=== PATIENT | female | born 1960 | race Caucasian/White ===

== ENCOUNTER 2021-06-30 13:59 | Outpatient (REF) | payer MEDICARE, MEDICAID, SELFPAY ==
--- NOTE | ~2021-06-30 | US_ITS ---
EXAMINATION: US ABDOMEN COMPLETE CLINICAL INFORMATION: Abnormal LFTs. COMPARISON: CT abdomen and pelvis 08/06/2017. Renal ultrasound 06/26/2016 and 10/12/2014. TECHNIQUE: Real-time imaging of the abdominal viscera. FINDINGS: PANCREAS: The pancreas appears unremarkable, without masses or ductal dilatation, with the exception of the tail which is obscured by bowel gas. ABDOMINAL AORTA: The proximal, mid, and distal segments are normal in caliber. INFERIOR VENA CAVA: Visualized portions are normal. LIVER: The liver is normal in size. The liver contour is normal. There is mild diffuse increased liver parenchymal echogenicity, consistent with hepatic steatosis. No focal hepatic lesion. There is no intrahepatic biliary duct dilatation seen. GALLBLADDER: The gallbladder is physiologically distended without evidence of stones, sludge, wall thickening or pericholecystic fluid. COMMON BILE DUCT: Normal in caliber measuring 0.4 cm in diameter. RIGHT KIDNEY: Normal. No hydronephrosis. No renal calculi or focal parenchymal lesions. The kidney measures 9.3 cm in maximum dimension. LEFT KIDNEY: An extrarenal pelvis is seen as was also identified on the prior 2017 CT scan, although not as distended as previously seen. No hydronephrosis. No renal calculi or focal parenchymal lesions. The kidney measures 8.8 cm in maximum dimension. SPLEEN: Normal. The spleen measures 6.6 cm in maximum dimension. FREE FLUID: None. US/US abdomen complete IMPRESSION: Slightly echogenic liver suggesting hepatic steatosis. Left-sided extrarenal pelvis.
== END 2021-06-30 14:00 | disposition home or self-care (01) ==
LOC: HO.HMGCX 13:59
PROVIDERS: PCP Internal Medicine; Visit Provider Internal Medicine
DX: R79.89 Other specified abnormal findings of blood chemistry (principal)
CPT/HCPCS: 76700

== ENCOUNTER 2021-08-02 14:02 | Outpatient (REF) | payer MEDICARE, MEDICAID, SELFPAY ==
--- NOTE | ~2021-08-02 | XR_ITS ---
EXAMINATION: PELVIS. CLINICAL INFORMATION: Pre-MRI lumbar spine evaluation. Previous removal of neuro stimulator COMPARISON: AP pelvis 01/06/2019. TECHNIQUE: AP pelvis. FINDINGS: The stimulator hardware has been removed. However there is electrode seen overlying the right sacrum likely a broken piece following removal. The SI joints are otherwise symmetrical and normal. Moderate enthesophytes are seen along the femoral head and neck bilaterally slightly greater on the right. Mild periarticular spurring along the acetabulum is seen as well. No visible acute fracture, dislocation or lytic process seen. The soft tissues are normal. XR/XR pre mri screening IMPRESSION: The stimulator hardware has been removed. However there is a broken stimulator lead overlying the right sacrum. All degenerative changes bilateral hip joints slightly worse on the right. Findings are unchanged to 01/06/2019.
--- NOTE | ~2021-08-02 | MR_ITS ---
EXAMINATION: MR LUMBAR SPINE WITHOUT CONTRAST CLINICAL INFORMATION: Chronic, worsening lower back pain. COMPARISON: Multiple priors, most recent lumbar spine CT dated 08/02/2016, radiographs dated 07/23/2016, and MRI dated 06/02/2014 TECHNIQUE: MRI of the lumbar spine was obtained using routine sequences without contrast. FINDINGS: VERTEBRAL BODIES AND PARASPINAL STRUCTURES: Normal vertebral body alignment. The lumbar lordosis is maintained. No acute fracture or subluxation. No loss of vertebral body height. Mild loss of intervertebral disc height with disc desiccation at L2-L5, slightly progressed when compared to the prior MRI. Multilevel tiny anterior endplate osteophytes. No marrow edema to suggest acute osseous injury. Extrarenal pelvises, left greater than right. Otherwise, the visualized paraspinal soft tissues are unremarkable. CONUS MEDULLARIS AND CAUDA EQUINA: Normal, terminating at the level of the T12-L1 intervertebral disc. SPINAL LEVELS: T12-L1: No significant disc bulge. No central canal or neural foraminal stenosis. L1-L2: No significant disc bulge. Bilateral facet arthropathy and thickening of the ligamentum flavum without central canal or neural foraminal stenosis. L2-L3: Mild broad-based disc bulge with bilateral facet arthropathy and thickening of the ligamentum flavum causing minimal central canal stenosis as well as minimal bilateral neural foraminal stenosis, left greater than right. Findings are not significantly changed. L3-L4: Mild broad-based disc bulge with bilateral facet arthropathy and thickening of the ligamentum flavum causing minimal central canal stenosis as well as mild bilateral neural foraminal stenosis, not significantly changed. L4-L5: Mild broad-based disc bulge with a shallow right extraforaminal disc protrusion which abuts the exiting right L4 nerve root, new/increased when compared to the prior examination. Bilateral facet arthropathy and thickening of the ligamentum flavum with mild central canal stenosis as well as mild bilateral neural foraminal stenosis which is unchanged. L5-S1: Minimal broad-based disc bulge with a shallow posterior central disc protrusion, bilateral facet arthropathy, and thickening of the ligamentum flavum causing mild central canal as well as mild bilateral neural foraminal stenosis, unchanged. MR/MR lumbar spine wo con IMPRESSION: 1. Mild broad-based disc bulge at L4-L5 with a shallow right extraforaminal disc protrusion which abuts the exiting right L4 nerve root, new/increased when compared to the prior examination. Bilateral facet arthropathy and thickening of the ligamentum flavum cause mild central canal and mild bilateral neural foraminal stenosis which is unchanged. 2. Additional multilevel degenerative disc disease has minimally progressed. Additional disc bulges and stenosis appear similar when compared to the prior MRI.
== END 2021-08-02 14:03 | disposition home or self-care (01) ==
LOC: HO.MRI 14:02
PROVIDERS: PCP Internal Medicine; Visit Provider Internal Medicine
DX: G89.29 Other chronic pain (principal); M46.45 Discitis, unspecified, thoracolumbar region
CPT/HCPCS: 72148

== ENCOUNTER 2022-02-13 11:25 | Emergency (ER) | payer MEDICARE, MEDICAID, SELFPAY ==
--- NOTE | ~2022-02-13 | CT_ITS ---
EXAMINATION: CT ANGIOGRAM OF THE CHEST WITH AND WITHOUT CONTRAST (CT PULMONARY ANGIOGRAM FOR PE) CLINICAL INFORMATION: Reason for Exam SOB, chest pain, hemoptysis COMPARISON: CT chest 07/10/2016 TECHNIQUE: Prior to contrast administration, noncontrast localization images were obtained. Subsequently, multidetector volumetric imaging was performed from the thoracic inlet to below the diaphragms following the administration of 65 mL Omnipaque 350 intravenous contrast. No contrast reaction reported Sagittal, coronal, and MIP oblique sagittal reformatted images were obtained on the CT workstation, uploaded to PACS, and reviewed. This CT examination was performed using dose optimization techniques as appropriate, variously including the following: *Automated exposure control *Adjustment of mA and/or kV according to patient size (this includes techniques or standardized protocols for targeted exams where dose is matched to indication/reason for exam; i.e. extremities or head) *Use of iterative reconstruction technique Total exam dose-length product 214 mGy-cm FINDINGS: QUALITY OF STUDY/CONTRAST BOLUS: Satisfactory. PULMONARY ARTERIES: No central or segmental pulmonary emboli. THORACIC AORTA: No aneurysm or dissection. LUNG: Multiple small pulmonary nodules are seen most of which are unchanged (see al images). There is a new perifissural 7 mm sized lung nodule present in the right lower lobe which was not present previously (14:313) and al images. PLEURA: No pleural effusion or pneumothorax. MEDIASTINUM: Normal heart size. No pericardial effusion. No hilar or mediastinal lymphadenopathy. No evidence of septal bowing or right heart strain. CHEST WALL/AXILLA: No axillary or internal mammary lymphadenopathy. OSSEOUS STRUCTURES: No acute or suspicious osseous abnormality. UPPER ABDOMEN: Unremarkable. No reflux of contrast into the hepatic veins to suggest elevated right heart pressures. CT/CT angio chest PE protocol IMPRESSION: 1. No evidence of pulmonary emboli. 2. New 7 mm lung mass when compared with the prior [address] 2017 Fleischner Society Recommendations for Lung Nodule(s): Follow-Up based on size (average of long- and short-axis diameters). Use most suspicious nodule for followup. Single Solid lung nodule 6-8 mm: In a low-risk patient, recommend a non-contrast Chest CT at 6-12 months, then consider an additional non-contrast Chest CT at 18-24 months. In a high-risk patient, recommend a non-contrast Chest CT at 6-12 months, then another non-contrast Chest CT at 18-24 months. These guidelines do not apply to patients younger than 35 years, immunocompromised patients, and patients with cancer. F/u in patients with significant comorbidities as clinically warranted. For lung cancer screening, adhere to Lung-RADS guidelines. Reference: Radiology. 2017 May; 284(1):228-243 VTE: negative
--- NOTE | ~2022-02-13 | CT_ITS ---
EXAMINATION: CT HEAD WITHOUT CONTRAST CT CERVICAL SPINE WITHOUT CONTRAST CLINICAL INFORMATION: Headache after a fall COMPARISON: CT head 02/13/2011, 07/28/2010 TECHNIQUE: Imaging was performed from the skull base to vertex without intravenous administration of contrast. In addition, helical noncontrast CT imaging was acquired through the cervical spine and source images were reviewed along with axial reconstructions and sagittal and coronal MPRs. [This CT examination was performed using dose optimization techniques as appropriate, variously including the following: *Automated exposure control *Adjustment of mA and/or kV according to patient size (this includes techniques or standardized protocols for targeted exams where dose is matched to indication/reason for exam; i.e. extremities or head) *Use of iterative reconstruction technique] DLP: 10.25+6.2, 9.79+230.25+229.22 mGy-cm FINDINGS: HEAD: No intracranial mass, hemorrhage, or midline shift is visualized. The ventricles and sulci are proportional. No extra-axial collections are identified. The paranasal sinuses and mastoid air cells are well aerated. CERVICAL SPINE: There is no evidence of acute cervical spine fracture. Vertebral bodies remain normal in height. Cervical vertebrae have normal alignment. There is mild degenerative spondylosis of the cervical spine with disc height narrowing and endplate spurs and facet joint arthrosis at C5-C6 and C6-C7 No pre- or paravertebral soft tissue abnormality is identified. Limited assessment of the lung apices is unremarkable. CT/CT head/brain wo con IMPRESSION: 1. No acute intracranial pathology. 2. No CT evidence of acute cervical spine fracture or traumatic subluxation
--- NOTE | ~2022-02-13 | CT_ITS ---
EXAMINATION: CT HEAD WITHOUT CONTRAST CT CERVICAL SPINE WITHOUT CONTRAST CLINICAL INFORMATION: Headache after a fall COMPARISON: CT head 02/13/2011, 07/28/2010 TECHNIQUE: Imaging was performed from the skull base to vertex without intravenous administration of contrast. In addition, helical noncontrast CT imaging was acquired through the cervical spine and source images were reviewed along with axial reconstructions and sagittal and coronal MPRs. [This CT examination was performed using dose optimization techniques as appropriate, variously including the following: *Automated exposure control *Adjustment of mA and/or kV according to patient size (this includes techniques or standardized protocols for targeted exams where dose is matched to indication/reason for exam; i.e. extremities or head) *Use of iterative reconstruction technique] DLP: 10.25+6.2, 9.79+230.25+229.22 mGy-cm FINDINGS: HEAD: No intracranial mass, hemorrhage, or midline shift is visualized. The ventricles and sulci are proportional. No extra-axial collections are identified. The paranasal sinuses and mastoid air cells are well aerated. CERVICAL SPINE: There is no evidence of acute cervical spine fracture. Vertebral bodies remain normal in height. Cervical vertebrae have normal alignment. There is mild degenerative spondylosis of the cervical spine with disc height narrowing and endplate spurs and facet joint arthrosis at C5-C6 and C6-C7 No pre- or paravertebral soft tissue abnormality is identified. Limited assessment of the lung apices is unremarkable. CT/CT cervical spine wo con IMPRESSION: 1. No acute intracranial pathology. 2. No CT evidence of acute cervical spine fracture or traumatic subluxation
[2022-02-13 11:51] VITALS: BP 132/73; BP 99/66; PULSE 100; PULSE 106; RESP 18; TEMP 36.9; O2SAT 94; O2SAT 95; BMI 20.7
--- NOTE | 2022-02-13 11:56 | ECG_ITS ---
Test Reason : UPPER RESPIRATORY Blood Pressure : / mmHG Vent. Rate : 088 BPM Atrial Rate : 088 BPM P-R Int : 138 ms QRS Dur : 086 ms QT Int : 356 ms P-R-T Axes : 083 063 076 degrees QTc Int : 430 ms Normal sinus rhythm Normal ECG When compared with ECG of 20-FEB-2017 15:28, No significant change was found Referred By: Vivi Osman Electronically Signed By:Kwadwo Rubio
--- NOTE | 2022-02-13 12:13 | ED.GENADULT ---
HPI - General Adult General Chief complaint: Upper Respiratory Symptoms Stated complaint: SOB Time Seen by Provider: 02/13/22 11:56 Source: patient and EMS Mode of arrival: EMS Limitations: no limitations History of Present Illness HPI narrative: 61 y/o female with history of COPD, active smoker, HTN, chronic back and neck pain, anxiety/depression, who presents to the ER from home with 6 weeks of SOB, productive cough along with new brown sputum. She was found to be hypotensive and hypothermic by her boyfriend today when he checked her vital signs. She was treated with 2 courses of abx over the last month and a half with no improvements in her SOB or cough. Two night ago she either fell asleep or passed out on the toilet and woke up on the floor. She hit her head and has been having acute on chronic neck pain. She has been having intermittent chest pains she describes as twinges. She has had chills but no fevers. Temps at home were as low as 93 per her report. She denies sick contacts. On EMS arrival patient placed the patient in cervical collar due to neck pain after fall. MD complaint: SOB, cough, neck pain s/p fall Onset (ago): week(s) Location: head, neck and chest Radiation: non-radiation Severity: moderate Quality: aching and sharp Pain Consistency: constant Relieving factors: none Exacerbating factors: none Associated symptoms: chest pain, cough and shortness of breath Treatments prior to arrival: none Related Data Home Medications Medication Instructions Recorded Confirmed acetaminophen 500 mg capsule 1,000 mg PO Q6H PRN 12/21/20 12/21/20 albuterol sulfate 90 mcg/actuation 2 puff INHALATION 6XD PRN 12/21/20 12/21/20 aerosol inhaler (ProAir HFA) aspirin 81 mg tablet,delayed 81 mg PO DAILY 12/21/20 12/21/20 release atorvastatin 20 mg tablet 20 mg PO DAILY 12/21/20 12/21/20 diazepam 10 mg tablet 10 mg PO DAILY PRN 12/21/20 12/21/20 fluoxetine 40 mg capsule 40 mg PO CONT 12/21/20 12/21/20 multivitamin 1 tab PO DAILY 12/21/20 12/21/20 tiotropium bromide 18 mcg capsule 1 cap INHALATION DAILY 12/21/20 12/21/20 with inhalation device (Spiriva with HandiHaler) tramadol 50 mg tablet 50 mg PO BID PRN 12/21/20 12/21/20 verapamil 200 mg capsule 24hr 200 mg PO BEDTIME 12/21/20 12/21/[address],ext.release Previous Rx's Medication Instructions Recorded fluticasone 100 mcg-salmeterol 50 1 inh INHALATION BID #60 ea 02/13/22 mcg/dose blistr powdr for inhalation (Advair Diskus) levofloxacin 250 mg tablet 250 mg PO DAILY #5 tab 02/13/22 Allergies Allergy/AdvReac Type Severity Reaction Status Date / Time codeine [CODEINE] Allergy Intermediate ITCHING Verified 02/13/22 11:51 hydrocodone [HYDROCODONE] Allergy Intermediate ITCHING Verified 02/13/22 11:51 diphenhydramine AdvReac Intermediate JITTERY Verified 02/13/22 11:51 [From BENHUEL] Review of Systems Review of Systems: Constitutional: No Fever, + Chills ENT/Mouth: No sore throat, No Rhinorrhea, No Swallowing Difficulty Eyes: No Eye Pain, No Swelling, No Redness Cardiovascular: + Chest Pain, + SOB, No Orthopnea, No Edema Respiratory: + Cough, + Sputum, No Wheezing, + dyspnea Gastrointestinal: No Nausea, No Vomiting, No Diarrhea, No abdominal Pain, No Hematochezia, No Melena Genitourinary: No Dysuria, No Urinary Frequency, No Hematuria, +Urinary hesitancy Musculoskeletal: + joint pain, No Myalgias Skin: No Skin Lesions, No rash Neuro: No Weakness, No Numbness, No Dizziness, + Headache Psych: + Anxiety/Panic, + Depression Heme/Lymph: No Bruising, No Lymphadenopathy Endocrine: No Polyuria, No Polydipsia [facility] Past Medical History Medical History (Updated 02/13/22 @ 16:57 by BALBINA Tejada) Anxiety COPD (chronic obstructive pulmonary disease) DJD (degenerative joint disease) Ectopic History of depression History of herniated intervertebral disc Hyperlipidemia Hypertension IBS (irritable bowel syndrome) PTSD (post-traumatic stress disorder) Scoliosis Urinary incontinence Surgical History (Updated 12/21/20 @ 15:20 by Faye Daley RN) H/O ovarian cystectomy History of bladder surgery History of bladder suspension procedure History of blepharoplasty History of esophagogastroduodenoscopy (EGD) History of hysterectomy Hx of colonoscopy Hx of dilation of urethra Social History Social History Cigarette Packs Per Day: 0.5 Cigarettes Per Day: 10.0 Years Smoked: 33 years Advance Directives: No Advance Directives Information Provided: No Physical Exam ED Vital Signs: Vital Signs - 24 hr 02/13/22 11:51 02/13/22 15:28 Temperature 98.5 F Pulse Rate 106 H 78 Respiratory Rate 18 16 Blood Pressure 99/66 103/72 Pulse Oximetry 94 95 BMI result Body Mass Index 20.7 Appearance: Alert. Oriented X3. No acute distress. Head: normal inspection, left parietal area with palpable tender hematoma Eyes: Pupils equal, round and reactive to light. EOMI ENT: Pharynx normal. Neck: Cervical collar in place. Midline tenderness. CVS: Normal heart rate and rhythm. Pulses normal. Respiratory: No respiratory distress. Breath sounds normal. Abdomen: Soft and nontender. +BS x4 Skin: Skin warm and dry. Normal skin color. Normal skin turgor. No rashes. Extremities: Atraumatic, normal insepction, normal ROM. No lower extremity edema. Neuro: Oriented X 3. No motor deficit. No sensory deficit. Course Course Course Narrative: 61-year-old female with history of COPD, active smoker, hypertension, anxiety/depression who presents to the ER with shortness of breath, chest pain, productive cough, also with a fall 2 nights ago with head and neck pain. She was hypothermic and hypotensive per her boyfriend so EMS was called. On arrival to the ED blood pressure is soft but stable 99/66. She is slightly tachycardic 106 with SpO2 94%. No respiratory distress with coarse lung sounds. Will need to get CT head and neck given her reports of headache and neck pain after her fall, although doubt traumatic injury given date of injury. Will also get CTA of her chest rule out PE given her question of syncopal event. Reevaluation(s) Reevaluation #1: Labs showing mildly elevated bicarb, likely due to chronic respiratory acidosis compensation. Troponin negative. EKG normal. CT scans are pending. Reevaluation #2: CTA negative for PE. 7mm nodule noted that is new from prior. Head/neck CTs are unremarkable. Discussed results with patient and significant other at the bedside. Awaiting UA Reevaluation #3: UA + for infection, will treat with levaquin to cover possible bronchitis as well. stable for d/c home - she will follow up with her fha underwriter and PCP. Medical Decision Making Lab Data Result diagrams: 02/13/22 12:26 02/13/22 12:25 Labs: Lab Results 02/13/22 02/13/22 02/13/22 Range/Units 12:25 12:25 12:25 WBC (4.8-10.8) X10*3/uL RBC (4.20-5.50) X10*6/uL Hgb (12.0-16.0) g/dl Hct (37.0-47.0) % MCV (80.0-98.0) fL MCH (27.0-33.0) pg MCHC (31.0-35.0) g/dl RDW (11.0-16.0) % Plt Count (160-400) X10*3/uL MPV (9.4-12.3) fL Immature Gran % (Auto) (0.0-0.4) % Neut % (Auto) (45-73) % Lymph % (Auto) (20-40) % [place] % (Auto) (2-11) % Eos % (Auto) (0-4) % Baso % (Auto) (0-2) % Lymph # (Auto) (1.2-4.9) X10*3/uL [place] # (Auto) (0.1-1.2) X10*3/uL Eos # (Auto) (0.0-0.4) X10*3/uL Baso # (Auto) (0.0-0.2) X10*3/uL Abs Immat Gran (auto) (0.00-0.03) X10*3/uL Absolute Neuts (auto) (2.0-8.3) x10*3/uL Absolute Nucleated RBC (0.0-0.012) X10*3/uL Nucleated RBC % (auto) (0.0-0.2) /100WBC Sodium 142 (135-145) mmol/L Potassium 4.4 (3.3-5.1) mmol/L Chloride 103 (96-108) mmol/L Carbon Dioxide 32 H (22-29) mmol/L Anion Gap 11 L (12-20) BUN 19 H (9-16) mg/dL Creatinine 0.75 (0.5-1.4) mg/dL Estim Creat Clear Calc 58.7 Estimated GFR > 60 Random Glucose 105 (60-115) mg/dL Calcium 9.5 (8.4-10.2) mg/dL Magnesium 1.8 (1.6-2.6) mg/dL Total Bilirubin 0.2 (0.0-1.0) mg/dL Direct Bilirubin < 0.2 (0.0-0.5) mg/dL AST 22 (5-31) U/L ALT 34 H (0-31) U/L Alkaline Phosphatase 70 (39-117) U/L Troponin I High Sens < 3.5 (<3.5-17.0) ng/L B-Natriuretic Peptide 19 (<100) pg/mL Total Protein 5.8 L (6.5-8.0) g/dL Albumin 3.8 (3.5-5.0) g/dL Procalcitonin 0.02 ng/mL Urine Color Urine Appearance Urine pH (5.0-8.0) Ur Specific [place] (1.005-1.025) Urine Protein (NEG-TRACE) MG/DL Urine Glucose (UA) (NEG) MG/DL Urine Ketones (NEG) MG/DL Urine Blood (NEG) Urine Nitrite (NEG) Ur Leukocyte Esterase (NEG) Urine RBC (0) /HPF Urine WBC (0-4) /HPF Urine WBC Clumps Ur Squamous Epith Cells /LPF Urine Bacteria /LPF COVID-19 (ADRIAN) (Negative) COVID-19 Clin Com Influenza Type A (RAVEN) (Negative) Influenza Type B (RAVEN) (Negative) Influenza A & B Note 02/13/22 02/13/22 02/13/22 Range/Units 12:26 12:28 12:28 WBC 10.3 (4.8-10.8) X10*3/uL RBC 4.03 L (4.20-5.50) X10*6/uL Hgb 13.6 (12.0-16.0) g/dl Hct 40.5 (37.0-47.0) % MCV 100.5 H (80.0-98.0) fL MCH 33.7 H (27.0-33.0) pg MCHC 33.6 (31.0-35.0) g/dl RDW 12.8 (11.0-16.0) % Plt Count 265 (160-400) X10*3/uL MPV 9.0 L (9.4-12.3) fL Immature Gran % (Auto) 0.4 (0.0-0.4) % Neut % (Auto) 64.8 (45-73) % Lymph % (Auto) 25.6 (20-40) % [place] % (Auto) 6.9 (2-11) % Eos % (Auto) 2.0 (0-4) % Baso % (Auto) 0.3 (0-2) % Lymph # (Auto) 2.6 (1.2-4.9) X10*3/uL [place] # (Auto) 0.7 (0.1-1.2) X10*3/uL Eos # (Auto) 0.2 (0.0-0.4) X10*3/uL Baso # (Auto) 0.0 (0.0-0.2) X10*3/uL Abs Immat Gran (auto) 0.04 H (0.00-0.03) X10*3/uL Absolute Neuts (auto) 6.7 (2.0-8.3) x10*3/uL Absolute Nucleated RBC 0.000 (0.0-0.012) X10*3/uL Nucleated RBC % (auto) 0.0 (0.0-0.2) /100WBC Sodium (135-145) mmol/L Potassium (3.3-5.1) mmol/L Chloride (96-108) mmol/L Carbon Dioxide (22-29) mmol/L Anion Gap (12-20) BUN (9-16) mg/dL Creatinine (0.5-1.4) mg/dL Estim Creat Clear Calc Estimated GFR Random Glucose (60-115) mg/dL Calcium (8.4-10.2) mg/dL Magnesium (1.6-2.6) mg/dL Total Bilirubin (0.0-1.0) mg/dL Direct Bilirubin (0.0-0.5) mg/dL AST (5-31) U/L ALT (0-31) U/L Alkaline Phosphatase (39-117) U/L Troponin I High Sens (<3.5-17.0) ng/L B-Natriuretic Peptide (<100) pg/mL Total Protein (6.5-8.0) g/dL Albumin (3.5-5.0) g/dL Procalcitonin ng/mL Urine Color Urine Appearance Urine pH (5.0-8.0) Ur Specific [place] (1.005-1.025) Urine Protein (NEG-TRACE) MG/DL Urine Glucose (UA) (NEG) MG/DL Urine Ketones (NEG) MG/DL Urine Blood (NEG) Urine Nitrite (NEG) Ur Leukocyte Esterase (NEG) Urine RBC (0) /HPF Urine WBC (0-4) /HPF Urine WBC Clumps Ur Squamous Epith Cells /LPF Urine Bacteria /LPF COVID-19 (ADRIAN) Negative (Negative) COVID-19 Clin Com See Note Influenza Type A (RAVEN) Negative (Negative) Influenza Type B (RAVEN) Negative (Negative) Influenza A & B Note See Note 02/13/22 Range/Units 16:40 WBC (4.8-10.8) X10*3/uL RBC (4.20-5.50) X10*6/uL Hgb (12.0-16.0) g/dl Hct (37.0-47.0) % MCV (80.0-98.0) fL MCH (27.0-33.0) pg MCHC (31.0-35.0) g/dl RDW (11.0-16.0) % Plt Count (160-400) X10*3/uL MPV (9.4-12.3) fL Immature Gran % (Auto) (0.0-0.4) % Neut % (Auto) (45-73) % Lymph % (Auto) (20-40) % [place] % (Auto) (2-11) % Eos % (Auto) (0-4) % Baso % (Auto) (0-2) % Lymph # (Auto) (1.2-4.9) X10*3/uL [place] # (Auto) (0.1-1.2) X10*3/uL Eos # (Auto) (0.0-0.4) X10*3/uL Baso # (Auto) (0.0-0.2) X10*3/uL Abs Immat Gran (auto) (0.00-0.03) X10*3/uL Absolute Neuts (auto) (2.0-8.3) x10*3/uL Absolute Nucleated RBC (0.0-0.012) X10*3/uL Nucleated RBC % (auto) (0.0-0.2) /100WBC Sodium (135-145) mmol/L Potassium (3.3-5.1) mmol/L Chloride (96-108) mmol/L Carbon Dioxide (22-29) mmol/L Anion Gap (12-20) BUN (9-16) mg/dL Creatinine (0.5-1.4) mg/dL Estim Creat Clear Calc Estimated GFR Random Glucose (60-115) mg/dL Calcium (8.4-10.2) mg/dL Magnesium (1.6-2.6) mg/dL Total Bilirubin (0.0-1.0) mg/dL Direct Bilirubin (0.0-0.5) mg/dL AST (5-31) U/L ALT (0-31) U/L Alkaline Phosphatase (39-117) U/L Troponin I High Sens (<3.5-17.0) ng/L B-Natriuretic Peptide (<100) pg/mL Total Protein (6.5-8.0) g/dL Albumin (3.5-5.0) g/dL Procalcitonin ng/mL Urine Color YELLOW Urine Appearance HAZY Urine pH 5.5 (5.0-8.0) Ur Specific [place] 1.020 (1.005-1.025) Urine Protein NEG (NEG-TRACE) MG/DL Urine Glucose (UA) NEG (NEG) MG/DL Urine Ketones NEG (NEG) MG/DL Urine Blood NEG (NEG) Urine Nitrite POS H (NEG) Ur Leukocyte Esterase NEG (NEG) Urine RBC 1-4 (0) /HPF Urine WBC 5-9 H (0-4) /HPF Urine WBC Clumps NOTED Ur Squamous Epith Cells 1+ /LPF Urine Bacteria 2+ /LPF COVID-19 (ADRIAN) (Negative) COVID-19 Clin Com Influenza Type A (RAVEN) (Negative) Influenza Type B (RAVEN) (Negative) Influenza A & B Note ECG Data Attestation: I personally reviewed and interpreted this ECG as follows: Prior ECG tracings: available for review Interpretation: Normal sinus rhythm, heart rate 88 beats per minute, normal ID interval, normal QTC, no ST segment elevations or depressions. Isolated T-wave inversion in V1, unchanged from prior. Critical Care Time Critical Care Time Critical Care Time: No Discharge Plan Discharge Clinical Impression: Lung nodule, Acute UTI Patient Disposition: Home, Self-Care Instructions: Urinary Tract Infection in Women (DC), Pulmonary Nodules (ED) Additional Instructions: Your lab workup today was unremarkable. Your urine test showed infection - take the entire course of the prescribed antibiotic. Your CT scans showed a new 7mm lung nodule in the right lower lobe that was not present on prior CT scans. Guidelines recommend a non-contrast Chest CT at 6-12 months, then another non-contrast Chest CT at 18-24 months.? Do your best to cut back on smoking. Start the inhaled medication 2 times per day. Follow up with your Nut Roaster Helper as soon as possible. If you develop new or worsening symptoms call 911 or come back to the ER for further evaluation. Prescriptions: New fluticasone propion-salmeterol [Advair Diskus] 100-50 mcg/dose blister with device 1 inh inhalation BID Qty: 60 0RF levofloxacin 250 mg tablet 250 mg PO DAILY Qty: 5 0RF No Action multivitamin Tablet 1 tab PO DAILY 0RF fluoxetine 40 mg capsule 40 mg PO CONT 0RF atorvastatin 20 mg tablet 20 mg PO DAILY 0RF aspirin [Aspir-81] 81 mg Tablet,Delayed Release (Dr/Ec) 81 mg PO DAILY 0RF tramadol 50 mg tablet 50 mg PO BID PRN (Reason: Pain) 0RF verapamil 200 mg capsule, [address] 200 mg PO BEDTIME 0RF diazepam 10 mg tablet 10 mg PO DAILY PRN (Reason: Anxiety) 0RF albuterol sulfate [ProAir HFA] 90 mcg/actuation Hfa Aerosol Inhaler 2 puff INHALATION 6XD PRN (Reason: Wheezing) 0RF acetaminophen [Tylenol Extra Strength] 500 mg Capsule 1,000 mg PO Q6H PRN (Reason: Pain) 0RF Spiriva with HandiHaler 18 mcg capsule, w/inhalation device 1 cap inhalation DAILY 0RF Referrals: Nai Bradley MD [Primary Care Provider] - 1 week (6 weeks cough, SOB, insomnia.)
[2022-02-13 12:40] LABS: MANUAL DIFF FLAG NO
[2022-02-13 12:48] LABS: Basophils Percent Auto 0.3 % (0-2); Eosinophils Absolute Auto 0.2 X10*3/uL (0.0-0.4); Hematocrit 40.5 % (37.0-47.0); Hemoglobin 13.6 g/dl (12.0-16.0); Imm Gran Abs Auto 0.04 X10*3/uL (0.00-0.03); Imm Gran Pct Auto 0.4 % (0.0-0.4); Lymphocytes Absolute Auto 2.6 X10*3/uL (1.2-4.9); Lymphocytes Percent Auto 25.6 % (20-40); Mean Corpuscular HGB Conc 33.6 g/dl (31.0-35.0); Mean Corpuscular Hemoglobin 33.7 pg (27.0-33.0); Mean Corpuscular Volume 100.5 fL (80.0-98.0); Monocytes Absolute Auto 0.7 X10*3/uL (0.1-1.2); Monocytes Percent Auto 6.9 % (2-11); Neutrophils Absolute Auto 6.7 x10*3/uL (2.0-8.3); Neutrophils Percent Auto 64.8 % (45-73); Platelet Count 265 X10*3/uL (160-400); Red Blood Count 4.03 X10*6/uL (4.20-5.50); Red Cell Distribution Width 12.8 % (11.0-16.0); White Blood Count 10.3 X10*3/uL (4.8-10.8)
[2022-02-13 13:00] LABS: Alanine Aminotransferase 34 U/L (0-31); Albumin Level 3.8 g/dL (3.5-5.0); Alkaline Phosphatase 70 U/L (39-117); Anion Gap 11 (12-20); Aspartate Amino Transferase 22 U/L (5-31); Bilirubin Direct < 0.2 mg/dL (0.0-0.5); Bilirubin Total 0.2 mg/dL (0.0-1.0); Blood Urea Nitrogen 19 mg/dL (9-16); Calcium 9.5 mg/dL (8.4-10.2); Carbon Dioxide 32 mmol/L (22-29); Chloride 103 mmol/L (96-108); Creatinine Clr Calc Pharmacy 58.7; Estimated Glomerular Filt Rate > 60; Glucose Random 105 mg/dL (60-115); Magnesium 1.8 mg/dL (1.6-2.6); Potassium 4.4 mmol/L (3.3-5.1); Sodium 142 mmol/L (135-145); Total Protein 5.8 g/dL (6.5-8.0)
[2022-02-13 13:01] LABS: COVID-19 Test Negative (Negative); IDNOW Serial# 55D5AD1C
[2022-02-13 13:02] LABS: Influenza A Negative (Negative); Influenza B2 Negative (Negative)
[2022-02-13 13:07] LABS: B Type Natriuretic Peptide 19 pg/mL (<100); Troponin-I High Sensitivity < 3.5 ng/L (<3.5-17.0)
[2022-02-13 13:22] LABS: Procalcitonin 0.02 ng/mL
[2022-02-13] MEDS: iohexoL 350 MG/ML 100 ML INFUS..BTL IV (14:11)
[2022-02-13 15:28] VITALS: BP 103/72; PULSE 78; RESP 16; O2SAT 95
[2022-02-13 16:48] LABS: Appearance Urine HAZY; Color Urine YELLOW; Glucose Urine UA NEG (NEG); Leukocyte Esterase Urine NEG (NEG); Nitrite Urine POS (NEG); PH 5.5 (5.0-8.0); UACC Culture Trigger YES; Urine Blood NEG (NEG); Urine Ketones NEG (NEG); Urine Protein NEG (NEG-TRACE)
[2022-02-13 16:54] LABS: Bacteria Urine 2+ /LPF; Squamous Epithelial Cell Urine 1+ /LPF; WBC Clumps Urine NOTED
== END 2022-02-13 17:40 | disposition home or self-care (01) ==
PROVIDERS: Physician Assistant; Emergency Provider Emergency Medicine; PCP Internal Medicine
DX: R91.8 Other nonspecific abnormal finding of lung field (principal); N39.0 Urinary tract infection, site not specified; R06.02 Shortness of breath; R00.0 Tachycardia, unspecified; Z20.822 Contact with and (suspected) exposure to COVID-19; R51.9 Headache, unspecified; M54.2 Cervicalgia; I10 Essential (primary) hypertension; E78.5 Hyperlipidemia, unspecified; F17.200 Nicotine dependence, unspecified, uncomplicated; Z79.02 Long term (current) use of antithrombotics/antiplatelets; Z79.899 Other long term (current) drug therapy
CPT/HCPCS: 70450; 71275; 72125; 80048; 80076; 81001; 83735; 83880; 84145; 84484; 85025; 87086; 87088; 87186; 87502; 87635; 93005; 99283; 99284; Q9967

== ENCOUNTER 2022-04-25 13:03 | Outpatient (REF) | payer MEDICARE, MEDICAID, SELFPAY ==
--- NOTE | ~2022-04-25 | MR_ITS ---
EXAMINATION: MR THORACIC SPINE WITHOUT AND WITH CONTRAST CLINICAL INFORMATION: Thoracic back pain. Rule out tumor. COMPARISON: Thoracic spine MRI 11/14/2010. TECHNIQUE: MRI of the thoracic spine was obtained using routine sequences without and with contrast. A total of 5 mL Gadavist was intravenously administered. FINDINGS: The thoracic vertebral bodies maintain normal heights and alignment. There is multilevel intervertebral disc height loss. Mild endplate edema is seen at T10-T11. There is short segment syrinx extending from T8 to T11 and maximally measuring up to 5 mm in AP dimension at the T10 level. The syrinx appears similar compared with 2010. 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 There is no evidence of intramedullary edema. No abnormal enhancement is seen within the thoracic cord. There is no evidence of intradural lesion. T7-T8: Left paracentral protrusion. No spinal canal or neural foraminal stenosis. T8-T9: Central disc protrusion. No spinal canal or neural foraminal stenosis. T9-T10: Right and left paracentral protrusions. No spinal canal or neural foraminal stenosis. T11-T12: Disc bulging. No spinal canal or neural foraminal stenosis. The extraspinal soft tissues are within normal limits. MR/MR thoracic spine wo/w con IMPRESSION: No mass or enhancing lesions. Short segment syrinx extending from T8 to T11 maximally measuring up to 5 mm at the T10 level, similar compared with 2010. Mild multilevel degenerative spondylosis without significant narrowing of the spinal canal or neural foramina.
== END 2022-04-25 13:04 | disposition home or self-care (01) ==
LOC: HO.MRI 13:03
PROVIDERS: Visit Provider Physical Medicine & Rehabilitation
DX: M54.6 Pain in thoracic spine (principal); R29.2 Abnormal reflex
CPT/HCPCS: 72157; A9585

== ENCOUNTER → 2023-02-14 13:59 | Outpatient (BNVA) | payer MEDICARE, MEDICAID, SELFPAY | PROVIDERS: PCP Internal Medicine; Visit Provider Internal Medicine | DX: R91.1 Solitary pulmonary nodule (principal); J44.9 Chronic obstructive pulmonary disease, unspecified; J30.9 Allergic rhinitis, unspecified; F17.210 Nicotine dependence, cigarettes, uncomplicated | CPT/HCPCS: 99202 ==

== ENCOUNTER 2023-04-09 12:59 | Outpatient (REF) | payer MEDICARE, MEDICAID, SELFPAY ==
--- NOTE | ~2023-04-09 | CT_ITS ---
EXAMINATION: CT CHEST WITHOUT CONTRAST CLINICAL INFORMATION: Pulmonary nodule COMPARISON: Previous chest CTA February 2022 TECHNIQUE: Multidetector volumetric CT imaging of the chest was done. Axial MIP volume rendering provided. Sagittal and coronal reformatted images were obtained. This CT examination was performed using dose optimization techniques as appropriate, variously including the following: *Automated exposure control *Adjustment of mA and/or kV according to patient size (this includes techniques or standardized protocols for targeted exams where dose is matched to indication/reason for exam; i.e. extremities or head) *Use of iterative reconstruction technique DLP: 91 mGy-cm FINDINGS: LUNGS: There is interval increase in size in the now 0.7 x 1.1 cm right lower lobe nodule adjacent to the major fissure axial image 395 series 5 compared to 5 x 7 mm February 2022. There may be some retraction of the adjacent major fissure. There are scattered small micronodules that are stable. There are scattered areas of increased bronchial attenuation and mild bronchial wall thickening suggestive of respiratory bronchiolitis or mild airways disease. There is new subsegmental atelectasis in the inferior segment of the lingula and left lower lobe. MEDIASTINUM: Small calcified nodule in the right lobe of the thyroid gland that is stable. Small mediastinal lymph nodes. No enlarged lymph nodes. Normal heart size. Small pericardial effusion. CORONARY ARTERY CALCIFICATION: None visualized on this study. PLEURA: There is no pleural effusion. No pleural mass or thickening. AXILLA: No lymphadenopathy. UPPER ABDOMEN: Cystic structure in the central left kidney question representing a peripelvic cyst versus renal pelvis dilatation. This is only partially visualized. OSSEOUS STRUCTURES: Degenerative changes of the spine. Sclerotic lesion in the superior endplate of the T7 vertebral body measuring 0.8 cm that is stable. CT/CT chest wo IV con IMPRESSION: Interval increase in size in the now 7 x 11 mm peripheral or subpleural right lower lobe nodule adjacent to the major fissure. PET/CT scan or tissue sampling recommended. Other small micronodules are stable. Evidence of mild airways disease/respiratory bronchiolitis. Stable 0.8 cm nonspecific sclerotic lesion in the T7 vertebral body. Fleischner guidelines were followed. Findings will be communicated by the [place] work flow screw machine hand
== END 2023-04-09 13:00 | disposition home or self-care (01) ==
LOC: HO.CT 12:59
PROVIDERS: PCP Internal Medicine; Visit Provider Internal Medicine
DX: R91.1 Solitary pulmonary nodule (principal)
CPT/HCPCS: 71250

== ENCOUNTER 2023-04-29 13:29 | Outpatient (REF) | payer MEDICARE, MEDICAID, SELFPAY ==
--- NOTE | 2023-04-29 14:29 | PFT_ITS ---
FLOWS: 1. FEV1 58% of predicted at 1.28 L. 2. FVC 75% of predicted at 2.14 L. 3. FEV1 to FVC ratio of 0.60. 4. Positive bronchodilator response. LUNG VOLUMES: 1. Total lung capacity 110% of predicted. 2. Residual volume 186% of predicted at 3.55 L. 3. Diffusion capacity is moderately decreased, diffusion capacity adjusts to being mildly decreased after correction for alveolar ventilation. IMPRESSION: Moderate to severe obstructive ventilatory defect with positive bronchodilator response. Increased residual volume suggests air trapping. Decreased expiratory reserve volume suggests emphysema. Jordan Mckeon MD AP/MODL / [id number]
== END 2023-04-29 13:30 | disposition home or self-care (01) ==
LOC: HO.RESP 13:29
PROVIDERS: Visit Provider Internal Medicine
DX: J44.9 Chronic obstructive pulmonary disease, unspecified (principal); F17.200 Nicotine dependence, unspecified, uncomplicated
CPT/HCPCS: 94060; 94727; 94729

== ENCOUNTER 2023-04-30 12:17 | Outpatient (REF) | payer MEDICARE, MEDICAID, SELFPAY ==
--- NOTE | ~2023-04-30 | PE_ITS ---
EXAMINATION: Fluorine-18 FDG PET/CT Scan CLINICAL INDICATION: Initial treatment management. Right lower lobe pulmonary nodule. PROCEDURE: 76 minutes following the intravenous administration of 16.1 mCi of fluorine 18 FDG, images from the base of the skull to the mid thighs were obtained using a combined PET/CT scanner with CT scan based attenuation correction. No oral contrast was administered. No intravenous contrast was administered. Transverse, coronal, sagittal, and volume reconstruction projections were obtained. The patient's blood glucose as determined by a finger stick, was 93 mg/dl immediately prior to injection. Total CT exam dose-length product 166.18 mGy-cm * These CT images were obtained using dose optimization techniques as appropriate, variously including the following: Automated exposure control * Adjustment of mA and/or kV according to patient size (this includes techniques or standardized protocols for targeted exams where dose is matched to indication/reason for exam; i.e. extremities or head) * Use of iterative reconstruction technique COMPARISON: No previous PET/CT scan is available for comparison. CT scan of the chest dated 04/09/[address] scan of the abdomen and pelvis dated 08/06/2017 are available for comparison. FINDINGS: (Slice numbers described in this report are numbered superiorly to inferiorly with slice #1 in the head) NECK AND VISUALIZED HEAD: No foci of abnormal FDG activity are noted. The distribution of FDG activity is physiological. There is no cervical lymphadenopathy. A subcentimeter densely calcified right thyroid nodule is present with no associated abnormal FDG activity. THORAX: There is abnormal FDG activity associated with the previously visualized right lower lobe pulmonary nodule, showing SUVmax 2.6, slice 88/223. This measures 1.1 x 0.9 cm in largest transverse dimensions and does not appear significantly changed from the recent diagnostic CT scan dated 04/09/2023. No additional foci of abnormal FDG activity are present in the chest. No additional suspicious pulmonary nodules are visualized. Small subcentimeter nodules visualized on the prior diagnostic CT scan are not apparent on these nondiagnostic CT images. There is a focus of pleural-based scarring or atelectasis laterally in the base of the left lower lobe that is similar to 04/09/2023 and shows no associated abnormal FDG activity. This is probably a focus of platelike atelectasis and contains some subcentimeter dense calcifications suggesting it is chronic there is no pleural or pericardial fluid, or pneumothorax. There is no mediastinal, supraclavicular, or axillary lymphadenopathy. ABDOMEN AND PELVIS: There are no foci of abnormal FDG activity in the abdomen or pelvis. Mild FDG activity is present throughout the gastrointestinal tract without a suspicious focal component. There is diverticulosis without evidence of diverticulitis. The hollow viscera are otherwise unremarkable. The liver, gallbladder, and spleen are unremarkable. A dilated left extrarenal pelvis is present and is unchanged from the 08/06/2017 CT scan of the abdomen and pelvis. The kidneys are otherwise unremarkable. The adrenal glands and pancreas are unremarkable. There is no retroperitoneal, mesenteric, pelvic or inguinal lymphadenopathy. The uterus is not visualized and presumed resected. The pelvic organs are otherwise unremarkable. MUSCULOSKELETAL: There is minimally increased FDG activity in the T2 vertebral body with no corresponding CT abnormality. This shows SUVmax 2.9, slice 44/223. No other foci of abnormal FDG activity are visualized in the osseous structures. There are degenerative changes in the spine and there is a subcentimeter sclerotic focus in the superior endplate of T7 with no associated abnormal FDG activity, likely a benign bone island. There are no suspicious sclerotic or lytic lesions visualized. VASCULAR: Scattered vascular calcifications are present. PET/PET CT fusion whole body IMPRESSION: 1. There is abnormal FDG activity associated with a right lower lobe pulmonary nodule, strongly suspicious for malignancy. Biopsy is recommended, if clinically indicated. 2. No additional abnormalities suspicious for metastatic or other malignant lesions are noted.
== END 2023-04-30 12:18 | disposition home or self-care (01) ==
LOC: HO.PET 12:17
PROVIDERS: PCP Internal Medicine; Visit Provider Internal Medicine
DX: Z13.89 Encounter for screening for other disorder (principal)

== ENCOUNTER 2023-05-16 16:01 | Observation (INO) | payer MEDICARE, MEDICAID, SELFPAY ==
--- NOTE | ~2023-05-16 | XR_ITS ---
EXAMINATION: XR CHEST CLINICAL INFORMATION: Shortness of breath. COMPARISON: PET CT 04/30/2023. TECHNIQUE: 2 views of the chest were obtained. FINDINGS: Normal appearance of the cardiomediastinal silhouette. No focal consolidation, pleural effusion or pneumothorax. Known FDG-avid pulmonary nodule in the right lower lobe is best seen on PET/CT from 04/30/[address] chest from 04/09/2023. Thoracic spondylosis. No acute osseous abnormalities. XR/XR chest 2V IMPRESSION: 1. No acute cardiopulmonary findings. 2. FDG-avid pulmonary nodule in the right lower lobe is best seen on PET/CT.
[2023-05-16 16:15] VITALS: BP 123/82; BP 149/85; PULSE 100; PULSE 104; RESP 20; TEMP 37; O2SAT 92; O2SAT 97; BMI 21.3
--- OUTSIDE RECORDS SUMMARY | 2023-05-16 16:32 | XMS_ITS ---
Author Name Mekhi Sauceda Jr Address [address] [place] [address] Organization [facility] Address [address] [place] [address] Care Team Providers Care Foam Rubber Curer Name Role Phone Sohail Rosa Mekhi Unavailable PROBLEMS Type Condition ICD9-CM Code QID05-HX Code Onset Dates Condition Status SNOMED Code Problem Unspecified abdominal pain R10.9 Active 06943275 Problem Change in bowel habit R19.4 Active 36031222 Problem Irritable bowel syndrome without diarrhea K58.9 Active 48321725 Problem Diarrhea R19.7 Active [id number] ALLERGIES Substance Reaction Event Type Date Status Codeine Sulfate Unknown Drug Allergy Dec, Activ e Hydrocodone-Ibuprofen Unknown Drug Allergy Dec, Active Benadryl Unknown Drug Allergy Dec, Active ENCOUNTERS Encounter Location Date Diagnosis [facility] [address] [place] [phone] Dec, [facility] [address] [place] [phone] 04 Dec, 2020 Change in bowel habit R19.4 [facility] [address] [place] [phone] Dec, [facility] [address] [place] [phone] Feb, [facility] [address] [place] [address] Dec, [facility] [place] [facility] [address] [place] [phone] Dec, [facility] [address] [place] [address] Nov, [facility] [address] [place] [address] Nov, [facility] [address] [place] [address] Nov, Unspecified abdominal pain R10.9 and Diarrhea R19.7 [facility] [address] [place] [address] Jan, [facility] [address] [place] [address] Dec, [facility] [address] [place] [address] Nov, [facility] [address] [place] [address] Nov, Irritable bowel syndrome without diarrhea K58.9 [facility] [address] [place] [address] Aug, [facility] [address] [place] [address] Jul, [facility] [address] [place] [address] Jul, [facility] [address] [place] [address] Apr, [facility] [address] [place] [address] March, [facility] [address] [place] [address] Feb, Diarrhea 787.91 and Abdominal pain 789.00 [facility] [address] [place] [address] Jan, [facility] [address] [place] [address] Dec, Abdominal pain 789.00 [facility] [address] [place] [address] Nov, [facility] [address] [place] [address] Nov, [facility] [address] [place] [address] Nov, [facility] [address] [place] [address] Nov, [facility] [address] [place] [address] Nov, [facility] [address] [place] [address] Nov, Abdominal pain 789.00 [facility] [address] [place] [address] Oct, [facility] [address] [place] [address] Jun, [facility] [place] [address] [place] [phone] Jun, [facility] [address] [place] [address] March, Diarrhea 787.91 and Colon cancer screening V76.51 [facility] [address] [place] [address] Oct, IMMUNIZATIONS Vaccine Route Administration Date Status Flu vaccine no Preserv 3 and > Unknown Oct 10 15 Administered SOCIAL HISTORY Qualifiers Date Current Smoker REASON FOR REFERRAL FUNCTIONAL STATUS PLAN OF CARE Activity Details VITAL SIGNS Weight 109 lbs 2020-12-08 Weight 118 lbs 2015-12-02 Weight 113 lbs 2015-02-10 Weight 115 lbs 2014-11-10 Weight 152 lbs 2013-03-12 Height 61 in 2020-12-08 Height 61 in 2015-12-02 Height 61 in 2015-02-10 Height 61 in 2014-11-10 Height 61.75 in 2013-03-12 BMI 20.59 kg/m2 2020-12-08 BMI 22.29 kg/m2 2015-12-02 BMI 21.35 kg/m2 2015-02-10 BMI 21.73 kg/m2 2014-11-10 BMI 28.02 kg/m2 2013-03-12 Heart Rate 80 /min 2014-11-10 Heart Rate 56 /min 2013-03-12 Temperature 97.7 degrees Fahrenheit Blood pressure systolic 000 mm Hg Blood pressure diastolic 00 mm Hg 2020-12 MEDICATIONS Medication Instructions Dosage Frequency Start Date End Date Duration Status Spiriva HandiHaler 18 MCG inhale contents of 1 capsule by mouth once daily 30 Active Albuterol Sulfate HFA 108 (90 Base) MCG/ACT Inhalation every 4 hrs 2 puffs as needed 4h Active Tylenol Active diazePAM 10 MG Orally Once a day 1 tablet as needed 24h Active FLUoxetine HCl 40 MG Active Atorvastatin Calcium 20 MG TAKE 1 TABLET BY MOUTH EVERY DAY ONE DOSE 90 Active Fiber Active Low-Dose Aspirin Active MiraLax (colon prep) 8.3 ounce ((238) grams orally begin at 5:00 p.m. the day before the procedure mixed with Gatorade or Crystal Light Dec, 1 day Active Verapamil HCl ER 200 MG TAKE 1 CAPSULE BY MOUTH EVERYDAY AT BEDTIME 90 Active Multivitamin Act reinaldo PROCEDURES Procedure Date Ordered Result Body Site HOSP SUB DAY-LOW CPLX Nov 03, 2014 COLORECTAL CA SCREEN DOC REV Dec 08, 2020 DOC MEDS VERIFIED W/PT OR RE Nov 10, 2014 BP SCR PRFRM RCMDD DEFIND SCR INTVL Dec 02, 2015 UPPER GI ENDOSCOPY, BIOPSY Nov 02, 2014 AT LEAST 1 RX TRANSMIT ERX SYS March 12, 2013 PT TOBACCO SCREEN RCVD TLK Dec 08, 2020 DOC MEDS VERIFIED W/PT OR RE Dec 08, 2020 INIT HOSP-MOD CPLX Nov 01, 2014 COLORECTAL CA SCREEN DOC REV Dec 02, 2015 FLU IMMUNIZE ORDER/ADMIN Dec 02, 2015 PT TOBACCO SCREEN RCVD TLK Dec 02, 2015 DOC MEDS VERIFIED W/PT OR RE Dec 02, 2015 BP NOT ASSESS PATIENT NOT ELIGIBLE Dec 08, 2020 BMI<30 AND >=22 CALC & DOCU Dec 02, 2015 RESULTS Name Result Date Reference Range GI BIOPSY 2016-12-14 G.I. BIOPSY TSH REFLEX FREE T4 2016-11-27 TSH 0.72 0.32-4.0 CT ABD & PELVIS WITH CONTRAST 2016-11-30 GI BIOPSY 2014-11-02 G.I. BIOPSY GI BIOPSY 2013-06-12 G.I. BIOPSY REASON FOR VISIT change in bowels, fyi cancelled procedure for saturday, patient presents today for TROUBLE MOVING BOWELS, Covid 19 Questions, patient presents today for diarrhea, cancelling OV, Looking for results, abnormal CT scan, send over colyte prep, would like bloodwork results and update on symptoms, patientwent to ER. didnt stay and went home. continuing symptoms/update pt is going to ER/pt went to ER , questions, Up date on Fiber supplement , ? fiber supplement pills, f/u, Pt no show, 6 month f/u, Needs dicyclomine refilled , Stopped into office, Pt has a few questions, 3 month f/u, 3 month f/u, Pt wanted sooner appt, Having trouble going to the bathroom, ABDOMINAL PAIN, ? on espohagitis diagnosis, stomach pain again, Has questions, ? okay to stop taking it. , Send report, abd pain, abd pain, Colonoscopy Results, screening colonoscopy, screening colonoscopy, pre-colon, screening colonoscopy, No show, screening colonoscopy Insurance Providers Health Insurance Type Health Plan Insurance Address Health Plan Insurance Phone Health Plan Insurance Name Health Plan Coverage Dates Member ID Patient Relationship to Subscriber Patient Address Patient Phone Patient Name Patient Date of Subscriber ID Subscriber Name Subscriber Date of Group No [place] [employer] [address] [facility] [address] [place] [employer] self GO BHANU [id number] MEDICARE OF [place] [address] [facility] [address] MED[place] OF [place] self GO BHANU [id number] [employer] [address] [facility] [address] [employer] self GO BHANU [id number] [facility] [address] [facility] [place][note 2] [address] [facility] self GO BHANU [id number]
[2023-05-16 16:36] VITALS: BP 124/94; PULSE 95; RESP 20; TEMP 37; O2SAT 94
--- NOTE | 2023-05-16 16:45 | PC.NURSE ---
Pt arrived with fiance at bed side via ambulace, stated she has cancerous nodule in left lung, c/o SOB starting 2 weeks ago, also c/o burning during urination.
--- NOTE | 2023-05-16 16:56 | ECG_ITS ---
Test Reason : CHEST PAIN Blood Pressure : / mmHG Vent. Rate : 084 BPM Atrial Rate : 084 BPM P-R Int : 160 ms QRS Dur : 074 ms QT Int : 350 ms P-R-T Axes : 082 059 065 degrees QTc Int : 413 ms Normal sinus rhythm Low voltage QRS Borderline ECG When compared with ECG of 13-FEB-2022 12:46, No significant change was found Referred By: Erwin Puri Electronically Signed By:ELBERT KEMP MD
[2023-05-16 17:34] LABS: MANUAL DIFF FLAG NO
[2023-05-16 17:42] LABS: Basophils Absolute Auto 0.1 X10*3/uL (0.0-0.2); Basophils Percent Auto 0.5 % (0-2); Eosinophils Absolute Auto 0.1 X10*3/uL (0.0-0.4); Eosinophils Percent Auto 0.6 % (0-4); Hematocrit 39.3 % (37.0-47.0); Hemoglobin 13.1 g/dl (12.0-16.0); Imm Gran Abs Auto 0.02 X10*3/uL (0.00-0.03); Imm Gran Pct Auto 0.2 % (0.0-0.4); Lymphocytes Absolute Auto 2.5 X10*3/uL (1.2-4.9); Lymphocytes Percent Auto 26.7 % (20-40); Mean Corpuscular HGB Conc 33.3 g/dl (31.0-35.0); Mean Corpuscular Hemoglobin 33.5 pg (27.0-33.0); Mean Corpuscular Volume 100.5 fL (80.0-98.0); Mean Platelet Volume 9.3 fL (9.4-12.3); Monocytes Absolute Auto 0.5 X10*3/uL (0.1-1.2); Monocytes Percent Auto 5.5 % (2-11); Neutrophils Absolute Auto 6.3 x10*3/uL (2.0-8.3); Neutrophils Percent Auto 66.5 % (45-73); Platelet Count 263 X10*3/uL (160-400); Red Blood Count 3.91 X10*6/uL (4.20-5.50); Red Cell Distribution Width 12.8 % (11.0-16.0); White Blood Count 9.5 X10*3/uL (4.8-10.8)
[2023-05-16 17:47] LABS: Appearance Urine Clear; Color Urine Yellow; Glucose Urine UA Negative (Negative); Leukocyte Esterase Urine Small (1+) (Negative); Nitrite Urine Positive (Negative); PH 5.5 (5.0-9.0); UMIC TRIGGER UACC YES; Urine Blood Negative (Negative); Urine Ketones Negative (Negative); Urine Protein Negative (Neg-Trace)
[2023-05-16 17:52] LABS: Bacteria Urine 4+ (None Seen); Hyaline Casts Urine 0-2 /LPF (0-2); RBC Urine 0-2 /HPF (0-2); Squamous Epithelial Cell Urine 0-2 /HPF (0-2); UACC Culture Trigger YES
[2023-05-16 17:54] LABS: Alanine Aminotransferase 33 U/L (0-31); Alkaline Phosphatase 67 U/L (39-117); Anion Gap 8 (12-20); Aspartate Amino Transferase 27 U/L (5-31); Bilirubin Total 0.3 mg/dL (0.0-1.0); Blood Urea Nitrogen 20 mg/dL (9-16); Calcium 9.5 mg/dL (8.4-10.2); Carbon Dioxide 31 mmol/L (22-29); Chloride 106 mmol/L (96-108); Estimated Glomerular Filt Rate > 60; Glucose Random 98 mg/dL (60-115); Lipase 19 U/L (8-78); Potassium 3.9 mmol/L (3.3-5.1); Sodium 141 mmol/L (135-145)
[2023-05-16] MEDS: Albuterol Sulfate 2.5 MG, Albuterol/Iprat 2.5/0.5MG 3 ML 3 ML INHALE (17:56)
[2023-05-16 17:58] VITALS: PULSE 96; RESP 16; O2SAT 95
--- NOTE | 2023-05-16 18:00 | ED.GENADULT ---
HPI - General Adult General Chief complaint: Dyspnea Stated complaint: SOB, FEELING SICK X 2 WEEKS Time Seen by Provider: 05/16/23 16:44 Source: patient, family (), RN notes reviewed and old records reviewed Mode of arrival: EMS Limitations: no limitations History of Present Illness HPI narrative: 62-year-old female with past medical history significant for COPD not on O2 presents for evaluation of shortness of breath. The patient reports that she has had increasing shortness of breath for the last 2 weeks. She reports increasing wheezing and cough She also reports fevers at home as high as 100 She has not been taking her ibuprofen or Tylenol for her symptoms Patient reports that she has spoken to her layout inspector, Dr. Cowan, and she has had the PACS on 2 separate occasions last 2 weeks. She states that she had prednisone prior to that does not been on prednisone last 2 weeks Denies any chest pain. She also reports left ear pain and ?UTI symptoms. ? Denies any history of heart failure or leg swelling The patient was diagnosed with a lung nodule and had a PET scan 3 weeks ago suggestive of malignancy but the patient has yet to have a needle biopsy The patient continues to smoke reports that she has cut her smoking habits by approximately 1/2 Related Data Home Medications Medication Instructions Recorded Confirmed acetaminophen 500 mg capsule 1,000 mg PO Q6H PRN Pain 12/21/20 02/14/23 albuterol sulfate 90 mcg/actuation 2 puff inhalation 6XD PRN Wheezing 12/21/20 02/14/23 aerosol inhaler (ProAir HFA) aspirin 81 mg tablet,delayed 81 mg PO DAILY 12/21/20 02/14/23 release atorvastatin 20 mg tablet 20 mg PO DAILY 12/21/20 02/14/23 diazepam 10 mg tablet 10 mg PO DAILY PRN Anxiety 12/21/20 02/14/23 fluoxetine 40 mg capsule 40 mg PO CONT 12/21/20 02/14/23 multivitamin 1 tab PO DAILY 12/21/20 02/14/23 tiotropium bromide 18 mcg capsule 1 cap inhalation DAILY 12/21/20 02/14/23 with inhalation device (Spiriva with HandiHaler) tramadol 50 mg tablet 50 mg PO BID PRN Pain 12/21/20 02/14/23 verapamil 200 mg capsule 24hr 200 mg PO BEDTIME 12/21/20 02/14/[address],ext.release bupropion HCl 300 mg 24 hr tablet, mg PO 02/14/23 02/14/23 extended release fluticasone propionate 50 intranasal 02/14/23 02/14/23 mcg/actuation nasal spray,suspension prazosin 1 mg capsule mg PO 02/14/23 02/14/23 prazosin 2 mg capsule mg PO 02/14/23 02/14/23 topiramate 25 mg tablet mg PO 02/14/23 02/14/23 Previous Rx's Medication Instructions Recorded azithromycin 250 mg tablet See Rx Instructions PO .COMPLEX #6 05/04/23 tabs prednisone 20 mg tablet 40 mg PO DAILY 5 days #10 tabs 05/04/23 azithromycin 250 mg tablet See Rx Instructions PO .COMPLEX #6 05/11/23 tabs prednisone 5 mg tablet 5 mg PO BID 7 days #14 tabs 05/11/23 Allergies Allergy/AdvReac Type Severity Reaction Status Date / Time codeine [CODEINE] Allergy Intermediate ITCHING Verified 02/14/23 14:44 hydrocodone [HYDROCODONE] Allergy Intermediate ITCHING Verified 02/14/23 14:44 diphenhydramine AdvReac Intermediate JITTERY Verified 02/14/23 14:44 [From BENADRYL] Review of Systems Constitutional: Constitutional: Reports chills, Reports fever(s) and Reports malaise ENT: Reports otalgia Cardiovascular: Cardiovascular: Denies chest pain and Reports dyspnea Respiratory: Respiratory: Reports cough, Reports dyspnea and Reports wheezing Gastrointestinal: Gastrointestinal: Denies abdominal pain, Reports nausea and Denies vomiting Genitourinary: Genitourinary: Reports dysuria Musculoskeletal: Musculoskeletal: Denies back pain Psychiatric: Psychiatric: Reports anxiety Allergic/Immunologic: Allergic/Immunologic: Reports wheezing [facility] Past Medical History Medical History (Updated 05/16/23 @ 22:03 by Erwin Puri) Allergic rhinitis Anxiety COPD (chronic obstructive pulmonary disease) COPD (chronic obstructive pulmonary disease) Current smoker DJD (degenerative joint disease) Ectopic History of depression History of herniated intervertebral disc Hyperlipidemia Hypertension IBS (irritable bowel syndrome) PTSD (post-traumatic stress disorder) Right lower lobe lung mass Scoliosis Urinary incontinence Surgical History H/O ovarian cystectomy History of bladder surgery History of bladder suspension procedure History of blepharoplasty History of esophagogastroduodenoscopy (EGD) History of hysterectomy Hx of colonoscopy Hx of dilation of urethra Social History Social History Cigarette Packs Per Day: 0.5 Cigarettes Per Day: 10.0 Years Smoked: 33 years Smoked in Last 30 Days: Yes Use of substances other than those prescribed or required for medical reasons: Yes Substance Use Type: Marijuana Last Used Substance: Just Prior to Admission Advance Directives: No Advance Directives Information Provided: No Patient : No Physical Exam ED Vital Signs: Vital Signs - 24 hr 05/16/23 16:15 05/16/23 16:36 05/16/23 17:58 Temperature 98.6 F 98.6 F Pulse Rate 100 95 96 Respiratory Rate 20 20 16 Blood Pressure 149/85 H 124/94 H Pulse Oximetry 92 94 Oxygen Delivery Method Room Air Room Air 05/16/23 18:56 05/16/23 20:52 Temperature 97.7 F 97.7 F Pulse Rate 85 96 Respiratory Rate 18 20 Blood Pressure 144/83 H 125/78 Pulse Oximetry 92 94 Oxygen Delivery Method Room Air Room Air BMI result Body Mass Index 21.3 Const General: healthy appearing, comfortable, no acute distress, alert and awake Nutritional Appearance: well nourished and thin Orientation/consciousness: patient oriented x3 HENMT Head: Yes normocephalic and Yes atraumatic Ears: TM's normal bilaterally and EAC's normal Eyes Eyelids: Yes eyelids normal Conjunctivae: conjunctivae normal Sclerae: sclerae normal Corneas: corneas normal Pupils: Equal, round and reactive pupils present EOM: EOMs intact bilaterally Neck Neck: Yes full ROM Resp Effort & Inspection: normal respiratory effort, able to speak in complete sentences and not labored Auscultation: wheezes (Coarse expiratory wheeze throughout) Cardio Other: No lower extremity edema Skin General skin exam: no rashes or lesions noted and elasticity normal Neuro General: patient oriented x3 Cranial nerves: Yes Equal, round and reactive pupils present and Yes Bilaterally intact EOM present Cognition (Neuro): normal cognition Extrem Other: Moving all extremities well without any obvious deformities Medications Administered Discontinued Medications Generic Name Dose Route Start Last Admin Trade Name Freq PRN Reason Stop Dose Admin Albuterol Sulfate 2.5 mg/ 0 mg 05/16/23 17:30 05/16/23 17:56 Albuterol/Ipratropium 3 ml INHALE 05/16/23 17:31 5 each ONCE ONE Administration Sodium Chloride 1,000 mls @ 999 mls/hr 05/16/23 17:30 05/16/23 19:49 Ns IV 05/16/23 18:30 Infused .Q1H1M PAUL Infusion Magnesium Sulfate/Dextrose 1 gm in 100 mls @ 100 mls/hr 05/16/23 17:30 05/16/23 19:50 Magnesium Sulfate/D5w IV 05/16/23 18:29 Infused ONCE ONE Infusion Ondansetron HCl 4 mg 05/16/23 17:50 05/16/23 18:19 Ondansetron Hcl 4 Mg/2 Ml Vial IVPUSH 05/16/23 17:51 4 mg ONCE ONE Administration Medical Decision Making Medical Decision Making [facility] Narrative: 62-year-old female presents for evaluation of shortness of breath. The patient has a long history of COPD. On exam she is wheezing on expiration. Will treat with a DuoNeb and magnesium. Will get chest x-ray, labs, COVID-19 swab. Patient's vital signs are currently stable and she is not in any respiratory distress. She has been on antibiotics twice in the last 2 weeks. Her symptoms are consistent with anxiety which may be related to her suspected malignancy diagnosis as she is awaiting her biopsy. The patient is requesting admission, but at this time I do not see any indication to admit the patient. However, workup is still pending Differential Diagnosis Acute COPD exacerbation Bronchitis Pneumonia Viral syndrome Lung cancer Admission/Observation Consideration of admission/observation: Escalation of care including admission/observation considered Patient will be admitted for COPD exacerbation. Consult Healthcare Provider Management of the patient was discussed with: Hospitalist Lab Data [facility] Lab Attestation statement: I reviewed the patient's lab results. No leukocytosis, no significant anemia. Patient's CO2 is slightly elevated to 31 which is consistent with her COPD diagnosis and likely CO2 retainer. Mild elevation in BUN, no other significant chemistry abnormalities. 05/16/23 17:22 05/16/23 17:22 Labs: Lab Results 05/16/23 05/16/23 05/16/23 Range/Units 17:22 17:22 17:22 WBC 9.5 (4.8-10.8) X10*3/uL RBC 3.91 L (4.20-5.50) X10*6/uL Hgb 13.1 (12.0-16.0) g/dl Hct 39.3 (37.0-47.0) % MCV 100.5 H (80.0-98.0) fL MCH 33.5 H (27.0-33.0) pg MCHC 33.3 (31.0-35.0) g/dl RDW 12.8 (11.0-16.0) % Plt Count 263 (160-400) X10*3/uL MPV 9.3 L (9.4-12.3) fL Immature Gran % (Auto) 0.2 (0.0-0.4) % Neut % (Auto) 66.5 (45-73) % Lymph % (Auto) 26.7 (20-40) % [place] % (Auto) 5.5 (2-11) % Eos % (Auto) 0.6 (0-4) % Baso % (Auto) 0.5 (0-2) % Lymph # (Auto) 2.5 (1.2-4.9) X10*3/uL [place] # (Auto) 0.5 (0.1-1.2) X10*3/uL Eos # (Auto) 0.1 (0.0-0.4) X10*3/uL Baso # (Auto) 0.1 (0.0-0.2) X10*3/uL Abs Immat Gran (auto) 0.02 (0.00-0.03) X10*3/uL Absolute Neuts (auto) 6.3 (2.0-8.3) x10*3/uL Absolute Nucleated RBC 0.000 (0.0-0.012) X10*3/uL Nucleated RBC % (auto) 0.0 (0.0-0.2) /100WBC Sodium 141 (135-145) mmol/L Potassium 3.9 (3.3-5.1) mmol/L Chloride 106 (96-108) mmol/L Carbon Dioxide 31 H (22-29) mmol/L Anion Gap 8 L (12-20) BUN 20 H (9-16) mg/dL Creatinine 0.79 (0.5-1.4) mg/dL Estim Creat Clear Calc 55.0 Estimated GFR > 60 Random Glucose 98 (60-115) mg/dL Calcium 9.5 (8.4-10.2) mg/dL Total Bilirubin 0.3 (0.0-1.0) mg/dL AST 27 (5-31) U/L ALT 33 H (0-31) U/L Alkaline Phosphatase 67 (39-117) U/L B-Natriuretic Peptide 11 (<100) pg/mL Total Protein 6.0 L (6.5-8.0) g/dL Albumin 4.0 (3.5-5.0) g/dL Lipase 19 (8-78) U/L Urine Color Urine Appearance Urine pH (5.0-9.0) Ur Specific Morris (1.005-1.025) Urine Protein (Neg-Trace) mg/dL Urine Glucose (UA) (Negative) mg/dL Urine Ketones (Negative) mg/dL Urine Blood (Negative) Urine Nitrite (Negative) Ur Leukocyte Esterase (Negative) Urine RBC (0-2) /HPF Urine WBC (0-5) /HPF Urine WBC Clumps Ur Squamous Epith Cells (0-2) /HPF Ur Transition Epith Cell Ur Renal Epithelial Cell Calcium Oxalate Crystal Leucine Crystals Cystine Crystals Tyrosine Crystals Other Crystals Urine Bacteria (None Seen) Urine Parasites Bilirubin Casts Epithelial Casts Fatty Casts Hyaline Casts (0-2) /LPF Granular Casts Waxy Casts Broad Casts RBC Casts WBC Casts Other Casts Urine Trichomonas Urine Yeast COVID-19 (ADRIAN) (Negative) COVID-19 Clin Com 05/16/23 05/16/23 05/16/23 Range/Units 17:25 17:33 17:33 WBC (4.8-10.8) X10*3/uL RBC (4.20-5.50) X10*6/uL Hgb (12.0-16.0) g/dl Hct (37.0-47.0) % MCV (80.0-98.0) fL MCH (27.0-33.0) pg MCHC (31.0-35.0) g/dl RDW (11.0-16.0) % Plt Count (160-400) X10*3/uL MPV (9.4-12.3) fL Immature Gran % (Auto) (0.0-0.4) % Neut % (Auto) (45-73) % Lymph % (Auto) (20-40) % Berrien % (Auto) (2-11) % Eos % (Auto) (0-4) % Baso % (Auto) (0-2) % Lymph # (Auto) (1.2-4.9) X10*3/uL [place]rien # (Auto) (0.1-1.2) X10*3/uL Eos # (Auto) (0.0-0.4) X10*3/uL Baso # (Auto) (0.0-0.2) X10*3/uL Abs Immat Gran (auto) (0.00-0.03) X10*3/uL Absolute Neuts (auto) (2.0-8.3) x10*3/uL Absolute Nucleated RBC (0.0-0.012) X10*3/uL Nucleated RBC % (auto) (0.0-0.2) /100WBC Sodium (135-145) mmol/L Potassium (3.3-5.1) mmol/L Chloride (96-108) mmol/L Carbon Dioxide (22-29) mmol/L Anion Gap (12-20) BUN (9-16) mg/dL Creatinine (0.5-1.4) mg/dL Estim Creat Clear Calc Estimated GFR Random Glucose (60-115) mg/dL Calcium (8.4-10.2) mg/dL Total Bilirubin (0.0-1.0) mg/dL AST (5-31) U/L ALT (0-31) U/L Alkaline Phosphatase (39-117) U/L B-Natriuretic Peptide (<100) pg/mL Total Protein (6.5-8.0) g/dL Albumin (3.5-5.0) g/dL Lipase (8-78) U/L Urine Color Yellow Cancelled Urine Appearance Clear Cancelled Urine pH 5.5 Cancelled (5.0-9.0) Ur Specific Morris 1.010 Cancelled (1.005-1.025) Urine Protein Negative Cancelled (Neg-Trace) mg/dL Urine Glucose (UA) Negative Cancelled (Negative) mg/dL Urine Ketones Negative Cancelled (Negative) mg/dL Urine Blood Negative Cancelled (Negative) Urine Nitrite Positive H Cancelled (Negative) Ur Leukocyte Esterase Small (1+) H Cancelled (Negative) Urine RBC 0-2 Cancelled (0-2) /HPF Urine WBC 11-20 H Cancelled (0-5) /HPF Urine WBC Clumps Cancelled Ur Squamous Epith Cells 0-2 Cancelled (0-2) /HPF Ur Transition Epith Cell Cancelled Ur Renal Epithelial Cell Cancelled Calcium Oxalate Crystal Cancelled Leucine Crystals Cancelled Cystine Crystals Cancelled Tyrosine Crystals Cancelled Other Crystals Cancelled Urine Bacteria 4+ Cancelled (None Seen) Urine Parasites Cancelled Bilirubin Casts Cancelled Epithelial Casts Cancelled Fatty Casts Cancelled Hyaline Casts 0-2 Cancelled (0-2) /LPF Granular Casts Cancelled Waxy Casts Cancelled Broad Casts Cancelled RBC Casts Cancelled WBC Casts Cancelled Other Casts Cancelled Urine Trichomonas Cancelled Urine Yeast Cancelled COVID-19 (ADRIAN) Negative (Negative) COVID-19 Clin Com See Note Independent Interpretation I performed an independent interpretation of an: Plain X-Ray (Right lung nodule noted, no infiltrates or effusions) Radiology Impression Discussion of test interpretation with radiology: I have reviewed the radiologist's reading. (Right lung nodule without acute pathology) Discharge Plan Discharge Clinical Impression: Acute exacerbation of chronic obstructive pulmonary disease Patient Disposition: Admitted As Inpatient Prescriptions: No Action azithromycin 250 mg tablet See Rx Instructions PO .COMPLEX Qty: 6 0RF Rx Instructions: For 250 mg dose pack: take 500 mg today (day 1), then 250 mg for 4 days (days 2-5) PO prednisone 20 mg tablet 40 mg PO DAILY 5 Days Qty: 10 0RF azithromycin 250 mg tablet See Rx Instructions PO .COMPLEX Qty: 6 0RF Rx Instructions: For 250 mg dose pack: take 500 mg today (day 1), then 250 mg for 4 days (days 2-5) PO prednisone 5 mg tablet 5 mg PO BID 7 Days Qty: 14 0RF multivitamin Tablet 1 tab PO DAILY fluoxetine 40 mg capsule 40 mg PO CONT atorvastatin 20 mg tablet 20 mg PO DAILY aspirin [Aspir-81] 81 mg Tablet,Delayed Release (Dr/Ec) 81 mg PO DAILY tramadol 50 mg tablet 50 mg PO BID PRN (Reason: Pain) verapamil 200 mg capsule, [address] 200 mg PO BEDTIME diazepam 10 mg tablet 10 mg PO DAILY PRN (Reason: Anxiety) albuterol sulfate [ProAir HFA] 90 mcg/actuation Hfa Aerosol Inhaler 2 puff INHALATION 6XD PRN (Reason: Wheezing) acetaminophen [Tylenol Extra Strength] 500 mg Capsule 1,000 mg PO Q6H PRN (Reason: Pain) Spiriva with HandiHaler 18 mcg capsule, w/inhalation device 1 cap inhalation DAILY bupropion HCl 300 mg tablet extended release 24 hr PO prazosin 1 mg capsule PO prazosin 2 mg capsule PO topiramate 25 mg tablet PO fluticasone propionate 50 mcg/actuation spray,suspension intranasal
[2023-05-16] MEDS: 0.9 % Sodium Chloride 1,000 ML 999 ML IV (18:10)
[2023-05-16 18:11] LABS: COVID-19 Test Negative (Negative); IDNOW Serial# 08D9AD1C
[2023-05-16 18:15] LABS: B Type Natriuretic Peptide 11 pg/mL (<100)
[2023-05-16] MEDS: ondansetron HCL 4 MG/2 ML VIAL IVPUSH (18:19)
[2023-05-16] MEDS: Magnesium Sulfate/D5W 1 GM/100 ML PIGGYBACK IV (18:24)
--- NOTE | 2023-05-16 18:29 | PC.NURSE ---
Pt alert and orient, pleasant on approach, fiances remains at bedside.
--- NOTE | 2023-05-16 18:48 | PC.NURSE ---
Pt ambulated to bathroom.
[2023-05-16 18:56] VITALS: BP 144/83; PULSE 85; RESP 18; TEMP 36.5; O2SAT 92
[2023-05-16 20:52] VITALS: BP 125/78; PULSE 96; RESP 20; TEMP 36.5; O2SAT 94
[2023-05-16] MEDS: traMADoL HCL 50 MG TABLET PO (23:32)
[2023-05-16] MEDS: methylPREDNISolone Sod Succ 40 MG/ML VIAL IVPUSH (23:32)
[2023-05-16] MEDS: Enoxaparin Sodium 40 MG/0.4 ML SYRINGE SUBCUT (23:32)
[2023-05-16] MEDS: Nicotine 21 MG PATCH.TD24 TRANSDERMA (23:32)
[2023-05-16] MEDS: 0.9 % Sodium Chloride Flush 3 ML SYRINGE IVFLUSH (23:34)
[2023-05-16] MEDS: cefTRIAXone sodium 1 GM in 0.9 % Sodium Chloride 50 ML IV (23:34)
--- NOTE | 2023-05-16 23:55 | PM.IMHP ---
History of Present Illness Date of Service: 05/16/23 Chief Complaint: short of breath 62-year-old female with past medical history of COPD, hyperlipidemia, depression anxiety, comes into the hospital with complaints of shortness of breath cough increased sputum production for the past 2 weeks. Patient states that she has tried Z-Luis A x2, as well as prednisone up patient has not had any luck. 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 She is very anxious but also states that her shortness of breath has gotten worse and is not improving despite Z-Luis A and prednisone.patient also reports that she has been having urinary frequency, dysuria, urgency, as well as suprapubic pressure for the past 3 days. Patient reports fevers up to 100 at home, some chills, denies any chest pain reports no abdominal pain has nausea no vomiting, n diarrhea constipation, and no lower extremity edema. on arrival to the ED patient hemodynamically stable no significant abnormal vitals Labs are significant for WBC count of 9.5, labs otherwise unremarkable, UA positive for leukocyte Estrace and WBC as well as nitrites COVID-19 negative chest x-ray shows no acute cardiopulmonary finding, pulmonary Review of Systems Review of Systems: Yes all other systems are reviewed and are negative [facility] Medical History Allergic rhinitis Anxiety COPD (chronic obstructive pulmonary disease) COPD (chronic obstructive pulmonary disease) Current smoker DJD (degenerative joint disease) Ectopic History of depression History of herniated intervertebral disc Hyperlipidemia Hypertension IBS (irritable bowel syndrome) PTSD (post-traumatic stress disorder) Right lower lobe lung mass Scoliosis Urinary incontinence Surgical History H/O ovarian cystectomy History of bladder surgery History of bladder suspension procedure History of blepharoplasty History of esophagogastroduodenoscopy (EGD) History of hysterectomy Hx of colonoscopy Hx of dilation of urethra Social History Cigarette Packs Per Day: 0.5 Cigarettes Per Day: 10.0 Years Smoked: 33 years Smoked in Last 30 Days: Yes Use of substances other than those prescribed or required for medical reasons: Yes Substance Use Type: Marijuana Last Used Substance: Just Prior to Admission Advance Directives: No Advance Directives Information Provided: No Patient : No Meds Allergies Allergy/AdvReac Type Severity Reaction Status Date / Time codeine [CODEINE] Allergy Intermediate ITCHING Verified 02/14/23 14:44 hydrocodone [HYDROCODONE] Allergy Intermediate ITCHING Verified 02/14/23 14:44 diphenhydramine AdvReac Intermediate JITTERY Verified 02/14/23 14:44 [From BENADRYL] Active Medications: Current Medications Acetaminophen (Acetaminophen 325 Mg Tablet) 650 mg PO Q6H PRN PRN Reason: Pain, Mild (Pain Scale 1-3) Albuterol/Ipratropium (Albuterol/Iprat 2.5/0.5mg 3 Ml Ampul.Neb) 3 ml INHALE RQ4H PRN PRN Reason: Shortness Of Breath/ wheezing Albuterol/Ipratropium (Albuterol/Iprat 2.5/0.5mg 3 Ml Ampul.Neb) 3 ml INHALE RQ4H WHILE AWAKE [facility] Docusate Sodium (Docusate Sodium 100 Mg Capsule) 100 mg PO DAILY PRN PRN Reason: Constipation Enoxaparin Sodium (Enoxaparin Sodium 40 Mg/0.4 Ml Syringe) 40 mg SUBCUT Q24H [facility] Last Admin: 05/16/23 23:32 Dose: 40 mg Ceftriaxone Sodium 1 gm/ (Sodium Chloride) 50 mls @ 100 mls/hr IV Q24H [facility] Last Admin: 05/16/23 23:34 Dose: 100 mls/hr Melatonin (Melatonin 3 Mg Tablet) 6 mg PO BEDTIME PRN PRN Reason: Insomnia Methylprednisolone Sodium Succinate (Methylprednisolone Sod Succ 40 Mg/Ml Vial) 40 mg IVPUSH Q12H [facility] Last Admin: 05/16/23 23:32 Dose: 40 mg Nicotine (Nicotine 21 Mg Patch.Td24) 21 mg TRANSDERMA DAILY [facility] Last Admin: 05/16/23 23:32 Dose: 21 mg Ondansetron HCl (Ondansetron Hcl 4 Mg/2 Ml Vial) 4 mg IVPUSH Q8H PRN PRN Reason: Nausea and Vomiting Sodium Chloride (0.9 % Sodium Chloride Flush 3 Ml Syringe) 3 ml IVFLUSH QSHIFT [facility] Last Admin: 05/16/23 23:34 Dose: 3 ml Home Medications Medication Instructions Recorded Confirmed Last Taken Type acetaminophen 500 mg capsule 1,000 mg PO Q6H PRN Pain 12/21/20 05/17/23 Unknown History albuterol sulfate 90 mcg/actuation 2 puff inhalation 6XD PRN Wheezing 12/21/20 05/17/23 Unknown History aerosol inhaler (ProAir HFA) aspirin 81 mg tablet,delayed 81 mg PO DAILY 12/21/20 05/17/23 Unknown History release atorvastatin 20 mg tablet 20 mg PO DAILY 12/21/20 05/17/23 Unknown History diazepam 10 mg tablet 10 mg PO DAILY PRN Anxiety 12/21/20 05/17/23 Unknown History fluoxetine 40 mg capsule 40 mg PO CONT 12/21/20 05/17/23 Unknown History multivitamin 1 tab PO DAILY 12/21/20 05/17/23 Unknown History tiotropium bromide 18 mcg capsule 1 cap inhalation DAILY 12/21/20 05/17/23 Unknown History with inhalation device (Spiriva with HandiHaler) tramadol 50 mg tablet 50 mg PO BID PRN Pain 12/21/20 05/17/23 Unknown History verapamil 200 mg capsule 24hr 200 mg PO BEDTIME 12/21/20 05/17/[address],ext.release bupropion HCl 300 mg 24 hr tablet, mg PO 02/14/23 02/14/23 Unknown History extended release fluticasone propionate 50 intranasal 02/14/23 02/14/23 Unknown History mcg/actuation nasal spray,suspension topiramate 25 mg tablet mg PO 02/14/23 02/14/23 Unknown History buspirone 10 mg tablet 10 mg PO BID 05/17/23 05/17/23 Unknown History lidocaine 5 % topical patch 1 patch topical DAILY 05/17/23 05/17/23 Unknown History omeprazole 20 mg capsule,delayed 20 mg PO DAILY 05/17/23 05/17/23 Unknown History release prazosin 5 mg capsule mg PO 05/17/23 Unknown History Physical Exam Vital Signs and Narrative: Vital Signs: Last Vital Signs Temp 97.7 F 05/16/23 20:52 Pulse 96 05/16/23 20:52 Resp 20 05/16/23 20:52 BP 125/78 05/16/23 20:52 Pulse Ox 94 05/16/23 20:52 O2 Del Method Room Air 05/16/23 20:52 BMI result Body Mass Index 21.3 Const: General: cooperative and no acute distress Orientation/consciousness: patient oriented x3 Eyes: General: appearance normal, both eyes and all related structures Resp: Other: rhonchi viral early Effort & Inspection: normal respiratory effort Cardio: Rate: regular rate Rhythm: regular rhythm GI: Palpation (GI): Soft to palpation Auscultation: normal bowel sounds Skin: General skin exam: no rashes or lesions noted Neuro: General: patient oriented x3 Cognition (Neuro): normal cognition Extrem: General: Yes normal to inspection and Yes no pedal edema Results Labs 05/16/23 17:22 05/16/23 17:22 Labs: Laboratory Results - last 24 hr 05/16/23 05/16/23 05/16/23 17:22 17:22 17:22 MCV 100.5 H MCH 33.5 H MCHC 33.3 RDW 12.8 Plt Count 263 MPV 9.3 L Immature Gran % (Auto) 0.2 Neut % (Auto) 66.5 Lymph % (Auto) 26.7 [place] % (Auto) 5.5 Eos % (Auto) 0.6 Baso % (Auto) 0.5 Lymph # (Auto) 2.5 [place] # (Auto) 0.5 Eos # (Auto) 0.1 Baso # (Auto) 0.1 Abs Immat Gran (auto) 0.02 Absolute Neuts (auto) 6.3 Absolute Nucleated RBC 0.000 Nucleated RBC % (auto) 0.0 Anion Gap 8 L Estim Creat Clear Calc 55.0 Estimated GFR > 60 Random Glucose 98 Calcium 9.5 Total Bilirubin 0.3 AST 27 ALT 33 H Alkaline Phosphatase 67 B-Natriuretic Peptide 11 Total Protein 6.0 L Albumin 4.0 Lipase 19 Urine Color Urine Appearance Urine pH Ur Specific [place] Urine Protein Urine Glucose (UA) Urine Ketones Urine Blood Urine Nitrite Ur Leukocyte Esterase Urine RBC Urine WBC Urine WBC Clumps Ur Squamous Epith Cells Ur Transition Epith Cell Ur Renal Epithelial Cell Calcium Oxalate Crystal Leucine Crystals Cystine Crystals Tyrosine Crystals Other Crystals Urine Bacteria Urine Parasites Bilirubin Casts Epithelial Casts Fatty Casts Hyaline Casts Granular Casts Waxy Casts Broad Casts RBC Casts WBC Casts Other Casts Urine Trichomonas Urine Yeast COVID-19 (ADRIAN) COVID-19 Clin Com 05/16/23 05/16/23 05/16/23 17:25 17:33 17:33 MCV MCH MCHC RDW Plt Count MPV Immature Gran % (Auto) Neut % (Auto) Lymph % (Auto) [place] % (Auto) Eos % (Auto) Baso % (Auto) Lymph # (Auto) [place] # (Auto) Eos # (Auto) Baso # (Auto) Abs Immat Gran (auto) Absolute Neuts (auto) Absolute Nucleated RBC Nucleated RBC % (auto) Anion Gap Estim Creat Clear Calc Estimated GFR Random Glucose Calcium Total Bilirubin AST ALT Alkaline Phosphatase B-Natriuretic Peptide Total Protein Albumin Lipase Urine Color Yellow Cancelled Urine Appearance Clear Cancelled Urine pH 5.5 Cancelled Ur Specific [place] 1.010 Cancelled Urine Protein Negative Cancelled Urine Glucose (UA) Negative Cancelled Urine Ketones Negative Cancelled Urine Blood Negative Cancelled Urine Nitrite Positive H Cancelled Ur Leukocyte Esterase Small (1+) H Cancelled Urine RBC 0-2 Cancelled Urine WBC 11-20 H Cancelled Urine WBC Clumps Cancelled Ur Squamous Epith Cells 0-2 Cancelled Ur Transition Epith Cell Cancelled Ur Renal Epithelial Cell Cancelled Calcium Oxalate Crystal Cancelled Leucine Crystals Cancelled Cystine Crystals Cancelled Tyrosine Crystals Cancelled Other Crystals Cancelled Urine Bacteria 4+ Cancelled Urine Parasites Cancelled Bilirubin Casts Cancelled Epithelial Casts Cancelled Fatty Casts Cancelled Hyaline Casts 0-2 Cancelled Granular Casts Cancelled Waxy Casts Cancelled Broad Casts Cancelled RBC Casts Cancelled WBC Casts Cancelled Other Casts Cancelled Urine Trichomonas Cancelled Urine Yeast Cancelled COVID-19 (ADRIAN) Negative COVID-19 Clin Com See Note Imaging Radiologist's Impressions: Impressions Chest X-Ray 05/16/23 19:43 IMPRESSION: 1. No acute cardiopulmonary findings. 2. FDG-avid pulmonary nodule in the right lower lobe is best seen on PET/CT. Assessment and Plan (1) Acute exacerbation of chronic obstructive pulmonary disease: Status: Acute (2) Acute UTI: Status: Inactive Plan 62-year-old female with past medical history of COPD comes into the hospital complaints of shortness of breath, cough, failed outpatient therapy # acute COPD exacerbation - increased cough, sputum production, dyspnea - failed outpatient therapy - was treated with prednisone, Z-Luis A x2 with no results or improvement - will treat with Solu-Medrol, DuoNeb p.r.n. as well as scheduled - monitor respiratory status # acute UTI - symptomatic UTI - will treat with IV antibiotic - follow cultures # hypertension - stable - will resume home medications # hyperlipidemia - continue statin # tobacco use disorder - nicotine patch ordered DVT prophylaxis: Early ambulation given patient's need for further management of COPD exacerbation with failed outpatient therapy patient require minimum 2 nights inpatient hospital stay for further management and monitoring Time Spent With Patient Time: Total time managing care of this patient today ____ minutes. Quality Stroke Does the patient have a stroke diagnosis?: No VTE Prior VTE?: No VTE Risk Level:: Medical - moderate - high VTE Device Contraindication: Treatment Not Indicated VTE Drug Contraindication: N/A - Med Ordered
[2023-05-17] VITALS (8 sets, daily range): BP systolic 125–149; BP diastolic 81–96; PULSE 74–96; RESP 16–20; TEMP 35.8–37; O2SAT 92–95
--- NOTE | 2023-05-17 00:20 | PC.NURSE ---
Called report to overflow, pt will be brought to bed 8 in overflow.
[2023-05-17] MEDS: diazePAM 5 MG TABLET 10 MG PO ×2 (02:52→21:42)
[2023-05-17] MEDS: busPIRone HCl 10 MG TABLET PO ×4 (02:52→21:09)
[2023-05-17] MEDS: Prazosin HCL 5 MG CAPSULE PO ×2 (02:52→21:43)
[2023-05-17] MEDS: traMADoL HCL 50 MG TABLET PO ×4 (03:03→23:28)
[2023-05-17] MEDS: Albuterol/Iprat 2.5/0.5MG 3 ML AMPUL.NEB INHALE ×5 (03:23→20:17)
[2023-05-17 06:48] LABS: Basophils Percent Auto 0.1 % (0-2); Hematocrit 41.1 % (37.0-47.0); Hemoglobin 13.8 g/dl (12.0-16.0); Imm Gran Abs Auto 0.04 X10*3/uL (0.00-0.03); Imm Gran Pct Auto 0.4 % (0.0-0.4); Lymphocytes Absolute Auto 0.7 X10*3/uL (1.2-4.9); Lymphocytes Percent Auto 6.5 % (20-40); MANUAL DIFF FLAG SCAN; Mean Corpuscular HGB Conc 33.6 g/dl (31.0-35.0); Mean Corpuscular Hemoglobin 33.8 pg (27.0-33.0); Mean Corpuscular Volume 100.7 fL (80.0-98.0); Mean Platelet Volume 9.6 fL (9.4-12.3); Monocytes Percent Auto 0.2 % (2-11); Neutrophils Absolute Auto 10.1 x10*3/uL (2.0-8.3); Neutrophils Percent Auto 92.8 % (45-73); Platelet Count 262 X10*3/uL (160-400); Red Blood Count 4.08 X10*6/uL (4.20-5.50); Red Cell Distribution Width 12.6 % (11.0-16.0); SCAN SMEAR FLAG 1; White Blood Count 10.9 X10*3/uL (4.8-10.8)
[2023-05-17 06:58] LABS: Anion Gap 11 (12-20); Blood Urea Nitrogen 16 mg/dL (9-16); Calcium 9.6 mg/dL (8.4-10.2); Carbon Dioxide 29 mmol/L (22-29); Chloride 107 mmol/L (96-108); Creatinine Clr Calc Pharmacy 61.1; Estimated Glomerular Filt Rate > 60; Glucose Random 166 mg/dL (60-115); Sodium 143 mmol/L (135-145)
[2023-05-17 07:22] LABS: SLIDE REVIEW VERIFIED
--- NOTE | 2023-05-17 08:23 | PHA.MEDREC ---
Pharmacy Consult ? Medication Reconciliation Pharmacy has completed the medication reconciliation. Spoke to patient, she called her med nurse who reported all medications. Patient no longer on fluoxetin. Buspar is TID instead of BID. Patient reports she is taking tramadol BID however she has no had it filled since January. I left on list as a PRN medication. Lydia Jordan, PharmD
[2023-05-17] MEDS: Omeprazole 20 MG CAPSULE.DR PO (09:04)
[2023-05-17] MEDS: Aspirin Enteric Coated 81 MG TABLET.DR PO (09:05)
[2023-05-17] MEDS: Nicotine 21 MG PATCH.TD24 TRANSDERMA (09:05)
[2023-05-17] MEDS: Atorvastatin Calcium 20 MG TABLET PO (09:06)
[2023-05-17] MEDS: FLUoxetine HCl 20 MG CAPSULE 40 MG PO (09:06)
[2023-05-17] MEDS: 0.9 % Sodium Chloride Flush 3 ML SYRINGE IVFLUSH ×2 (09:06→17:39)
[2023-05-17] MEDS: Lidocaine 4 % Patch ADH..PATCH 1 PATCH TRANSDERMA (09:07)
[2023-05-17] MEDS: Multivitamin TABLET 1 TAB PO (09:07)
[2023-05-17] MEDS: buPROPion HCl XL 300 MG TAB.ER.24H PO (10:59)
[2023-05-17] MEDS: methylPREDNISolone Sod Succ 40 MG/ML VIAL IVPUSH (10:59)
[2023-05-17] MEDS: guaiFENesin LA 600 MG TAB.ER.12H PO ×2 (10:59→21:10)
[2023-05-17] MEDS: Topiramate 25 MG TABLET PO (12:37)
--- NOTE | 2023-05-17 12:55 | HO.PM.IMPN ---
Subjective Subjective Date of Service: 05/17/23 Interval History: Seen and evaluated this morning Feels dyspneic still and wheezy no other overnight events Review of Systems Review of Systems: Yes all other systems are reviewed and are negative Physical Exam Vital Signs: Vital Signs: Last Vital Signs Temp 96.4 F L 05/17/23 06:23 Pulse 80 05/17/23 11:21 Resp 18 05/17/23 11:21 BP 125/87 05/17/23 06:23 Pulse Ox 92 05/17/23 06:23 O2 Del Method Room Air 05/17/23 06:23 BMI result Body Mass Index 21.3 Const: Other: Constitutional : Awake, interactive, not in distress Neck : Normal inspection, Supple Cardiovascular : RRR, no JVP, no lower extremity edema Respiratory : good bilateral air entry, no crackles, expiratory wheezing Gastrointestinal: soft, lax, Normal bowel sounds, Non tender Skin : Warm, Dry Neurological : Alert & oriented x3, No focal deficit Objective Data Active Medications Acetaminophen (Acetaminophen 325 Mg Tablet) 650 mg PO Q6H PRN PRN Reason: Pain, Mild (Pain Scale 1-3) Albuterol/Ipratropium (Albuterol/Iprat 2.5/0.5mg 3 Ml Ampul.Neb) 3 ml INHALE RQ4H PRN PRN Reason: Shortness Of Breath/ wheezing Last Admin: 05/17/23 03:23 Dose: 3 ml Documented By: KATIA Albuterol/Ipratropium (Albuterol/Iprat 2.5/0.5mg 3 Ml Ampul.Neb) 3 ml INHALE RQ4H WHILE AWAKE [facility] Last Admin: 05/17/23 11:21 Dose: 3 ml Documented By: SANGEETHA Aspirin (Aspirin Enteric Coated 81 Mg Tablet.) 81 mg PO DAILY [facility] Last Admin: 05/17/23 09:05 Dose: 81 mg Documented By: JAIR Atorvastatin Calcium (Atorvastatin Calcium 20 Mg Tablet) 20 mg PO BEDTIME [facility] Bupropion HCl (Bupropion Hcl Xl 300 Mg Tab.Er.24h) 300 mg PO DAILY [facility] Last Admin: 05/17/23 10:59 Dose: 300 mg Documented By: JAIR Buspirone HCl (Buspirone Hcl 10 Mg Tablet) 10 mg PO TID [facility] Diazepam (Diazepam 5 Mg Tablet) 10 mg PO BID [facility] Docusate Sodium (Docusate Sodium 100 Mg Capsule) 100 mg PO DAILY PRN PRN Reason: Constipation Enoxaparin Sodium (Enoxaparin Sodium 40 Mg/0.4 Ml Syringe) 40 mg SUBCUT Q24H [facility] Last Admin: 05/16/23 23:32 Dose: 40 mg Documented By: DEMETRA Guaifenesin (Guaifenesin La 600 Mg Tab.Er.12h) 600 mg PO BID [facility] Last Admin: 05/17/23 10:59 Dose: 600 mg Documented By: JAIR Ceftriaxone Sodium 1 gm/ (Sodium Chloride) 50 mls @ 100 mls/hr IV Q24H [facility] Last Infusion: 05/17/23 00:21 Dose: 0 mls/hr Documented By: DEMETRA Lidocaine (Lidocaine 4 % Patch Adh..Patch) 1 patch TRANSDERMA DAILY [facility] Last Admin: 05/17/23 09:07 Dose: 1 patch Documented By: JAIR Melatonin (Melatonin 3 Mg Tablet) 6 mg PO BEDTIME PRN PRN Reason: Insomnia Methylprednisolone Sodium Succinate (Methylprednisolone Sod Succ 40 Mg/Ml Vial) 40 mg IVPUSH Q12H [facility] Last Admin: 05/17/23 10:59 Dose: 40 mg Documented By: JAIR Multivitamins/Vitamin C (Multivitamin Tablet) 1 tab PO DAILY [facility] Last Admin: 05/17/23 09:07 Dose: 1 tab Documented By: JAIR Nicotine (Nicotine 21 Mg Patch.Td24) 21 mg TRANSDERMA DAILY [facility] Last Admin: 05/17/23 09:05 Dose: 21 mg Documented By: JAIR Omeprazole (Omeprazole 20 Mg Capsule.Dr) 20 mg PO DAILY [facility] Last Admin: 05/17/23 09:04 Dose: 20 mg Documented By: JAIR Ondansetron HCl (Ondansetron Hcl 4 Mg/2 Ml Vial) 4 mg IVPUSH Q8H PRN PRN Reason: Nausea and Vomiting Prazosin HCl (Prazosin Hcl 5 Mg Capsule) 5 mg PO BEDTIME [facility]; Protocol Sodium Chloride (0.9 % Sodium Chloride Flush 3 Ml Syringe) 3 ml IVFLUSH QSHIFT [facility] Last Admin: 05/17/23 09:06 Dose: 3 ml Documented By: JAIR Topiramate (Topiramate 25 Mg Tablet) 25 mg PO DAILY [facility] Last Admin: 05/17/23 12:37 Dose: 25 mg Documented By: JAIR Tramadol HCl (Tramadol Hcl 50 Mg Tablet) 50 mg PO Q6H PRN PRN Reason: Pain, Severe (Pain Scale 7-10) Last Admin: 05/17/23 10:59 Dose: 50 mg Documented By: JAIR Verapamil HCl (Verapamil Hcl Sr 100 Mg Cap24h.Pct) 200 mg PO DAILY [facility]; Protocol Labs 05/17/23 05:43 05/17/23 05:43 Labs: Laboratory Results - last 24 hr 05/16/23 05/16/23 05/16/23 17:22 17:22 17:22 MCV 100.5 H MCH 33.5 H MCHC 33.3 RDW 12.8 Plt Count 263 MPV 9.3 L Immature Gran % (Auto) 0.2 Neut % (Auto) 66.5 Lymph % (Auto) 26.7 [place] % (Auto) 5.5 Eos % (Auto) 0.6 Baso % (Auto) 0.5 Lymph # (Auto) 2.5 [place] # (Auto) 0.5 Eos # (Auto) 0.1 Baso # (Auto) 0.1 Abs Immat Gran (auto) 0.02 Absolute Neuts (auto) 6.3 Absolute Nucleated RBC 0.000 Nucleated RBC % (auto) 0.0 Smear Tech's Comments Anion Gap 8 L Estim Creat Clear Calc 55.0 Estimated GFR > 60 Random Glucose 98 Calcium 9.5 Total Bilirubin 0.3 AST 27 ALT 33 H Alkaline Phosphatase 67 B-Natriuretic Peptide 11 Total Protein 6.0 L Albumin 4.0 Lipase 19 Urine Color Urine Appearance Urine pH Ur Specific [place] Urine Protein Urine Glucose (UA) Urine Ketones Urine Blood Urine Nitrite Ur Leukocyte Esterase Urine RBC Urine WBC Urine WBC Clumps Ur Squamous Epith Cells Ur Transition Epith Cell Ur Renal Epithelial Cell Calcium Oxalate Crystal Leucine Crystals Cystine Crystals Tyrosine Crystals Other Crystals Urine Bacteria Urine Parasites Bilirubin Casts Epithelial Casts Fatty Casts Hyaline Casts Granular Casts Waxy Casts Broad Casts RBC Casts WBC Casts Other Casts Urine Trichomonas Urine Yeast COVID-19 (ADRIAN) COVID-19 Clin Com 05/16/23 05/16/23 05/16/23 17:25 17:33 17:33 MCV MCH MCHC RDW Plt Count MPV Immature Gran % (Auto) Neut % (Auto) Lymph % (Auto) [place] % (Auto) Eos % (Auto) Baso % (Auto) Lymph # (Auto) [place] # (Auto) Eos # (Auto) Baso # (Auto) Abs Immat Gran (auto) Absolute Neuts (auto) Absolute Nucleated RBC Nucleated RBC % (auto) Smear Tech's Comments Anion Gap Estim Creat Clear Calc Estimated GFR Random Glucose Calcium Total Bilirubin AST ALT Alkaline Phosphatase B-Natriuretic Peptide Total Protein Albumin Lipase Urine Color Yellow Cancelled Urine Appearance Clear Cancelled Urine pH 5.5 Cancelled Ur Specific [place] 1.010 Cancelled Urine Protein Negative Cancelled Urine Glucose (UA) Negative Cancelled Urine Ketones Negative Cancelled Urine Blood Negative Cancelled Urine Nitrite Positive H Cancelled Ur Leukocyte Esterase Small (1+) H Cancelled Urine RBC 0-2 Cancelled Urine WBC 11-20 H Cancelled Urine WBC Clumps Cancelled Ur Squamous Epith Cells 0-2 Cancelled Ur Transition Epith Cell Cancelled Ur Renal Epithelial Cell Cancelled Calcium Oxalate Crystal Cancelled Leucine Crystals Cancelled Cystine Crystals Cancelled Tyrosine Crystals Cancelled Other Crystals Cancelled Urine Bacteria 4+ Cancelled Urine Parasites Cancelled Bilirubin Casts Cancelled Epithelial Casts Cancelled Fatty Casts Cancelled Hyaline Casts 0-2 Cancelled Granular Casts Cancelled Waxy Casts Cancelled Broad Casts Cancelled RBC Casts Cancelled WBC Casts Cancelled Other Casts Cancelled Urine Trichomonas Cancelled Urine Yeast Cancelled COVID-19 (ADRIAN) Negative COVID-19 Clin Com See Note 05/17/23 05/17/23 05:43 05:43 MCV 100.7 H MCH 33.8 H MCHC 33.6 RDW 12.6 Plt Count 262 MPV 9.6 Immature Gran % (Auto) 0.4 Neut % (Auto) 92.8 H Lymph % (Auto) 6.5 L [place] % (Auto) 0.2 L Eos % (Auto) 0.0 Baso % (Auto) 0.1 Lymph # (Auto) 0.7 L [place] # (Auto) 0.0 L Eos # (Auto) 0.0 Baso # (Auto) 0.0 Abs Immat Gran (auto) 0.04 H Absolute Neuts (auto) 10.1 H Absolute Nucleated RBC 0.000 Nucleated RBC % (auto) 0.0 Smear Tech's Comments VERIFIED Anion Gap 11 L Estim Creat Clear Calc 61.1 Estimated GFR > 60 Random Glucose 166 H Calcium 9.6 Total Bilirubin AST ALT Alkaline Phosphatase B-Natriuretic Peptide Total Protein Albumin Lipase Urine Color Urine Appearance Urine pH Ur Specific [place] Urine Protein Urine Glucose (UA) Urine Ketones Urine Blood Urine Nitrite Ur Leukocyte Esterase Urine RBC Urine WBC Urine WBC Clumps Ur Squamous Epith Cells Ur Transition Epith Cell Ur Renal Epithelial Cell Calcium Oxalate Crystal Leucine Crystals Cystine Crystals Tyrosine Crystals Other Crystals Urine Bacteria Urine Parasites Bilirubin Casts Epithelial Casts Fatty Casts Hyaline Casts Granular Casts Waxy Casts Broad Casts RBC Casts WBC Casts Other Casts Urine Trichomonas Urine Yeast COVID-19 (ADRIAN) COVID-19 Clin Com Microbiology Microbiology Results: Microbiology 05/16/23 17:57 Urine Culture - Preliminary Urine clean catch - Urine tyler top Gram negative lizy Assessment and Plan (1) Acute exacerbation of chronic obstructive pulmonary disease: Status: Acute Plan 62-year-old female with past medical history of COPD comes into the hospital complaints of shortness of breath, cough, failed outpatient therapy # acute COPD exacerbation failed outpatient therapy continue Solu-Medrol, DuoNeb p.r.n. as well as scheduled monitor respiratory status # acute UTI IV antibiotic follow cultures # hypertension resume home medications # hyperlipidemia continue statin # tobacco use disorder nicotine patch ordered Advised to quit DVT prophylaxis: Early ambulation given patient's need for further management of COPD exacerbation with failed outpatient therapy patient require overnight inpatient hospital stay for further management and monitoring Time Spent With Patient Time: Total time managing care of this patient today ____ minutes. Quality Stroke Does the patient have a stroke diagnosis?: No VTE Prior VTE?: No VTE Risk Level:: Medical - moderate - high VTE Device Contraindication: Treatment Not Indicated VTE Drug Contraindication: N/A - Med Ordered
--- NOTE | 2023-05-17 14:03 | MHC.CM.PN ---
This entry writer met with patient. From home with [facility] and [facility] services in the home via [facility], return referral sent. HCP completed and place in chart. PCP verified. Obs notice given. D/C plan- home w/ resumption of services and family to transport. Note- Patient requesting to leave by 8am on Sat 05/18-reports she has spoken w/ MD re the request.
[2023-05-17] MEDS: Melatonin 3 MG TABLET 6 MG PO (21:09)
[2023-05-17] MEDS: cefTRIAXone sodium 1 GM in 0.9 % Sodium Chloride 50 ML IV (21:41)
[2023-05-17] MEDS: Enoxaparin Sodium 40 MG/0.4 ML SYRINGE SUBCUT (21:43)
--- NOTE | 2023-05-17 21:48 | PC.NURSE ---
patient received all medications with no issues patient vtials are stabe at this time patient will continue to be monitored for safety
--- NOTE | 2023-05-17 23:42 | PC.NURSE ---
patient in bed with complaints of pain in the pelvic area patient stated the pain was a 8/10 patient was given a prn patient will be reassessed in 30 minutes to reevaluate the patient status patient will continue to be monitored for safety
[2023-05-18] MEDS: methylPREDNISolone Sod Succ 40 MG/ML VIAL IVPUSH (00:19)
[2023-05-18] MEDS: 0.9 % Sodium Chloride Flush 3 ML SYRINGE IVFLUSH (01:33)
--- NOTE | 2023-05-18 01:35 | PC.NURSE ---
patient in bed with eyes closed patient showing no distress at this time safety will continue to be maintained
[2023-05-18 05:46] VITALS: BP 131/67; PULSE 96; RESP 16; TEMP 36.6; O2SAT 92
[2023-05-18] MEDS: busPIRone HCl 10 MG TABLET PO (07:47)
[2023-05-18] MEDS: guaiFENesin LA 600 MG TAB.ER.12H PO (07:47)
[2023-05-18] MEDS: diazePAM 5 MG TABLET 10 MG PO (07:48)
[2023-05-18] MEDS: Omeprazole 20 MG CAPSULE.DR PO (07:48)
[2023-05-18] MEDS: Multivitamin TABLET 1 TAB PO (07:48)
[2023-05-18] MEDS: traMADoL HCL 50 MG TABLET PO (07:48)
[2023-05-18] MEDS: Aspirin Enteric Coated 81 MG TABLET.DR PO (07:49)
[2023-05-18] MEDS: Nicotine 21 MG PATCH.TD24 TRANSDERMA (07:49)
[2023-05-18] MEDS: buPROPion HCl XL 300 MG TAB.ER.24H PO (07:49)
[2023-05-18] MEDS: Lidocaine 4 % Patch ADH..PATCH 1 PATCH TRANSDERMA (07:51)
--- NOTE | 2023-05-18 08:05 | P.DS_ITS ---
DS: Providers Provider Date of Service: 05/18/23 Date of admission: 05/16/23 22:50 Primary care physician: Nai Bradley MD DS: Diagnosis Discharge Diagnosis (1) Acute exacerbation of chronic obstructive pulmonary disease: Status: Acute DS: Summary Hospital Course Hospital Course: Admission note HPI ?62-year-old female with past medical history of COPD, hyperlipidemia, depression anxiety, comes into the hospital with complaints of shortness of breath cough increased sputum production for the past 2 weeks.? Patient states that she has tried Z-Luis A x2, as well as prednisone up patient has not had any luck.? 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 She is very anxious but also states that her shortness of breath has gotten worse and is not improving despite Z-Luis A and prednisone.patient also reports that she has been having urinary frequency, dysuria, urgency, as well as suprapubic pressure for the past 3 days.? Patient reports fevers up to 100 at home, some chills, denies any chest pain reports no abdominal pain has nausea no vomiting, n diarrhea constipation, and no lower extremity edema.? ?on arrival to the ED patient hemodynamically stable no significant abnormal vitals Labs are significant for WBC count of 9.5, labs otherwise unremarkable, UA positive for leukocyte Estrace and WBC as well as nitrites COVID-19 negative. ?chest x-ray shows no acute cardiopulmonary finding, pulmonary Hospital course The patient was admitted for treatment of COPD exacerbation with IV steroids, nebulizers with good response over the course of hospital stay as she was able to ambulate on room air with no reported dyspnea. Advised to quit smoking completely and started on Flovent inh along tapering dose steroids at time of discharge. Treated for UTI w IV Ceftriaxone as urine culture grew Enterobacter. To finish 5 days of Ceftin. quit smoking completely Tapering dose of steroids Start steroid inhalor Cough medicine Antibiotics for urine infection Time Spent with Patient Time attestation: Total time managing care of this patient today ____ minutes. Discharge coordination time: Less than 30 minutes Quality: Safe Use of Opioids Does Pt have an Active Cancer Diagnosis on the Problem List?: No Quality: Stroke Does the patient have a stroke diagnosis?: No Physical Exam Vital Signs: Vital Signs: Last Vital Signs Temp 97.8 F 05/18/23 05:46 Pulse 96 05/18/23 05:46 Resp 16 05/18/23 05:46 BP 131/67 05/18/23 05:46 Pulse Ox 92 05/18/23 05:46 O2 Del Method Room Air 05/18/23 05:46 BMI result Body Mass Index 21.3 Const: Other: Constitutional : Awake, interactive, not in distress Neck : Normal inspection, Supple Cardiovascular : RRR, no JVP, no lower extremity edema Respiratory : fair bilateral air entry, no crackles, wheezes or rhonchi Gastrointestinal: soft, lax, Normal bowel sounds, Non tender Skin : Warm, Dry Neurological : Alert & oriented x3, No focal deficit DS: Data Imaging Chest x-ray: Radiologist's impression: ITS Impressions Chest X-Ray 05/16/23 19:43 IMPRESSION: 1. No acute cardiopulmonary findings. 2. FDG-avid pulmonary nodule in the right lower lobe is best seen on PET/CT. Discharge Plan Discharge Anticipated Discharge Date/Time: 05/18/23 07:47 Patient Disposition: Home, Self-Care Discharge Diagnosis: COPD exacerbation Referrals: Nai Bradley MD [Primary Care Provider] - 1 Week Discharge Medications: New nicotine 21 mg/24 hr Patch 24 Hour 21 mg transdermal DAILY Qty: 30 0RF guaifenesin [Mucinex] 600 mg Tablet Extended Release 12hr 600 mg PO BID Qty: 20 0RF prednisone 10 mg tablet See Taper PO DIRECTED Qty: 30 0RF Taper: Prednisone 40 mg daily for 3 Days and 0 Hour 30 mg daily for 3 Days and 0 Hour 20 mg daily for 3 Days and 0 Hour 10 mg daily for 3 Days and 0 Hour Rx Instructions: see taper instructions Flovent Diskus 100 mcg/actuation blister with device 1 inh inhalation BID Qty: 60 1RF cefuroxime axetil 500 mg tablet 500 mg PO BID Qty: 10 0RF Continued multivitamin Tablet 1 tab PO DAILY atorvastatin 20 mg tablet 20 mg PO BEDTIME aspirin 81 mg Tablet,Delayed Release (Dr/Ec) 81 mg PO DAILY tramadol 50 mg tablet 50 mg PO BID PRN (Reason: Pain) verapamil 200 mg capsule, [address] 200 mg PO DAILY diazepam 10 mg tablet 10 mg PO BID albuterol sulfate [ProAir HFA] 90 mcg/actuation Hfa Aerosol Inhaler 2 puff INHALATION 6XD PRN (Reason: Wheezing) acetaminophen 500 mg Capsule 1,000 mg PO Q6H PRN (Reason: Pain) Spiriva with HandiHaler 18 mcg capsule, w/inhalation device 1 cap inhalation DAILY prazosin 5 mg capsule 5 mg PO BEDTIME buspirone 10 mg tablet 10 mg PO TID lidocaine 5 % adhesive patch,medicated 1 patch topical DAILY omeprazole 20 mg capsule,delayed release(DR/EC) 20 mg PO DAILY biotin 10 mg Tablet 10 mg PO DAILY bupropion HCl 300 mg tablet extended release 24 hr 300 mg PO DAILY topiramate 25 mg tablet 25 mg PO DAILY fluticasone propionate 50 mcg/actuation spray,suspension 1 spray intranasal DAILY PRN (Reason: Allergy Symptoms) Discharge Orders: Discharge Order (Routine); Ordered 05/18/23 Ordered By: Dani Retana Diet: Advance to usual diet Activity on Discharge: As tolerated Stand Alone Forms: Patient Portal Discharge page Care Plan Goals: Read below Health Concerns: Read below Plan of Treatment: Read below Assessment: You were admitted for treatment of COPD exacerbation. responded well to treatment with steroids and nebulizers. Advise you to quit smoking completely Tapering dose of steroids Start steroid inhalor Cough medicine Antibiotics for urine infection
[2023-05-18 08:14] VITALS: PULSE 96; RESP 16; O2SAT 95
[2023-05-18] MEDS: Albuterol/Iprat 2.5/0.5MG 3 ML AMPUL.NEB INHALE (08:14)
[2023-05-18] MEDS: Topiramate 25 MG TABLET PO (08:58)
--- NOTE | 2023-05-18 09:18 | PC.NURSE ---
pt alert and oriented, ambulating through out unit without difficulty. Periodic non-productive cough. Requesting nebulizer treatment, respiratory paged and requested. At bedside proving this. Lungs post treatment are CTA, reports pain 05/13, chronic, tramadol requested and given. Requesting to be discharged as she states she is better than previous days and has a concert to attend this evening. Requested this nurse ask the provider for home prescription of tramadol, message sent to provider via [employer] text- not prescribed at time of discharge. AOX3, +bs x 4, +pp. Skin warm dry and intact. discharge plan/instructions explained and given to patient. IV removed, catheter intact.
== END 2023-05-18 09:35 | disposition home or self-care (01) ==
LOC: HO.ED 22:03 → HO.EDOVER 22:58
PROVIDERS: Physician Assistant; Admitting Provider Internal Medicine; Emergency Provider Emergency Medicine; PCP Internal Medicine; Visit Provider Student in an Organized Health Care Education/Training Program
DX: J44.1 Chronic obstructive pulmonary disease with (acute) exacerbation (principal); N39.0 Urinary tract infection, site not specified; B96.89 Other specified bacterial agents as the cause of diseases classified elsewhere; Z20.822 Contact with and (suspected) exposure to COVID-19; R06.02 Shortness of breath; R91.1 Solitary pulmonary nodule; I10 Essential (primary) hypertension; E78.5 Hyperlipidemia, unspecified; F17.210 Nicotine dependence, cigarettes, uncomplicated; F12.90 Cannabis use, unspecified, uncomplicated; Z79.82 Long term (current) use of aspirin; Z79.02 Long term (current) use of antithrombotics/antiplatelets; Z79.899 Other long term (current) drug therapy
CPT/HCPCS: 36415; 71046; 80048; 80053; 81001; 83690; 83880; 85025; 87086; 87088; 87186; 87635; 93005; 94640; 96361; 96365; 96366; 96367; 96372; 96375; 96376; 99221; 99285; J0696; J1650; J2405; J2920; J3475

== ENCOUNTER → 2023-05-16 16:56 | Outpatient (BNV) | payer MEDICARE, MEDICAID, SELFPAY | PROVIDERS: Admitting Provider Internal Medicine; Emergency Provider Emergency Medicine; PCP Internal Medicine; Visit Provider Internal Medicine Cardiovascular Disease | DX: R07.9 Chest pain, unspecified (principal) | CPT/HCPCS: 93010 ==

== ENCOUNTER → 2023-05-16 22:50 | Outpatient (BNV) | payer MEDICARE, MEDICAID, SELFPAY | PROVIDERS: Admitting Provider Internal Medicine; Emergency Provider Emergency Medicine; PCP Internal Medicine; Visit Provider Internal Medicine | DX: J44.1 Chronic obstructive pulmonary disease with (acute) exacerbation (principal); N39.0 Urinary tract infection, site not specified | CPT/HCPCS: 99222; 99232; 99238 ==

== ENCOUNTER 2023-05-30 09:50 | Day surgery (SDC) | payer MEDICARE, MEDICAID, SELFPAY ==
--- NOTE | 2023-05-29 10:48 | HO.ANESPROP2 ---
Documented by User: Donita Myrick NP 05/29/23 10:53 HPI - Anesthesia Eval Consult details Narrative: 62yo F for Right Fine Needle Lung Biopsy CT Guided [facility] admit 05/16-05/18/23 for COPD exac - rx steroids and nebulizer Smoker PMF Active Problems Active Problems: All Active Problems Right lower lobe lung mass (Acute) Allergic rhinitis (Acute) COPD (chronic obstructive pulmonary disease) (Acute) Current smoker (Acute) Past Medical History Medical History Allergic rhinitis Anxiety COPD (chronic obstructive pulmonary disease) COPD (chronic obstructive pulmonary disease) Current smoker DJD (degenerative joint disease) Ectopic History of depression History of herniated intervertebral disc Hyperlipidemia Hypertension IBS (irritable bowel syndrome) PTSD (post-traumatic stress disorder) Right lower lobe lung mass Scoliosis Urinary incontinence Surgical History Surgical History H/O ovarian cystectomy History of bladder surgery History of bladder suspension procedure History of blepharoplasty History of esophagogastroduodenoscopy (EGD) History of hysterectomy Hx of colonoscopy Hx of dilation of urethra Social History Social History Patient Tobacco Use Status: Current everyday Tobacco user Tobacco use type: Cigarette Cigarette Packs Per Day: 0.5 Cigarettes Per Day: 10 Years Smoked: 47 Smoked in Last 30 Days: Yes Use of substances other than those prescribed or required for medical reasons: Yes Substance Use Type: Marijuana Substance Use Frequency: Occasionally Are you DNR?: No Advance Directives: No Advance Directives Information Provided: Yes service: No Meds Allergies Allergy/AdvReac Type Severity Reaction Status Date / Time codeine [CODEINE] Allergy Intermediate ITCHING Verified 05/30/23 10:24 hydrocodone [HYDROCODONE] Allergy Intermediate ITCHING Verified 05/30/23 10:24 diphenhydramine AdvReac Intermediate JITTERY Verified 05/30/23 10:24 [From BENADRYL] Home Medications Medication Instructions Recorded Confirmed Last Taken Type albuterol sulfate 90 mcg/actuation 2 puff inhalation 6XD PRN Wheezing 12/21/20 05/30/23 Unknown History aerosol inhaler (ProAir HFA) aspirin 81 mg tablet,delayed 81 mg PO DAILY 12/21/20 05/30/23 05/27/23 History release atorvastatin 20 mg tablet 20 mg PO BEDTIME 12/21/20 05/30/23 Unknown History diazepam 10 mg tablet 10 mg PO BID 12/21/20 05/30/23 05/30/23 History multivitamin 1 tab PO DAILY 12/21/20 05/30/23 Unknown History tiotropium bromide 18 mcg capsule 1 cap inhalation DAILY 12/21/20 05/30/23 Unknown History with inhalation device (Spiriva with HandiHaler) verapamil 200 mg capsule 24hr 200 mg PO DAILY 12/21/20 05/30/[address],ext.release bupropion HCl 300 mg 24 hr tablet, 300 mg PO DAILY 02/14/23 05/30/23 Unknown History extended release fluticasone propionate 50 1 spray intranasal DAILY PRN 02/14/23 05/30/23 Unknown History mcg/actuation nasal Allergy Symptoms spray,suspension topiramate 25 mg tablet 25 mg PO DAILY 02/14/23 05/30/23 Unknown History biotin 10 mg tablet 10 mg PO DAILY 05/17/23 05/30/23 Unknown History buspirone 10 mg tablet 10 mg PO TID 05/17/23 05/30/23 Unknown History lidocaine 5 % topical patch 1 patch topical DAILY 05/17/23 05/30/23 Unknown History omeprazole 20 mg capsule,delayed 20 mg PO DAILY 05/17/23 05/30/23 Unknown History release prazosin 5 mg capsule 5 mg PO BEDTIME 05/17/23 05/30/23 Unknown History Exam Exam Date and Time: May 29, 2023 1048 Pertinent Lab Results Pertinent Lab Results: Laboratory Tests 05/17/23 05/17/23 05:43 05:43 WBC 10.9 H Hgb 13.8 Hct 41.1 Plt Count 262 Sodium 143 Potassium 4.0 Chloride 107 Carbon Dioxide 29 BUN 16 Creatinine 0.71 Narrative Narrative: EKG 05/2023 Vent. Rate : 084 BPM ? ? Atrial Rate : 084 BPM ?? P-R Int : 160 ms? QRS Dur : 074 ms ? ? QT Int : 350 ms ? ? ? P-R-T Axes : 082 059 065 degrees ?? QTc Int : 413 ms ? Normal sinus rhythm Low voltage QRS Borderline ECG When compared with ECG of 13-FEB-2022 12:46, No significant change was found CT chest wo IV con 04/2023 IMPRESSION: Interval increase in size in the now 7 x 11 mm peripheral or subpleural right lower lobe nodule adjacent to the major fissure. PET/CT scan or tissue sampling recommended. Other small micronodules are stable. Evidence of mild airways disease/respiratory bronchiolitis. Stable 0.8 cm nonspecific sclerotic lesion in the T7 vertebral body. Assessment and Plan Assessment Anesthesia Assessment: Chart Reviewed Documented by User: Yosef Stubbs MD 05/30/23 14:00 PMFSH Past Medical History Medical History Allergic rhinitis Anxiety COPD (chronic obstructive pulmonary disease) COPD (chronic obstructive pulmonary disease) Current smoker DJD (degenerative joint disease) Ectopic History of depression History of herniated intervertebral disc Hyperlipidemia Hypertension IBS (irritable bowel syndrome) PTSD (post-traumatic stress disorder) Right lower lobe lung mass Scoliosis Urinary incontinence Family History Family history of problems with anesthesia: No Surgical History Surgical History H/O ovarian cystectomy History of bladder surgery History of bladder suspension procedure History of blepharoplasty History of esophagogastroduodenoscopy (EGD) History of hysterectomy Hx of colonoscopy Hx of dilation of urethra History of Problems with Anesthesia: No Social History Social History Patient Tobacco Use Status: Current everyday Tobacco user Tobacco use type: Cigarette Cigarette Packs Per Day: 0.5 Cigarettes Per Day: 10 Years Smoked: 47 Smoked in Last 30 Days: Yes Use of substances other than those prescribed or required for medical reasons: Yes Substance Use Type: Marijuana Substance Use Frequency: Occasionally Are you DNR?: No Advance Directives: No Advance Directives Information Provided: Yes service: No Meds Allergies Allergy/AdvReac Type Severity Reaction Status Date / Time codeine [CODEINE] Allergy Intermediate ITCHING Verified 05/30/23 10:24 hydrocodone [HYDROCODONE] Allergy Intermediate ITCHING Verified 05/30/23 10:24 diphenhydramine AdvReac Intermediate JITTERY Verified 05/30/23 10:24 [From BENADL] Home Medications Medication Instructions Recorded Confirmed Last Taken Type albuterol sulfate 90 mcg/actuation 2 puff inhalation 6XD PRN Wheezing 12/21/20 05/30/23 Unknown History aerosol inhaler (ProAir HFA) aspirin 81 mg tablet,delayed 81 mg PO DAILY 12/21/20 05/30/23 05/27/23 History release atorvastatin 20 mg tablet 20 mg PO BEDTIME 12/21/20 05/30/23 Unknown History diazepam 10 mg tablet 10 mg PO BID 12/21/20 05/30/23 05/30/23 History multivitamin 1 tab PO DAILY 12/21/20 05/30/23 Unknown History tiotropium bromide 18 mcg capsule 1 cap inhalation DAILY 12/21/20 05/30/23 Unknown History with inhalation device (Spiriva with HandiHaler) verapamil 200 mg capsule 24hr 200 mg PO DAILY 12/21/20 05/30/[address],ext.release bupropion HCl 300 mg 24 hr tablet, 300 mg PO DAILY 02/14/23 05/30/23 Unknown History extended release fluticasone propionate 50 1 spray intranasal DAILY PRN 02/14/23 05/30/23 Unknown History mcg/actuation nasal Allergy Symptoms spray,suspension topiramate 25 mg tablet 25 mg PO DAILY 02/14/23 05/30/23 Unknown History biotin 10 mg tablet 10 mg PO DAILY 05/17/23 05/30/23 Unknown History buspirone 10 mg tablet 10 mg PO TID 05/17/23 05/30/23 Unknown History lidocaine 5 % topical patch 1 patch topical DAILY 05/17/23 05/30/23 Unknown History omeprazole 20 mg capsule,delayed 20 mg PO DAILY 05/17/23 05/30/23 Unknown History release prazosin 5 mg capsule 5 mg PO BEDTIME 05/17/23 05/30/23 Unknown History Exam Airway Mallampati Class: II TM Dist: >3cm Neck ROM: Full Loose/Missing/Broken Teeth: Yes Assessment and Plan Assessment Anesthesia Assessment: Anesthesia Plan Discussed Final Anesthetic Review Family History of Problems with Anesthesia: No History of Problems with Anesthesia: No NPO: Yes ASA Class: III Final Preanesthetic Review: No Changes in Pt Med Stat, Meds/Allgs Chart Reviewed, Consent Obtained/Reviewed and Anes Risks/Benef Reviewed Patient Risk: Intermediate Procedure Risk: Intermediate Anesthetic Plan Anesthetic Plan: MAC: Disposition: Standard PACU
--- NOTE | ~2023-05-30 | XR_ITS ---
EXAMINATION: XR CHEST CLINICAL INFORMATION: Status post right lung biopsy. COMPARISON: Chest radiographs dated 05/16/2023. TECHNIQUE: Frontal view of the chest was obtained. FINDINGS: No significant abnormality is noted involving the heart, lungs, mediastinum, bony thorax or soft tissues. XR/XR chest 1V IMPRESSION: No acute cardiopulmonary process.
--- NOTE | ~2023-05-30 | CT_ITS ---
PROCEDURE: CT GUIDED BIOPSY, LUNG CLINICAL INFORMATION: Right lung nodule COMPARISON: PET/CT dated 04/30/2023 TECHNIQUE: The patient was positioned left lateral decubitus on the CT examination table. We chose this position to avoid traversal of a fissure as well as to avoid blood vessels that would have been within the line of approach with an anterior posterior trajectory. The left lateral decubitus approach was the safest. Preliminary CT scan of the chest confirmed the presence of a central right lower lobe nodule. The overlying skin was prepped and draped. 1% lidocaine was injected subcutaneously and extended to the pleura. A small incision was made in the skin with a #11 blade. Through the incision and under progressive CT guidance, a 19-gauge coaxial needle was advanced to the proximal edge of the nodule. We then obtained a total of three 20-gauge cores from the nodule. Pathology confirmed adequate tissue. The coaxial needle was removed and a sterile dressing applied. Follow-up CT examination showed mild hemorrhage, but no pneumothorax. The patient was deemed stable for transfer to the PACU. This CT examination was performed using dose optimization techniques as appropriate, variously including the following: *Automated exposure control *Adjustment of mA and/or kV according to patient size (this includes techniques or standardized protocols for targeted exams where dose is matched to indication/reason for exam; i.e. extremities or head) *Use of iterative reconstruction technique DLP: 252 mGy-cm FINDINGS: Right lung nodule successfully biopsied under CT guidance as described above. CT/CT biopsy lung RT IMPRESSION: Successful CT-guided biopsy of a right lower lobe lung nodule as described in detail above.
[2023-05-30 10:22] VITALS: BMI 21.2
[2023-05-30 10:29] LABS: MANUAL DIFF FLAG NO
[2023-05-30 10:32] LABS: Basophils Percent Auto 0.3 % (0-2); Eosinophils Absolute Auto 0.2 X10*3/uL (0.0-0.4); Eosinophils Percent Auto 1.8 % (0-4); Hematocrit 41.9 % (37.0-47.0); Hemoglobin 14.1 g/dl (12.0-16.0); Imm Gran Abs Auto 0.03 X10*3/uL (0.00-0.03); Imm Gran Pct Auto 0.3 % (0.0-0.4); Lymphocytes Absolute Auto 2.1 X10*3/uL (1.2-4.9); Lymphocytes Percent Auto 22.5 % (20-40); Mean Corpuscular HGB Conc 33.7 g/dl (31.0-35.0); Mean Platelet Volume 8.9 fL (9.4-12.3); Monocytes Absolute Auto 0.4 X10*3/uL (0.1-1.2); Monocytes Percent Auto 4.3 % (2-11); Neutrophils Absolute Auto 6.7 x10*3/uL (2.0-8.3); Neutrophils Percent Auto 70.8 % (45-73); Platelet Count 246 X10*3/uL (160-400); Red Blood Count 4.15 X10*6/uL (4.20-5.50); Red Cell Distribution Width 12.5 % (11.0-16.0); White Blood Count 9.5 X10*3/uL (4.8-10.8)
[2023-05-30 10:36] VITALS: BP 119/79; PULSE 90; RESP 16; TEMP 36.9; O2SAT 93
[2023-05-30 10:38] LABS: INTERNATIONAL NORM RATIO 0.8 (0.9-1.1); Prothrombin Time 9.4 SEC (11.1-13.3)
[2023-05-30 10:40] LABS: Partial Thromboplastin Time 27.3 SEC (26.0-36.4)
[2023-05-30] MEDS: Lactated Ringers 1,000 ML 100 ML IVCONT (10:50)
--- NOTE | 2023-05-30 11:50 | PC.NURSE ---
Patient arrived to preop room very anxious and crying requesting fiance to come into preop room with her. States my mother just 4 months ago and I am not in a good place . Americo RN, charge nurse, okayed this. Fiance at bedside with patient. During intake questions, patient voiced she ate a cough drop around 9am on the way to the hospital. Dr. Stubbs made aware. Procedure postponed until 1pm. OR desk made aware as well as IR nurse Deepthi Peterson. Procedure to go at 1pm. Patient resting behind curtain with light off for relaxation. Repositioned for comfort, given bedpan to void, and nicotine patch to be placed (ordered by Dr. Stubbs per patient request, awaiting pharmacy to bring it to short stay). Patient also arrived to preop wearing multiple pieces of jewelry. Most removed and placed in patient labeled bag. This bag given to fiance to hold onto per patient request. Two earrings and one ring unable to be removed. Jewelry waiver signed.
[2023-05-30] MEDS: Nicotine 7 MG PATCH.TD24 TRANSDERMA (12:08)
--- NOTE | 2023-05-30 13:13 | PC.NURSE ---
Patient in preop room. Lung sounds clear, bases diminished. SaO2 91-93%. Patient states My oxygen is normally around that . Intermittent productive congested cough present. Patient states I have had this cough for 3 months and is why I am getting todays procedure . Dr. Stubbs made aware. No new orders at this time.
[2023-05-30 14:55] VITALS: BP 117/92; PULSE 88; RESP 12; TEMP 36.7; O2SAT 98
[2023-05-30 15:10] VITALS: BP 126/84; PULSE 75; RESP 17; O2SAT 98
[2023-05-30 15:25] VITALS: BP 135/82; PULSE 75; RESP 17; O2SAT 95
[2023-05-30 15:40] VITALS: BP 136/90; PULSE 81; RESP 19; TEMP 37; O2SAT 95
== END 2023-05-30 16:06 | disposition home or self-care (01) ==
LOC: HO.SSS 09:50
PROVIDERS: Radiology Vascular & Interventional Radiology; PCP Internal Medicine; Visit Provider Internal Medicine
DX: C34.31 Malignant neoplasm of lower lobe, right bronchus or lung (principal); J44.9 Chronic obstructive pulmonary disease, unspecified; J30.9 Allergic rhinitis, unspecified; R06.02 Shortness of breath; Z79.51 Long term (current) use of inhaled steroids; F17.211 Nicotine dependence, cigarettes, in remission; I10 Essential (primary) hypertension; E78.5 Hyperlipidemia, unspecified; Z98.890 Other specified postprocedural states
CPT/HCPCS: 32408; 36415; 71045; 85025; 85610; 85730; 88305; 88333; 88341; 88342; J2250; J2370; J2371; J3010

== ENCOUNTER → 2023-05-30 13:47 | Outpatient (BNV) | payer MEDICARE, MEDICAID, SELFPAY | PROVIDERS: PCP Internal Medicine; Visit Provider Radiology Vascular & Interventional Radiology | DX: R91.8 Other nonspecific abnormal finding of lung field (principal) | CPT/HCPCS: 32408 ==

== ENCOUNTER 2023-05-30 22:19 | Inpatient (IN) | payer MEDICARE, MEDICAID, SELFPAY ==
--- NOTE | ~2023-05-30 | CT_ITS ---
EXAMINATION: CT CHEST WITH CONTRAST CLINICAL INFORMATION: Right lower lung biopsy. Hemoptysis. COMPARISON: 04/09/2023 and 05/30/2023. TECHNIQUE: Multidetector volumetric CT imaging of the chest was obtained after the administration of 65 mL of Omnipaque 350 intravenous contrast without immediate adverse reactions. Axial MIP volume rendering provided. Sagittal and coronal reformatted images were obtained. This CT examination was performed using dose optimization techniques as appropriate, variously including the following: *Automated exposure control *Adjustment of mA and/or kV according to patient size (this includes techniques or standardized protocols for targeted exams where dose is matched to indication/reason for exam; i.e. extremities or head) *Use of iterative reconstruction technique DLP: 168 mGy-cm FINDINGS: LUNGS: The central airways are patent. There is a small right-sided pneumothorax. This is new from prior. The biopsied right lower lobe nodule is again noted, measuring 1.2 cm on series 5 image 316. There is surrounding groundglass opacity in the lung, likely postintervention change/blood products. No pleural effusion. MEDIASTINUM: Normal heart size. No pericardial effusion. No mediastinal lymphadenopathy. Calcification within the right thyroid lobe. AXILLA: No lymphadenopathy. Gas in the right chest wall soft tissues. UPPER ABDOMEN: Unremarkable OSSEOUS STRUCTURES: No acute or suspicious osseous abnormality. Mild degenerative change throughout the spine CT/CT chest w IV con IMPRESSION: 1. Small right-sided pneumothorax. This is new from prior. 2. The biopsied right lower lobe nodule is again noted. There is surrounding groundglass opacity, likely postintervention change/blood products. This critical result was discussed with Glo Mack MD by telephone at 05/31/2023 2:03 AM and it was ascertained that the content and urgency of the report was understood at the time of direct communication.
--- NOTE | ~2023-05-30 | XR_ITS ---
EXAMINATION: XR CHEST CLINICAL INFORMATION: Pneumothorax COMPARISON: 05/30/2023 TECHNIQUE: Frontal view of the chest was obtained. FINDINGS: The lungs are well expanded. Small right-sided pneumothorax is again noted, as seen on prior CT. No consolidation. Minimal opacity at the right lower lung corresponds to the site of biopsy. No edema or effusion. The cardiomediastinal silhouette is within normal limits. XR/XR chest 1V IMPRESSION: Small right-sided pneumothorax is similar to prior.
--- NOTE | ~2023-05-30 | XR_ITS ---
EXAMINATION: XR CHEST CLINICAL INFORMATION: Follow-up pneumothorax COMPARISON: Chest radiograph from 06/01/2023 TECHNIQUE: Frontal view of the chest was obtained. FINDINGS: Stable appearance of right apical pneumothorax. Stable appearance of emphysematous changes in the right lateral chest wall and right supraclavicular region. Bibasilar atelectasis. Trachea is midline. Cardiac mediastinal silhouette is stable. No large pleural effusion. Slight dextrocurvature of the midthoracic spine. XR/XR chest 1V IMPRESSION: 1. Stable appearance of right apical pneumothorax. 2. Stable appearance of emphysematous changes in the right lateral chest wall and right supraclavicular region. 3. Bibasilar atelectasis.
--- NOTE | ~2023-05-30 | XR_ITS ---
EXAMINATION: XR CHEST CLINICAL INFORMATION: Follow-up pneumothorax COMPARISON: Chest radiograph from 05/31/2023 TECHNIQUE: Frontal view of the chest was obtained. FINDINGS: Redemonstrated small right apical pneumothorax, slightly increased from prior imaging. Subcutaneous emphysema redemonstrated along the right lateral chest wall increased from prior imaging and extending into the right supraclavicular region. Increasing bibasilar atelectasis, right greater than left. Trachea is midline. Cardiac mediastinal silhouette. No large pleural effusion. Osseous structures are intact. Soft tissues are unremarkable. XR/XR chest 1V IMPRESSION: 1. Redemonstrated small right apical pneumothorax, slightly increased from prior imaging. 2. Subcutaneous emphysema redemonstrated along the right lateral chest wall increased from prior imaging and extending into the right supraclavicular region. 3. Increasing bibasilar atelectasis, right greater than left. 4. No large pleural effusion.
[2023-05-30 22:23] VITALS: BP 120/76; PULSE 88; O2SAT 96
[2023-05-30 22:26] VITALS: BP 139/85; PULSE 89; RESP 16; TEMP 36.6; O2SAT 95; BMI 21.6
[2023-05-31] VITALS (9 sets, daily range): BP systolic 126–148; BP diastolic 72–92; PULSE 84–108; RESP 16–20; TEMP 35.9–36.9; O2SAT 91–97; BMI 22.5
--- NOTE | 2023-05-31 00:10 | ED_ITS ---
HPI - General Adult General Chief complaint: General Medical Stated complaint: COUGHING UP DARK RED BLOOD Time Seen by Provider: 05/30/23 23:52 Source: patient and family (Spouse) Mode of arrival: ambulatory Limitations: no limitations History of Present Illness HPI narrative: 62-year-old female history of COPD and a right lung mass. Patient is s/p right lung biopsy today, came in today for increased difficulty breathing with wheezing and coughing up blood clots, patient declined using any blood thinner. Patient is an active smoker with well known history of COPD. No chest pain. Related Data Home Medications Medication Instructions Recorded Confirmed albuterol sulfate 90 mcg/actuation 2 puff inhalation 6XD PRN Wheezing 12/21/20 05/30/23 aerosol inhaler (ProAir HFA) aspirin 81 mg tablet,delayed 81 mg PO DAILY 12/21/20 05/30/23 release atorvastatin 20 mg tablet 20 mg PO BEDTIME 12/21/20 05/30/23 diazepam 10 mg tablet 10 mg PO BID 12/21/20 05/30/23 multivitamin 1 tab PO DAILY 12/21/20 05/30/23 tiotropium bromide 18 mcg capsule 1 cap inhalation DAILY 12/21/20 05/30/23 with inhalation device (Spiriva with HandiHaler) verapamil 200 mg capsule 24hr 200 mg PO DAILY 12/21/20 05/30/[address],ext.release bupropion HCl 300 mg 24 hr tablet, 300 mg PO DAILY 02/14/23 05/30/23 extended release fluticasone propionate 50 1 spray intranasal DAILY PRN 02/14/23 05/30/23 mcg/actuation nasal Allergy Symptoms spray,suspension topiramate 25 mg tablet 25 mg PO DAILY 02/14/23 05/30/23 biotin 10 mg tablet 10 mg PO DAILY 05/17/23 05/30/23 buspirone 10 mg tablet 10 mg PO TID 05/17/23 05/30/23 lidocaine 5 % topical patch 1 patch topical DAILY 05/17/23 05/30/23 omeprazole 20 mg capsule,delayed 20 mg PO DAILY 05/17/23 05/30/23 release prazosin 5 mg capsule 5 mg PO BEDTIME 05/17/23 05/30/23 Previous Rx's Medication Instructions Recorded cefuroxime axetil 500 mg tablet 500 mg PO BID #10 tabs 05/18/23 fluticasone propionate 100 1 inh inhalation BID #60 ea 05/18/23 mcg/actuation blister powder for inhalation (Flovent Diskus) guaifenesin 600 mg tablet, 600 mg PO BID #20 tabs 05/18/23 extended release 12 hr (Mucinex) Allergies Allergy/AdvReac Type Severity Reaction Status Date / Time codeine [CODEINE] Allergy Intermediate ITCHING Verified 05/30/23 22:30 hydrocodone [HYDROCODONE] Allergy Intermediate ITCHING Verified 05/30/23 22:30 diphenhydramine AdvReac Intermediate JITTERY Verified 05/30/23 22:30 [From BENADRYL] Review of Systems Review of Systems: All other systems are reviewed and are negative Constitutional: Reports as per HPI and Reports no additional constitutional complaints Eyes: Reports as per HPI and Reports no additional eye complaints Reports system reviewed and no additional complaints, except as documented Cardiovascular: Reports as per HPI and Reports no additional cardiovascular complaints Respiratory: Reports as per HPI and Reports no additional respiratory complaints Gastrointestinal: Reports as per HPI and Reports no additional gastrointestinal complaints Genitourinary: Reports no additional female genitourinary complaints Musculoskeletal: Reports no additional musculoskeletal complaints Skin/Breast: Reports system reviewed and no additional complaints, except as docu Psychiatric: Reports no additional psychiatric complaints Endocrine: Reports no additional endocrine complaints Hematologic/Lymphatic: Reports no additional hematologic/lymphatic complaints Allergic/Immunologic: Reports no additional allergic/immunologic complaints Reports system reviewed and no additional complaints, except as documented and Reports Abnormal speech present PMFSH Past Medical History Medical History Allergic rhinitis Anxiety COPD (chronic obstructive pulmonary disease) COPD (chronic obstructive pulmonary disease) Current smoker DJD (degenerative joint disease) Ectopic History of depression History of herniated intervertebral disc Hyperlipidemia Hypertension IBS (irritable bowel syndrome) PTSD (post-traumatic stress disorder) Right lower lobe lung mass Scoliosis Urinary incontinence Surgical History H/O ovarian cystectomy History of bladder surgery History of bladder suspension procedure History of blepharoplasty History of esophagogastroduodenoscopy (EGD) History of hysterectomy Hx of colonoscopy Hx of dilation of urethra Social History Social History Alcohol intake: current Alcohol intake frequency: holidays/special occasions only Alcohol type: beer Patient Tobacco Use Status: Current everyday Tobacco user Tobacco use type: Cigarette Cigarette Packs Per Day: 0.5 Cigarettes Per Day: 10 Years Smoked: 47 Smoked in Last 30 Days: Yes Substance Use Type: Marijuana Advance Directives: Yes Advance Directives on File: Yes Advance Directives Date on File: 05/10/23 Patient : No service: No Physical Exam ED Vital Signs: Vital Signs - 24 hr 05/30/23 22:26 05/31/23 00:34 05/31/23 02:47 Temperature 97.9 F 98.0 F Pulse Rate 89 95 100 Respiratory Rate 16 18 20 Blood Pressure 139/85 138/92 H Pulse Oximetry 95 91 L Oxygen Delivery Method Room Air Room Air BMI result Body Mass Index 21.6 Vital signs have been reviewed as appeared to be correct. Blood pressure normal. Heart rate normal. Respiration rate normal. Temperature normal. Oxygen saturation normal. Appearance: Alert. Oriented X3. No acute distress. Head: Normal external exam. Normocephalic. Atraumatic. No [place] signs noted. No raccoon eyes noted Eyes: PERRLA. EOMI. Conjunctiva and sclera normal. Eyelids normal. ENT: TM's Normal. Pharynx normal. Uvula midline. Moist mucous membranes. No trismus noted. No drooling noted. No muffled voice noted. Neck: Normal inspection. Neck supple. FROM. No adenopathy. Thyroid Normal. No meningeal signs. No neck mass noted. CVS: Normal heart rate and rhythm. Heart sound normal. No murmurs noted. Pulses normal throughout. Respiratory: No respiratory distress. Painless inspiration. Breath sounds normal, biopsy side appear to be dry, clean, intact with no discharge. Diffuse mild expiratory wheezing with prolonged expiration. No accessory muscle usage noted or decreased air movement noted. Abdomen: Soft and nontender. Bowel sounds normal in all 4 quadrants. No distention noted. No organomegaly noted. No visible injury noted. Back: No CVA tenderness. Full range of motion noted. Skin: Skin warm and dry. Normal skin color. Normal skin turgor. No rashes/lesions/lacerations noted. Extremities: No lower extremity edema. Extremities exhibit normal range of motion. Extremities nontender. Neuro: Oriented X 3. Cranial nerve exam: II-XII are grossly intact No motor deficit. No sensory deficit. Reflexes normal. Course Course Course Narrative: S/p right lung biopsy, small right lung pneumothorax, hemoptysis, coughing. Will admit the patient for monitoring hemoptysis and a pneumothorax. Reevaluation(s) Reevaluation #1: Urine was just obtained from the patient showing a UTI patient meet criteria for SIRS will start the patient on ceftriaxone. Time: 03:01 Medications Administered Discontinued Medications Generic Name Dose Route Start Last Admin Trade Name Freq PRN Reason Stop Dose Admin Albuterol Sulfate 5 mg 05/31/23 00:19 05/31/23 00:33 Albuterol Sulfate (0.083%) 2.5 Mg/3 Ml Vial.Neb INHALE 05/31/23 00:20 5 mg ONCE ONE Administration Albuterol/Ipratropium 3 ml 05/31/23 00:19 05/31/23 00:33 Albuterol/Iprat 2.5/0.5mg 3 Ml Ampul.Neb INHALE 05/31/23 00:20 3 ml ONCE ONE Administration Guaifenesin/Codeine Phosphate 10 ml 05/31/23 00:19 05/31/23 00:36 Guaifen/Codeine Sf 200/20/10ml 10 Ml Liquid PO 05/31/23 00:20 10 ml ONCE ONE Administration Sodium Chloride 1,000 mls @ 999 mls/hr 05/31/23 00:16 05/31/23 01:40 Ns IV 05/31/23 01:16 Infused .Q1H1M ONE Infusion Sodium Chloride 1,000 mls @ 999 mls/hr 05/31/23 00:18 05/31/23 01:40 Ns IV 05/31/23 01:18 Infused .Q1H1M ONE Infusion Iohexol 65 ml 05/31/23 01:44 05/31/23 01:44 Iohexol 350 Mg/Ml 100 Ml Infus..Btl IV 05/31/23 01:45 65 ml ONCE ONE Administration Methylprednisolone Sodium Succinate 125 mg 05/31/23 00:19 05/31/23 00:36 Methylprednisolone Sod Succ 125 Mg/2 Ml Vial IVPUSH 05/31/23 00:20 125 mg ONCE ONE Administration Morphine Sulfate 2 mg 05/31/23 02:32 05/31/23 02:36 Morphine Sulfate 2 Mg/Ml Cartridge IVPUSH 05/31/23 02:33 2 mg ONCE ONE Administration Protocol Medical Decision Making Differential Diagnosis Differential Diagnoses: The differential diagnosis associated with the presentation includes (COPD exacerbation, pneumothorax, bleeding and the biopsy site, pneumonia, electrolyte abnormality, severe anemia.) Admission/Observation Consideration of admission/observation: Escalation of care including admission/observation considered Consult Healthcare Provider Management of the patient was discussed with: Hospitalist (Dr. Jack.) Lab Data MDM Lab Attestation statement: I reviewed the patient's lab results. 05/31/23 00:30 05/31/23 00:30 Labs: Lab Results 05/31/23 05/31/23 05/31/23 Range/Units 00:30 00:30 00:30 WBC 13.0 H (4.8-10.8) X10*3/uL RBC 3.82 L (4.20-5.50) X10*6/uL Hgb 13.0 (12.0-16.0) g/dl Hct 38.8 (37.0-47.0) % MCV 101.6 H (80.0-98.0) fL MCH 34.0 H (27.0-33.0) pg MCHC 33.5 (31.0-35.0) g/dl RDW 12.5 (11.0-16.0) % Plt Count 232 (160-400) X10*3/uL MPV 9.1 L (9.4-12.3) fL Immature Gran % (Auto) 0.4 (0.0-0.4) % Neut % (Auto) 75.1 H (45-73) % Lymph % (Auto) 19.3 L (20-40) % [place] % (Auto) 4.0 (2-11) % Eos % (Auto) 1.0 (0-4) % Baso % (Auto) 0.2 (0-2) % Lymph # (Auto) 2.5 (1.2-4.9) X10*3/uL [place] # (Auto) 0.5 (0.1-1.2) X10*3/uL Eos # (Auto) 0.1 (0.0-0.4) X10*3/uL Baso # (Auto) 0.0 (0.0-0.2) X10*3/uL Abs Immat Gran (auto) 0.05 H (0.00-0.03) X10*3/uL Absolute Neuts (auto) 9.8 H (2.0-8.3) x10*3/uL Absolute Nucleated RBC 0.000 (0.0-0.012) X10*3/uL Nucleated RBC % (auto) 0.0 (0.0-0.2) /100WBC PT 10.0 L (11.1-13.3) SEC INR 0.8 L (0.9-1.1) APTT 27.1 (26.0-36.4) SEC Sodium 144 (135-145) mmol/L Potassium 3.8 (3.3-5.1) mmol/L Chloride 109 H (96-108) mmol/L Carbon Dioxide 24 (22-29) mmol/L Anion Gap 15 (12-20) BUN 24 H (9-16) mg/dL Creatinine 0.92 (0.5-1.4) mg/dL Estim Creat Clear Calc 47.2 Estimated GFR > 60 Random Glucose 127 H (60-115) mg/dL Calcium 9.4 (8.4-10.2) mg/dL Total Bilirubin 0.1 (0.0-1.0) mg/dL Direct Bilirubin < 0.2 (0.0-0.5) mg/dL AST 23 (5-31) U/L ALT 32 H (0-31) U/L Alkaline Phosphatase 65 (39-117) U/L Total Protein 5.6 L (6.5-8.0) g/dL Albumin 3.5 (3.5-5.0) g/dL Lipase 22 (8-78) U/L Urine Color Urine Appearance Urine pH (5.0-9.0) Ur Specific [place] (1.005-1.025) Urine Protein (Neg-Trace) mg/dL Urine Glucose (UA) (Negative) mg/dL Urine Ketones (Negative) mg/dL Urine Blood (Negative) Urine Nitrite (Negative) Ur Leukocyte Esterase (Negative) Urine RBC (0-2) /HPF Urine WBC (0-5) /HPF Ur Squamous Epith Cells (0-2) /HPF Urine Bacteria (None Seen) Hyaline Casts (0-2) /LPF 05/31/23 Range/Units 02:34 WBC (4.8-10.8) X10*3/uL RBC (4.20-5.50) X10*6/uL Hgb (12.0-16.0) g/dl Hct (37.0-47.0) % MCV (80.0-98.0) fL MCH (27.0-33.0) pg MCHC (31.0-35.0) g/dl RDW (11.0-16.0) % Plt Count (160-400) X10*3/uL MPV (9.4-12.3) fL Immature Gran % (Auto) (0.0-0.4) % Neut % (Auto) (45-73) % Lymph % (Auto) (20-40) % [place] % (Auto) (2-11) % Eos % (Auto) (0-4) % Baso % (Auto) (0-2) % Lymph # (Auto) (1.2-4.9) X10*3/uL [place] # (Auto) (0.1-1.2) X10*3/uL Eos # (Auto) (0.0-0.4) X10*3/uL Baso # (Auto) (0.0-0.2) X10*3/uL Abs Immat Gran (auto) (0.00-0.03) X10*3/uL Absolute Neuts (auto) (2.0-8.3) x10*3/uL Absolute Nucleated RBC (0.0-0.012) X10*3/uL Nucleated RBC % (auto) (0.0-0.2) /100WBC PT (11.1-13.3) SEC INR (0.9-1.1) APTT (26.0-36.4) SEC Sodium (135-145) mmol/L Potassium (3.3-5.1) mmol/L Chloride (96-108) mmol/L Carbon Dioxide (22-29) mmol/L Anion Gap (12-20) BUN (9-16) mg/dL Creatinine (0.5-1.4) mg/dL Estim Creat Clear Calc Estimated GFR Random Glucose (60-115) mg/dL Calcium (8.4-10.2) mg/dL Total Bilirubin (0.0-1.0) mg/dL Direct Bilirubin (0.0-0.5) mg/dL AST (5-31) U/L ALT (0-31) U/L Alkaline Phosphatase (39-117) U/L Total Protein (6.5-8.0) g/dL Albumin (3.5-5.0) g/dL Lipase (8-78) U/L Urine Color Yellow Urine Appearance Clear Urine pH 6.0 (5.0-9.0) Ur Specific [place] 1.025 (1.005-1.025) Urine Protein Negative (Neg-Trace) mg/dL Urine Glucose (UA) Negative (Negative) mg/dL Urine Ketones Negative (Negative) mg/dL Urine Blood Negative (Negative) Urine Nitrite Positive H (Negative) Ur Leukocyte Esterase Small (1+) H (Negative) Urine RBC 0-2 (0-2) /HPF Urine WBC 21-50 H (0-5) /HPF Ur Squamous Epith Cells 3-5 (0-2) /HPF Urine Bacteria 4+ (None Seen) Hyaline Casts 0-2 (0-2) /LPF Independent Interpretation I performed an independent interpretation of an: CT Scan (Chest: Small right pneumothorax after biopsy) Radiology Impression Discussion of test interpretation with radiology: I have reviewed the radiologist's reading. Discharge Plan Discharge Clinical Impression: Acute exacerbation of chronic obstructive pulmonary disease, Hemoptysis, History of lung biopsy, Pneumothorax after biopsy, UTI (urinary tract infection) Patient Disposition: Admitted As Inpatient
[2023-05-31 00:33] LABS: MANUAL DIFF FLAG NO
[2023-05-31] MEDS: Albuterol Sulfate (0.083%) 2.5 MG/3 ML VIAL.NEB 5 MG INHALE (00:33)
[2023-05-31] MEDS: Albuterol/Iprat 2.5/0.5MG 3 ML AMPUL.NEB INHALE (00:33)
[2023-05-31 00:34] LABS: Basophils Percent Auto 0.2 % (0-2); Eosinophils Absolute Auto 0.1 X10*3/uL (0.0-0.4); Hematocrit 38.8 % (37.0-47.0); Imm Gran Abs Auto 0.05 X10*3/uL (0.00-0.03); Imm Gran Pct Auto 0.4 % (0.0-0.4); Lymphocytes Absolute Auto 2.5 X10*3/uL (1.2-4.9); Lymphocytes Percent Auto 19.3 % (20-40); Mean Corpuscular HGB Conc 33.5 g/dl (31.0-35.0); Mean Corpuscular Volume 101.6 fL (80.0-98.0); Mean Platelet Volume 9.1 fL (9.4-12.3); Monocytes Absolute Auto 0.5 X10*3/uL (0.1-1.2); Neutrophils Absolute Auto 9.8 x10*3/uL (2.0-8.3); Neutrophils Percent Auto 75.1 % (45-73); Platelet Count 232 X10*3/uL (160-400); Red Blood Count 3.82 X10*6/uL (4.20-5.50); Red Cell Distribution Width 12.5 % (11.0-16.0)
[2023-05-31] MEDS: guaiFEN/Codeine SF 200/20/10ML 10 ML LIQUID PO (00:36)
[2023-05-31] MEDS: methylPREDNISolone Sod Succ 125 MG/2 ML VIAL IVPUSH (00:36)
[2023-05-31] MEDS: 0.9 % Sodium Chloride 1,000 ML 999 ML IV ×2 (00:37)
[2023-05-31 00:41] LABS: INTERNATIONAL NORM RATIO 0.8 (0.9-1.1)
[2023-05-31 00:43] LABS: Partial Thromboplastin Time 27.1 SEC (26.0-36.4)
[2023-05-31 00:51] LABS: Alanine Aminotransferase 32 U/L (0-31); Albumin Level 3.5 g/dL (3.5-5.0); Alkaline Phosphatase 65 U/L (39-117); Anion Gap 15 (12-20); Aspartate Amino Transferase 23 U/L (5-31); Bilirubin Direct < 0.2 mg/dL (0.0-0.5); Bilirubin Total 0.1 mg/dL (0.0-1.0); Blood Urea Nitrogen 24 mg/dL (9-16); Calcium 9.4 mg/dL (8.4-10.2); Carbon Dioxide 24 mmol/L (22-29); Chloride 109 mmol/L (96-108); Creatinine Clr Calc Pharmacy 47.2; Estimated Glomerular Filt Rate > 60; Glucose Random 127 mg/dL (60-115); Lipase 22 U/L (8-78); Potassium 3.8 mmol/L (3.3-5.1); Sodium 144 mmol/L (135-145); Total Protein 5.6 g/dL (6.5-8.0)
[2023-05-31] MEDS: iohexoL 350 MG/ML 100 ML INFUS..BTL 65 ML IV (01:44)
[2023-05-31] MEDS: Morphine Sulfate 2 MG/ML CARTRIDGE IVPUSH (02:36)
[2023-05-31 02:40] LABS: Appearance Urine Clear; Color Urine Yellow; Glucose Urine UA Negative (Negative); Leukocyte Esterase Urine Small (1+) (Negative); Nitrite Urine Positive (Negative); Specific Gravity - Urine 1.025 (1.005-1.025); UMIC TRIGGER UACC YES; Urine Blood Negative (Negative); Urine Ketones Negative (Negative); Urine Protein Negative (Neg-Trace)
[2023-05-31 02:42] LABS: Bacteria Urine 4+ (None Seen); Hyaline Casts Urine 0-2 /LPF (0-2); RBC Urine 0-2 /HPF (0-2); UACC Culture Trigger YES; WBC Urine 21-50 /HPF (0-5)
--- NOTE | 2023-05-31 03:02 | PM.IMHP ---
History of Present Illness Date of Service: 05/31/23 Chief Complaint: SOB, hemoptysis This is a 62-year-old female past medical history of COPD, anxiety, history of depression, HTN, HLD, PTSD, IBS, recently diagnosed lung nodule which she had a biopsy done on 71, it appears that patient went home and became short of breath and had few episodes of hemoptysis which prompted her to come back to the hospital. According to the patient she was advised by the surgeon and anesthesiologist to stay in the hospital because she was having trouble breathing after the biopsy but she did not stay, and was told to keep an eye out for hemoptysis which she did and did have multiple episodes therefore prompted her to come to the hospital. She otherwise denies any fever no chills, she has some heavy chest pain on deep inspiration, midsternal, intermittent, she has a chronic cough that has not worsened. no abdominal pain nausea vomiting, no urinary symptoms and no lower extremity edema Chest CT shows small right sided pneumothorax the biopsied right lower lobe nodule is again noted, there is surrounding ground-glass opacity likely post intervention change/blood products Vitals otherwise unremarkable , satting above 92% on room air Labs are significant for WBC count of 13, UA positive for leukocyte Estrace, nitrites, WBC Patient will be admitted for further management Review of Systems Review of Systems: Yes all other systems are reviewed and are negative [facility] Medical History Allergic rhinitis Anxiety COPD (chronic obstructive pulmonary disease) COPD (chronic obstructive pulmonary disease) Current smoker DJD (degenerative joint disease) Ectopic History of depression History of herniated intervertebral disc Hyperlipidemia Hypertension IBS (irritable bowel syndrome) PTSD (post-traumatic stress disorder) Right lower lobe lung mass Scoliosis Urinary incontinence Surgical History H/O ovarian cystectomy History of bladder surgery History of bladder suspension procedure History of blepharoplasty History of esophagogastroduodenoscopy (EGD) History of hysterectomy Hx of colonoscopy Hx of dilation of urethra Social History Alcohol intake: current Alcohol intake frequency: holidays/special occasions only Alcohol type: beer Patient Tobacco Use Status: Current everyday Tobacco user Tobacco use type: Cigarette Cigarette Packs Per Day: 0.5 Cigarettes Per Day: 10 Years Smoked: 47 Smoked in Last 30 Days: Yes Substance Use Type: Marijuana Advance Directives: Yes Advance Directives on File: Yes Advance Directives Date on File: 05/10/23 Nutrition Risks: No Nutritional Risk Patient : No service: No Meds Allergies Allergy/AdvReac Type Severity Reaction Status Date / Time codeine [CODEINE] Allergy Intermediate ITCHING Verified 05/30/23 22:30 hydrocodone [HYDROCODONE] Allergy Intermediate ITCHING Verified 05/30/23 22:30 diphenhydramine AdvReac Intermediate JITTERY Verified 05/30/23 22:30 [From BENADRYL] Active Medications: Current Medications Ceftriaxone Sodium 1 gm/ (Sodium Chloride) 50 mls @ 100 mls/hr IV ONCE ONE Stop: 05/31/23 03:28 Home Medications Medication Instructions Recorded Confirmed Last Taken Type albuterol sulfate 90 mcg/actuation 2 puff inhalation 6XD PRN Wheezing 12/21/20 05/31/23 Unknown History aerosol inhaler (ProAir HFA) aspirin 81 mg tablet,delayed 81 mg PO DAILY 12/21/20 05/31/23 05/27/23 History release atorvastatin 20 mg tablet 20 mg PO BEDTIME 12/21/20 05/31/23 Unknown History diazepam 10 mg tablet 10 mg PO BID 12/21/20 05/31/23 05/30/23 History multivitamin 1 tab PO DAILY 12/21/20 05/31/23 Unknown History tiotropium bromide 18 mcg capsule 1 cap inhalation DAILY 12/21/20 05/31/23 Unknown History with inhalation device (Spiriva with HandiHaler) bupropion HCl 300 mg 24 hr tablet, 300 mg PO DAILY 02/14/23 05/31/23 Unknown History extended release fluticasone propionate 50 1 spray intranasal DAILY PRN 02/14/23 05/31/23 Unknown History mcg/actuation nasal Allergy Symptoms spray,suspension buspirone 10 mg tablet 10 mg PO TID 05/17/23 05/31/23 Unknown History lidocaine 5 % topical patch 1 patch topical DAILY 05/17/23 05/31/23 Unknown History omeprazole 20 mg capsule,delayed 20 mg PO DAILY 05/17/23 05/31/23 Unknown History release prazosin 5 mg capsule 5 mg PO BEDTIME 05/17/23 05/30/23 Unknown History albuterol sulfate 90 mcg/actuation 2 puff inhalation Q4H PRN wheezing 05/31/23 05/31/23 Unknown History aerosol inhaler (Ventolin HFA) fluoxetine 40 mg capsule 40 mg PO QAM 05/31/23 05/31/23 Unknown History verapamil 200 mg capsule 24hr 200 mg PO BEDTIME 05/31/23 05/31/[address],ext.release Physical Exam Vital Signs and Narrative: Vital Signs: Last Vital Signs Temp 98.0 F 05/31/23 02:47 Pulse 100 05/31/23 02:47 Resp 20 05/31/23 02:47 BP 138/92 H 05/31/23 02:47 Pulse Ox 91 L 05/31/23 02:47 O2 Del Method Room Air 05/31/23 02:47 BMI result Body Mass Index 21.6 Const: General: cooperative and no acute distress Orientation/consciousness: patient oriented x3 Eyes: General: appearance normal, both eyes and all related structures Pupils: Equal, round and reactive pupils present Resp: Other: Rhonchi bilaterally Effort & Inspection: normal respiratory effort Cardio: Rate: regular rate Rhythm: regular rhythm GI: Palpation (GI): Soft to palpation Auscultation: normal bowel sounds Skin: General skin exam: no rashes or lesions noted Neuro: General: patient oriented x3 Cranial nerves: Yes Equal, round and reactive pupils present Cognition (Neuro): normal cognition Extrem: General: Yes normal to inspection and Yes no pedal edema Results Labs 05/31/23 00:30 05/31/23 00:30 Labs: Laboratory Results - last 24 hr 05/31/23 05/31/23 05/31/23 00:30 00:30 00:30 MCV 101.6 H MCH 34.0 H MCHC 33.5 RDW 12.5 Plt Count 232 MPV 9.1 L Immature Gran % (Auto) 0.4 Neut % (Auto) 75.1 H Lymph % (Auto) 19.3 L [place] % (Auto) 4.0 Eos % (Auto) 1.0 Baso % (Auto) 0.2 Lymph # (Auto) 2.5 [place] # (Auto) 0.5 Eos # (Auto) 0.1 Baso # (Auto) 0.0 Abs Immat Gran (auto) 0.05 H Absolute Neuts (auto) 9.8 H Absolute Nucleated RBC 0.000 Nucleated RBC % (auto) 0.0 PT 10.0 L INR 0.8 L APTT 27.1 Anion Gap 15 Estim Creat Clear Calc 47.2 Estimated GFR > 60 Random Glucose 127 H Calcium 9.4 Total Bilirubin 0.1 Direct Bilirubin < 0.2 AST 23 ALT 32 H Alkaline Phosphatase 65 Total Protein 5.6 L Albumin 3.5 Lipase 22 Urine Color Urine Appearance Urine pH Ur Specific [place] Urine Protein Urine Glucose (UA) Urine Ketones Urine Blood Urine Nitrite Ur Leukocyte Esterase Urine RBC Urine WBC Ur Squamous Epith Cells Urine Bacteria Hyaline Casts 05/31/23 02:34 MCV MCH MCHC RDW Plt Count MPV Immature Gran % (Auto) Neut % (Auto) Lymph % (Auto) [place] % (Auto) Eos % (Auto) Baso % (Auto) Lymph # (Auto) [place] # (Auto) Eos # (Auto) Baso # (Auto) Abs Immat Gran (auto) Absolute Neuts (auto) Absolute Nucleated RBC Nucleated RBC % (auto) PT INR APTT Anion Gap Estim Creat Clear Calc Estimated GFR Random Glucose Calcium Total Bilirubin Direct Bilirubin AST ALT Alkaline Phosphatase Total Protein Albumin Lipase Urine Color Yellow Urine Appearance Clear Urine pH 6.0 Ur Specific [place] 1.025 Urine Protein Negative Urine Glucose (UA) Negative Urine Ketones Negative Urine Blood Negative Urine Nitrite Positive H Ur Leukocyte Esterase Small (1+) H Urine RBC 0-2 Urine WBC 21-50 H Ur Squamous Epith Cells 3-5 Urine Bacteria 4+ Hyaline Casts 0-2 Imaging Radiologist's Impressions: Impressions Chest CT 05/31/23 01:45 IMPRESSION: 1. Small right-sided pneumothorax. This is new from prior. 2. The biopsied right lower lobe nodule is again noted. There is surrounding groundglass opacity, likely postintervention change/blood products. This critical result was discussed with Glo Mack MD by telephone at 05/31/2023 2:03 AM and it was ascertained that the content and urgency of the report was understood at the time of direct communication. Assessment and Plan (1) Hemoptysis: Status: Acute (2) History of lung biopsy: Status: Acute (3) Pneumothorax after biopsy: Status: Acute (4) UTI (urinary tract infection): Status: Acute Plan 62-year-old female with past medical history of lung nodule status post biopsy on 05/30 comes into the hospital post biopsy with shortness of breath, hemoptysis # acute hemoptysis - likely secondary to biopsy - hemoglobin stable - satting above 92% on room air, not requiring any additional oxygen - at this time will monitor for further hemoptysis, follow CBC, thoracic surgery consulted # history of lung biopsy status post pneumothorax - will repeat x-ray in a.m. - monitor respiratory status and oxygen level - titrate oxygen office tolerated - thoracic surgery consult # acute UTI - positive UA - has leukocytosis - will treat with IV fluid - follow cultures # chest pain - pleuritic -likely secondary to pneumothorax - will obtain troponin - supportive measures # COPD - chronic cough not worsening, will continue home inhalers, DuoNeb - she has slight wheezing, will prescribe Solu-Medrol - monitor respiratory status # hypertension - stable - continue antihypertensive # hyperlipidemia - continue statin DVT prophylaxis: SCDs Given patient's need for further evaluation and monitoring patient require minimum 2 nights inpatient hospital stay for further management and monitoring Time Spent With Patient Time: Total time managing care of this patient today ____ minutes. Quality Stroke Does the patient have a stroke diagnosis?: No VTE Prior VTE?: No VTE Risk Level:: Medical - low VTE Device Contraindication: Treatment Not Indicated VTE Drug Contraindication: Treatment Not Indicated
[2023-05-31 03:26] LABS: Basophils Percent Auto 0.1 % (0-2); Eosinophils Percent Auto 0.2 % (0-4); Hematocrit 38.8 % (37.0-47.0); Hemoglobin 12.8 g/dl (12.0-16.0); Imm Gran Abs Auto 0.04 X10*3/uL (0.00-0.03); Imm Gran Pct Auto 0.3 % (0.0-0.4); Lymphocytes Absolute Auto 0.9 X10*3/uL (1.2-4.9); MANUAL DIFF FLAG SCAN; Mean Corpuscular Hemoglobin 33.9 pg (27.0-33.0); Mean Corpuscular Volume 102.6 fL (80.0-98.0); Mean Platelet Volume 9.1 fL (9.4-12.3); Monocytes Absolute Auto 0.1 X10*3/uL (0.1-1.2); Monocytes Percent Auto 0.8 % (2-11); Neutrophils Absolute Auto 13.7 x10*3/uL (2.0-8.3); Neutrophils Percent Auto 92.6 % (45-73); Platelet Count 229 X10*3/uL (160-400); Red Blood Count 3.78 X10*6/uL (4.20-5.50); Red Cell Distribution Width 12.6 % (11.0-16.0); SCAN SMEAR FLAG 1; White Blood Count 14.8 X10*3/uL (4.8-10.8)
[2023-05-31 03:39] LABS: Anion Gap 13 (12-20); Blood Urea Nitrogen 20 mg/dL (9-16); Calcium 8.4 mg/dL (8.4-10.2); Carbon Dioxide 24 mmol/L (22-29); Chloride 111 mmol/L (96-108); Estimated Glomerular Filt Rate > 60; Glucose Random 133 mg/dL (60-115); Potassium 3.6 mmol/L (3.3-5.1); Sodium 144 mmol/L (135-145)
[2023-05-31 03:43] LABS: SLIDE REVIEW VERIFIED
[2023-05-31] MEDS: cefTRIAXone sodium 1 GM in 0.9 % Sodium Chloride 50 ML IV (04:31)
[2023-05-31] MEDS: Atorvastatin Calcium 20 MG TABLET PO ×2 (04:55→20:54)
[2023-05-31] MEDS: diazePAM 5 MG TABLET 10 MG PO ×3 (04:56→20:54)
[2023-05-31] MEDS: busPIRone HCl 10 MG TABLET PO ×4 (04:56→20:54)
[2023-05-31] MEDS: oxyCODONE HCl Immed Release 5 MG TABLET PO ×3 (04:56→18:40)
[2023-05-31] MEDS: methylPREDNISolone Sod Succ 40 MG/ML VIAL IVPUSH (06:46)
[2023-05-31] MEDS: Aspirin Enteric Coated 81 MG TABLET.DR PO (08:08)
[2023-05-31] MEDS: Multivitamin TABLET 1 TAB PO (08:08)
[2023-05-31] MEDS: Omeprazole 20 MG CAPSULE.DR PO (08:08)
[2023-05-31] MEDS: buPROPion HCl XL 300 MG TAB.ER.24H PO (08:08)
[2023-05-31] MEDS: guaiFENesin LA 600 MG TAB.ER.12H PO ×2 (08:08→20:54)
[2023-05-31] MEDS: 0.9 % Sodium Chloride Flush 3 ML SYRINGE IVFLUSH ×3 (08:09→20:55)
[2023-05-31] MEDS: FLUoxetine HCl 20 MG CAPSULE 40 MG PO (08:11)
[2023-05-31] MEDS: Lidocaine 4 % Patch ADH..PATCH 1 PATCH TRANSDERMA (08:28)
--- NOTE | 2023-05-31 09:22 | PHA.MEDREC ---
Pharmacy Consult ? Medication Reconciliation Pharmacy has completed the medication reconciliation. Spoke to patient to confirm meds. Patient only takes Spiriva as maintenance inhaler currently.
[2023-05-31 09:25] LABS: Troponin-I High Sensitivity 3.8 ng/L (<3.5-17.0)
[2023-05-31] MEDS: Nicotine 14 MG PATCH.TD24 TRANSDERMA (10:25)
[2023-05-31] MEDS: Topiramate 25 MG TABLET PO (10:27)
[2023-05-31] MEDS: Fluticasone Propionate 100 MCG BLST.W.DEV 1 PUFF INHALE ×2 (11:34→19:56)
--- NOTE | 2023-05-31 12:04 | PM.EVENT ---
Event Note Date of Service: 05/31/23 Event Note: Seen and evaluated this morning No reported hemoptysis since admission still has infrequenct cough DC Steroid Follow CXR Thoracic surgery eval Time Spent With Patient Time: Total time managing care of this patient today ____ minutes.
--- NOTE | 2023-05-31 13:25 | MHC.CM.PN ---
Addendum entered by Analia Kimbrough 05/31/23 15:47: Patient is very anxious. She missed a dose of Diazepam this am. She is scheduled for Diazepam BID. Notified MD of anxiety and missed dose. He responded that he will order medication for pts anxiety. RN notified of communication and response. Original Note: IMM 05/31/23 S/P LUNG BIOPSY 05/26 RETURNS TO OR R/T HEMOPTYSIS. She lives by herself. She receives SN and Homemaking services from [facility], through [facility]. 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 She is independent with functional mobility. SOB r/t COPD. she has a HCP on file [facility] resumption of services so will transport.
--- NOTE | 2023-05-31 16:13 | HO.THORCON_ITS ---
History of Present Illness Consult details Consult date: 05/31/23 Narrative: Thoracic consult for evaluation of small pneumothorax status post IR biopsy of right lower lobe lung lesion. Patient underwent the procedure on 05/30. Because of an episode of hemoptysis, she presented emergency room and workup was found to have an incidental finding of a small right pneumothorax. Patient is asymptomatic from this at this time. Chart was reviewed and patient evaluated PMF Past Medical History Medical History (Updated 05/31/23 @ 08:05 by Jocelyn Benjamin PA-C) Allergic rhinitis Anxiety COPD (chronic obstructive pulmonary disease) Current smoker DJD (degenerative joint disease) History of depression History of ectopic History of herniated intervertebral disc History of malignant neoplasm of vulva Hyperlipidemia Hypertension IBS (irritable bowel syndrome) PTSD (post-traumatic stress disorder) Right lower lobe lung mass Scoliosis Urinary incontinence Surgical History Surgical History (Updated 05/31/23 @ 08:03 by Jocelyn Benjamin PA-C) History of biopsy History of bladder surgery History of bladder suspension procedure History of blepharoplasty History of colonoscopy History of cystoscopy History of dilation of urethra History of endoscopy History of hysterectomy History of lung biopsy History of ovarian cystectomy Social History Social History Alcohol intake: current Alcohol intake frequency: holidays/special occasions only Alcohol type: beer Patient Tobacco Use Status: Current everyday Tobacco user Tobacco use type: Cigarette Cigarette Packs Per Day: 0.5 Cigarettes Per Day: 10.0 Years Smoked: 47 Smoked in Last 30 Days: Yes Substance Use Type: Marijuana Advance Directives: Yes Advance Directives on File: Yes Advance Directives Date on File: 05/10/23 Nutrition Risks: No Nutritional Risk Patient : No service: No Meds Allergies Allergy/AdvReac Type Severity Reaction Status Date / Time codeine [CODEINE] Allergy Intermediate ITCHING Verified 05/30/23 22:30 hydrocodone [HYDROCODONE] Allergy Intermediate ITCHING Verified 05/30/23 22:30 diphenhydramine AdvReac Intermediate JITTERY Verified 05/30/23 22:30 [From BENADRYL] Active Medications: Current Medications Acetaminophen (Acetaminophen 325 Mg Tablet) 650 mg PO Q6H PRN PRN Reason: Pain, Mild (Pain Scale 1-3) Albuterol Sulfate (Albuterol Sulfate 90 Mcg 8 Gm Inhaler) 2 puff INHALE 6XD PRN PRN Reason: Wheezing Albuterol Sulfate (Albuterol Sulfate 90 Mcg 8 Gm Inhaler) 2 puff INHALE Q4H PRN PRN Reason: wheezing Albuterol/Ipratropium (Albuterol/Iprat 2.5/0.5mg 3 Ml Ampul.Neb) 3 ml INHALE RQ4H PRN PRN Reason: Shortness of breath Atorvastatin Calcium (Atorvastatin Calcium 20 Mg Tablet) 20 mg PO BEDTIME [facility] [place] Last Admin: 05/31/23 04:55 Dose: 20 mg Bupropion HCl (Bupropion Hcl Xl 300 Mg Tab.Er.24h) 300 mg PO DAILY [facility] [place] Last Admin: 05/31/23 08:08 Dose: 300 mg Buspirone HCl (Buspirone Hcl 10 Mg Tablet) 10 mg PO TID [facility] [place] Last Admin: 05/31/23 14:03 Dose: 10 mg Diazepam (Diazepam 5 Mg Tablet) 10 mg PO BID [facility] [place] Last Admin: 05/31/23 04:56 Dose: 10 mg Fluoxetine HCl (Fluoxetine Hcl 20 Mg Capsule) 40 mg PO QD [facility] [place] Last Admin: 05/31/23 08:11 Dose: 40 mg Fluticasone Propionate (Fluticasone Propionate 100 Mcg Blst.W.Dev) 1 puff INHALE BID [facility] [place] Last Admin: 05/31/23 11:34 Dose: 1 puff Fluticasone Propionate (Fluticasone Propionate Nasal 16 Gm [place]) 1 spray NOSTRIL-B DAILY PRN PRN Reason: Allergy Symptoms Guaifenesin (Guaifenesin [place] 600 Mg Tab.Er.12h) 600 mg PO BID [facility] [place] Last Admin: 05/31/23 08:08 Dose: 600 mg Ceftriaxone Sodium 1 gm/ (Sodium Chloride) 50 mls @ 100 mls/hr IV Q24H [facility] [place] Lidocaine (Lidocaine 4 % Patch Adh..Patch) 1 patch TRANSDERMA DAILY [facility] [place] Last Admin: 05/31/23 08:28 Dose: 1 patch Multivitamins/Vitamin C (Multivitamin Tablet) 1 tab PO DAILY [facility] [place] Last Admin: 05/31/23 08:08 Dose: 1 tab Nicotine (Nicotine 14 Mg Patch.Td24) 14 mg TRANSDERMA DAILY [facility] [place] Last Admin: 05/31/23 10:25 Dose: 14 mg Omeprazole (Omeprazole 20 Mg Capsule.Dr) 20 mg PO DAILY [facility] [place] Last Admin: 05/31/23 08:08 Dose: 20 mg Ondansetron HCl (Ondansetron Hcl 4 Mg/2 Ml Vial) 4 mg IVPUSH Q8H PRN PRN Reason: Nausea and Vomiting Oxycodone HCl (Oxycodone Hcl Immed Release 5 Mg Tablet) 5 mg PO Q4H PRN PRN Reason: Pain, Severe (Pain Scale 7-10) Last Admin: 05/31/23 11:12 Dose: 5 mg Pharmacy Consult (Consult Rx Perform Med Rec) 1 each MISCELLANE ONCE PRN PRN Reason: Consult order Prazosin HCl (Prazosin Hcl 5 Mg Capsule) 5 mg PO BEDTIME [facility]; Protocol Sodium Chloride (0.9 % Sodium Chloride Flush 3 Ml Syringe) 3 ml IVFLUSH QSHIFT [facility] [place] Last Admin: 05/31/23 08:09 Dose: 3 ml Tiotropium [place] (Tiotropium [place] 2.5 Mcg Inhaler) 1 puff INHALE DAILY [facility] [place] Last Admin: 05/31/23 11:35 Dose: 1 puff Topiramate (Topiramate 25 Mg Tablet) 25 mg PO DAILY [facility] [place] Last Admin: 05/31/23 10:27 Dose: 25 mg Verapamil HCl (Verapamil Hcl Sr 100 Mg Cap24h.Pct) 200 mg PO BEDTIME [facility]; Protocol Last Admin: 05/31/23 04:55 Dose: 200 mg Home Medications Medication Instructions Recorded Confirmed Last Taken Type aspirin 81 mg tablet,delayed 81 mg PO DAILY 12/21/20 05/31/23 05/30/23 History release atorvastatin 20 mg tablet 20 mg PO BEDTIME 12/21/20 05/31/23 05/29/23 History diazepam 10 mg tablet 10 mg PO BID PRN Anxiety 12/21/20 05/31/23 05/30/23 History multivitamin 1 tab PO DAILY 12/21/20 05/31/23 05/30/23 History tiotropium bromide 18 mcg capsule 1 cap inhalation DAILY 12/21/20 05/31/23 05/30/23 History with inhalation device (Spiriva with HandiHaler) bupropion HCl 300 mg 24 hr tablet, 300 mg PO DAILY 02/14/23 05/31/23 05/30/23 History extended release fluticasone propionate 50 1 spray intranasal DAILY PRN 02/14/23 05/31/23 Unknown History mcg/actuation nasal Allergy Symptoms spray,suspension lidocaine 5 % topical patch 1 patch topical DAILY 05/17/23 05/31/23 05/30/23 History omeprazole 20 mg capsule,delayed 20 mg PO DAILY@0630 05/17/23 05/31/23 05/30/23 History release prazosin 5 mg capsule 5 mg PO BEDTIME 05/17/23 05/31/23 05/29/23 History albuterol sulfate 90 mcg/actuation 2 puff inhalation Q4H PRN wheezing 05/31/23 05/31/23 Unknown History aerosol inhaler (Ventolin HFA) buspirone 5 mg tablet 5 mg PO TID 05/31/23 05/31/23 05/30/23 History fluoxetine 40 mg capsule 40 mg PO DAILY 05/31/23 05/31/23 05/30/23 History guaifenesin 600 mg tablet, 600 mg PO BID PRN Congestion 05/31/23 05/31/23 Unknown History extended release 12 hr (Mucus Relief ER) topiramate 25 mg tablet 25 mg PO DAILY 05/31/23 05/31/23 05/30/23 History verapamil 200 mg capsule 24hr 200 mg PO BEDTIME 05/31/23 05/31/23 05/29/[address],ext.release Physical Exam Vital Signs: Vital Signs: Last Vital Signs Temp 98.4 F 05/31/23 15:11 Pulse 91 05/31/23 15:11 Resp 20 05/31/23 15:11 BP 130/76 05/31/23 15:11 Pulse Ox 91 L 05/31/23 15:11 O2 Del Method Room Air 05/31/23 15:11 O2 Flow Rate 2 05/31/23 07:10 BMI result Body Mass Index 22.5 Chest: Other: Chest breath sounds bilaterally, right lateral chest dressing clean dry intact status post biopsy site. GI: Other: Abdomen soft, benign Results Labs 05/31/23 03:20 05/31/23 03:20 Labs: Abnormal lab results 05/31/23 05/31/23 05/31/23 Range/Units 00:30 00:30 00:30 WBC 13.0 H (4.8-10.8) X10*3/uL RBC 3.82 L (4.20-5.50) X10*6/uL MCV 101.6 H (80.0-98.0) fL MCH 34.0 H (27.0-33.0) pg MPV 9.1 L (9.4-12.3) fL Neut % (Auto) 75.1 H (45-73) % Lymph % (Auto) 19.3 L (20-40) % [place] % (Auto) (2-11) % Lymph # (Auto) (1.2-4.9) X10*3/uL Abs Immat Gran (auto) 0.05 H (0.00-0.03) X10*3/uL Absolute Neuts (auto) 9.8 H (2.0-8.3) x10*3/uL PT 10.0 L (11.1-13.3) SEC INR 0.8 L (0.9-1.1) Chloride 109 H (96-108) mmol/L BUN 24 H (9-16) mg/dL Random Glucose 127 H (60-115) mg/dL ALT 32 H (0-31) U/L Total Protein 5.6 L (6.5-8.0) g/dL Urine Nitrite (Negative) Ur Leukocyte Esterase (Negative) Urine WBC (0-5) /HPF 05/31/23 05/31/23 05/31/23 Range/Units 02:34 03:20 03:20 WBC 14.8 H (4.8-10.8) X10*3/uL RBC 3.78 L (4.20-5.50) X10*6/uL MCV 102.6 H (80.0-98.0) fL MCH 33.9 H (27.0-33.0) pg MPV 9.1 L (9.4-12.3) fL Neut % (Auto) 92.6 H (45-73) % Lymph % (Auto) 6.0 L (20-40) % [place] % (Auto) 0.8 L (2-11) % Lymph # (Auto) 0.9 L (1.2-4.9) X10*3/uL Abs Immat Gran (auto) 0.04 H (0.00-0.03) X10*3/uL Absolute Neuts (auto) 13.7 H (2.0-8.3) x10*3/uL PT (11.1-13.3) SEC INR (0.9-1.1) Chloride 111 H (96-108) mmol/L BUN 20 H (9-16) mg/dL Random Glucose 133 H (60-115) mg/dL ALT (0-31) U/L Total Protein (6.5-8.0) g/dL Urine Nitrite Positive H (Negative) Ur Leukocyte Esterase Small (1+) H (Negative) Urine WBC 21-50 H (0-5) /HPF Short CBC 05/31/23 05/31/23 Range/Units 00:30 03:20 WBC 13.0 H 14.8 H (4.8-10.8) X10*3/uL Hgb 13.0 12.8 (12.0-16.0) g/dl Hct 38.8 38.8 (37.0-47.0) % Plt Count 232 229 (160-400) X10*3/uL BMP 05/31/23 05/31/23 00:30 03:20 Sodium 144 144 Potassium 3.8 3.6 Chloride 109 H 111 H Carbon Dioxide 24 24 BUN 24 H 20 H Creatinine 0.92 0.82 Calcium 9.4 8.4 D Liver Function 05/31/23 Range/Units 00:30 Total Bilirubin 0.1 (0.0-1.0) mg/dL Direct Bilirubin < 0.2 (0.0-0.5) mg/dL AST 23 (5-31) U/L ALT 32 H (0-31) U/L Alkaline Phosphatase 65 (39-117) U/L Albumin 3.5 (3.5-5.0) g/dL Urine 05/31/23 Range/Units 02:34 Urine Color Yellow Urine Appearance Clear Urine pH 6.0 (5.0-9.0) Ur Specific [place] 1.025 (1.005-1.025) Urine Protein Negative (Neg-Trace) mg/dL Urine Glucose (UA) Negative (Negative) mg/dL All other labs normal. Assessment and Plan (1) Pneumothorax after biopsy: Status: Acute (2) Hemoptysis: Status: Acute (3) History of lung biopsy: Status: Acute (4) Right lower lobe lung mass: Status: Acute Plan CT scan and chest x-ray demonstrate a very small right pneumothorax. Patient is asymptomatic regarding this at present. Hemoptysis episodes have improved as well. At present, continue conservative therapy. Suggest repeating chest x-ray in the morning , 06/01, and if it is stable or better, and hemoptysis has resolved, patient can be discharged home. Time Spent With Patient Time: Total time managing care of this patient today ____ minutes. Procedures Date of Service Date of Service: 05/31/23
[2023-05-31] MEDS: Prazosin HCL 5 MG CAPSULE PO (20:54)
[2023-06-01] VITALS (9 sets, daily range): BP systolic 112–131; BP diastolic 68–84; PULSE 72–101; RESP 16–18; TEMP 36–36.7; O2SAT 92–94
[2023-06-01] MEDS: oxyCODONE HCl Immed Release 5 MG TABLET PO ×4 (03:35→20:49)
[2023-06-01] MEDS: Albuterol/Iprat 2.5/0.5MG 3 ML AMPUL.NEB INHALE (03:54)
[2023-06-01] MEDS: cefTRIAXone sodium 1 GM in 0.9 % Sodium Chloride 50 ML IV (05:51)
[2023-06-01 06:20] LABS: Hematocrit 39.3 % (37.0-47.0); Hemoglobin 13.1 g/dl (12.0-16.0); Mean Corpuscular HGB Conc 33.3 g/dl (31.0-35.0); Mean Corpuscular Hemoglobin 33.5 pg (27.0-33.0); Mean Corpuscular Volume 100.5 fL (80.0-98.0); Mean Platelet Volume 9.4 fL (9.4-12.3); Platelet Count 231 X10*3/uL (160-400); Red Blood Count 3.91 X10*6/uL (4.20-5.50); Red Cell Distribution Width 12.7 % (11.0-16.0); White Blood Count 15.4 X10*3/uL (4.8-10.8)
[2023-06-01] MEDS: Fluticasone Propionate 100 MCG BLST.W.DEV 1 PUFF INHALE ×2 (07:57→19:51)
[2023-06-01] MEDS: 0.9 % Sodium Chloride Flush 3 ML SYRINGE IVFLUSH ×2 (08:36→20:48)
[2023-06-01] MEDS: Acetaminophen 325 MG TABLET 650 MG PO (08:37)
[2023-06-01] MEDS: guaiFENesin LA 600 MG TAB.ER.12H PO ×2 (08:37→20:47)
[2023-06-01] MEDS: Omeprazole 20 MG CAPSULE.DR PO (08:37)
[2023-06-01] MEDS: buPROPion HCl XL 300 MG TAB.ER.24H PO (08:38)
[2023-06-01] MEDS: diazePAM 5 MG TABLET 10 MG PO ×2 (08:38→20:47)
[2023-06-01] MEDS: Multivitamin TABLET 1 TAB PO (08:38)
[2023-06-01] MEDS: Nicotine 14 MG PATCH.TD24 TRANSDERMA (08:38)
[2023-06-01] MEDS: busPIRone HCl 10 MG TABLET PO ×3 (08:38→20:47)
[2023-06-01] MEDS: Topiramate 25 MG TABLET PO (08:38)
[2023-06-01] MEDS: Lidocaine 4 % Patch ADH..PATCH 1 PATCH TRANSDERMA ×2 (08:39→10:46)
[2023-06-01] MEDS: FLUoxetine HCl 20 MG CAPSULE 40 MG PO (08:41)
[2023-06-01] MEDS: Lactulose 20 GM/30 ML SOLUTION PO ×2 (10:45→20:48)
[2023-06-01] MEDS: Docusate Sodium 100 MG CAPSULE PO ×2 (10:45→20:47)
--- NOTE | 2023-06-01 12:03 | P.PNIM_ITS ---
Subjective Subjective Date of Service: 06/01/23 Interval History: Seen this morning Feels anxious, reporting chest wall pain Denies any fever or chills No reported hemoptysis CXR showing mild worsening of pneumothorax Review of Systems Review of Systems: Yes all other systems are reviewed and are negative Physical Exam Vital Signs: Vital Signs: Last Vital Signs Temp 97.6 F 06/01/23 11:17 Pulse 73 06/01/23 11:17 Resp 18 06/01/23 11:17 BP 112/77 06/01/23 11:17 Pulse Ox 93 06/01/23 11:17 O2 Del Method Room Air 06/01/23 11:17 O2 Flow Rate 2 05/31/23 07:10 BMI result Body Mass Index 22.5 Const: Other: Constitutional : Awake, interactive, not in distress Neck : Normal inspection, Supple Cardiovascular : RRR, no JVP, no lower extremity edema Respiratory : good bilateral air entry,? no crackles, expiratory wheezing Gastrointestinal:? soft, lax, Normal bowel sounds, Non tender Skin : Warm, Dry Neurological : Alert & oriented x3, No focal deficit Objective Data Active Medications Acetaminophen (Acetaminophen 325 Mg Tablet) 650 mg PO Q6H PRN PRN Reason: Pain, Mild (Pain Scale 1-3) Last Admin: 06/01/23 08:37 Dose: 650 mg Documented By: CHRISTIANO Acetaminophen (Acetaminophen 325 Mg Tablet) 975 mg PO TIDWM [facility] Last Admin: 06/01/23 11:38 Dose: Not Given Documented By: CHRISTIANO Non-Admin Reason: dose given 0837 Albuterol Sulfate (Albuterol Sulfate 90 Mcg 8 Gm Inhaler) 2 puff INHALE 6XD PRN PRN Reason: Wheezing Albuterol Sulfate (Albuterol Sulfate 90 Mcg 8 Gm Inhaler) 2 puff INHALE Q4H PRN PRN Reason: wheezing Albuterol/Ipratropium (Albuterol/Iprat 2.5/0.5mg 3 Ml Ampul.Neb) 3 ml INHALE RQ4H PRN PRN Reason: Shortness of breath Last Admin: 06/01/23 03:54 Dose: 3 ml Documented By: RENATA Atorvastatin Calcium (Atorvastatin Calcium 20 Mg Tablet) 20 mg PO BEDTIME [facility] Last Admin: 05/31/23 20:54 Dose: 20 mg Documented By: SORAYA Bupropion HCl (Bupropion Hcl Xl 300 Mg Tab.Er.24h) 300 mg PO DAILY [facility] Last Admin: 06/01/23 08:38 Dose: 300 mg Documented By: CHRISTIANO Buspirone HCl (Buspirone Hcl 10 Mg Tablet) 10 mg PO TID [facility] Last Admin: 06/01/23 08:38 Dose: 10 mg Documented By: CHRISTIANO Diazepam (Diazepam 5 Mg Tablet) 10 mg PO BID [facility] Last Admin: 06/01/23 08:38 Dose: 10 mg Documented By: CHRISTIANO Docusate Sodium (Docusate Sodium 100 Mg Capsule) 100 mg PO BID [facility] Last Admin: 06/01/23 10:45 Dose: 100 mg Documented By: CHRISTIANO Fluoxetine HCl (Fluoxetine Hcl 20 Mg Capsule) 40 mg PO QD [facility] Last Admin: 06/01/23 08:41 Dose: 40 mg Documented By: CHRISTIANO Fluticasone Propionate (Fluticasone Propionate 100 Mcg Blst.W.Dev) 1 puff INHALE BID [facility] Last Admin: 06/01/23 07:57 Dose: 1 puff Documented By: ALOK Fluticasone Propionate (Fluticasone Propionate Nasal 16 Gm [place]) 1 spray NOSTRIL-B DAILY PRN PRN Reason: Allergy Symptoms Guaifenesin (Guaifenesin [place] 600 Mg Tab.Er.12h) 600 mg PO BID [facility] Last Admin: 06/01/23 08:37 Dose: 600 mg Documented By: CHRISTIANO Ceftriaxone Sodium 1 gm/ (Sodium Chloride) 50 mls @ 100 mls/hr IV Q24H [facility] Last Infusion: 06/01/23 06:53 Dose: 100 mls/hr Documented By: CHRISTIANO Lactulose (Lactulose 20 Gm/30 Ml Solution) 20 gm PO BID [facility] Last Admin: 06/01/23 10:45 Dose: 20 gm Documented By: CHRISTIANO Lidocaine (Lidocaine 4 % Patch Adh..Patch) 1 patch TRANSDERMA DAILY [facility] Last Admin: 06/01/23 08:39 Dose: 1 patch Documented By: CHRISTIANO Lidocaine (Lidocaine 4 % Patch Adh..Patch) 1 patch TRANSDERMA DAILY [facility]; Protocol Last Admin: 06/01/23 10:46 Dose: 1 patch Documented By: CHRISTIANO Multivitamins/Vitamin C (Multivitamin Tablet) 1 tab PO DAILY [facility] Last Admin: 06/01/23 08:38 Dose: 1 tab Documented By: CHRISTIANO Nicotine (Nicotine 14 Mg Patch.Td24) 14 mg TRANSDERMA DAILY [facility] Last Admin: 06/01/23 08:38 Dose: 14 mg Documented By: CHRISTIANO Omeprazole (Omeprazole 20 Mg Capsule.Dr) 20 mg PO DAILY [facility] Last Admin: 06/01/23 08:37 Dose: 20 mg Documented By: CHRISTIANO Ondansetron HCl (Ondansetron Hcl 4 Mg/2 Ml Vial) 4 mg IVPUSH Q8H PRN PRN Reason: Nausea and Vomiting Oxycodone HCl (Oxycodone Hcl Immed Release 5 Mg Tablet) 5 mg PO Q4H PRN PRN Reason: Pain, Severe (Pain Scale 7-10) Last Admin: 06/01/23 08:36 Dose: 5 mg Documented By: CHRISTIANO Pharmacy Consult (Consult Rx Perform Med Rec) 1 each MISCELLANE ONCE PRN PRN Reason: Consult order Prazosin HCl (Prazosin Hcl 5 Mg Capsule) 5 mg PO BEDTIME [facility]; Protocol Last Admin: 05/31/23 20:54 Dose: 5 mg Documented By: SORAYA Sodium Chloride (0.9 % Sodium Chloride Flush 3 Ml Syringe) 3 ml IVFLUSH QSHIFT [facility] Last Admin: 06/01/23 08:36 Dose: 3 ml Documented By: CHRISTIANO Tiotropium [place] (Tiotropium [place] 2.5 Mcg Inhaler) 1 puff INHALE DAILY [facility] Last Admin: 06/01/23 07:57 Dose: 1 puff Documented By: ALOK Topiramate (Topiramate 25 Mg Tablet) 25 mg PO DAILY [facility] Last Admin: 06/01/23 08:38 Dose: 25 mg Documented By: CHRISTIANO Verapamil HCl (Verapamil Hcl Sr 100 Mg Cap24h.Pct) 200 mg PO BEDTIME [facility]; Protocol Last Admin: 05/31/23 20:54 Dose: 200 mg Documented By: SORAYA Labs 06/01/23 05:57 05/31/23 03:20 Labs: Laboratory Results - last 24 hr 06/01/23 05:57 MCV 100.5 H MCH 33.5 H MCHC 33.3 RDW 12.7 Plt Count 231 MPV 9.4 Absolute Nucleated RBC 0.000 Nucleated RBC % (auto) 0.0 Microbiology Microbiology Results: Microbiology 05/31/23 Unknown Urine Culture - Preliminary Urine clean catch - Urine tyler top Gram negative lizy 05/31/23 04:27 Blood Culture - Preliminary Blood - Venous No growth after 24 hours. 05/31/23 04:27 Blood Culture - Preliminary Blood - Venous No growth after 24 hours. Assessment and Plan (1) Pneumothorax after biopsy: Status: Acute (2) Hemoptysis: Status: Acute (3) UTI (urinary tract infection): Status: Acute Plan 62-year-old female with past medical history of lung nodule status post biopsy on 05/30 comes into the hospital post biopsy with shortness of breath, hemoptysis # acute hemoptysis resolved, secondary to biopsy hemoglobin stable satting above 92% on room air thoracic surgery following # Acute Pneumothorax post lung biopsy repeated x-ray showing mild worsening in PNX, atelactasis and subcutaneous emphysema monitor respiratory status and oxygen level thoracic surgery # acute UTI IV antibiorics follow cultures # COPD chronic cough not worsening, will continue home inhalers, DuoNeb monitor respiratory status # hypertension continue antihypertensive # hyperlipidemia continue statin DVT prophylaxis: SCDs Given patient's need for further evaluation and monitoring patient require overnight inpatient hospital stay for further management and monitoring Time Spent With Patient Time: Total time managing care of this patient today ____ minutes. Quality Stroke Does the patient have a stroke diagnosis?: No VTE Prior VTE?: No VTE Risk Level:: Medical - low VTE Device Contraindication: Treatment Not Indicated VTE Drug Contraindication: Treatment Not Indicated
--- NOTE | 2023-06-01 14:39 | P.PNTS_ITS ---
Subjective Subjective Date of Service: 06/01/23 Interval history: No respiratory issues or complaints. Chest x-ray demonstrates very small right apical pneumothorax. Physical Exam Vital Signs: Vital Signs: Last Vital Signs Temp 97.6 F 06/01/23 11:17 Pulse 73 06/01/23 11:17 Resp 18 06/01/23 11:17 BP 112/77 06/01/23 11:17 Pulse Ox 93 06/01/23 11:17 O2 Del Method Room Air 06/01/23 11:17 O2 Flow Rate 2 05/31/23 07:10 BMI result Body Mass Index 22.5 Chest: Other: Breath sounds bilaterally. Chest tube biopsy site clean dry and intact. Minimal axillary subcutaneous emphysema. Procedures Date of Service Date of Service: 06/01/23 Progress Note: A&P Assessment and plan (1) Pneumothorax after biopsy: Status: Acute (2) History of lung biopsy: Status: Acute (3) Right lower lobe lung mass: Status: Acute Plan Will continue close observation. Follow-up x-ray in the morning. If this is status quo improved patient can be discharged home with follow-up with me in ap proximately 1 weeks time. Time Spent With Patient Time: Total time managing care of this patient today ____ minutes. Quality Stroke Does the patient have a stroke diagnosis?: No VTE Prior VTE?: No VTE Risk Level:: Medical - low VTE Device Contraindication: Treatment Not Indicated VTE Drug Contraindication: Treatment Not Indicated
[2023-06-01] MEDS: Atorvastatin Calcium 20 MG TABLET PO (20:47)
[2023-06-01] MEDS: Prazosin HCL 5 MG CAPSULE PO (20:47)
[2023-06-02] VITALS: BP 127/76; PULSE 94; RESP 18; TEMP 36; O2SAT 93
[2023-06-02] MEDS: Lidocaine 4 % Patch ADH..PATCH 1 PATCH TRANSDERMA ×4 (00:30→08:14)
[2023-06-02] MEDS: Acetaminophen 325 MG TABLET 650 MG PO (00:34)
[2023-06-02] MEDS: oxyCODONE HCl Immed Release 5 MG TABLET PO ×3 (01:03→09:56)
[2023-06-02 02:04] VITALS: RESP 18
[2023-06-02 04:00] VITALS: BP 101/86; PULSE 88; RESP 18; TEMP 36.3; O2SAT 94
[2023-06-02] MEDS: cefTRIAXone sodium 1 GM in 0.9 % Sodium Chloride 50 ML IV (05:32)
[2023-06-02 06:41] VITALS: RESP 18
[2023-06-02 07:09] VITALS: BP 110/66; PULSE 98; RESP 18; TEMP 36.2; O2SAT 93
[2023-06-02] MEDS: Fluticasone Propionate 100 MCG BLST.W.DEV 1 PUFF INHALE (07:40)
[2023-06-02 07:43] VITALS: PULSE 86; RESP 16; O2SAT 93
[2023-06-02] MEDS: 0.9 % Sodium Chloride Flush 3 ML SYRINGE IVFLUSH (07:58)
[2023-06-02] MEDS: Topiramate 25 MG TABLET PO (07:58)
[2023-06-02] MEDS: FLUoxetine HCl 20 MG CAPSULE 40 MG PO (07:58)
[2023-06-02] MEDS: Acetaminophen 325 MG TABLET 975 MG PO (07:58)
[2023-06-02] MEDS: buPROPion HCl XL 300 MG TAB.ER.24H PO (07:59)
[2023-06-02] MEDS: diazePAM 5 MG TABLET 10 MG PO (07:59)
[2023-06-02] MEDS: Omeprazole 20 MG CAPSULE.DR PO (07:59)
[2023-06-02] MEDS: Docusate Sodium 100 MG CAPSULE PO (07:59)
[2023-06-02] MEDS: guaiFENesin LA 600 MG TAB.ER.12H PO (07:59)
[2023-06-02] MEDS: Multivitamin TABLET 1 TAB PO (07:59)
[2023-06-02] MEDS: Nicotine 14 MG PATCH.TD24 TRANSDERMA (08:00)
[2023-06-02] MEDS: Lactulose 20 GM/30 ML SOLUTION PO (08:00)
[2023-06-02] MEDS: busPIRone HCl 10 MG TABLET PO (08:04)
[2023-06-02] MEDS: Ketorolac Tromethamine 15 MG/ML VIAL IVPUSH (09:51)
--- NOTE | 2023-06-02 10:36 | P.DS_ITS ---
DS: Providers Provider Date of Service: 06/02/23 Date of admission: 05/31/23 06:23 Primary care physician: Nai Bradley MD Consults: 05/31/23 06:14 Consult to Thoracic Surgery Routine Consulting Provider: [facility] Surgeons Reason for consultation: Pneumothorax ost surgery Has provider been notified: No DS: Diagnosis Discharge Diagnosis (1) Pneumothorax after biopsy: Status: Acute (2) History of lung biopsy: Status: Acute (3) Hemoptysis: Status: Acute (4) Current smoker: Status: Acute (5) UTI (urinary tract infection): Status: Acute DS: Summary Hospital Course Hospital Course: Admission note HPI This is a 62-year-old female past medical history of COPD, anxiety, history of depression, HTN, HLD, PTSD, IBS, recently diagnosed lung nodule which she had a biopsy done on 727, it appears that patient went home and became short of breath and had few episodes of hemoptysis which prompted her to come back to the hospital.? According to the patient she was advised by the surgeon and anesthesiologist to stay in the hospital because she was having trouble breathing after the biopsy but she did not stay, and was told to keep an eye out for hemoptysis which she did and did have multiple episodes therefore prompted her to come to the hospital.? She otherwise denies any fever no chills, she has some heavy chest pain on deep inspiration, midsternal, intermittent, she has a chronic cough that has not worsened. no abdominal pain nausea vomiting, no urinary symptoms and no lower extremity edema Chest CT shows small right sided pneumothorax the biopsied right lower lobe nodule is again noted, there is surrounding ground-glass opacity likely post intervention change/blood products Vitals otherwise unremarkable , satting above 92% on room air. Labs are significant for WBC count of 13, UA positive for leukocyte Estrace, nitrites, WBC. Patient will be admitted for further management Hospital course # acute hemoptysis secondary to biopsy at presentation. no recurrence during the hospital stay. hemoglobin stable. satting above 92% on room air. thoracic surgery recommended no intervention. # Acute Pneumothorax post lung biopsy, repeated x-ray showing stable disease in pneumonthorax. started on Incentive spirometry and advised to quit smoking. Thoracic surgeon dr Sorto recommended a follow up in his office next week. # acute UTI. has recurrent episodes of Enterobacter infection. could be colonized. treated with IV Ceftriaxone. will send her home on 5 days of LEvaquin given failure of treatment with Ceftin recently. To follow with Dr Sorto as outpatient in 1 week Avoid smoking Continue antibiotics for 5 more days for urine infection Time Spent with Patient Time attestation: Total time managing care of this patient today ____ minutes. Discharge coordination time: Less than 30 minutes Quality: Safe Use of Opioids Does Pt have an Active Cancer Diagnosis on the Problem List?: No Quality: Stroke Does the patient have a stroke diagnosis?: No Physical Exam Vital Signs: Vital Signs: Last Vital Signs Temp 97.2 F 06/02/23 07:09 Pulse 86 06/02/23 07:43 Resp 16 06/02/23 07:43 BP 110/66 06/02/23 07:09 Pulse Ox 93 06/02/23 07:09 O2 Del Method Room Air 06/02/23 07:09 O2 Flow Rate 2 05/31/23 07:10 BMI result Body Mass Index 22.5 Const: Other: Constitutional : Awake, interactive, not in distress Neck : Normal inspection, Supple Cardiovascular : RRR, no JVP, no lower extremity edema Respiratory : good bilateral air entry,? no crackles, no wheezing Gastrointestinal:? soft, lax, Normal bowel sounds, Non tender Skin : Warm, Dry Neurological : Alert & oriented x3, No focal deficit DS: Data Data Completed and Pending Labs on day of discharge: Preliminary micro results at discharge 05/31/23 04:27 Blood Culture - Preliminary Blood - Venous No growth after 48 hours. 05/31/23 04:27 Blood Culture - Preliminary Blood - Venous No growth after 48 hours. Imaging Chest x-ray: Radiologist's impression: ITS Impressions Chest CT 05/31/23 01:45 IMPRESSION: 1. Small right-sided pneumothorax. This is new from prior. 2. The biopsied right lower lobe nodule is again noted. There is surrounding groundglass opacity, likely postintervention change/blood products. This critical result was discussed with Glo Mack MD by telephone at 05/31/2023 2:03 AM and it was ascertained that the content and urgency of the report was understood at the time of direct communication. Chest X-Ray 05/31/23 06:25 IMPRESSION: Small right-sided pneumothorax is similar to prior. Chest X-Ray 06/01/23 08:00 IMPRESSION: 1. Redemonstrated small right apical pneumothorax, slightly increased from prior imaging. 2. Subcutaneous emphysema redemonstrated along the right lateral chest wall increased from prior imaging and extending into the right supraclavicular region. 3. Increasing bibasilar atelectasis, right greater than left. 4. No large pleural effusion. Chest X-Ray 06/02/23 08:24 IMPRESSION: 1. Stable appearance of right apical pneumothorax. 2. Stable appearance of emphysematous changes in the right lateral chest wall and right supraclavicular region. 3. Bibasilar atelectasis. Discharge Plan Discharge Anticipated Discharge Date/Time: 06/02/23 10:25 Patient Disposition: Home, Self-Care Discharge Diagnosis: Pneumothorax Urine infection Referrals: Nai Bradley MD [Primary Care Provider] - 1 Week Marlo Sorto MD [Physician] - 1 Week Discharge Medications: New lidocaine [Lidocaine Pain Relief] 4 % Adhesive Patch,Medicated 1 patch transdermal DAILY Qty: 15 1RF Protocol: Apply to: Apply to: rib cage levofloxacin 500 mg tablet 500 mg PO DAILY Qty: 5 0RF oxycodone 5 mg Tablet 5 mg PO Q6-8H PRN (Reason: Pain, Severe (Pain Scale 7-10)) Qty: 12 0RF Rx Instructions: Partial Fill upon patient request. Continued multivitamin Tablet 1 tab PO DAILY atorvastatin 20 mg tablet 20 mg PO BEDTIME aspirin 81 mg Tablet,Delayed Release (Dr/Ec) 81 mg PO DAILY diazepam 10 mg tablet 10 mg PO BID PRN (Reason: Anxiety) Spiriva with HandiHaler 18 mcg capsule, w/inhalation device 1 cap inhalation DAILY prazosin 5 mg capsule 5 mg PO BEDTIME lidocaine 5 % adhesive patch,medicated 1 patch topical DAILY Rx Instructions: apply for up to 12 hrs omeprazole 20 mg capsule,delayed release(DR/EC) 20 mg PO DAILY@0630 fluoxetine 40 mg capsule 40 mg PO DAILY verapamil 200 mg capsule, [address] 200 mg PO BEDTIME albuterol sulfate [Ventolin HFA] 90 mcg/actuation HFA aerosol inhaler 2 puff INHALATION Q4H PRN (Reason: wheezing) topiramate 25 mg tablet 25 mg PO DAILY guaifenesin [Mucus Relief ER] 600 mg tablet extended release 12hr 600 mg PO BID PRN (Reason: Congestion) buspirone 5 mg tablet 5 mg PO TID bupropion HCl 300 mg tablet extended release 24 hr 300 mg PO DAILY fluticasone propionate 50 mcg/actuation spray,suspension 1 spray intranasal DAILY PRN (Reason: Allergy Symptoms) Discharge Orders: Discharge Order (Routine); Ordered 06/02/23 Ordered By: Dani Retana Diet: Advance to usual diet Activity on Discharge: As tolerated Stand Alone Forms: Patient Portal Discharge page Care Plan Goals: Read below Health Concerns: Read below Plan of Treatment: Read below Assessment: Admitted for coughing blood after lung biopsy and found to have small air leak that was monitored by Thoracic surgeon with resolution over the course of hospital stay with no intervention needed as repeated CXR showed stable lung images. Treated for urine infection with IV antibiotics. To follow with Dr Sorto as outpatient in 1 week Avoid smoking Use Ibuprofen and Tylenol for pain management Continue antibiotics for 5 more days for urine infection
--- NOTE | 2023-06-02 10:54 | MHC.CM.PN ---
PT WILL DC HOME TODAY WITH [facility] S/O TO TRANSPORT
== END 2023-06-02 11:12 | disposition home health service (06) | DRG 200 ==
LOC: HO.ED 05-31 02:30 → HO.EDOVER 05-31 03:06 → HO.S3 05-31 05:34
PROVIDERS: Admitting Provider Internal Medicine; Emergency Provider Emergency Medicine; PCP Internal Medicine; Visit Provider Student in an Organized Health Care Education/Training Program
DX: J95.811 Postprocedural pneumothorax (principal); J44.1 Chronic obstructive pulmonary disease with (acute) exacerbation; N39.0 Urinary tract infection, site not specified; R04.2 Hemoptysis; I10 Essential (primary) hypertension; R91.1 Solitary pulmonary nodule; E78.5 Hyperlipidemia, unspecified; F17.210 Nicotine dependence, cigarettes, uncomplicated; Z71.6 Tobacco abuse counseling; Z79.82 Long term (current) use of aspirin; Z79.899 Other long term (current) drug therapy
CPT/HCPCS: 32408; 36415; 71045; 71260; 80048; 80076; 81001; 83605; 83690; 84484; 85025; 85027; 85610; 85730; 87040; 87086; 87088; 87186; 88305; 88333; 88341; 88342; 94640; 99285; J0696; J1885; J2250; J2270; J2370; J2371; J2920; J2930; J3010; Q9967

== ENCOUNTER → 2023-05-31 03:00 | Outpatient (BNV) | payer MEDICARE, MEDICAID, SELFPAY | PROVIDERS: Admitting Provider Internal Medicine; Emergency Provider Emergency Medicine; PCP Internal Medicine; Visit Provider Internal Medicine | DX: J95.811 Postprocedural pneumothorax (principal); Z98.890 Other specified postprocedural states; R04.2 Hemoptysis; F17.200 Nicotine dependence, unspecified, uncomplicated; N39.0 Urinary tract infection, site not specified | CPT/HCPCS: 99223; 99233; 99238; 99499 ==

== ENCOUNTER → 2023-05-31 06:23 | Outpatient (BNV) | payer MEDICARE, MEDICAID, SELFPAY | PROVIDERS: Admitting Provider Internal Medicine; Emergency Provider Emergency Medicine; PCP Internal Medicine; Visit Provider Surgery | DX: J95.811 Postprocedural pneumothorax (principal); Z98.890 Other specified postprocedural states; R91.8 Other nonspecific abnormal finding of lung field | CPT/HCPCS: 99223; 99233 ==

== ENCOUNTER 2023-06-04 11:24 | Outpatient (AMB) | payer MEDICARE, MEDICAID, SELFPAY ==
[2023-06-04 11:28] VITALS: BP 102/70; PULSE 92; O2SAT 96; BMI 21.0
--- NOTE | 2023-06-04 11:28 | MHC.OFFVIS ---
Intake Vital Signs 06/04/23 11:28 Height 5 ft 1 in Weight 111 lb BMI 21.0 BP 102/70 Blood Pressure Location Lt brachial Position Standing Pulse 92 Pulse Source Pulse Oximeter Pulse Oximetry (%) 96 Oxygen Delivery Method Room Air Intake Visit Reasons: f/u HH Intake Note: pt is here for follow up and states she is still coughing up blood about 4 times, and today 2-3 times before, it is red. She also is in a lot of pain from right side to the left side wrapping around, and going down the right side. She is still having issues with blood down from urinary tract. Allergies codeine [CODEINE] Allergy (Intermediate, Verified 06/04/23 12:06) ITCHING hydrocodone [HYDROCODONE] Allergy (Intermediate, Verified 06/04/23 12:06) ITCHING diphenhydramine [From BENADRYL] Adverse Reaction (Intermediate, Verified 06/04/23 12:06) JITTERY Medication List - Last Reconciled 06/04/23 by Otto Cowan MD albuterol sulfate 90 mcg/actuation (Ventolin HFA) 2 puffs inhalation Q4H PRN aspirin 81 mg PO DAILY atorvastatin 20 mg PO BEDTIME bupropion HCl 300 mg PO DAILY buspirone 5 mg PO TID diazepam 10 mg PO BID PRN fluoxetine 40 mg PO DAILY fluticasone propionate 50 mcg/actuation 1 spray intranasal DAILY PRN [id number]-fqxywfyvd-[id number] 200-62.5-25 mcg (Trelegy Ellipta) 1 ea inhalation DAILY guaifenesin ER (Mucus Relief ER) 600 mg PO BID PRN levofloxacin 500 mg PO DAILY lidocaine 5% 1 patch topical DAILY lidocaine 4% (Lidocaine Pain Relief) 1 patch See Protocol transdermal DAILY multivitamin 1 tab PO DAILY omeprazole 20 mg PO DAILY@0630 oxycodone 5 mg PO Q6-8H PRN prazosin 5 mg PO BEDTIME topiramate 25 mg PO DAILY verapamil ER 200 mg PO BEDTIME Do you need a note to return to daycare/school/sports/work: No HPI f/u HH HPI Details GO IS 62 YEARS OLD LADY WITH HISTORY OF SMOKING, COPD, AND RECENT FINDING OF A DENSITY IN THE RIGHT LOWER LOBE, WHICH WAS FDG POSITIVE, PER PET- SCAN ON 04/30/23. 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 PATIENT HAD A SMALL PNEUMOTHORAX ON THE RIGHT SIDE WITH SOME HIM, UPS IS AND SHE SPENT ABOUT 2 DAYS IN THE HOSPITAL, MAINLY BECAUSE SHE BECAME VERY ANXIOUS. THE PNEUMOTHORAX DID NOT NEED ANY SURGICAL INTERVENTION. PATIENT COMES TODAY TO THE OFFICE. SHE IS A NERVOUS WRECK. BUT THERE IS NO INCREASE IN HER RESPIRATORY SYMPTOMS. PATIENT HAS LONG-STANDING HISTORY OF COPD, ANXIETY NEUROSIS/DEPRESSION, AND SMOKING. FOR HER ANXIETY SHE IS ON BUPROPION 300 MG DAILY, BUSPIRONE 5 MG T.I.D. AND DIAZEPAM 10 MG B.I.D. P.R.N. FOR DEPRESSION SHE IS ON FLUOXETINE 40 MG DAILY. FOR HER COPD SHE IS ON TRELEGY 1 INHALATION DAILY WELL ALBUTEROL HFA P.R.N.. [facility] Medical History (Updated 06/04/23 @ 12:18 by Otto Cowan MD) Allergic rhinitis Anxiety COPD (chronic obstructive pulmonary disease) Current smoker DJD (degenerative joint disease) History of depression History of ectopic History of herniated intervertebral disc History of malignant neoplasm of vulva Hyperlipidemia Hypertension IBS (irritable bowel syndrome) PTSD (post-traumatic stress disorder) Right lower lobe lung mass Scoliosis Urinary incontinence Surgical History (Updated 05/31/23 @ 08:03 by Jocelyn Benjamin PA-C) History of biopsy History of bladder surgery History of bladder suspension procedure History of blepharoplasty History of colonoscopy History of cystoscopy History of dilation of urethra History of endoscopy History of hysterectomy History of lung biopsy History of ovarian cystectomy Social History (Updated 06/04/23 @ 11:35 by Leida Carias [facility]) Alcohol intake: current Alcohol intake frequency: holidays/special occasions only Alcohol type: beer Patient Tobacco Use Status: Current everyday Tobacco user Tobacco use type: Cigarette Cigarette Packs Per Day: 0.5 Cigarettes Per Day: 7 Years Smoked: 47 Substance Use Type: Marijuana Advance Directives Date on File: 05/10/23 service: No Review of Systems Const Details: PATIENT IS VERY ANXIOUS BUT PHYSICALLY SHE IS NOT IN ANY DISTRESS. All systems reviewed & are unremarkable except as noted in HPI and below Eyes Reports no additional complaints ENT Reports nasal congestion (Mild off and on) Card Denies irregular heart rhythm and Denies leg edema Resp Reports as per HPI GI Reports no additional complaints Reports no additional complaints Musc Reports back pain (Mild off and on) Skin/Breast Reports system reviewed and no additional complaints, except as documented Neuro Reports no additional complaints Psych Reports anxiety and Reports depression Endo Reports no additional complaints Baljinder/Lymph Reports no additional complaints Aller/Immun Reports no additional complaints Physical Exam Vital Signs: Last Vital Signs Pulse 92 06/04/23 11:28 BP 102/70 06/04/23 11:28 Pulse Ox 96 06/04/23 11:28 Oxygen Delivery Method Room Air 06/04/23 11:28 BMI result Body Mass Index 21.0 Const General: healthy appearing, comfortable, no acute distress, alert and awake Orientation/consciousness: patient oriented x3 HEENT Head: Yes normal to inspection General nose exam: No nasal polyps present and No nasal discharge present Face and sinus: Yes sinuses nontender Mouth: oropharynx normal Throat: Yes posterior oropharynx normal Eyes General: appearance normal, both eyes and all related structures Neck Neck: Yes normal visual inspection, Yes no lymphadenopathy, Yes trachea midline and Yes no JVD Thyroid: Thyroid normal Chest Chest palpation & inspection: normal inspection of the chest, normal palpation of entire chest wall and no tenderness Resp Other: Percussion note is resonant, breath sounds are distant. There are no audible wheezes rhonchi or crepitations. Cardio Palpation: normal PMI Rate: regular rate Rhythm: regular rhythm Heart sounds: no gallops and no murmurs GI Palpation (GI): Soft to palpation, nontender, No hepatosplenomegaly present and no masses Auscultation: normal bowel sounds Back/Spine/Pelvis Thoracic/Lumbar Spine: thoracic and lumbar spine normal to inspection Skin General skin exam: no rashes or lesions noted Neuro General: patient oriented x3 and no focal motor deficits Cranial nerves: Yes CN's II-XII intact bilaterally Extrem General: Yes normal to inspection, Yes no clubbing, cyanosis or edema and Yes no calf tenderness Psych Appearance: grossly normal and well kempt Speech and movement: Normal speech and movement present Affect: Anxious affect present Results Reviewed Results Reviewed: PATHOLOGY, OF THE NEEDLE ASPIRATE FROM RIGHT LOWER LOBE DENSITY, IS POSITIVE FOR POORLY DIFFERENTIATED ADENO CARCINOMA. Assessment & Plan Assessment & Plan (1) Right lower lobe lung mass: Comment: (1.1x0.9cm RLL nodule with SUV max 2.6 on PET 04/30/23) PER LUNG BIOPSY IT IS. ADENO CARCINOMA. WHILE SHE WAS IN THE HOSPITAL SHE HAS BEEN SEEN BY THORACIC SURGEON DR. KENNY TURNER. SHE HAS APPOINTMENT TO SEE HIM NEXT WEEK, I WOULD DISCUSSED WITH HIM AND I THINK SHE SHOULD HAVE SURGICAL RESECTION. EVEN THOUGH SHE DOES HAVE , CHRONIC OBSTRUCTIVE PULMONARY DISEASE PER PULMONARY FUNCTION TEST IT IS OF MODERATE SEVERITY. AND SHE SHOULD BE ABLE TO UNDERGO A RIGHT LOWER LOBECTOMY. Code(s): R91.8 - Other nonspecific abnormal finding of lung field (2) Pneumothorax after biopsy: Onset Date: ~05/2023 Comment: (small Right PTX dx 05/31/23 --> after RLL Lung Bx done 05/30/23), clinically it is resolving. I HAVE ORDERED CHEST X-RAY FOR FOLLOW-UP. Code(s): J95.811 - Postprocedural pneumothorax (3) COPD (chronic obstructive pulmonary disease): Comment: (COPD, MILD TO MODERATELY SEVER , CONTROLLED AND STABLE. X: CONTINUE TRELEGY ELLIPTA 1 INHALATION DAILY . ALBUTEROL HFA 2 PUFFS Q 4-6 HOURS P.R.N. Code(s): J44.9 - Chronic obstructive pulmonary disease, unspecified (4) Current smoker: Comment: (current smoker - osnet 17yo, 1ppd x 45yrs, 40pyh) SHE IS TRYING TO QUIT AND IS DOWN TO 7 CIGARETTES A DAY. I HAVE COUNSELED 1ST STRONGLY THAT SHE NEEDS TO QUIT COMPLETELY, ESPECIALLY IF SURGICAL TREATMENT IS CONTEMPLATED. Code(s): F17.200 - Nicotine dependence, unspecified, uncomplicated Orders: Orders XR chest 2V Today J95.811 - Postprocedural pneumothorax, R91.8 - Other nonspecific abnormal finding of lung field Coding Level of Care Code Est Pt Level 4 (62548) Diagnoses Right lower lobe lung mass R91.8 Pneumothorax after biopsy J95.811 COPD (chronic obstructive pulmonary disease) J44.9 Current smoker F17.200
== END 2023-06-04 11:55 | disposition home or self-care (01) ==
PROVIDERS: PCP Internal Medicine; Visit Provider Internal Medicine
DX: R91.8 Other nonspecific abnormal finding of lung field (principal); J95.811 Postprocedural pneumothorax; J44.9 Chronic obstructive pulmonary disease, unspecified; F17.200 Nicotine dependence, unspecified, uncomplicated
CPT/HCPCS: 99214

== ENCOUNTER 2023-06-04 11:24 | Outpatient (REF) | payer MEDICARE, MEDICAID, SELFPAY ==
--- NOTE | ~2023-06-04 | XR_ITS ---
EXAMINATION: XR CHEST CLINICAL INFORMATION: Right pneumothorax, follow-up. COMPARISON: Chest radiograph dated 06/02/[address] scan dated 05/23/2023. TECHNIQUE: 2 views of the chest were obtained. FINDINGS: Moderate right pneumothorax with right apical and basilar components. The left lung is clear. The heart and mediastinal structures are unremarkable without significant shift. Mild to moderate right lateral chest subcutaneous emphysema. XR/XR chest 2V IMPRESSION: Moderate right pneumothorax with similar appearance. Mild to moderate right lateral chest subcutaneous emphysema without significant change.
== END 2023-06-04 11:25 | disposition home or self-care (01) ==
LOC: HO.XRAY 11:24
PROVIDERS: PCP Internal Medicine; Visit Provider Internal Medicine
DX: R91.8 Other nonspecific abnormal finding of lung field (principal); J95.811 Postprocedural pneumothorax; J44.9 Chronic obstructive pulmonary disease, unspecified; F17.200 Nicotine dependence, unspecified, uncomplicated; Z71.6 Tobacco abuse counseling
CPT/HCPCS: 71046; 99212

== ENCOUNTER 2023-06-05 11:25 | Outpatient (AMB) | payer MEDICARE, MEDICAID, SELFPAY ==
[2023-06-05 11:34] VITALS: BP 107/69; PULSE 82; O2SAT 95; BMI 21.5
--- NOTE | 2023-06-05 11:34 | A.OFFVIS_ITS ---
Intake Vital Signs 06/05/23 11:34 Height 5 ft 1 in Weight 114 lb BMI 21.5 BP 107/69 Blood Pressure Location Rt brachial Position Sitting Pulse 82 Pulse Oximetry (%) 95 Oxygen Delivery Method Room Air Intake Visit Reasons: Acute Pneumothorax post lung biopsy Intake Note: Patient here to f/u lung bx. C/o pain, feels congested. Spitting up blood. C/o pain on Lt back as well. Has 2 more days of abx's. Supplies Packer Required: No Accompanied by: erika Sears Allergies codeine [CODEINE] Allergy (Intermediate, Verified 06/05/23 11:37) ITCHING hydrocodone [HYDROCODONE] Allergy (Intermediate, Verified 06/05/23 11:37) ITCHING diphenhydramine [From BENADRYL] Adverse Reaction (Intermediate, Verified 06/05/23 11:37) JITTERY HPI HPI Comments History of Present Illness Details Patient was seen in the recent hospitalization for a small right pneumothorax status post IR biopsy of right lower lobe lung lesion. Patient presents here for follow-up along with her significant other. Pathology results demonstrate an early staged adenocarcinoma/non-small cell lung cancer. Workup including PET scan cooborate this. Patient is having no acute respiratory is sues or complaints. Chart was reviewed and patient evaluated. Patient has a very significant smoking history. She continues to smoke although she claims to be coming down. PFT's were reviewed and are okay. Patient has no cardiac history but nonetheless will arrange for cardiac consultation. [facility] Medical History Allergic rhinitis Anxiety COPD (chronic obstructive pulmonary disease) Current smoker DJD (degenerative joint disease) History of depression History of ectopic History of herniated intervertebral disc History of malignant neoplasm of vulva Hyperlipidemia Hypertension IBS (irritable bowel syndrome) PTSD (post-traumatic stress disorder) Right lower lobe lung mass Scoliosis Urinary incontinence Surgical History History of biopsy History of bladder surgery History of bladder suspension procedure History of blepharoplasty History of colonoscopy History of cystoscopy History of dilation of urethra History of endoscopy History of hysterectomy History of lung biopsy History of ovarian cystectomy Social History Alcohol intake: current Alcohol intake frequency: holidays/special occasions only Alcohol type: beer Patient Tobacco Use Status: Current everyday Tobacco user Tobacco use type: Cigarette Cigarette Packs Per Day: 0.5 Cigarettes Per Day: 7 Years Smoked: 47 Substance Use Type: Marijuana Advance Directives Date on File: 05/10/23 service: No Physical Exam Vital Signs: Last Vital Signs Pulse 82 06/05/23 11:34 BP 107/69 06/05/23 11:34 Pulse Ox 95 06/05/23 11:34 Oxygen Delivery Method Room Air 06/05/23 11:34 BMI result Body Mass Index 21.5 Chest Other: Chest breath sounds bilaterally. Hs 1 and 2. No cervical , periclavicular or axillary adenopathy. GI Other: Abdomen soft, benign Assessment & Plan Assessment & Plan (1) Lung cancer, lower lobe: Code(s): C34.30 - Malignant neoplasm of lower lobe, unspecified bronchus or lung Plan I discussed with the patient the radiographic and biopsy results. Adenocarcinoma/non-small cell lung cancer clinically early stage. PFTs are adequate. Will arrange for cardiac evaluation and clearance prior to surgery. In the preoperative discussion, right thorascopic possible open right lower lobectomy were discussed with the patient and included but not limited to bleeding, infection, recurrence, numbness, pain, scarring, prolonged air leak and patient understood the procedure. All questions were answered. Awaiting above-mentioned consultation before scheduling for surgery. Operation has also been strongly encouraged to discontinue smoking. She has nicotine patch and nicotine gum options has been strongly encouraged to use them. Coding Level of Care Code New Pt Level 4 (79311) Diagnoses Lung cancer, lower lobe C34.30
== END 2023-06-05 11:59 | disposition home or self-care (01) ==
PROVIDERS: PCP Internal Medicine; Visit Provider Surgery
DX: C34.31 Malignant neoplasm of lower lobe, right bronchus or lung (principal)
CPT/HCPCS: 99204

== ENCOUNTER → 2023-06-05 11:25 | Outpatient (BNVA) | payer MEDICARE, MEDICAID, SELFPAY | PROVIDERS: PCP Internal Medicine; Visit Provider Surgery | DX: J93.83 Other pneumothorax (principal); C34.31 Malignant neoplasm of lower lobe, right bronchus or lung; F17.210 Nicotine dependence, cigarettes, uncomplicated | CPT/HCPCS: 99202 ==

== ENCOUNTER 2023-06-10 08:39 | Outpatient (AMB) | payer MEDICARE, MEDICAID, SELFPAY ==
[2023-06-10 08:40] VITALS: BP 88/72; PULSE 83; BMI 21.7
--- NOTE | 2023-06-10 08:40 | A.OFFVIS_ITS ---
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 Accompanied by: Spouse Allergies codeine [CODEINE] Allergy (Intermediate, Verified 06/10/23 08:41) ITCHING hydrocodone [HYDROCODONE] Allergy (Intermediate, Verified 06/10/23 08:41) ITCHING diphenhydramine [From BENADRYL] Adverse Reaction (Intermediate, Verified 06/10/23 08:41) JITTERY Medication List - Last Reconciled 06/10/23 by Tommy Dixon MD albuterol sulfate 90 mcg/actuation (Ventolin HFA) 2 puffs inhalation Q4H PRN aspirin 81 mg PO DAILY atorvastatin 20 mg PO BEDTIME bupropion HCl 300 mg PO DAILY buspirone 5 mg PO TID diazepam 10 mg PO BID PRN fluoxetine 40 mg PO DAILY fluticasone propionate 50 mcg/actuation 1 spray intranasal DAILY PRN svselubxdgn-gajueqdog-byaxunwr 200-62.5-25 mcg (Trelegy Ellipta) 1 ea inhalation DAILY guaifenesin ER (Mucus Relief ER) 600 mg PO BID PRN levofloxacin 500 mg PO DAILY lidocaine 5% 1 patch topical DAILY lidocaine 4% (Lidocaine Pain Relief) 1 patch See Protocol transdermal DAILY multivitamin 1 tab PO DAILY omeprazole 20 mg PO DAILY@0630 oxycodone 5 mg PO Q6-8H PRN prazosin 5 mg PO BEDTIME topiramate 25 mg PO DAILY verapamil ER 200 mg PO BEDTIME HPI HPI Comments History of Present Illness Details Jesusita is here for consultation regarding preoperative stratification for lung surgery. She has been diagnosed with adenocarcinoma/non-small cell lung cancer. She needs thoracic surgery-thoracoscopic versus open right lower lobectomy. From the cardiac standpoint, no documented coronary disease or cardiomyopathy. Long-term smoker and still smokes. She states she can generally get along without any chest pains but whenever she gets anxious she can get some pressure. She thinks it is all anxiety. She has COPD/emphysema and can get some shortness of breath but for the most part, can get around. She has low blood pressure today. States she has hypertension for which she takes verapamil and she has done that for the last few years. [facility] Medical History (Updated 06/10/23 @ 09:01 by Tommy Dixon MD) Allergic rhinitis Anxiety COPD (chronic obstructive pulmonary disease) Current smoker DJD (degenerative joint disease) History of depression History of ectopic History of herniated intervertebral disc History of malignant neoplasm of vulva Hyperlipidemia Hypertension IBS (irritable bowel syndrome) PTSD (post-traumatic stress disorder) Right lower lobe lung mass Scoliosis Urinary incontinence Surgical History History of biopsy History of bladder surgery History of bladder suspension procedure History of blepharoplasty History of colonoscopy History of cystoscopy History of dilation of urethra History of endoscopy History of hysterectomy History of lung biopsy History of ovarian cystectomy Family History Mother CHF (congestive heart failure) Maternal Uncle Coronary bypass graft mechanical complication Social History Alcohol intake: current Alcohol intake frequency: holidays/special occasions only Alcohol type: beer Patient Tobacco Use Status: Current everyday Tobacco user Tobacco use type: Cigarette Cigarette Packs Per Day: 0.5 Cigarettes Per Day: 7 Years Smoked: 47 Substance Use Type: Marijuana Advance Directives Date on File: 05/10/23 service: No Review of Systems Const Denies chills, Denies daytime sleepiness, Denies fatigue, Denies fever(s), Denies frequent falls, Denies night sweats, Denies snoring, Denies weakness, Denies weight gain and Denies weight loss Eyes Denies loss of vision ENT Denies dizziness and Denies hearing loss Card Denies chest pain, Denies chest pain with activity, Denies syncope, Denies rapid heart rate, Denies edema, Denies claudication, Denies leg edema, Denies lightheadedness, Denies palpitations, Denies dyspnea, Denies dyspnea on exertion and Denies orthopnea Resp Denies cough, Denies excessive phlegm production, Denies dyspnea, Denies dyspnea on exertion, Denies snoring and Denies wheezing GI Denies abdominal pain, Denies hematochezia, Denies change in bowel habits, Denies change in stool character, Denies heartburn, Denies nausea and Denies vomiting Denies hematuria, Denies urinary frequency and Denies dysuria Musc Denies arthralgias, Denies muscle weakness, Denies numbness and Denies tingling Skin/Breast Denies nail changes and Denies rash Neuro Denies Abnormal speech present, Denies dizziness, Denies syncope, Denies frequent falls, Denies loss of vision, Denies memory loss, Denies numbness, Denies tingling and Denies weakness Psych Denies depression and Denies memory loss Endo Denies fatigue and Denies palpitations Aller/Immun Denies wheezing Physical Exam Vital Signs: Last Vital Signs Pulse 83 06/10/23 08:40 BP 88/72 L 06/10/23 08:40 BMI result Body Mass Index 21.7 Const General: comfortable and no acute distress Orientation/consciousness: patient oriented x3 HEENT Other: Unremarkable Head: Yes normal to inspection Neck Neck: Yes normal visual inspection Chest Chest palpation & inspection: normal inspection of the chest Resp Auscultation: clear to auscultation bilaterally Cardio Palpation: normal PMI Heart sounds: S1 normal heart sound present, S2 normal heart sound present, no gallops, no murmurs and no rubs GI Palpation (GI): Soft to palpation Back/Spine/Pelvis Other: unremarkable Skin General skin exam: no rashes or lesions noted Neuro General: patient oriented x3 Speech: No Abnormal speech present Extrem General: Yes normal to inspection Psych Mental Status: mental status grossly normal Assessment & Plan Assessment & Plan (1) Preoperative cardiovascular examination: Code(s): Z01.810 - Encounter for preprocedural cardiovascular examination (2) Lung cancer, lower lobe: Code(s): C34.30 - Malignant neoplasm of lower lobe, unspecified bronchus or lung (3) Current smoker: Comment: (current smoker - osnet 17yo, 1ppd x 45yrs, 40pyh) SHE IS TRYING TO QUIT AND IS DOWN TO 7 CIGARETTES A DAY. I HAVE COUNSELED 1ST STRONGLY THAT SHE NEEDS TO QUIT COMPLETELY, ESPECIALLY IF SURGICAL TREATMENT IS CONTEMPLATED. Code(s): F17.200 - Nicotine dependence, unspecified, uncomplicated (4) Hypertension: Code(s): I10 - Essential (primary) hypertension Plan In the recent EKG, underlying rhythm is sinus at 84/Min; no significant ST-T changes and otherwise unremarkable. Normal DC and corrected QT. Based on her long smoking history, COPD, need for major surgery she can undergo further workup with an echocardiogram and stress test. We can make preoperative indications once these are completed and reviewed. With regard to her history of hypertension, she actually has low blood pressure. Several blood pressures recently are also on the lower side. Verapamil is also not the first-line medication for hypertension. Hence advised him to hold off and check home blood pressures. Based on that, we can decide. If necessary, rather use a different agent like amlodipine or ARB. Orders: Orders CA stress test Today R07.2 - Precordial pain, Z01.810 - Encounter for preprocedural cardiovascular examination CA echo transthoracic complete Today Z01.810 - Encounter for preprocedural cardiovascular examination NM cardiolite stress test Today R07.2 - Precordial pain, Z01.810 - Encounter for preprocedural cardiovascular examination Coding Level of Care Code New Pt Level 4 (80393) Diagnoses Preoperative cardiovascular examination Z01.810 Lung cancer, lower lobe C34.30 Current smoker F17.200 Hypertension I10
== END 2023-06-10 09:02 | disposition home or self-care (01) ==
PROVIDERS: PCP Internal Medicine; Referring Provider Internal Medicine; Visit Provider Internal Medicine
DX: Z01.810 Encounter for preprocedural cardiovascular examination (principal); C34.30 Malignant neoplasm of lower lobe, unspecified bronchus or lung; F17.200 Nicotine dependence, unspecified, uncomplicated; I10 Essential (primary) hypertension
CPT/HCPCS: 99204

== ENCOUNTER → 2023-06-10 08:39 | Outpatient (BNVA) | payer MEDICARE, MEDICAID, SELFPAY | PROVIDERS: PCP Internal Medicine; Referring Provider Internal Medicine; Visit Provider Internal Medicine | DX: Z01.810 Encounter for preprocedural cardiovascular examination (principal); R07.2 Precordial pain; I10 Essential (primary) hypertension; C34.91 Malignant neoplasm of unspecified part of right bronchus or lung; J43.9 Emphysema, unspecified; F17.210 Nicotine dependence, cigarettes, uncomplicated; Z79.891 Long term (current) use of opiate analgesic | CPT/HCPCS: 99202 ==

== ENCOUNTER → 2023-06-25 08:50 | Outpatient (REF) | payer MEDICARE, MEDICAID, SELFPAY ==
--- NOTE | 2023-06-25 08:54 | CA_ITS ---
Transthoracic Echocardiogram Patient (Last, First, Middle): Jesusita Brody, Gender: Female Date of : 1960 Age: 62 Procedure Date: 06/25/2023 Procedure Type: Transthoracic Echocardiogram Location: OP Height: 154.94 cm Weight: 50.8 kg BSA: 1.48 m2 Heart Rate: 80 bpm BP: 115 / 80 mmHg Unit Educator: AICHA Referring MD: Tommy Dixon MD Symptoms: Z01.810 - Encounter for preprocedural cardiovascular examination Study Quality: Adequate ECG Rhythm: Sinus Conclusions: - The left ventricular systolic function is mildly decreased. The visually estimated ejection fraction is between 40-45%. - No obvious valvular pathology seen on this study. Findings Left Ventricle Normal left ventricular cavity size. There is normal left ventricular wall thickness. The left ventricular systolic function is mildly decreased. The visually estimated ejection fraction is between 40-45%. There is mild global hypokinesis. Evidence suggests grade I (mild) diastolic dysfunction. LV peak GLS -13.4%. Right Ventricle Normal right ventricular cavity size. There is moderately decreased right ventricular systolic function. Atria Both atria are normal in size. Aortic Valve The aortic valve was not well visualized. There is no aortic valve stenosis. There is no aortic valve regurgitation. Mitral Valve There is mild anterior mitral leaflet thickening. There is mild mitral annular calcification. There is trace mitral valve regurgitation. There is no mitral valve stenosis. Pulmonic Valve The pulmonic valve is likely normal. Tricuspid Valve There is trace tricuspid valve regurgitation. Tricuspid regurgitation envelope is inadequate for calculation of right ventricular systolic pressure. Great Vessels The asc aorta is normal in size. Venous The inferior vena cava is normal in size and collapses greater than 50% with inspiration. Pericardium/Pleural There is no evidence of pericardial effusion. Prior Study Comparison No prior study available for comparison. Recommendations, Care & Conclusions No obvious valvular pathology seen on this study. Measurements 2D Linear Measurements IVSd: 0.81 0.6-0.9/0.6-1.0 cm LVIDd: 4.34 3.9-5.3/4.2-5.9 cm LVIDd Index: 2.93 2.4-3.2/2.2-3.1 cm/m2 LVIDs: 3.15 2.0-3.6 cm LVPWd: 0.81 0.7-1.1 cm Ao Root: 3.00 2.1-3.5 cm LA Diam: 2.40 2.7-3.8/3.0-4.0 cm LAIDs Index: 1.62 1.5-2.3 cm/m2 LV Mass: 134.94 67-162/88-224 g LV Mass Index: 91.18 43-95/49-115 g/m2 LVOT Diam: 1.90 3.0+(-)1.3 cm 2D Systolic Function EF 4C: 56.50 >55% EF 2C: 54.60 >55% Mitral Valve MV Pk E: 0.62 MV PK A: 0.83 MV Decel Time: 253.00 E/A: 0.80 E'Lateral: 7.83 E'Medial: 5.98 E/E' Med: 10.40 E/E' Lat: 7.90 PHT: 74.00 MVA PHT: 2.97 Decel Thayer: 2.46 Aortic Valve AoV Pk Roberto: 1.22 AoV Mn Roberto: 0.93 AoV VTI: 0.24 AoV Pk Grad: 6.00 Aov Mn Grad: 4.00 LORI Cont.VTI: 1.68 LVOT LVOT Pk Roberto: 0.78 LVOT Mn Roberto: 0.55 LVOT VTI: 0.14 LVOT Pk Grad: 2.00 LVOT Mn Grad: 1.00 LVOT Diam: 1.90 LVOT Area: 2.84 Diastolic Function MV Pk E: 0.62 MV Pk A: 0.83 E/A: 0.80 E'Medial: 5.98 E/E' Med: 10.40 E' Laterial: 7.83 E/E' Lat: 7.90 Tricuspid Valve RA Press: 3.00 Great Vessels Aorta Ao Root-2D: 3.00 2.0-3.7 cm Ao Asc: 3.00 2.1-3.4 cm Pulmonary Valve PV Pk Roberto: 0.80 Peak PV Grad: 3.00 Updated in Other Vendor System with Status of Final Tommy Dixon MD electronically signed on 06/27/2023 11:33:10 AM with status of Final
== END ==
LOC: HO.CARD 08:50
PROVIDERS: PCP Internal Medicine; Visit Provider Internal Medicine
DX: Z01.810 Encounter for preprocedural cardiovascular examination (principal)
CPT/HCPCS: 93306; 93356

== ENCOUNTER → 2023-06-25 08:54 | Outpatient (BNV) | payer MEDICARE, MEDICAID, SELFPAY | PROVIDERS: PCP Internal Medicine; Visit Provider Internal Medicine | DX: Z01.810 Encounter for preprocedural cardiovascular examination (principal) | CPT/HCPCS: 93306 ==

== ENCOUNTER → 2023-06-28 10:07 | Outpatient (REF) | payer MEDICARE, MEDICAID, SELFPAY ==
--- NOTE | ~2023-06-28 | NM_ITS ---
Exercise Myocardial perfusion study Indication: Precordial chest pain to evaluate for myocardial ischemia Technique: The patient was brought in for an exercise perfusion study on 06/28/2023. Patient performed exercise as per Charan protocol and was injected 25 mCi of sestamibi was given intravenously one target HR was achieved. Images were obtained using the SPECT gamma camera interlaced with the gating device. Images were obtained in supine position. Resting perfusion study was performed on 07/02/2023. Patient was administered 25 mCi of sestamibi intravenously at rest. Images were then obtained in supine position. Images obtained with and without CT attenuation. Total DLP 74 mGy-cm. Images were processed with the software and compared side to side in short axis, horizontal long axis and vertical long axis views. Findings: The stress perfusion study showed non attenuated images show mildly reduced uptake in a small area of basal and mid inferoseptal wall of the LV myocardium. Remainder of the LV myocardium is normally perfused. Attenuation corrected images show normal uptake of radiotracer in all segments of LV myocardium. The gated study shows normal LV systolic function with calculated LVEF of 68%. LV cavity is normal in size. The gated study shows normal systolic wall thickening and contraction of all segments. There is no transient ischemic dilation. Resting study shows both attenuated as well as non attenuated corrected images show normal uptake of radiotracer in all segments of LV myocardium. Gating at rest reveals normal systolic wall motion with ejection fraction at 53%. The findings are consistent with no clear reversible defect suggestive of ischemia. Likely normal myocardial perfusion. NM/NM cardiolite stress test Impression: 1. Likely normal myocardial perfusion 2. Gated LVEF is 68% 3. Transient ischemic dilatation not present Stress EKG is negative for ischemia
--- NOTE | 2023-06-28 10:09 | CA_ITS ---
Acquisition Time: 2023-06-28 10:33:28 Total Exercise Time: 00:07:31 Test Indications: CP, SOB, PREOP Medications: SEE H Protocol: AVRIL Max HR: 141 BPM 89% of Pred: 157 BPM Max BP: 168/070 mmHG Max Work Load: 9.3 METS Exercise stress test exercise 7 min 31 sec of Bruc eprotocol achieving 88% MPHR, without anginal ysmptoms, without arrhythmias, with normotensive response to exercise, without EKG changes. Nuclear images pending. Test reviewed with Dr. Johnson. Referred By: Nicko Johnson Overread By: NICKO JOHNSON
== END ==
LOC: HO.CARD 10:07
PROVIDERS: PCP Internal Medicine; Visit Provider Internal Medicine
DX: Z01.810 Encounter for preprocedural cardiovascular examination (principal); R07.2 Precordial pain
CPT/HCPCS: 78452; 93017; A9500

== ENCOUNTER → 2023-06-28 10:09 | Outpatient (BNV) | payer MEDICARE, MEDICAID, SELFPAY | PROVIDERS: PCP Internal Medicine; Visit Provider Internal Medicine | DX: R07.2 Precordial pain (principal) | CPT/HCPCS: 78452; 93016; 93018 ==

== ENCOUNTER → 2023-07-02 14:14 | Outpatient (BNVA) | payer MEDICARE, MEDICAID, SELFPAY | PROVIDERS: PCP Internal Medicine; Visit Provider Internal Medicine ==

== ENCOUNTER 2023-07-16 16:13 | Outpatient (REF) | payer MEDICARE, MEDICAID, SELFPAY ==
--- NOTE | ~2023-07-16 | XR_ITS ---
EXAMINATION: XR LUMBOSACRAL SPINE CLINICAL INFORMATION: Lower back pain with sciatica COMPARISON: 08/02/2021 TECHNIQUE: Three views of the lumbosacral spine. FINDINGS: Spinal stimulator wiring over the right sacrum. No generator seen. No acute fracture or subluxation. Vertebral body height and alignment maintained. Disc spaces are maintained. Small endplate osteophytes throughout the lumbar spine with associated facet arthropathy. The sacroiliac joints are symmetric. There are 6 lumbar type vertebral bodies. XR/XR lumbar spine 2-3V IMPRESSION: Mild degenerative changes throughout the lumbar spine.
== END 2023-07-16 16:14 | disposition home or self-care (01) ==
LOC: HO.HMGCX 16:13
PROVIDERS: PCP Internal Medicine; Visit Provider Internal Medicine
DX: M54.40 Lumbago with sciatica, unspecified side (principal); G89.29 Other chronic pain
CPT/HCPCS: 72100

== ENCOUNTER 2023-08-19 10:45 | Outpatient (AMB) | payer MEDICARE, MEDICAID, SELFPAY ==
[2023-08-19 10:49] VITALS: BP 117/72; PULSE 81; O2SAT 96; BMI 21.7
--- NOTE | 2023-08-19 10:49 | MHC.OFFVIS ---
Intake Vital Signs 08/19/23 10:49 Height 5 ft 1 in Weight 114 lb 10.246 oz BMI 21.7 BP 117/72 Blood Pressure Location Lt brachial Position Sitting Pulse 81 Pulse Source Doppler Pulse Oximetry (%) 96 Oxygen Delivery Method Room Air Intake Visit Reasons: COPD Intake Note: Patient is here for a COPD follow up, also pre-op for lower right lobe removal tentatively sep 04. Allergies codeine [CODEINE] Allergy (Intermediate, Verified 08/19/23 11:20) ITCHING hydrocodone [HYDROCODONE] Allergy (Intermediate, Verified 08/19/23 11:20) ITCHING diphenhydramine [From BENADRYL] Adverse Reaction (Intermediate, Verified 08/19/23 11:20) JITTERY Medication List - Last Reconciled 08/19/23 by Otto Cowan MD albuterol sulfate 90 mcg/actuation (Ventolin HFA) 2 puffs inhalation Q4H PRN aspirin 81 mg PO DAILY atorvastatin 20 mg PO BEDTIME azithromycin 500 mg PO DAILY 5 days bupropion HCl 300 mg PO DAILY buspirone 5 mg PO TID diazepam 10 mg PO BID PRN fluoxetine 40 mg PO DAILY fluticasone propionate 50 mcg/actuation 1 spray intranasal DAILY PRN oiizrdwuxpz-fvujelubn-kxkiepmj 200-62.5-25 mcg (Trelegy Ellipta) 1 ea inhalation DAILY 30 days guaifenesin ER (Mucus Relief ER) 600 mg PO BID PRN lidocaine 4% (Lidocaine Pain Relief) 1 patch See Protocol transdermal DAILY multivitamin 1 tab PO DAILY omeprazole 20 mg PO DAILY@0630 prazosin 5 mg PO BEDTIME topiramate 25 mg PO DAILY Do you need a note to return to daycare/school/sports/work: No HPI COPD HPI Details 62 YEARS OLD 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 SHE IS GOING TO HAVE RIGHT LOWER LOBECTOMY. SURGERY POSTPONED BECAUSE OF HER RECENT COMMON COLD, SYMPTOMS SHE CLAIMS THAT SHE PRESENT SHE DOES NOT HAVE ANY NASAL CONGESTION OR POSTNASAL DRIP. HER COUGH IS MINIMAL SHE HAS HER USUAL SHORTNESS OF BREATH DUE TO COPD. HER ANXIETY LEVEL IS ALSO MUCH LESS. PSYCHOLOGICALLY SHE IS PREPARED FOR UNDERGOING SURGERY. [facility] Medical History History of ectopic 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 Allergic rhinitis COPD (chronic obstructive pulmonary disease) Current smoker History of herniated intervertebral disc Scoliosis IBS (irritable bowel syndrome) History of depression DJD (degenerative joint disease) Hypertension Hyperlipidemia Urinary incontinence PTSD (post-traumatic stress disorder) Anxiety Surgical History History of ovarian cystectomy History of biopsy History of cystoscopy History of dilation of urethra History of colonoscopy History of endoscopy History of lung biopsy History of bladder surgery History of blepharoplasty History of hysterectomy History of bladder suspension procedure Family History Mother CHF (congestive heart failure) Maternal Uncle Coronary bypass graft mechanical complication Social History Are you a primary director medicare sales to a significant other at home: No Do you presently have visiting nurse or other home services: Yes (visiting nurses) Alcohol intake: current Alcohol intake frequency: does not drink Alcohol type: beer Patient Tobacco Use Status: Current everyday Tobacco user Tobacco use type: Cigarette Cigarette Packs Per Day: 0.5 Cigarettes Per Day: 10 Years Smoked: 47 Substance Use Type: Marijuana Advance Directives Date on File: 05/10/23 service: No Review of Systems Const Details: PATIENT IS VERY ANXIOUS BUT PHYSICALLY SHE IS NOT IN ANY DISTRESS. All systems reviewed & are unremarkable except as noted in HPI and below Eyes Reports no additional complaints ENT Reports nasal congestion (Mild off and on) Card Denies irregular heart rhythm and Denies leg edema Resp Reports as per HPI GI Reports no additional complaints Reports no additional complaints Musc Reports back pain (Mild off and on) Skin/Breast Reports system reviewed and no additional complaints, except as documented Neuro Reports no additional complaints Psych Reports anxiety and Reports depression Endo Reports no additional complaints Baljinder/Lymph Reports no additional complaints Aller/Immun Reports no additional complaints Physical Exam Vital Signs: Last Vital Signs Pulse 81 08/19/23 10:49 BP 117/72 08/19/23 10:49 Pulse Ox 96 08/19/23 10:49 Oxygen Delivery Method Room Air 08/19/23 10:49 BMI result Body Mass Index 21.7 Const General: healthy appearing, comfortable, no acute distress, alert and awake Orientation/consciousness: patient oriented x3 HEENT Head: Yes normal to inspection General nose exam: No nasal polyps present and No nasal discharge present Face and sinus: Yes sinuses nontender Mouth: oropharynx normal Throat: Yes posterior oropharynx normal Eyes General: appearance normal, both eyes and all related structures Neck Neck: Yes normal visual inspection, Yes no lymphadenopathy, Yes trachea midline and Yes no JVD Thyroid: Thyroid normal Chest Chest palpation & inspection: normal inspection of the chest, normal palpation of entire chest wall and no tenderness Resp Other: Percussion note is resonant, breath sounds are distant. There are no audible wheezes rhonchi or crepitations. Cardio Palpation: normal PMI Rate: regular rate Rhythm: regular rhythm Heart sounds: no gallops and no murmurs GI Palpation (GI): Soft to palpation, nontender, No hepatosplenomegaly present and no masses Auscultation: normal bowel sounds Back/Spine/Pelvis Thoracic/Lumbar Spine: thoracic and lumbar spine normal to inspection Skin General skin exam: no rashes or lesions noted Neuro General: patient oriented x3 and no focal motor deficits Cranial nerves: Yes CN's II-XII intact bilaterally Extrem General: Yes normal to inspection, Yes no clubbing, cyanosis or edema and Yes no calf tenderness Psych Appearance: grossly normal and well kempt Speech and movement: Normal speech and movement present Affect: Anxious affect present Assessment & Plan Assessment & Plan (1) Current smoker: Comment: (current smoker - osnet 17yo, 1ppd x 45yrs, 40pyh) SHE IS TRYING TO QUIT AND IS DOWN TO 5 CIGARETTES A DAY. I HAVE COUNSELED 1ST STRONGLY THAT SHE NEEDS TO QUIT COMPLETELY, ESPECIALLY IF SURGICAL TREATMENT IS CONTEMPLATED. Code(s): F17.200 - Nicotine dependence, unspecified, uncomplicated (2) COPD (chronic obstructive pulmonary disease): Comment: (COPD, MILD TO MODERATELY SEVER , CONTROLLED AND STABLE. X: CONTINUE TRELEGY ELLIPTA 1 INHALATION DAILY .( agrees with her ) ALBUTEROL HFA 2 PUFFS Q 4-6 HOURS P.R.N. Code(s): J44.9 - Chronic obstructive pulmonary disease, unspecified (3) Allergic rhinitis: Comment: (recurrent nasal congestion, mild allergic rhinitis) ADVISED TO USE FLONASE-502 SPRAYS EACH NOSTRIL DAILY AND MAY USE ANTIHISTAMINICS HAS CLARITIN 10 MG ONCE A DAY P.R.N. Code(s): J30.9 - Allergic rhinitis, unspecified (4) Lung cancer, lower lobe: Comment: Adeno carcinoma right lower lobe, localized. Patient is to undergo a right lower lobectomy. Code(s): C34.30 - Malignant neoplasm of lower lobe, unspecified bronchus or lung Coding Level of Care Code Est Pt Level 3 (77327) Diagnoses Current smoker F17.200 COPD (chronic obstructive pulmonary disease) J44.9 Allergic rhinitis J30.9 Lung cancer, lower lobe C34.30
== END 2023-08-19 11:20 | disposition home or self-care (01) ==
PROVIDERS: PCP Internal Medicine; Visit Provider Internal Medicine
DX: F17.200 Nicotine dependence, unspecified, uncomplicated (principal); J44.9 Chronic obstructive pulmonary disease, unspecified; J30.9 Allergic rhinitis, unspecified; C34.30 Malignant neoplasm of lower lobe, unspecified bronchus or lung
CPT/HCPCS: 99213

== ENCOUNTER → 2023-08-19 10:45 | Outpatient (BNVA) | payer MEDICARE, MEDICAID, SELFPAY | PROVIDERS: PCP Internal Medicine; Visit Provider Internal Medicine | DX: J44.9 Chronic obstructive pulmonary disease, unspecified (principal); J30.9 Allergic rhinitis, unspecified; C34.30 Malignant neoplasm of lower lobe, unspecified bronchus or lung; F17.210 Nicotine dependence, cigarettes, uncomplicated | CPT/HCPCS: 99212 ==

== ENCOUNTER 2023-08-26 15:32 | Outpatient (REF) | payer MEDICARE, MEDICAID, SELFPAY ==
--- NOTE | ~2023-08-26 | MR_ITS ---
EXAMINATION: MR LUMBAR SPINE WITHOUT CONTRAST CLINICAL INFORMATION: 62-year-old with low back pain. COMPARISON: 08/02/2021 MRI. TECHNIQUE: MRI of the lumbar spine was obtained using routine sequences without contrast. FINDINGS: Coronal Alignment: Mild lumbar levocurvature convex to the left at L3-L4, stable in appearance. Sagittal Alignment: Normal alignment in the sagittal plane, unchanged. Lumbosacral Junction: Normal. 6 [id number]-[id number]-[id number] lumbar-type vertebral bodies suggesting vertebral numeric variation. Vertebral Bodies: Vertebral body heights are well-maintained, stable in appearance. Disc Spaces and Endplates: Disc desiccation at the levels between L2-L3 and L4-L5 inclusive are similar to the previous exam without significant disc space height loss. Minor anterior marginal endplate spurring at these levels is largely unchanged. Endplates appear otherwise grossly intact. Spinal Canal: No abnormal developmental findings. Bone Marrow: No suspicious marrow-replacing process or bone marrow edema. Conus Medullaris: Terminates at T12-L1. Morphology and signal is normal. Intradural Nerve Roots: Within normal limits. L5-S1: Minor annular bulging and small shallow disc protrusion, stable in appearance, with slight indentation of the ventral thecal sac, unchanged. Disc bulge contacts the S1 nerve root sleeves bilaterally without posterior displacement, unchanged. Mild facet arthrosis on the left, stable in appearance. No significant canal or neuroforaminal stenosis. L4-L5: Concentric disc bulging is noted with a superimposed right-sided foraminal/extraforaminal disc herniation, similar to the previous exam. There is moderate flattening of the ventral dural sac again noted. There is mild right and ufnwllit-fw-twltvs left-sided facet arthrosis, now with a left-sided facet joint effusion and suspicion for a 6 mm synovial cyst arising along the anteromedial aspect of the left facet joint on the current study, now with severe left subarticular recess stenosis with impingement on the traversing left L5 nerve root since prior exam. Mild central spinal canal stenosis is again noted. There is minor foraminal narrowing on the right again noted. Right lateral disc protrusion contacts the exiting right L4 nerve root, unchanged. L3-L4: Disc bulging is again noted with slight flattening of the dural sac, unchanged. Zgwz-ti-ihlzkwxk facet arthropathy and mild ligamentum flavum thickening is stable without significant central canal stenosis. There is minimal narrowing of the subarticular zones bilaterally without neural impingement, unchanged. No significant foraminal stenosis. L2-L3: There is diffuse disc bulging, with flattening of the ventral dural sac, stable in appearance, with xenjajtl-bc-eimqbh bilateral facet arthropathy and ligamentum flavum thickening, unchanged, with minimal central canal stenosis, stable in appearance, and mild narrowing of the left subarticular zone, unchanged. Mild foraminal narrowing noted bilaterally unchanged without neural impingement. L1-L2: Normal annular contour. No significant facet arthrosis, canal or foraminal stenosis. Paravertebral and Included Extraspinal Soft Tissues: The paravertebral soft tissues appear unremarkable. There is a distended left extrarenal pelvis which is unchanged in appearance from the previous exam with no associated caliectasis or hydroureter. MR/MR lumbar spine wo con IMPRESSION: 1. Multilevel discogenic degenerative changes between L2-L3 and L4-L5 inclusive, largely unchanged in appearance. 2. Disc bulging and right lateral disc herniation at L4-L5, similar to the previous exam, now with a 6 mm synovial cyst arising along the anteromedial aspect of the left L4-L5 facet joint, now with severe left subarticular recess stenosis and impingement on the traversing left L5 nerve root since prior exam. Other levels of multilevel disc bulging as detailed above. 3. Multilevel bilateral facet arthropathy and ligamentum flavum thickening with mild central canal stenosis at L4-L5 and minimal central canal stenosis at L2-L3, stable in appearance. 4. Mild degrees of neuroforaminal narrowing on the right at L4-L5 and bilaterally at L2-L3, stable in appearance.
[2023-08-26 17:16] LABS: MANUAL DIFF FLAG NO
[2023-08-26 17:42] LABS: Basophils Absolute Auto 0.1 X10*3/uL (0.0-0.2); Basophils Percent Auto 0.5 % (0-2); Eosinophils Absolute Auto 0.1 X10*3/uL (0.0-0.4); Eosinophils Percent Auto 1.5 % (0-4); Hematocrit 42.4 % (37.0-47.0); Hemoglobin 14.3 g/dl (12.0-16.0); Imm Gran Abs Auto 0.02 X10*3/uL (0.00-0.03); Imm Gran Pct Auto 0.2 % (0.0-0.4); Lymphocytes Absolute Auto 2.8 X10*3/uL (1.2-4.9); Lymphocytes Percent Auto 30.7 % (20-40); Mean Corpuscular HGB Conc 33.7 g/dl (31.0-35.0); Mean Corpuscular Hemoglobin 33.6 pg (27.0-33.0); Mean Corpuscular Volume 99.5 fL (80.0-98.0); Mean Platelet Volume 9.4 fL (9.4-12.3); Monocytes Absolute Auto 0.4 X10*3/uL (0.1-1.2); Monocytes Percent Auto 4.7 % (2-11); Neutrophils Absolute Auto 5.7 x10*3/uL (2.0-8.3); Neutrophils Percent Auto 62.4 % (45-73); Platelet Count 319 X10*3/uL (160-400); Red Blood Count 4.26 X10*6/uL (4.20-5.50); Red Cell Distribution Width 12.5 % (11.0-16.0); White Blood Count 9.1 X10*3/uL (4.8-10.8)
[2023-08-26 18:09] LABS: Anion Gap 11 (12-20); Blood Urea Nitrogen 23 mg/dL (9-16); Calcium 9.7 mg/dL (8.4-10.2); Carbon Dioxide 26 mmol/L (22-29); Chloride 110 mmol/L (96-108); Estimated Glomerular Filt Rate > 60; Glucose Random 101 mg/dL (60-115); Potassium 4.1 mmol/L (3.3-5.1); Sodium 143 mmol/L (135-145)
== END 2023-08-26 15:33 | disposition home or self-care (01) ==
LOC: HO.MRI 15:32
PROVIDERS: Surgery; PCP Internal Medicine; Visit Provider Internal Medicine
DX: C34.30 Malignant neoplasm of lower lobe, unspecified bronchus or lung (principal); M54.40 Lumbago with sciatica, unspecified side; G89.29 Other chronic pain
CPT/HCPCS: 36415; 72148; 80048; 85025; 86850; 86900; 86901

== ENCOUNTER 2023-09-04 07:40 | Inpatient (IN) | payer MEDICARE, MEDICAID, SELFPAY ==
--- NOTE | 2023-09-03 08:45 | HO.ANESPROP2 ---
Documented by User: Donita Myrick NP 09/03/23 08:50 HPI - Anesthesia Eval Consult details Narrative: 62yo F for Right Thoracoscopy w/Video Assist, possible open, RT lower lobectomy, bronchoscopy Cardiac optimized s/p Lung CT biopsy 05/2023 with MAC - adenocarcinoma/non-small cell lung cancer Smoker [facility] Active Problems Active Problems: All Active Problems (Updated 08/19/23 @ 11:25 by Otto Cowan MD) Hypertension (Acute) Preoperative cardiovascular examination (Acute) Lung cancer, lower lobe (Acute) COPD (chronic obstructive pulmonary disease) (Acute) Current smoker (Acute) Allergic rhinitis (Acute) Past Medical History Medical History History of ectopic 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 Allergic rhinitis COPD (chronic obstructive pulmonary disease) Current smoker History of herniated intervertebral disc Scoliosis IBS (irritable bowel syndrome) History of depression DJD (degenerative joint disease) Hypertension Hyperlipidemia Urinary incontinence PTSD (post-traumatic stress disorder) Anxiety Family History Family History Mother CHF (congestive heart failure) Maternal Uncle Coronary bypass graft mechanical complication Family history of problems with anesthesia: No Surgical History Surgical History History of ovarian cystectomy History of biopsy History of cystoscopy History of dilation of urethra History of colonoscopy History of endoscopy History of lung biopsy History of bladder surgery History of blepharoplasty History of hysterectomy History of bladder suspension procedure History of Problems with Anesthesia: No Social History Social History Are you a primary healthcare insurance sales agent to a significant other at home: No Do you presently have visiting nurse or other home services: Yes (visiting nurses) Alcohol intake: current Alcohol intake frequency: holidays/special occasions only Alcohol type: beer Patient Tobacco Use Status: Current everyday Tobacco user Tobacco use type: Cigarette Cigarette Packs Per Day: 0.5 Cigarettes Per Day: 10 Years Smoked: 47 Substance Use Type: Marijuana Advance Directives Date on File: 05/10/23 service: No Meds Allergies Allergy/AdvReac Type Severity Reaction Status Date / Time codeine [CODEINE] Allergy Intermediate ITCHING Verified 09/04/23 06:16 hydrocodone [HYDROCODONE] Allergy Intermediate ITCHING Verified 09/04/23 06:16 diphenhydramine AdvReac Intermediate JITTERY Verified 09/04/23 06:16 [From [facility]] Home Medications Medication Instructions Recorded Confirmed Last Taken Type aspirin 81 mg tablet,delayed 81 mg PO DAILY 12/21/20 09/04/23 09/01/23 History release atorvastatin 20 mg tablet 20 mg PO BEDTIME 12/21/20 09/04/23 09/03/23 History diazepam 10 mg tablet 10 mg PO BID PRN Anxiety 12/21/20 09/04/23 09/03/23 History multivitamin 1 tab PO DAILY 12/21/20 09/04/23 09/03/23 History bupropion HCl 300 mg 24 hr tablet, 300 mg PO DAILY 02/14/23 09/04/23 09/03/23 History extended release fluticasone propionate 50 1 spray intranasal DAILY PRN 02/14/23 09/04/23 09/03/23 History mcg/actuation nasal Allergy Symptoms spray,suspension omeprazole 20 mg capsule,delayed 20 mg PO DAILY@0630 05/17/23 09/04/23 09/03/23 History release prazosin 5 mg capsule 5 mg PO BEDTIME 05/17/23 09/04/23 09/03/23 History albuterol sulfate 90 mcg/actuation 2 puff inhalation Q4H PRN wheezing 05/31/23 09/04/23 09/04/23 History aerosol inhaler (Ventolin HFA) buspirone 5 mg tablet 5 mg PO TID 05/31/23 09/04/23 09/03/23 History fluoxetine 40 mg capsule 40 mg PO DAILY 05/31/23 09/04/23 09/03/23 History guaifenesin 600 mg tablet, 600 mg PO BID PRN Congestion 05/31/23 09/04/23 09/04/23 History extended release 12 hr (Mucus Relief ER) topiramate 25 mg tablet 25 mg PO DAILY 05/31/23 09/04/23 09/03/23 History Exam Exam Date and Time: September 03, 2023 0845 Pertinent Lab Results Pertinent Lab Results: Laboratory Tests 08/26/23 17:15 WBC 9.1 Hgb 14.3 Hct 42.4 Plt Count 319 D Sodium 143 Potassium 4.1 Chloride 110 H Carbon Dioxide 26 BUN 23 H Creatinine 0.93 Narrative Narrative: EKG 05/2023 Vent. Rate : 084 BPM Atrial Rate : 084 BPM P-R Int : 160 ms QRS Dur : 074 ms QT Int : 350 ms P-R-T Axes : 082 059 065 degrees QTc Int : 413 ms Normal sinus rhythm Low voltage QRS Borderline ECG When compared with ECG of 13-FEB-2022 12:46, No significant change was found Per cardiac clearance 06/2023: Echocardiogram with LVEF of 40-45%. Mild diastolic dysfunction. Moderately decreased right ventricular systolic function. No significant valvular issues. In the exercise stress test, she was able to exercise for 9.3 Mets on Charan protocol and reached 88% of max predicted heart rate. No angina. Normal blood pressure response. No EKG evidence of ischemia. Perfusion imaging was unremarkable. Overall, mild cardiomyopathy, suspect nonischemic. Assessment and Plan Final Anesthetic Review Family History of Problems with Anesthesia: No History of Problems with Anesthesia: No Documented by User: Lobito Navas MD 09/04/23 07:23 [facility] Past Medical History Medical History History of ectopic 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 Allergic rhinitis COPD (chronic obstructive pulmonary disease) Current smoker History of herniated intervertebral disc Scoliosis IBS (irritable bowel syndrome) History of depression DJD (degenerative joint disease) Hypertension Hyperlipidemia Urinary incontinence PTSD (post-traumatic stress disorder) Anxiety Family History Family History Mother CHF (congestive heart failure) Maternal Uncle Coronary bypass graft mechanical complication Surgical History Surgical History History of ovarian cystectomy History of biopsy History of cystoscopy History of dilation of urethra History of colonoscopy History of endoscopy History of lung biopsy History of bladder surgery History of blepharoplasty History of hysterectomy History of bladder suspension procedure Social History Social History Are you a primary healthcare insurance sales agent to a significant other at home: No Do you presently have visiting nurse or other home services: Yes (visiting nurses) Alcohol intake: current Alcohol intake frequency: holidays/special occasions only Alcohol type: beer Patient Tobacco Use Status: Current everyday Tobacco user Tobacco use type: Cigarette Cigarette Packs Per Day: 0.5 Cigarettes Per Day: 10 Years Smoked: 47 Substance Use Type: Marijuana Advance Directives Date on File: 05/10/23 service: No Meds Allergies Allergy/AdvReac Type Severity Reaction Status Date / Time codeine [CODEINE] Allergy Intermediate ITCHING Verified 09/04/23 06:16 hydrocodone [HYDROCODONE] Allergy Intermediate ITCHING Verified 09/04/23 06:16 diphenhydramine AdvReac Intermediate JITTERY Verified 09/04/23 06:16 [From [facility]] Home Medications Medication Instructions Recorded Confirmed Last Taken Type aspirin 81 mg tablet,delayed 81 mg PO DAILY 12/21/20 09/04/23 09/01/23 History release atorvastatin 20 mg tablet 20 mg PO BEDTIME 12/21/20 09/04/23 09/03/23 History diazepam 10 mg tablet 10 mg PO BID PRN Anxiety 12/21/20 09/04/23 09/03/23 History multivitamin 1 tab PO DAILY 12/21/20 09/04/23 09/03/23 History bupropion HCl 300 mg 24 hr tablet, 300 mg PO DAILY 02/14/23 09/04/23 09/03/23 History extended release fluticasone propionate 50 1 spray intranasal DAILY PRN 02/14/23 09/04/23 09/03/23 History mcg/actuation nasal Allergy Symptoms spray,suspension omeprazole 20 mg capsule,delayed 20 mg PO DAILY@0630 05/17/23 09/04/23 09/03/23 History release prazosin 5 mg capsule 5 mg PO BEDTIME 05/17/23 09/04/23 09/03/23 History albuterol sulfate 90 mcg/actuation 2 puff inhalation Q4H PRN wheezing 07/09/04/23 09/04/23 History aerosol inhaler (Ventolin HFA) buspirone 5 mg tablet 5 mg PO TID 05/31/23 09/04/23 09/03/23 History fluoxetine 40 mg capsule 40 mg PO DAILY 05/31/23 09/04/23 09/03/23 History guaifenesin 600 mg tablet, 600 mg PO BID PRN Congestion 05/31/23 09/04/23 09/04/23 History extended release 12 hr (Mucus Relief ER) topiramate 25 mg tablet 25 mg PO DAILY 05/31/23 09/04/23 09/03/23 History Exam Airway Mallampati Class: II TM Dist: >3cm Neck ROM: Full Loose/Missing/Broken Teeth: Yes (poor dentition globally) Heart: [id number] Lungs: decrease bs b/l Assessment and Plan Assessment Anesthesia Assessment: Anesthesia Plan Discussed and Chart Reviewed Final Anesthetic Review NPO: Yes ASA Class: III Final Preanesthetic Review: No Changes in Pt Med Stat, Meds/Allgs Chart Reviewed, Consent Obtained/Reviewed and Anes Risks/Benef Reviewed Patient Risk: Intermediate Procedure Risk: Intermediate Assessment/Block/Sedation in SS: Assess/Block/Sedation-SS Anesthetic Plan Anesthetic Plan: GA and Agree w/ Assess. and Plan Disposition: Standard PACU
--- NOTE | 2023-09-03 08:49 | MHC.SHP ---
Pre-Procedural Eval Section A Date of Service: 09/03/23 The patient is an INPATIENT: No Changes since office visit: No Cold of Flu in the past 2 weeks, No New Medical Problems, No Changes in Medication and No Patient answered all questions The History & Physical has been completed within 30 days and I have reviewed it.: Yes Section B Chief Complaint: Malignant neoplasm of lower lobe, unspecified bron Allergies: Allergies Allergy/AdvReac Type Severity Reaction Status Date / Time codeine [CODEINE] Allergy Intermediate ITCHING Verified 08/19/23 11:20 hydrocodone [HYDROCODONE] Allergy Intermediate ITCHING Verified 08/19/23 11:20 diphenhydramine AdvReac Intermediate JITTERY Verified 08/19/23 11:20 [From [facility]] Plan I have reviewed the history and physical and performed a pertinent physical examination on my patient. No changes have occurred unless specified. Time Spent With Patient Time: Total time managing care of this patient today ____ minutes.
[2023-09-04] VITALS (23 sets, daily range): BP systolic 86–143; BP diastolic 53–97; PULSE 68–114; RESP 8–22; TEMP 35.7–36.4; O2SAT 89–98; BMI 21.7
--- NOTE | ~2023-09-04 | XR_ITS ---
EXAMINATION: XR CHEST CLINICAL INFORMATION: Post chest tube removal COMPARISON: Previous chest x-ray most recent from earlier the same day TECHNIQUE: Frontal view of the chest was obtained. FINDINGS: The right chest tube has been removed. There is a new small to moderate right pneumothorax. This measures 2.5 cm in greatest thickness. The cardiac and mediastinal contours are stable. Postsurgical changes to the right lower lung. Subsegmental atelectasis at the left lung base. No pleural effusion. Bilateral subcutaneous emphysema in the neck and chest. XR/XR chest 1V IMPRESSION: Small to moderate right pneumothorax post chest tube removal. Findings will be communicated by the [facility] work flow medical screener
--- NOTE | ~2023-09-04 | XR_ITS ---
EXAMINATION: XR CHEST CLINICAL INFORMATION: Follow-up right pneumothorax COMPARISON: Chest x-ray on 09/06/2023 TECHNIQUE: Frontal view of the chest was obtained. FINDINGS: vascularity. LUNGS: Bilateral lung base airspace disease is seen effacing the hemidiaphragms and lateral costophrenic angles. Small right pleural effusion is seen tracking along the lateral pleural border of right lower lung. A persistent 10% right upper pneumothorax (previously 16%) is again visualized, now contiguous with small right lower pleural effusion producing hydropneumothorax. Extensive surgical emphysema is seen in bilateral lower neck, supraclavicular region and lateral chest wall, more extensive in the right chest. BONES: Bony skeleton is intact. XR/XR chest 1V IMPRESSION: 1. Interval decrease in size of the right apical pneumothorax, possibly contiguous with the right lower pleural effusion producing 10% right hydropneumothorax. 2. Interval development of bilateral lung bases airspace disease and possible bilateral pleural effusions, larger in the right lung. 3. Unchanged extensive bilateral surgical emphysema, more severe in the right chest.
--- NOTE | ~2023-09-04 | XR_ITS ---
EXAMINATION: XR ABDOMEN KUB CLINICAL INDICATION: Abdominal pain and distention. COMPARISON: None available. TECHNIQUE: AP view of the abdomen. FINDINGS: There is extensive subcutaneous emphysema throughout the abdominal and right chest wall. The bowel gas pattern is nonspecific a free air cannot be excluded however none is suspected. No organomegaly. No gross bony abnormality. XR/XR KUB IMPRESSION: Extensive subcutaneous emphysema throughout the abdominal and right chest wall. The bowel gas pattern is nonspecific and nondistended.
--- NOTE | ~2023-09-04 | XR_ITS ---
EXAMINATION: XR CHEST CLINICAL INFORMATION: Post right lower lobe lobectomy COMPARISON: Previous chest x-ray most recent from yesterday TECHNIQUE: Frontal view of the chest was obtained. FINDINGS: The cardiac and mediastinal contours are stable. Right apical chest tube unchanged in position. Surgical clips over the right medial base and hilum. Subsegmental atelectasis at the left lung base. The lungs are otherwise clear. Extensive subcutaneous emphysema in the bilateral chest and lower neck. This is increased in the left chest compared to yesterday's exam. XR/XR chest 1V IMPRESSION: Stable postsurgical changes. No pneumothorax. Extensive subcutaneous emphysema slightly increased from yesterday's exam.
--- NOTE | ~2023-09-04 | XR_ITS ---
EXAMINATION: XR CHEST CLINICAL INFORMATION: Right lower lobe lobectomy COMPARISON: Previous chest x-rays most recent from yesterday TECHNIQUE: Frontal view of the chest was obtained. FINDINGS: The cardiac and mediastinal contours are stable. There is a small to moderate right pneumothorax similar to yesterday's exam. This measures 3 cm in greatest thickness at the right lung apex. There is subsegmental atelectasis at the left lung base. There are postsurgical changes in the right hilar region and right lower lung. No pleural effusion. Bilateral subcutaneous emphysema unchanged. XR/XR chest 1V IMPRESSION: Small to moderate right pneumothorax similar to yesterday's exam. Subcutaneous emphysema also unchanged.
--- NOTE | ~2023-09-04 | XR_ITS ---
EXAMINATION: XR CHEST CLINICAL INFORMATION: Status post right lower lobe resection. COMPARISON: 06/04/2023 TECHNIQUE: Frontal view of the chest was obtained. FINDINGS: Status post right lower lobe resection with interval volume loss. Anastomotic suture lines with soft tissue density now seen at the medial right mediastinal interface. Right chest tube tip is at the right lung apex. Large amount of subcutaneous emphysema is identified in the right thoracoabdominal soft tissues and in the right supraclavicular region. No definite pneumothorax. Heart size within normal limits. Left lung is clear. XR/XR chest 1V IMPRESSION: Postoperative chest with indwelling right apical chest tube. No pneumothorax. Large amount of subcutaneous emphysema.
--- NOTE | ~2023-09-04 | XR_ITS ---
EXAMINATION: XR CHEST CLINICAL INFORMATION: Status post lobectomy. COMPARISON: 09/04/2023. TECHNIQUE: Frontal view of the chest was obtained. FINDINGS: The cardiomediastinal silhouette is stable. A right chest tube extends to the right lung apex. There appears to be atelectatic change at the lung bases. The lungs are otherwise clear. There is no significant pneumothorax. Extensive right subcutaneous emphysema is noted progressed compared to previous. Left neck subcutaneous emphysema also noted new compared to previous. XR/XR chest 1V IMPRESSION: Right chest tube in place. Atelectatic change at the lung bases. No evidence of pneumothorax. Progressing subcutaneous emphysema.
[2023-09-04] MEDS: Albuterol Sulfate (0.083%) 2.5 MG/3 ML VIAL.NEB INHALE (07:04)
[2023-09-04] MEDS: Lactated Ringers 1,000 ML 100 ML IVCONT ×2 (07:04→16:47)
--- NOTE | 2023-09-04 07:13 | PC.NURSE ---
Respiratory bedside to administer breathing treatment. Dr Sorto and Dr Navas aware of pt breath sounds on arrival to [facility].
--- OUTSIDE RECORDS SUMMARY | 2023-09-04 07:45 | XMS_ITS | Continuity of Care Document ---
Author Name Unknown Organization [facility] [employer] [facility] Address [address] [place] [address]- Care Team Providers Care Truck Driver Helper Name Role Phone Nai Bradley MD Primary Care Physician Encounter [facility] Date(s): 07/22/23 - 08/21/23 [facility] [employer] [facility] [address] [place] [address]- [place] Allergies, Adverse Reactions, Alerts No Known Allergies Immunizations Given and Recorded Vaccine Date Status Refusal Reason SARS-CoV-2 (COVID-19) mRNA-1273 vaccine 11/13/21 R ecorded SARS-CoV-2 (COVID-19) mRNA-1273 vaccine 10/16/21 R ecorded Medications Aspirin Tablet 81 mg, By Mouth, Daily, Refills 0, Maintenance, 06/15/20 8:33:00 EDT Start Date: 06/15/20 Status: Ordered atorvastatin 20 mg oral tablet 1 tablet = 20 mg, By Mouth, Daily, # 30 tablet, 0 Refills, Maintenance, 06/15/20 8:32:00 EDT, Tablet Start Date: 06/15/20 Status: Ordered Daily Multi oral tablet 1 tablet, By Mouth, Daily, 0 Refills, Maintenance, 12/01/19 13:09:00 EST Start Date: 12/01/19 Status: Ordered duloxetine 20 mg oral enteric coated capsule 1 capsule = 20 mg, By Mouth, 2 times a day, 0 Refills, Maintenance, 09/01/21 17:16:00 EDT, Partial fill upon patient request if the prescription is for a schedule II opioid drug. Start Date: 09/01/21 Status: Ordered Fiber Tabs 0 Refills, Maintenance, 07/19/20 10:04:00 EDT Start Date: 07/19/20 Status: Ordered omeprazole 20 mg oral delayed release tablet 1 tablet = 20 mg, By Mouth, Daily, # 30 tablet, 0 Refills, Maintenance, 12/24/22 22:18:00 EST, CR Tablet, [facility]/pharmacy #[id number], Partial fill upon patient request if the prescription is for a schedule II opioid drug., 155, cm, 12/14/22 15:44:00 EST, Heig... Start Date: 12/24/22 Status: Ordered ondansetron 4 mg oral tablet, disintegrating 1 tablet = 4 mg, By Mouth, Every 8 hours, PRN Nausea & Vomiting, # 10 tablet, 0 Refills, Maintenance, 06/15/20 11:54:00 EDT, Tablet, [facility]/pharmacy #[id number], 155, cm, 06/15/20 11:32:00 EDT, Height, 49.2, kg, 06/15/20 11:32:00 EDT, Dry Weight Start Date: 06/15/20 Status: Ordered ProAir HFA 2, puffs, Inhalation, 4 times a day, Scheduled / PRN, 0, 0, 12/17/08 10:34:31, as needed for wheezing, Print CAROLIN Number, 65 Start Date: 12/17/08 Status: Ordered Prozac 20 mg oral capsule 20, mg, 1, capsule, By Mouth, Daily, 0, 0, 01/08/09 11:29:16, Print CAROLIN Number, [id number], Constant Indicator Start Date: 01/08/09 Status: Ordered Valium 5 mg oral tablet 1 tablet = 5 mg, By Mouth, 3 times a day, # 15 capsule, 0 Refills, Maintenance Start Date: 07/26/10 Status: Ordered verapamil 100 mg oral capsule, extended release 1 capsule = 100 mg, By Mouth, Daily at bedtime, 0 Refills, Maintenance, 09/01/19 14:26:39 EDT Start Date: 09/01/19 Status: Ordered Social History Social History Type Response Smoking Status 10 or more cigarette s (1/2 pack or more)/day in last 30 days entered on: 12/01/19 Sex Patient Care team information Care Team Personnel Name: Bobby Chery Position: [facility] Outreach Member Role: Lifetime Consulting Physician Name: Nai Bradley MD Position: [facility] Outreach Member Role: PCP Address: Address: [address] [place] [address]- Care Team Related Persons Name: RANDALABRAHAM Address: home [address] [place] [address] Name: MABEL EDWARDS Address: [address] [place] [address] Name: CHANDA DRUMMOND Address: [address] [place] [address] Name: EUGENIO DRUMMOND Address: [address] [place] [address] Name: LUCY ELLER
--- OUTSIDE RECORDS SUMMARY | 2023-09-04 07:45 | XMS_ITS | Patient Health Record ---
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 Primary Care Provider Un available Mekhi Sauceda Jr Unavailable [phone] [place], IG[place] Unavailable Unavailable ALLERGIES Allergen (clinical drug ingredient) Drug/Non Drug Allergy documented on EMR Reaction Allergy Type Onset Date Status hydrocodone / ibuprofen Hydrocodone-Ibup rofe n Unknown Drug Allergy Active codeine Codeine Sulfate Unknown Drug Allergy A ctive diphenhydramine Benadryl Unknown Drug Allergy A ctive REASON FOR REFERRAL No Information MEDICATIONS Medication SIG (Take, Route, Frequency, Duration) Notes Start Date End Date Status Atorvastatin Calcium 20 MG TAKE 1 TABLET BY MOUTH EVERY DAY ONE DOSE Oral for 90 Active Verapamil HCl ER 200 MG TAKE 1 CAPSULE B Y MOUTH EVERYDAY AT BEDTIME Oral for 90 Active Spiriva HandiHaler 18 MCG inhale content s of 1 capsule by mouth once daily Inhalation for 30 Active Albuterol Sulfate HFA 108 (90 Base) MCG/ACT 2 puffs as needed Inhalation every 4 hrs Active Multivitamin Active Fiber Active Low-Dose Aspirin Act reinaldo FLUoxetine HCl 40 MG Orally Active Tylenol PRN Active MiraLax (colon prep) 8.3 ounce ((238) grams mixed with Gatorade or Crystal Light orally begin at 5:00 p.m. the day before the procedure for 1 day 12/08/2020 Active diazePAM 10 MG 1 tablet as needed O rally Once a day Active IMMUNIZATIONS Vaccine Route Administration Date Status Comme nts Flu vaccine no Preserv 3 and > Unknown 10/10/2015 Admin istered Influenza Unknown 12/08/2020 Refused SOCIAL HISTORY Tobacco Use: Social History Observation Description Date Details (start date - stop date) Current Smoker NA - NA Sex Assigned At : Social History Observation Description Sex Assigned At Unknown Tobacco Use/Smoking Question Answer Notes Patient is a current smoker How often do you smoke cigarettes? every day How many cigarettes a day do you smoke? 6-10 How soon after you wake up d o you smoke your first cigarette? 6-30 minutes Are you interested in quitting? Thinking about q uitting Alcohol Screen Question Answer Notes Did you have a drink contain ing alcohol in the past year? Yes How often did you have a dri nk containing alcohol in the past year? 2 to 4 times a month (2 points) How many drinks did you have on a typical day when you were drinking in the past year? 1 or 2 drinks (0 point) How often did you have 6 or more drinks on one occasion in the past year? Never (0 point) Points 2 Interpretation Negative PROBLEMS Problem Type ICD Code Onset Dates Problem Status W/U Status Risk SNOMED Code Notes Problem Diarrhea (R19.7) Active confirmed 64096 008 Problem Change in bowel habit (R19.4) Active confirmed 286582738 Problem Irritable bowel syndrome without diarrhea (K58.9) Active confirmed 82567645 Problem Unspecified abdominal pain (R10.9) Active confirmed 02009706 PLAN OF TREATMENT Future Test Test Name Order Date COLONOSCOPY 03/12/2013 COLONOSCOPY 12/08/2020 Insurance Providers Payer Name Payer Address Payer Phone Subscriber Number Group Number Insured Name Patient Relationship to Insured Coverage Start Date Coverage End Date MEDICARE OF [place] [address] [place] [id number] MIGUELITO DRUMMONDNA Self - patient is the insured MEDICAID OF [facility] [address] [place] [address] [id number] BHANU, GO Self - patient is the insured MEDICAL (GENERAL) HISTORY Medical History History ICD Code COPD Anxiety PTSD urinary incontinence hyperlipidemia hypertension degenerative joint disease Surgical History Surgery Date(Month/Year) Bladder sling ectopic ovarian cyst Hysterectomy urethea tube rebuild cyst removal - back shoulder
--- NOTE | 2023-09-04 12:29 | P.OP_ITS ---
Operative Note Operative Note Date of Service: 09/04/23 Narrative: Preoperative diagnosis: [] Right lower lobe non-small cell lung cancer Postop diagnosis: [] Same Procedure [] bronchoscopy, vats right lower lobectomy, mediastinal lymph node sampling, intercostal nerve block, Surgeon: [] Macario Senior [employer]s Payable Specialist: [] Vish Solares Type of Anesthesia: [] Double-lumen general Indication for surgery: [] Bronchoscopy demonstrated no gross endoluminal pathology. It Was also used to assist anesthesia with placement of a double- lumen tube. Intraoperative findings demonstrated no obvious gross intrathoracic pathology. Mid lower lobe lung mass from right lower lobectomy uneventfully excised. Mediastinal lymph nodes sampling included station 7, 9, and 10 along with intraparenchymal lymph nodes. Findings: [] Patient brought to the operating room, placed on operative table supine position, after adequate level of double-lumen general anesthesia was induced (the latter which was challenging), bronchoscopy was used to confirm double-lumen placement and also demonstrated no gross endoluminal pathology. Please refer to anesthesia notes regarding double-lumen placement. Patient was then placed in the left lateral decubitus position, and the right chest prepped and draped in usual sterile fashion. Using 2 working ports in the anterior and posterior axillary lines 6th intercostal space and an axillary incision in the 4th intercostal space with wound protector placed, intraoperative findings were as noted above. Inferior pulmonary ligament was taken down and 9R. Lymph node sampled. Inferior pulmonary vein was encircled, and uneventfully transected using endoscopic vascular staplers. Next hilum was approached where the segmental arterial branches to the right lower lobe were identified, skeletonized, encircled with 2-0 silk, and transected using sequential endoscopic CALVIN vascular staplers. Patient had multiple branches as opposed to 1 single trunk. Fissures were completed using CALVIN sequential purple staplers. Bronchus was identified, skeletonized circumferentially, and a heavy wire stapler placed across this. Lung was inflated were right middle lobe and right upper lobe uneventfully inflated with no inflation of the right lower lobe. Stable was uneventfully fired. Chest cavitie was with saline and remaining lung reinflated with no air leak demonstrated from the bronchial stump. Mediastinal lymph node station 7 and 10R were sampled and sent to pathology. Chest cavity was again secured hemostasis and irrigated. Through the anterior port, 24 Khmer chest tube was placed under direct vision and secured the skin using 0 silk suture. Port sites were closed using deep followed by dermal interrupted 2-0 and 3-0 Vicryl sutures respectively. Access incision was closed using running 0 Vicryl suture to reapproximate the muscle. Interrupted inverted deep dermal 3-0 Vicryl sutures followed by running subcuticular 4-0 Vicryl suture placed. Steri-Strips and sterile dressings were applied to all wounds. Wounds were infiltrated 0.5% Marcaine intercostal nerve block at completion. Chest tube was connected to Pleur-evac and lung reinflated with no appreciable air leak demonstrated. Sponge, needle, instrument counts reported to be correct. Patient tolerated procedure well and emerged anesthesia stable condition. EBL approximately 200 cc.
[2023-09-04] MEDS: Acetaminophen 1,000 MG/100 ML PIGGYBACK 400 MG IV ×2 (12:57→19:31)
[2023-09-04] MEDS: fentaNYL citrate/PF 100 MCG/2 ML VIAL 50 MCG IVPUSH ×3 (13:00→13:32)
[2023-09-04] MEDS: oxyCODONE HCl Immed Release 5 MG TABLET PO (13:47)
--- NOTE | 2023-09-04 14:35 | PM.CCHP ---
History of Present Illness Date of Service: 09/04/23 Chief Complaint: Status post elective right lower obectomy for underlying adenocarcinoma 62-year-old lady with underlying COPD and hypertension now postop day 0 after an elective right lower lobe lobectomy for adenocarcinoma, extubated end of the case, being monitored in the intensive care unit in the immediate postop. Review of Systems Constitutional: Constitutional: Denies daytime sleepiness, Denies excessive sweating, Denies fatigue, Denies fever(s), Denies lethargy, Denies malaise, Denies night sweats, Denies snoring and Denies weight loss Eyes: Eyes: Denies blurry vision and Denies itchy eyes ENT: Denies nasal congestion, Denies post nasal drip, Denies sinus pain, Denies sinus pressure and Denies other ( Thrush) Cardiovascular: Cardiovascular: Denies chest pain, Denies pedal edema, Denies dyspnea, Denies orthopnea and Denies paroxysmal nocturnal dyspnea Respiratory: Respiratory: Denies cough, Denies hemoptysis, Denies excessive phlegm production, Denies dyspnea, Denies snoring and Denies wheezing Gastrointestinal: Gastrointestinal: Denies abdominal pain and Denies heartburn Musculoskeletal: Musculoskeletal: Denies myalgias, Denies arthralgias and Denies joint swelling Integumentary/Breasts: Skin/Breast: Denies rash Neurologic: Denies memory loss and Denies seizure-like activity Psychiatric: Psychiatric: Denies abnormal sleep pattern, Denies anxiety and Denies memory loss Endocrine: Endocrine: Denies excessive sweating, Denies fatigue and Denies heat intolerance Hematologic/Lymphatic: Hematologic/Lymphatic: Denies easy bruising Allergic/Immunologic: Allergic/Immunologic: Denies itchy eyes, Denies seasonal rhinorrhea and Denies wheezing PMFSH Past Medical History Medical History History of ectopic 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 Allergic rhinitis COPD (chronic obstructive pulmonary disease) Current smoker History of herniated intervertebral disc Scoliosis IBS (irritable bowel syndrome) History of depression DJD (degenerative joint disease) Hypertension Hyperlipidemia Urinary incontinence PTSD (post-traumatic stress disorder) Anxiety Family History Family History Mother CHF (congestive heart failure) Maternal Uncle Coronary bypass graft mechanical complication Surgical History Surgical History History of ovarian cystectomy History of biopsy History of cystoscopy History of dilation of urethra History of colonoscopy History of endoscopy History of lung biopsy History of bladder surgery History of blepharoplasty History of hysterectomy History of bladder suspension procedure Social History Social History Are you a primary healthcare insurance sales agent to a significant other at home: No Do you presently have visiting nurse or other home services: Yes (visiting nurses) Alcohol intake: current Alcohol intake frequency: holidays/special occasions only Alcohol type: beer Patient Tobacco Use Status: Current everyday Tobacco user Tobacco use type: Cigarette Cigarette Packs Per Day: 0.5 Cigarettes Per Day: 5 Years Smoked: 47 Smoked in Last 30 Days: Yes Use of substances other than those prescribed or required for medical reasons: Yes Substance Use Type: Marijuana Substance Use Frequency: Daily Are you DNR?: No Advance Directives: Yes Advance Directives on File: Yes Advance Directives Date on File: 05/10/23 service: No Meds Allergies Allergy/AdvReac Type Severity Reaction Status Date / Time codeine [CODEINE] Allergy Intermediate ITCHING Verified 09/04/23 06:16 hydrocodone [HYDROCODONE] Allergy Intermediate ITCHING Verified 09/04/23 06:16 diphenhydramine AdvReac Intermediate JITTERY Verified 09/04/23 06:16 [From BENADRYL] Active Medications: Current Medications Fentanyl (Fentanyl Citrate/Pf 100 Mcg/2 Ml Vial) 50 mcg IVPUSH Q5M PRN; Protocol PRN Reason: Pain, Severe (Pain Scale 7-10) Last Admin: 09/04/23 13:32 Dose: 25 mcg Hydromorphone HCl (Hydromorphone Hcl 0.5 Mg/0.5 Ml Syringe) 0.5 mg IVPUSH Q5M PRN; Protocol PRN Reason: Pain, Severe (Pain Scale 7-10) Lactated Ringer's (Lr) 1,000 mls @ 100 mls/hr IVCONT .Q10H PAUL Last Admin: 09/04/23 07:04 Dose: 100 mls/hr Lorazepam (Lorazepam 0.5 Mg Tablet) 0.5 mg PO Q8H PRN PRN Reason: Anxiety Ondansetron HCl (Ondansetron Hcl 4 Mg/2 Ml Vial) 4 mg IVPUSH ONCE PRN PRN Reason: Nausea and Vomiting Home Medications Medication Instructions Recorded Confirmed Last Taken Type aspirin 81 mg tablet,delayed 81 mg PO DAILY 12/21/20 09/04/23 09/01/23 History release atorvastatin 20 mg tablet 20 mg PO BEDTIME 12/21/20 09/04/23 09/03/23 History diazepam 10 mg tablet 10 mg PO BID PRN Anxiety 12/21/20 09/04/23 09/03/23 History multivitamin 1 tab PO DAILY 12/21/20 09/04/23 09/03/23 History bupropion HCl 300 mg 24 hr tablet, 300 mg PO DAILY 02/14/23 09/04/23 09/03/23 History extended release fluticasone propionate 50 1 spray intranasal DAILY PRN 02/14/23 09/04/23 09/03/23 History mcg/actuation nasal Allergy Symptoms spray,suspension omeprazole 20 mg capsule,delayed 20 mg PO DAILY@0630 05/17/23 09/04/23 09/03/23 History release prazosin 5 mg capsule 5 mg PO BEDTIME 05/17/23 09/04/23 09/03/23 History albuterol sulfate 90 mcg/actuation 2 puff inhalation Q4H PRN wheezing 05/31/23 09/04/23 09/04/23 History aerosol inhaler (Ventolin HFA) buspirone 5 mg tablet 5 mg PO TID 05/31/23 09/04/23 09/03/23 History fluoxetine 40 mg capsule 40 mg PO DAILY 05/31/23 09/04/23 09/03/23 History guaifenesin 600 mg tablet, 600 mg PO BID PRN Congestion 05/31/23 09/04/23 09/04/23 History extended release 12 hr (Mucus Relief ER) topiramate 25 mg tablet 25 mg PO DAILY 05/31/23 09/04/23 09/03/23 History Physical Exam Vital Signs: Vital Signs: Last Vital Signs Temp 97.0 F 09/04/23 12:53 Pulse 80 09/04/23 14:23 Resp 12 09/04/23 14:23 BP 93/64 11/01/23 14:23 Pulse Ox 98 09/04/23 14:23 O2 Del Method Nasal Cannula wit h Capnography 09/04/23 14:23 O2 Flow Rate 2 09/04/23 14:23 BMI result Body Mass Index 21.7 Const: General: no acute distress and alert Nutritional Appearance: not obese Orientation/consciousness: Other orientation findings ( oriented) HEENT: Head: Yes atraumatic Eyes: General: appearance normal, both eyes and all related structures Sclerae: sclerae normal EOM: EOMs intact bilaterally Neck: Neck: Yes supple Lymphatic: no lymphadenopathy noted Chest: Chest palpation & inspection: other (right chest tube) Resp: Effort & Inspection: normal respiratory effort and no use of accessory muscles Auscultation: crackles (Right-sided) Cardio: Rate: regular rate Rhythm: regular rhythm Heart sounds: no gallops, no murmurs and no rubs Skin: General skin exam: other ( warm) Extrem: General: No clubbing, No cyanosis and No edema Results Labs Labs: Laboratory Results - last 24 hr 09/04/23 06:49 Blood Type O Positive Antibody Screen NEGATIVE Assessment and Plan (1) Lung cancer, lower lobe: Status: Acute (2) COPD (chronic obstructive pulmonary disease): Status: Acute Plan Assessment: 62-year-old lady status post elective right lower lobe lobectomy for underlying adenocarcinoma being monitored in the intensive care unit in the postop period. Plan: Neuro: No acute issues. Cardiac: No acute issues. Pulmonary: Postop day 0 after right lower lobe lobectomy. Thoracic surgery service care appreciated. Airway watch. Pain control. Renal: No acute issues. Endo: No acute issues. GI: No acute issues. ID: No acute issues Heme/Onc: No acute issues. Psych: No acute issues. Miscellaneous: No acute issues. Prophylaxis: Per thoracic surgery Diet: Per thoracic surgery
[2023-09-04] MEDS: Morphine Sulfate 2 MG/ML CARTRIDGE 4 MG IVPUSH (15:08)
[2023-09-04 15:17] LABS: Hemoglobin 10.3 g/dl (12.0-16.0); Mean Corpuscular HGB Conc 33.2 g/dl (31.0-35.0); Mean Corpuscular Hemoglobin 33.7 pg (27.0-33.0); Mean Corpuscular Volume 101.3 fL (80.0-98.0); Mean Platelet Volume 9.5 fL (9.4-12.3); Platelet Count 246 X10*3/uL (160-400); Red Blood Count 3.06 X10*6/uL (4.20-5.50); Red Cell Distribution Width 12.5 % (11.0-16.0)
[2023-09-04 15:27] LABS: Anion Gap 12 (12-20); Blood Urea Nitrogen 19 mg/dL (9-16); Calcium 8.4 mg/dL (8.4-10.2); Carbon Dioxide 23 mmol/L (22-29); Chloride 109 mmol/L (96-108); Creatinine Clr Calc Pharmacy 59.5; Estimated Glomerular Filt Rate > 60; Glucose Random 171 mg/dL (60-115); Potassium 4.2 mmol/L (3.3-5.1); Sodium 140 mmol/L (135-145)
[2023-09-04] MEDS: ceFAZolin Sodium/Dextrose,Iso 2 GM/50 ML PIGGYBACK IV ×2 (16:39→22:59)
[2023-09-04] MEDS: 0.9 % Sodium Chloride Flush 3 ML SYRINGE IVFLUSH ×2 (16:39→22:59)
[2023-09-04] MEDS: busPIRone HCl 5 MG TABLET PO ×2 (16:39→20:24)
[2023-09-04] MEDS: HYDROmorphone HCl 0.5 MG/0.5 ML SYRINGE IVPUSH (16:40)
[2023-09-04] MEDS: HYDROmorphone HCl 1 MG/ML SYRINGE IVPUSH ×2 (19:26→23:23)
[2023-09-04] MEDS: LORazepam 0.5 MG TABLET PO (19:29)
[2023-09-04] MEDS: Docusate Sodium 100 MG CAPSULE PO (20:24)
[2023-09-04] MEDS: Atorvastatin Calcium 20 MG TABLET PO (20:24)
--- NOTE | 2023-09-04 23:28 | PC.NURSE ---
Addendum entered by Liliana Mcmanus RN 09/05/23 05:58: Provider at bedside, pt has crepitus to facial area. O2 sat at 94%. magnesium replaced. Addendum entered by Liliana Mcmanus RN 09/05/23 05:46: Pt magnesium level is critical 1.4 this morning. Provider notified. Replacement ordered. Original Note: Crepitus noted to right anterior chest, right shoulder and back of the neck. Chest tube has very minimal drainage noted. No airleak. No tidaling. Right chest tube dressing is dry and intact. Pt pain is controlled by IV dilauded.O2 sats maintaining at 92-97% on 2L nasal cannula. Refused to use the IS. Pt has productive cough. +Coarse crackles right lung.
[2023-09-05] VITALS (20 sets, daily range): BP systolic 90–125; BP diastolic 35–87; PULSE 27–115; RESP 11–26; TEMP 36.2–37; O2SAT 90–96; BMI 24.9
[2023-09-05] MEDS: Acetaminophen 1,000 MG/100 ML PIGGYBACK 400 MG IV ×4 (01:10→21:38)
[2023-09-05] MEDS: Lactated Ringers 1,000 ML 100 ML IVCONT (01:12)
[2023-09-05] MEDS: LORazepam 0.5 MG TABLET PO ×2 (03:53→12:09)
[2023-09-05] MEDS: HYDROmorphone HCl 1 MG/ML SYRINGE IVPUSH ×4 (03:53→20:57)
[2023-09-05 05:00] LABS: VBG Base Excess 5.5 mmol/L; VBG HCO3 30 mmol/L (22-26); VBG pCO2 46 mmHg; VBG pH 7.42 (7.32-7.43); VBG pO2 106 mmHg
[2023-09-05 05:01] LABS: MANUAL DIFF FLAG NO
[2023-09-05 05:04] LABS: Basophils Percent Auto 0.1 % (0-2); Eosinophils Percent Auto 0.1 % (0-4); Hematocrit 25.5 % (37.0-47.0); Hemoglobin 8.4 g/dl (12.0-16.0); Imm Gran Abs Auto 0.03 X10*3/uL (0.00-0.03); Imm Gran Pct Auto 0.3 % (0.0-0.4); Lymphocytes Absolute Auto 2.3 X10*3/uL (1.2-4.9); Lymphocytes Percent Auto 20.1 % (20-40); Mean Corpuscular HGB Conc 32.9 g/dl (31.0-35.0); Mean Corpuscular Hemoglobin 32.9 pg (27.0-33.0); Mean Platelet Volume 9.3 fL (9.4-12.3); Monocytes Absolute Auto 0.6 X10*3/uL (0.1-1.2); Monocytes Percent Auto 4.9 % (2-11); Neutrophils Absolute Auto 8.4 x10*3/uL (2.0-8.3); Neutrophils Percent Auto 74.5 % (45-73); Platelet Count 212 X10*3/uL (160-400); Red Blood Count 2.55 X10*6/uL (4.20-5.50); Red Cell Distribution Width 12.7 % (11.0-16.0); White Blood Count 11.3 X10*3/uL (4.8-10.8)
[2023-09-05 05:20] LABS: Anion Gap 8 (12-20); Blood Urea Nitrogen 13 mg/dL (9-16); Calcium 8.2 mg/dL (8.4-10.2); Carbon Dioxide 26 mmol/L (22-29); Chloride 108 mmol/L (96-108); Creatinine Clr Calc Pharmacy 66.8; Estimated Glomerular Filt Rate > 60; Glucose Random 127 mg/dL (60-115); Potassium 4.1 mmol/L (3.3-5.1); Sodium 138 mmol/L (135-145)
[2023-09-05 05:30] LABS: Albumin Level 3.1 g/dL (3.5-5.0); Anion Gap 10 (12-20); Blood Urea Nitrogen 13 mg/dL (9-16); Calcium 8.3 mg/dL (8.4-10.2); Carbon Dioxide 26 mmol/L (22-29); Chloride 107 mmol/L (96-108); Creatinine Clr Calc Pharmacy 65.8; Estimated Glomerular Filt Rate > 60; Glucose Random 127 mg/dL (60-115); Magnesium 1.4 mg/dL (1.6-2.6); Phosphorus 3.1 mg/dL (2.7-4.5); Potassium 4.1 mmol/L (3.3-5.1); Sodium 139 mmol/L (135-145)
[2023-09-05] MEDS: Magnesium Sulfate/H2O 2 GM/50 ML PIGGYBACK IV (05:51)
--- NOTE | 2023-09-05 06:46 | HO.POSTANES ---
Post Anesthesia Evaluation Post Anesthesia Evaluation Date of Service: 09/05/23 Vital Signs: Vital Signs Temp Pulse Resp BP Pulse Ox O2 Del Method O2 Flow Rate 09/05/23 06:00 98 17 105/69 94 Nasal Cannula 2 09/05/23 06:00 91 94 Nasal Cannula 2 09/05/23 05:00 95 11 L 95/35 L 90 L Nasal Cannula 2 09/05/23 04:00 101 H 14 110/66 91 L Nasal Cannula 2 09/05/23 03:00 83 13 91/46 L Nasal Cannula 2 09/05/23 02:00 95 14 90/54 L 93 Nasal Cannula 2 09/05/23 01:00 92 14 92/56 L 96 Nasal Cannula 2 09/05/23 00:00 90 11 L 95/54 L 96 Nasal Cannula 2 09/04/23 23:00 91 16 100/56 L 93 Nasal Cannula 2 09/04/23 22:00 96 14 93/56 L 94 Nasal Cannula 2 09/04/23 21:00 95 12 92/57 L 94 Nasal Cannula 2 09/04/23 20:00 108 H 19 98/69 96 Nasal Cannula 2 09/04/23 19:00 97.6 F 114 H 19 98/59 L 92 Nasal Cannula 2 Anesthesia: General Endotracheal-GETA Mental Status: Awake Pain Control: Satisfactory (difficulty controlling pain) Nausea/Vomiting: Mild Hydration: Adequate Anesthesia-Related Issues: No Anes. Related Issues
[2023-09-05 06:57] LABS: Venous Blood Gas Refer to POC result
[2023-09-05] MEDS: Fluticasone/Umeclidinium/Vilanterol 200/62.5/25 BLST.W.DEV 1 PUFF INHALE (07:31)
[2023-09-05] MEDS: ceFAZolin Sodium/Dextrose,Iso 2 GM/50 ML PIGGYBACK IV (07:44)
[2023-09-05] MEDS: busPIRone HCl 5 MG TABLET PO ×3 (07:56→21:27)
[2023-09-05] MEDS: Docusate Sodium 100 MG CAPSULE PO ×2 (07:56→21:27)
[2023-09-05] MEDS: buPROPion HCl XL 300 MG TAB.ER.24H PO (07:56)
[2023-09-05] MEDS: Topiramate 25 MG TABLET PO (07:56)
[2023-09-05] MEDS: FLUoxetine HCl 20 MG CAPSULE 40 MG PO (07:56)
[2023-09-05] MEDS: 0.9 % Sodium Chloride Flush 3 ML SYRINGE IVFLUSH ×2 (08:01→14:49)
--- NOTE | 2023-09-05 08:18 | PHA.MEDREC ---
Pharmacy Consult ? Medication Reconciliation Pharmacy has completed the medication reconciliation. pharmacy has reviewed med rec done by nursing. verapamil discontinued by Dr. Dixon on 06/10/23 due to hypotension and suboptimal therapy.
--- NOTE | 2023-09-05 08:27 | PM.PNTS ---
Subjective Subjective Date of Service: 09/05/23 <Ashely Wahl PA-C - Last Filed: 09/05/23 09:24> 09/05/23 <Marlo Sorto MD - Last Filed: 09/05/23 08:44> Interval history: No events overnight. Had difficulty with pain control and did not sleep much. Reports pain at incisions and right chest. Pain relieved with dilaudid but does not last long. Using IS. <Ashely Wahl PA-C - Last Filed: 09/05/23 09:24> Physical Exam Vital Signs: Vital Signs: Last Vital Signs Temp 97.2 F 09/05/23 08:00 Pulse 93 09/05/23 08:00 Resp 17 09/05/23 08:00 BP 108/72 09/05/23 08:00 Pulse Ox 95 09/05/23 08:00 O2 Del Method Nasal Cannula 09/05/23 08:00 O2 Flow Rate 4 09/05/23 08:00 BMI result Body Mass Index 24.9 <KUN Marmolejo Last Filed: 09/05/23 09:24> Const: General: comfortable, no acute distress and alert <KUN Marmolejo Last Filed: 09/05/23 09:24> Orientation/consciousness: patient oriented x3 <KUN Marmolejo Last Filed: 09/05/23 09:24> Resp: Other: crepitus extending from midline anterior chest wall to right lateral chest chest tube in place; no leak detected <KUN Marmolejo Last Filed: 09/05/23 09:24> Effort & Inspection: normal respiratory effort <KUN Marmolejo Last Filed: 09/05/23 09:24> Auscultation: diminished lung sounds on the right <KUN Marmolejo Last Filed: 09/05/23 09:24> Skin: General skin exam: no rashes or lesions noted <KUN Marmolejo Last Filed: 09/05/23 09:24> Neuro: General: patient oriented x3 and moves all extremities <KUN Marmolejo Last Filed: 09/05/23 09:24> Extrem: General: Yes no clubbing, cyanosis or edema <Ashely Wahl PA-C - Last Filed: 09/05/23 09:24> Procedures Date of Service Date of Service: 09/05/23 <Ashely Wahl PA-C - Last Filed: 09/05/23 09:24> 09/05/23 <Marlo Sorto MD - Last Filed: 09/05/23 08:44> Progress Note: A&P Assessment and plan (1) Lung cancer, lower lobe: Status: Acute <KUN Marmolejo Last Filed: 09/05/23 09:24> (2) COPD (chronic obstructive pulmonary disease): Status: Acute <Ashely Wahl PA-C - Last Filed: 09/05/23 09:24> (3) Status post lobectomy of lung: Status: Acute <KUN Marmolejo Last Filed: 09/05/23 09:24> Assessment and Plan: 62 year old female now POD #1 s/p bronchoscopy, vats right lower lobectomy, mediastinal lymph node sampling, intercostal nerve block. Doing well post op, having some difficulty with pain control. [facility] c/d/i. Chest tube in place with ~100cc serosanguineous output overnight, no air leak detected. CXR this am showed no pneumothorax, subq emphysema. Given the subq emphysema will keep chest tube in place for now. Dc jameson. OOB/ambulation and incentive spirometer at least 10x/hr encouraged. Pain control. Hospitalist consult. <KUN Marmolejo Last Filed: 09/05/23 09:24> Time Spent With Patient Time: Total time managing care of this patient today ____ minutes. <KUN Marmolejo Last Filed: 09/05/23 09:24> Quality Stroke Does the patient have a stroke diagnosis?: No <Marlo Sorto MD - Last Filed: 09/05/23 08:44> VTE Prior VTE?: No <Marlo Sorto MD - Last Filed: 09/05/23 08:44> VTE Risk Level:: Surgical - low <Marlo Sorto MD - Last Filed: 09/05/23 08:44> VTE Device Contraindication: N/A - Device Ordered <Marlo Sorto MD - Last Filed: 09/05/23 08:44> VTE Drug Contraindication: N/A - Med Ordered <Marlo Sorto MD - Last Filed: 09/05/23 08:44>
--- NOTE | 2023-09-05 08:49 | PC.NURSE ---
Addendum entered by Rosanne Alexandre RN 09/05/23 13:40: Pt passed voiding trial by 12:00, 2 voids on commode Original Note: Wolfe removed 08:00, pt due to void 14:00 Pt will pivot to commode
--- NOTE | 2023-09-05 10:21 | MHC.CM.PN ---
IMM delivered. Patient currently in ICU s/p right lower lobectomy. From home alone, indp. with ADL's, 4hrs/wk cleaning services private pay. +HCP, but pt requesting assistance modifying this, updated. Newly named agents 1- Son Erwin Paz, 2- partner Vamsi Amaya. PCP: Dr. Bradley DP: Pending potential PT eval as pt reports weakness. Pts goal is to return home with family support, not open to SNF but open to services, family to transport.
[2023-09-05] MEDS: Heparin Sodium,Porcine 5,000 UNIT/ML VIAL 5000 UNIT SUBCUT (12:08)
--- NOTE | 2023-09-05 12:44 | P.PNCC_ITS ---
Subjective Subjective Date of Service: 09/05/23 Interval History: 62-year-old lady with underlying COPD and hypertension now postop day 1 after an elective right lower lobe lobectomy for adenocarcinoma, extubated end of the case, being monitored in the intensive care unit in the immediate postop. Overnight with development of some subcutaneous emphysema, otherwise no events. Critical Care Time (minutes): 0 Physical Exam 2 Vital Signs: Vital Signs: Last Vital Signs Temp 98.6 F 09/05/23 12:00 Pulse 27 L 09/05/23 12:00 Resp 26 H 09/05/23 12:00 BP 106/58 L 09/05/23 12:00 Pulse Ox 96 09/05/23 12:00 O2 Del Method Nasal Cannula 09/05/23 12:00 O2 Flow Rate 4 09/05/23 12:00 BMI result Body Mass Index 24.9 Const: General: no acute distress, alert and awake Eyes: Sclerae: sclerae normal EOM: EOMs intact bilaterally Neck: Neck: Yes no lymphadenopathy, Yes trachea midline and Yes supple Resp: Effort & Inspection: normal respiratory effort and no respiratory distress Auscultation: clear to auscultation bilaterally Cardio: Rate: tachycardic Rhythm: regular rhythm Heart sounds: no gallops, no murmurs and no rubs GI: Palpation (GI): Soft to palpation and Other GI palpation findings present ( Nontender) Auscultation: normal bowel sounds Extrem: General: Yes no pedal edema, No clubbing and No cyanosis Objective Data Labs 09/05/23 04:42 09/05/23 04:43 Labs: Laboratory Results - last 24 hr 09/04/23 09/05/23 09/05/23 15:01 04:42 04:43 WBC 19.0 H 11.3 H RBC 3.06 L D 2.55 L Hgb 10.3 L D 8.4 L Hct 31.0 L D 25.5 L MCV 101.3 H 100.0 H MCH 33.7 H 32.9 MCHC 33.2 32.9 RDW 12.5 12.7 Plt Count 246 212 MPV 9.5 9.3 L Immature Gran % (Auto) 0.3 Neut % (Auto) 74.5 H Lymph % (Auto) 20.1 [place] % (Auto) 4.9 Eos % (Auto) 0.1 Baso % (Auto) 0.1 Lymph # (Auto) 2.3 [place] # (Auto) 0.6 Eos # (Auto) 0.0 Baso # (Auto) 0.0 Abs Immat Gran (auto) 0.03 Absolute Neuts (auto) 8.4 H Absolute Nucleated RBC 0.000 0.000 Nucleated RBC % (auto) 0.0 0.0 VBG pH VBG pCO2 VBG pO2 VBG HCO3 VBG O2 Saturation VBG Base Excess Sodium 140 138 Potassium 4.2 Chloride 109 H Carbon Dioxide 23 Anion Gap 12 BUN 19 H Creatinine 0.73 Estim Creat Clear Calc 59.5 Estimated GFR > 60 Random Glucose 171 H Calcium 8.4 D Phosphorus Magnesium Albumin 09/05/23 09/05/23 09/05/23 04:43 04:43 04:43 WBC RBC Hgb Hct MCV MCH MCHC RDW Plt Count MPV Immature Gran % (Auto) Neut % (Auto) Lymph % (Auto) [place] % (Auto) Eos % (Auto) Baso % (Auto) Lymph # (Auto) [place] # (Auto) Eos # (Auto) Baso # (Auto) Abs Immat Gran (auto) Absolute Neuts (auto) Absolute Nucleated RBC Nucleated RBC % (auto) VBG pH VBG pCO2 VBG pO2 VBG HCO3 VBG O2 Saturation VBG Base Excess Sodium 139 Potassium 4.1 4.1 Chloride 108 107 Carbon Dioxide 26 Anion Gap BUN Creatinine Estim Creat Clear Calc Estimated GFR Random Glucose Calcium Phosphorus Magnesium Albumin 09/05/23 09/05/23 09/05/23 04:43 04:43 04:43 WBC RBC Hgb Hct MCV MCH MCHC RDW Plt Count MPV Immature Gran % (Auto) Neut % (Auto) Lymph % (Auto) [place] % (Auto) Eos % (Auto) Baso % (Auto) Lymph # (Auto) [place] # (Auto) Eos # (Auto) Baso # (Auto) Abs Immat Gran (auto) Absolute Neuts (auto) Absolute Nucleated RBC Nucleated RBC % (auto) VBG pH VBG pCO2 VBG pO2 VBG HCO3 VBG O2 Saturation VBG Base Excess Sodium Potassium Chloride Carbon Dioxide 26 Anion Gap 8 L 10 L BUN 13 13 Creatinine 0.65 Estim Creat Clear Calc Estimated GFR Random Glucose Calcium Phosphorus Magnesium Albumin 09/05/23 09/05/23 09/05/23 04:43 04:43 04:43 WBC RBC Hgb Hct MCV MCH MCHC RDW Plt Count MPV Immature Gran % (Auto) Neut % (Auto) Lymph % (Auto) [place] % (Auto) Eos % (Auto) Baso % (Auto) Lymph # (Auto) [place] # (Auto) Eos # (Auto) Baso # (Auto) Abs Immat Gran (auto) Absolute Neuts (auto) Absolute Nucleated RBC Nucleated RBC % (auto) VBG pH VBG pCO2 VBG pO2 VBG HCO3 VBG O2 Saturation VBG Base Excess Sodium Potassium Chloride Carbon Dioxide Anion Gap BUN Creatinine 0.66 Estim Creat Clear Calc 66.8 65.8 Estimated GFR > 60 > 60 Random Glucose 127 H Calcium Phosphorus Magnesium Albumin 09/05/23 09/05/23 09/05/23 04:43 04:43 04:54 WBC RBC Hgb Hct MCV MCH MCHC RDW Plt Count MPV Immature Gran % (Auto) Neut % (Auto) Lymph % (Auto) [place] % (Auto) Eos % (Auto) Baso % (Auto) Lymph # (Auto) [place] # (Auto) Eos # (Auto) Baso # (Auto) Abs Immat Gran (auto) Absolute Neuts (auto) Absolute Nucleated RBC Nucleated RBC % (auto) VBG pH 7.42 VBG pCO2 46 VBG pO2 106 VBG HCO3 30 H VBG O2 Saturation 99.0 VBG Base Excess 5.5 Sodium Potassium Chloride Carbon Dioxide Anion Gap BUN Creatinine Estim Creat Clear Calc Estimated GFR Random Glucose 127 H Calcium 8.2 L 8.3 L Phosphorus 3.1 Magnesium 1.4 L* Albumin 3.1 L Progress Note: A&P Assessment and plan (1) Status post lobectomy of lung: Status: Acute (2) Lung cancer, lower lobe: Status: Acute (3) COPD (chronic obstructive pulmonary disease): Status: Acute Plan Assessment: 62-year-old lady status post elective right lower lobe lobectomy for underlying adenocarcinoma being monitored in the intensive care unit in the postop period. Plan: Neuro: No acute issues. Cardiac: No acute issues. Pulmonary: Postop day 1 after right lower lobe lobectomy. Thoracic surgery service care appreciated. Pain control. Right-sided chest tube still with some air leak. Renal: No acute issues. Endo: No acute issues. GI: No acute issues. ID: No acute issues Heme/Onc: No acute issues. Psych: No acute issues. Miscellaneous: No acute issues. Prophylaxis: Per thoracic surgery Diet: Per thoracic surgery Quality Stroke Does the patient have a stroke diagnosis?: No VTE Prior VTE?: No VTE Risk Level:: Surgical - low VTE Device Contraindication: N/A - Device Ordered VTE Drug Contraindication: N/A - Med Ordered
--- NOTE | 2023-09-05 13:17 | PM.CCPN ---
Subjective Subjective Interval History: This is a 62-year-old female with a history of COPD, right lower lobe adenocarcinoma, atrial fibrillation, and hypertension here for an elective right lower lobectomy. She was transferred to the intensive care unit and is being monitored for postoperative complications regarding the airway and for pain control. Physical Exam Vital Signs: Vital Signs: Last Vital Signs Temp 98.6 F 09/05/23 12:00 Pulse 27 L 09/05/23 12:00 Resp 26 H 09/05/23 12:00 BP 106/58 L 09/05/23 12:00 Pulse Ox 96 09/05/23 12:00 O2 Del Method Nasal Cannula 09/05/23 12:00 O2 Flow Rate 4 09/05/23 12:00 BMI result Body Mass Index 24.9 Const: General: no acute distress Orientation/consciousness: patient oriented x3 HEENT: Head: Yes normocephalic Mouth: audible dysphonia (from extubation) Throat: Yes uvula midline Neck: Neck: Yes full ROM and Yes anterior neck swelling (crepitus to palpation) Chest: Other: crepitus to palpation on r breast and into axilla Resp: Effort & Inspection: normal respiratory effort Auscultation: rhonchi (bilaterally) Cardio: Other: a fib, no murmurs rubs or gallops Jugular venous distension: no JVD GI: Inspection: Yes Abdominal panniculus present Palpation (GI): Soft to palpation Auscultation: normal bowel sounds : General: Yes no CVA tenderness Back/Spine/Pelvis: Back: no CVA tenderness Skin: General skin exam: no rashes or lesions noted Wounds: wounds noted (r midaxillary around rib 6-7 c/d/i) Neuro: General: patient oriented x3, no focal motor deficits and CN's II-XI intact bilaterally Extrem: General: Yes no clubbing, cyanosis or edema Objective Data Labs 09/05/23 04:42 09/05/23 04:43 Labs: Laboratory Results - last 24 hr 09/04/23 09/05/23 09/05/23 15:01 04:42 04:43 WBC 19.0 H 11.3 H RBC 3.06 L D 2.55 L Hgb 10.3 L D 8.4 L Hct 31.0 L D 25.5 L MCV 101.3 H 100.0 H MCH 33.7 H 32.9 MCHC 33.2 32.9 RDW 12.5 12.7 Plt Count 246 212 MPV 9.5 9.3 L Immature Gran % (Auto) 0.3 Neut % (Auto) 74.5 H Lymph % (Auto) 20.1 [place] % (Auto) 4.9 Eos % (Auto) 0.1 Baso % (Auto) 0.1 Lymph # (Auto) 2.3 [place] # (Auto) 0.6 Eos # (Auto) 0.0 Baso # (Auto) 0.0 Abs Immat Gran (auto) 0.03 Absolute Neuts (auto) 8.4 H Absolute Nucleated RBC 0.000 0.000 Nucleated RBC % (auto) 0.0 0.0 VBG pH VBG pCO2 VBG pO2 VBG HCO3 VBG O2 Saturation VBG Base Excess Sodium 140 138 Potassium 4.2 Chloride 109 H Carbon Dioxide 23 Anion Gap 12 BUN 19 H Creatinine 0.73 Estim Creat Clear Calc 59.5 Estimated GFR > 60 Random Glucose 171 H Calcium 8.4 D Phosphorus Magnesium Albumin 09/05/23 09/05/23 09/05/23 04:43 04:43 04:43 WBC RBC Hgb Hct MCV MCH MCHC RDW Plt Count MPV Immature Gran % (Auto) Neut % (Auto) Lymph % (Auto) [place] % (Auto) Eos % (Auto) Baso % (Auto) Lymph # (Auto) [place] # (Auto) Eos # (Auto) Baso # (Auto) Abs Immat Gran (auto) Absolute Neuts (auto) Absolute Nucleated RBC Nucleated RBC % (auto) VBG pH VBG pCO2 VBG pO2 VBG HCO3 VBG O2 Saturation VBG Base Excess Sodium 139 Potassium 4.1 4.1 Chloride 108 107 Carbon Dioxide 26 Anion Gap BUN Creatinine Estim Creat Clear Calc Estimated GFR Random Glucose Calcium Phosphorus Magnesium Albumin 09/05/23 09/05/23 09/05/23 04:43 04:43 04:43 WBC RBC Hgb Hct MCV MCH MCHC RDW Plt Count MPV Immature Gran % (Auto) Neut % (Auto) Lymph % (Auto) [place] % (Auto) Eos % (Auto) Baso % (Auto) Lymph # (Auto) [place] # (Auto) Eos # (Auto) Baso # (Auto) Abs Immat Gran (auto) Absolute Neuts (auto) Absolute Nucleated RBC Nucleated RBC % (auto) VBG pH VBG pCO2 VBG pO2 VBG HCO3 VBG O2 Saturation VBG Base Excess Sodium Potassium Chloride Carbon Dioxide 26 Anion Gap 8 L 10 L BUN 13 13 Creatinine 0.65 Estim Creat Clear Calc Estimated GFR Random Glucose Calcium Phosphorus Magnesium Albumin 09/05/23 09/05/23 09/05/23 04:43 04:43 04:43 WBC RBC Hgb Hct MCV MCH MCHC RDW Plt Count MPV Immature Gran % (Auto) Neut % (Auto) Lymph % (Auto) [place] % (Auto) Eos % (Auto) Baso % (Auto) Lymph # (Auto) [place] # (Auto) Eos # (Auto) Baso # (Auto) Abs Immat Gran (auto) Absolute Neuts (auto) Absolute Nucleated RBC Nucleated RBC % (auto) VBG pH VBG pCO2 VBG pO2 VBG HCO3 VBG O2 Saturation VBG Base Excess Sodium Potassium Chloride Carbon Dioxide Anion Gap BUN Creatinine 0.66 Estim Creat Clear Calc 66.8 65.8 Estimated GFR > 60 > 60 Random Glucose 127 H Calcium Phosphorus Magnesium Albumin 09/05/23 09/05/23 09/05/23 04:43 04:43 04:54 WBC RBC Hgb Hct MCV MCH MCHC RDW Plt Count MPV Immature Gran % (Auto) Neut % (Auto) Lymph % (Auto) [place] % (Auto) Eos % (Auto) Baso % (Auto) Lymph # (Auto) [place] # (Auto) Eos # (Auto) Baso # (Auto) Abs Immat Gran (auto) Absolute Neuts (auto) Absolute Nucleated RBC Nucleated RBC % (auto) VBG pH 7.42 VBG pCO2 46 VBG pO2 106 VBG HCO3 30 H VBG O2 Saturation 99.0 VBG Base Excess 5.5 Sodium Potassium Chloride Carbon Dioxide Anion Gap BUN Creatinine Estim Creat Clear Calc Estimated GFR Random Glucose 127 H Calcium 8.2 L 8.3 L Phosphorus 3.1 Magnesium 1.4 L* Albumin 3.1 L Progress Note: A&P Assessment and plan Plan Neurologic: status post lobectomy related pain. Eight out of 10, constant. Patient receiving Dilaudid 1 mg every four hours intravenously and 1000 mg Tylenol infusion every six hours. Cardiovascular: patient has long-standing history of atrial fibrillation. Anticoagulated with Eliquis 5 mg bid. Rate has been low 100s. Respiratory: the patient is status post right lower low back to ut which was electively done for underlying adenocarcinoma. The surgery was performed late yesterday afternoon and the patient is on postop day 1. The patient was successfully extubated in the operating room and has been on supplemental oxygen via 4 L nasal cannula. We will watch out for post lobectomy early complications which include air leak, bleeding, empyema, pneumonia, broncopleural fistula, atelectasis, atrial fibrillation, and ARDS. Prevention strategies implemented include chest physiotherapy including active coughing and percussion, early ambulation, and incentive spirometry. The patient also has a chest tube which is currently functioning well hooked up to wall suction at -20 mm H2O. There is subcutaneous emphysema extending from the right mid axillary near the lung base surgical site to the right breast and up into the bilateral subcutaneous neck space. The patient is also being seen by the thoracic surgery service and has evaluated the subcutaneous emphysema at the bedside. Please see note for details. Gastrointestinal: no acute issues at this time. Renal/Genitourinary: no acute issues at this time. Patient at around 50 to 60 cc per hour. Hematology: no active exsanguination from procedure site. Patient takes Eliquis 5 mg b.i.d. for atrial fibrillation. Infectious disease: patient receiving prophylactic antibiotic of cefazolin 2 g every eight hours intravenously. This is first line antibiotic prophylaxis per IDSA. The site is without any signs of infection. Endocrine: no acute issues at this time. Integumentary: lobectomy performed and site is without erythema, abnormal drainage, exsanguination, and as well approximated. Continue to monitor dressing sites with dressing changes once daily per surgical service. Prophylaxis: no G.I. prophylaxis, patient tolerating oral intake. Patient on Eliquis for anticoagulation. Quality Stroke Does the patient have a stroke diagnosis?: No VTE Prior VTE?: No VTE Risk Level:: Surgical - low VTE Device Contraindication: N/A - Device Ordered VTE Drug Contraindication: N/A - Med Ordered
--- NOTE | 2023-09-05 13:41 | PC.NURSE ---
Assumed care of patient 0700 PT assessed, crepitus to right lateral side, right shoulder, right neck, right face up to forehead. Chest tube functioning, to -20cm wall suction, debby to delta, minimal tidaling. 11:00 Crepitus spread to left side of face. Dr. Sorto notified. ICU MD and Dr. Sorto assessed pt at bedside. Pt able to swallow normally.
[2023-09-05] MEDS: Nicotine 14 MG PATCH.TD24 TRANSDERMA (14:38)
[2023-09-05] MEDS: Lidocaine 4 % Patch ADH..PATCH 1 PATCH TRANSDERMA (14:38)
--- NOTE | 2023-09-05 18:38 | HO.PM.IMCN ---
History of Present Illness Data of Consult Service Date: 09/05/23 Primary Care Provider: Nai Bradley MD [facility] Reason for consult: Medical management, COPD, s/p RLL lobectomy Patient is a 62-year-old female PMH significant for HTN, HTN, COPD, lung cancer, GERD, migraines, and mood disorder who was admitted to the hospital under thoracic surgery for elective right lower lobe lobectomy for adenocarcinoma. POD1. Hospitalist consult for medical management. [facility] Medical History History of ectopic 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 Allergic rhinitis COPD (chronic obstructive pulmonary disease) Current smoker History of herniated intervertebral disc Scoliosis IBS (irritable bowel syndrome) History of depression DJD (degenerative joint disease) Hypertension Hyperlipidemia Urinary incontinence PTSD (post-traumatic stress disorder) Anxiety Family History Mother CHF (congestive heart failure) Maternal Uncle Coronary bypass graft mechanical complication Surgical History History of ovarian cystectomy History of biopsy History of cystoscopy History of dilation of urethra History of colonoscopy History of endoscopy History of lung biopsy History of bladder surgery History of blepharoplasty History of hysterectomy History of bladder suspension procedure Social History Household Members: None Housing: Apartment Are you a primary behavioral health care manager to a significant other at home: No Do you presently have visiting nurse or other home services: Yes (NURSE) Alcohol intake: current Alcohol intake frequency: holidays/special occasions only Alcohol type: beer Patient Tobacco Use Status: Current everyday Tobacco user Tobacco use type: Cigarette Cigarette Packs Per Day: 0.5 Cigarettes Per Day: 6 Years Smoked: 47 Smoked in Last 30 Days: Yes Patient Interested in Nicotine Replacement: Yes (NICOTINE PATCH) Patient Given Instructions on How to Stop Smoking: Yes Date Education Initiated: 09/04/23 Second Hand Smoke Exposure: No Use of substances other than those prescribed or required for medical reasons: Yes Substance Use Type: Marijuana Substance Use Frequency: Daily Last Used Substance: Hours (ago) Currently Displaying Signs/Symptoms of Drug Intoxication Withdrawal: No Any prior treatment program specific to substance use: No Have you been hit, kicked, punched, or otherwise hurt by someone within the past year? If so, by whom?: No Do you feel safe in your current relationship?: Yes Is there a partner from a previous relationship who is making you feel unsafe now?: No Are you made to feel afraid or neglected: No Are you DNR?: No Advance Directives: Yes Advance Directives on File: Yes Advance Directives Date on File: 05/10/23 Do you have thoughts of harming others: None Do you have a plan to hurt others: No Plan Recently lost weight without trying: Yes How much weight loss: 34pounds or more Nutrition Risks: No Nutritional Risk Patient : No : No Poor oral hygiene: No service: No Meds Allergies Allergy/AdvReac Type Severity Reaction Status Date / Time codeine [CODEINE] Allergy Intermediate ITCHING Verified 09/04/23 06:16 hydrocodone [HYDROCODONE] Allergy Intermediate ITCHING Verified 09/04/23 06:16 diphenhydramine AdvReac Intermediate JITTERY Verified 09/04/23 06:16 [From BENADRYL] Active Medications: Current Medications Al Hydroxide/Mg Hydroxide (Magnesium Hydrox/Alum Hydrox 30 Ml Oral.Susp) 30 ml PO Q4H PRN PRN Reason: Heartburn/Nausea Albuterol Sulfate (Albuterol Sulfate 90 Mcg 8 Gm Inhaler) 2 puff INHALE Q4H PRN PRN Reason: wheezing Atorvastatin Calcium (Atorvastatin Calcium 20 Mg Tablet) 20 mg PO BEDTIME [facility] Last Admin: 09/04/23 20:24 Dose: 20 mg Bupropion HCl (Bupropion Hcl Xl 300 Mg Tab.Er.24h) 300 mg PO DAILY [facility] Last Admin: 09/05/23 07:56 Dose: 300 mg Buspirone HCl (Buspirone Hcl 5 Mg Tablet) 5 mg PO TID [facility] Last Admin: 09/05/23 14:38 Dose: 5 mg Docusate Sodium (Docusate Sodium 100 Mg Capsule) 100 mg PO BID [facility] Last Admin: 09/05/23 07:56 Dose: 100 mg Fluoxetine HCl (Fluoxetine Hcl 20 Mg Capsule) 40 mg PO DAILY [facility] Last Admin: 09/05/23 07:56 Dose: 40 mg Fluticasone Propionate (Fluticasone Propionate Nasal 16 Gm [place]) 1 spray NOSTRIL-B DAILY PRN PRN Reason: Allergy Symptoms Fluticasone/Umeclidinium/Vilanterol (Fluticasone/Umeclidinium/Vilanterol 200/62.5/25 Blst.W.Dev) 1 puff INHALE RDAILY [facility] Last Admin: 09/05/23 07:31 Dose: 1 puff Guaifenesin (Guaifenesin [place] 600 Mg Tab.Er.12h) 600 mg PO BID PRN PRN Reason: Congestion Heparin Sodium (Porcine) (Heparin Sodium,Porcine 5,000 Unit/Ml Vial) 5,000 unit SUBCUT Q8H [facility] Last Admin: 09/05/23 12:08 Dose: 5,000 unit Hydromorphone HCl (Hydromorphone Hcl 1 Mg/Ml Syringe) 1 mg IVPUSH Q4H PRN; Protocol PRN Reason: Pain, Severe (Pain Scale 7-10) Last Admin: 09/05/23 15:26 Dose: 1 mg Acetaminophen (Ofirmev) 1,000 mg in 100 mls @ 400 mls/hr IV Q6H [facility] Last Infusion: 09/05/23 15:26 Dose: Infused Lidocaine (Lidocaine 4 % Patch Adh..Patch) 1 patch TRANSDERMA DAILY [facility]; Protocol Last Admin: 09/05/23 14:38 Dose: 1 patch Lorazepam (Lorazepam 0.5 Mg Tablet) 0.5 mg PO Q8H PRN PRN Reason: Anxiety Last Admin: 09/05/23 12:09 Dose: 0.5 mg Melatonin (Melatonin 3 Mg Tablet) 6 mg PO BEDTIME PRN PRN Reason: Insomnia Nicotine (Nicotine 14 Mg Patch.Td24) 14 mg TRANSDERMA DAILY [facility] Last Admin: 09/05/23 14:38 Dose: 14 mg Omeprazole (Omeprazole 20 Mg Capsule.Dr) 20 mg PO DAILY@0630 [facility] Last Admin: 09/05/23 06:12 Dose: Not Given Ondansetron HCl (Ondansetron Hcl 4 Mg/2 Ml Vial) 4 mg IVPUSH Q8H PRN PRN Reason: Nausea and Vomiting Oxycodone HCl (Oxycodone Hcl Immed Release 5 Mg Tablet) 5 mg PO Q4H PRN PRN Reason: Pain, Moderate(Pain Scale 4-6) Oxycodone HCl (Oxycodone Hcl Immed Release 5 Mg Tablet) 10 mg PO Q4H PRN PRN Reason: Pain, Severe (Pain Scale 7-10) Prazosin HCl (Prazosin Hcl 5 Mg Capsule) 5 mg PO BEDTIME [facility]; Protocol Last Admin: 09/04/23 21:18 Dose: Not Given Sodium Chloride (0.9 % Sodium Chloride Flush 3 Ml Syringe) 3 ml IVFLUSH QSHIFT [facility] Last Admin: 09/05/23 14:49 Dose: 3 ml Topiramate (Topiramate 25 Mg Tablet) 25 mg PO DAILY [facility] Last Admin: 09/05/23 07:56 Dose: 25 mg Home Medications Medication Instructions Recorded Confirmed Last Taken Type aspirin 81 mg tablet,delayed 81 mg PO DAILY 12/21/20 09/04/23 09/01/23 History release atorvastatin 20 mg tablet 20 mg PO BEDTIME 12/21/20 09/04/23 09/03/23 History diazepam 10 mg tablet 10 mg PO BID PRN Anxiety 12/21/20 09/04/23 09/03/23 History multivitamin 1 tab PO DAILY 12/21/20 09/04/23 09/03/23 History bupropion HCl 300 mg 24 hr tablet, 300 mg PO DAILY 02/14/23 09/04/23 09/03/23 History extended release fluticasone propionate 50 1 spray intranasal DAILY PRN 02/14/23 09/04/23 09/03/23 History mcg/actuation nasal Allergy Symptoms spray,suspension omeprazole 20 mg capsule,delayed 20 mg PO DAILY@0630 05/17/23 09/04/23 09/03/23 History release prazosin 5 mg capsule 5 mg PO BEDTIME 05/17/23 09/04/23 09/03/23 History albuterol sulfate 90 mcg/actuation 2 puff inhalation Q4H PRN wheezing 05/31/23 09/04/23 09/04/23 History aerosol inhaler (Ventolin HFA) buspirone 5 mg tablet 5 mg PO TID 05/31/23 09/04/23 09/03/23 History fluoxetine 40 mg capsule 40 mg PO DAILY 05/31/23 09/04/23 09/03/23 History guaifenesin 600 mg tablet, 600 mg PO BID PRN Congestion 07/09/04/23 09/04/23 History extended release 12 hr (Mucus Relief ER) topiramate 25 mg tablet 25 mg PO DAILY 05/31/23 09/04/23 09/03/23 History tramadol 50 mg tablet 50 mg PO TID PRN Pain 09/05/23 09/05/23 Unknown History Physical Exam Vital Signs and Narrative: Vital Signs: Last Vital Signs Temp 98.3 F 09/05/23 17:44 Pulse 96 09/05/23 17:44 Resp 18 09/05/23 17:44 BP 107/67 09/05/23 17:44 Pulse Ox 96 09/05/23 15:00 O2 Del Method Nasal Cannula 09/05/23 17:44 O2 Flow Rate 2.0 09/05/23 17:44 BMI result Body Mass Index 24.9 Results Labs 09/05/23 04:42 09/05/23 04:43 Labs: Laboratory Results - last 24 hr 09/05/23 09/05/23 09/05/23 04:42 04:43 04:43 MCV 100.0 H MCH 32.9 MCHC 32.9 RDW 12.7 Plt Count 212 MPV 9.3 L Immature Gran % (Auto) 0.3 Neut % (Auto) 74.5 H Lymph % (Auto) 20.1 [place] % (Auto) 4.9 Eos % (Auto) 0.1 Baso % (Auto) 0.1 Lymph # (Auto) 2.3 [place] # (Auto) 0.6 Eos # (Auto) 0.0 Baso # (Auto) 0.0 Abs Immat Gran (auto) 0.03 Absolute Neuts (auto) 8.4 H Absolute Nucleated RBC 0.000 Nucleated RBC % (auto) 0.0 VBG pH VBG pCO2 VBG pO2 VBG HCO3 VBG O2 Saturation VBG Base Excess Anion Gap 8 L 10 L Estim Creat Clear Calc 66.8 Estimated GFR Random Glucose Calcium Phosphorus Magnesium Albumin 09/05/23 09/05/23 09/05/23 04:43 04:43 04:43 MCV MCH MCHC RDW Plt Count MPV Immature Gran % (Auto) Neut % (Auto) Lymph % (Auto) [place] % (Auto) Eos % (Auto) Baso % (Auto) Lymph # (Auto) [place] # (Auto) Eos # (Auto) Baso # (Auto) Abs Immat Gran (auto) Absolute Neuts (auto) Absolute Nucleated RBC Nucleated RBC % (auto) VBG pH VBG pCO2 VBG pO2 VBG HCO3 VBG O2 Saturation VBG Base Excess Anion Gap Estim Creat Clear Calc 65.8 Estimated GFR > 60 > 60 Random Glucose 127 H 127 H Calcium 8.2 L Phosphorus Magnesium Albumin 09/05/23 09/05/23 04:43 04:54 MCV MCH MCHC RDW Plt Count MPV Immature Gran % (Auto) Neut % (Auto) Lymph % (Auto) [place] % (Auto) Eos % (Auto) Baso % (Auto) Lymph # (Auto) [place] # (Auto) Eos # (Auto) Baso # (Auto) Abs Immat Gran (auto) Absolute Neuts (auto) Absolute Nucleated RBC Nucleated RBC % (auto) VBG pH 7.42 VBG pCO2 46 VBG pO2 106 VBG HCO3 30 H VBG O2 Saturation 99.0 VBG Base Excess 5.5 Anion Gap Estim Creat Clear Calc Estimated GFR Random Glucose Calcium 8.3 L Phosphorus 3.1 Magnesium 1.4 L* Albumin 3.1 L Imaging Radiologist's Impressions: Impressions Chest X-Ray 09/05/23 05:54 IMPRESSION: Right chest tube in place. Atelectatic change at the lung bases. No evidence of pneumothorax. Progressing subcutaneous emphysema.
[2023-09-05] MEDS: Prazosin HCL 5 MG CAPSULE PO (21:27)
[2023-09-05] MEDS: Atorvastatin Calcium 20 MG TABLET PO (21:28)
[2023-09-05] MEDS: diazePAM 5 MG TABLET 10 MG PO (21:28)
[2023-09-05] MEDS: Fluticasone Propionate Nasal 16 GM SPRAY 1 SPRAY NOSTRIL-B (23:27)
[2023-09-05] MEDS: guaiFENesin LA 600 MG TAB.ER.12H PO (23:27)
[2023-09-06] VITALS (8 sets, daily range): BP systolic 101–152; BP diastolic 55–79; PULSE 86–111; RESP 12–20; TEMP 36.3–37.1; O2SAT 91–97
[2023-09-06] MEDS: 0.9 % Sodium Chloride Flush 3 ML SYRINGE IVFLUSH ×2 (02:08→20:00)
[2023-09-06] MEDS: HYDROmorphone HCl 1 MG/ML SYRINGE IVPUSH ×4 (02:57→20:00)
--- NOTE | 2023-09-06 03:14 | PC.NURSE ---
09/05/23 2100 pt c/o abdominal discomfort and distention. bowel sounds heard to all quadrants. md notified with new order for stat KUB to be done. order placed by md for mineral enema following results of KUB, pt declined enema at this time, states will do later in evening.
[2023-09-06] MEDS: Acetaminophen 1,000 MG/100 ML PIGGYBACK 400 MG IV (03:56)
[2023-09-06] MEDS: Mineral OiL enema 133 ML ENEMA PR (05:01)
[2023-09-06 05:41] LABS: MANUAL DIFF FLAG NO
[2023-09-06 05:47] LABS: Basophils Percent Auto 0.2 % (0-2); Eosinophils Absolute Auto 0.1 X10*3/uL (0.0-0.4); Eosinophils Percent Auto 0.6 % (0-4); Hematocrit 25.2 % (37.0-47.0); Hemoglobin 8.2 g/dl (12.0-16.0); Imm Gran Abs Auto 0.03 X10*3/uL (0.00-0.03); Imm Gran Pct Auto 0.3 % (0.0-0.4); Lymphocytes Absolute Auto 1.3 X10*3/uL (1.2-4.9); Lymphocytes Percent Auto 10.8 % (20-40); Mean Corpuscular HGB Conc 32.5 g/dl (31.0-35.0); Mean Corpuscular Hemoglobin 33.3 pg (27.0-33.0); Mean Corpuscular Volume 102.4 fL (80.0-98.0); Mean Platelet Volume 9.3 fL (9.4-12.3); Monocytes Absolute Auto 0.4 X10*3/uL (0.1-1.2); Monocytes Percent Auto 3.5 % (2-11); Neutrophils Percent Auto 84.6 % (45-73); Platelet Count 194 X10*3/uL (160-400); Red Blood Count 2.46 X10*6/uL (4.20-5.50); Red Cell Distribution Width 12.6 % (11.0-16.0); White Blood Count 11.8 X10*3/uL (4.8-10.8)
[2023-09-06 05:48] LABS: Venous Blood Gas Refer to POC result
[2023-09-06 05:50] LABS: VBG Base Excess 8.5 mmol/L; VBG HCO3 34 mmol/L (22-26); VBG pCO2 55 mmHg; VBG pO2 37 mmHg
[2023-09-06 06:00] LABS: Albumin Level 3.3 g/dL (3.5-5.0); Anion Gap 10 (12-20); Blood Urea Nitrogen 12 mg/dL (9-16); Calcium 8.9 mg/dL (8.4-10.2); Carbon Dioxide 30 mmol/L (22-29); Chloride 103 mmol/L (96-108); Creatinine Clr Calc Pharmacy 56.9; Estimated Glomerular Filt Rate > 60; Glucose Random 197 mg/dL (60-115); Magnesium 1.7 mg/dL (1.6-2.6); Phosphorus 2.6 mg/dL (2.7-4.5); Potassium 3.8 mmol/L (3.3-5.1); Sodium 139 mmol/L (135-145)
[2023-09-06] MEDS: Omeprazole 20 MG CAPSULE.DR PO (06:18)
[2023-09-06] MEDS: oxyCODONE HCl Immed Release 5 MG TABLET PO ×2 (06:18→14:38)
[2023-09-06] MEDS: Fluticasone/Umeclidinium/Vilanterol 200/62.5/25 BLST.W.DEV 1 PUFF INHALE (07:45)
--- NOTE | 2023-09-06 07:49 | PC.RT ---
pt requesting not to go home as she doesn't want to be alone as she is afraid. 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 I will let Case Management aware
[2023-09-06] MEDS: FLUoxetine HCl 20 MG CAPSULE 40 MG PO (08:09)
[2023-09-06] MEDS: busPIRone HCl 5 MG TABLET PO ×3 (08:10→19:58)
[2023-09-06] MEDS: Docusate Sodium 100 MG CAPSULE PO ×2 (08:10→19:57)
[2023-09-06] MEDS: buPROPion HCl XL 300 MG TAB.ER.24H PO (08:10)
[2023-09-06] MEDS: diazePAM 5 MG TABLET 10 MG PO ×2 (08:10→22:50)
[2023-09-06] MEDS: Topiramate 25 MG TABLET PO (08:10)
[2023-09-06] MEDS: Lidocaine 4 % Patch ADH..PATCH 1 PATCH TRANSDERMA (08:11)
[2023-09-06] MEDS: Nicotine 14 MG PATCH.TD24 TRANSDERMA (08:11)
--- NOTE | 2023-09-06 08:28 | P.PNTS_ITS ---
Subjective Subjective Date of Service: 09/06/23 Interval history: C/o pain all over and incisional. Dilaudid helping but wears off quickly. Tolerating solid diet. Wants to go to [facility] upon discharge. Physical Exam Vital Signs: Vital Signs: Last Vital Signs Temp 97.6 F 09/06/23 08:00 Pulse 110 H 09/06/23 08:00 Resp 18 09/06/23 08:00 BP 152/79 H 09/06/23 08:00 Pulse Ox 91 L 09/06/23 08:00 O2 Del Method Nasal Cannula 09/06/23 04:00 O2 Flow Rate 2 09/06/23 08:00 BMI result Body Mass Index 24.9 Const: General: comfortable, no acute distress and alert Orientation/consciousness: patient oriented x3 Chest: Other: crepitus extending from right lateral chest to left arm and into neck incisions intact and clean Resp: Other: chest tube in place without air leak Effort & Inspection: normal respiratory effort and Actively coughing Cardio: Rate: tachycardic Skin: General skin exam: no rashes or lesions noted Neuro: General: patient oriented x3 and moves all extremities Procedures Date of Service Date of Service: 09/06/23 Progress Note: A&P Assessment and plan (1) Status post lobectomy of lung: Status: Acute (2) Lung cancer, lower lobe: Status: Acute (3) COPD (chronic obstructive pulmonary disease): Status: Acute Plan 62 year old female now POD #2 s/p bronchoscopy, vats right lower lobectomy, mediastinal lymph node sampling, intercostal nerve block. Continues to do well post op. AM labs reviewed- H/H stable. Chest tube with scant output, no air leak detected. CXR this am showed no pneumo. Chest tube removed uneventfully this morning, repeat CXR in 1 hr. Continue OOB/ambulation and incentive spirometer at least 10x/hr encouraged. Pain control. Dispo planning. Time Spent With Patient Time: Total time managing care of this patient today ____ minutes. Quality Stroke Does the patient have a stroke diagnosis?: No VTE Prior VTE?: No VTE Risk Level:: Surgical - low VTE Device Contraindication: N/A - Device Ordered VTE Drug Contraindication: N/A - Med Ordered
[2023-09-06] MEDS: Heparin Sodium,Porcine 5,000 UNIT/ML VIAL 5000 UNIT SUBCUT ×2 (09:56→16:56)
[2023-09-06] MEDS: oxyCODONE HCl Immed Release 5 MG TABLET 10 MG PO ×2 (10:21→22:52)
[2023-09-06] MEDS: ondansetron HCL 4 MG/2 ML VIAL IVPUSH (12:13)
[2023-09-06] MEDS: polyethylene glycoL 3350 17 GM POWD.PACK PO ×2 (14:36→19:58)
--- NOTE | 2023-09-06 15:22 | HO.PM.IMPN ---
Subjective Subjective Date of Service: 09/06/23 Interval History: No acute issues overnight. States pain control is poor however doing well with chest tube Review of Systems Admits to chest pain at site of chest tube insertion otherwise no cardiac complaints Denies nausea vomiting diarrhea Denies fevers chills Physical Exam Vital Signs: Vital Signs: Last Vital Signs Temp 98.8 F 09/06/23 12:00 Pulse 104 H 09/06/23 12:00 Resp 18 09/06/23 12:00 BP 118/55 L 09/06/23 12:00 Pulse Ox 92 09/06/23 12:00 O2 Del Method Nasal Cannula 09/06/23 12:00 O2 Flow Rate 2 09/06/23 12:00 BMI result Body Mass Index 24.9 Const: Other: Awake alert no acute distress. Breathing comfortably in bed Resp: Other: Clear to auscultation bilaterally no rales rhonchi or wheezes Cardio: Other: No S4; positive S1-S2; no S3 murmurs rubs or gallops GI: Other: Soft nontender nondistended normoactive bowel sounds Extrem: Other: No edema bilaterally Objective Data Active Medications Al Hydroxide/Mg Hydroxide (Magnesium Hydrox/Alum Hydrox 30 Ml Oral.Susp) 30 ml PO Q4H PRN PRN Reason: Heartburn/Nausea Albuterol Sulfate (Albuterol Sulfate 90 Mcg 8 Gm Inhaler) 2 puff INHALE Q4H PRN PRN Reason: wheezing Atorvastatin Calcium (Atorvastatin Calcium 20 Mg Tablet) 20 mg PO BEDTIME [facility] Last Admin: 09/05/23 21:28 Dose: 20 mg Documented By: AMAURY Bupropion HCl (Bupropion Hcl Xl 300 Mg Tab.Er.24h) 300 mg PO DAILY [facility] Last Admin: 09/06/23 08:10 Dose: 300 mg Documented By: SHREE Buspirone HCl (Buspirone Hcl 5 Mg Tablet) 5 mg PO TID [facility] Last Admin: 09/06/23 14:36 Dose: 5 mg Documented By: RONALD Diazepam (Diazepam 5 Mg Tablet) 10 mg PO BID [facility] Last Admin: 09/06/23 08:10 Dose: 10 mg Documented By: SHREE Docusate Sodium (Docusate Sodium 100 Mg Capsule) 100 mg PO BID [facility] Last Admin: 09/06/23 08:10 Dose: 100 mg Documented By: SHREE Fluoxetine HCl (Fluoxetine Hcl 20 Mg Capsule) 40 mg PO DAILY [facility] Last Admin: 09/06/23 08:09 Dose: 40 mg Documented By: SHREE Fluticasone Propionate (Fluticasone Propionate Nasal 16 Gm [place]) 1 spray NOSTRIL-B DAILY PRN PRN Reason: Allergy Symptoms Last Admin: 09/05/23 23:27 Dose: 1 spray Documented By: AMAURY Fluticasone/Umeclidinium/Vilanterol (Fluticasone/Umeclidinium/Vilanterol 200/62.5/25 Blst.W.Dev) 1 puff INHALE RDAILY [facility] Last Admin: 09/06/23 07:45 Dose: 1 puff Documented By: JERALD Guaifenesin (Guaifenesin La 600 Mg Tab.Er.12h) 600 mg PO BID PRN PRN Reason: Congestion Last Admin: 09/05/23 23:27 Dose: 600 mg Documented By: AMAURY Heparin Sodium (Porcine) (Heparin Sodium,Porcine 5,000 Unit/Ml Vial) 5,000 unit SUBCUT Q8H [facility] Last Admin: 09/06/23 09:56 Dose: 5,000 unit Documented By: RONALD Hydromorphone HCl (Hydromorphone Hcl 1 Mg/Ml Syringe) 1 mg IVPUSH Q4H PRN; Protocol PRN Reason: Pain, Severe (Pain Scale 7-10) Last Admin: 09/06/23 14:46 Dose: 1 mg Documented By: RONALD Acetaminophen (Ofirmev) 1,000 mg in 100 mls @ 400 mls/hr IV Q6H [facility] Last Admin: 09/06/23 12:15 Dose: Not Given Documented By: RONALD Non-Admin Reason: See Note Promethazine HCl 12.5 mg/ (Sodium Chloride) 50.5 mls @ 202 mls/hr IV Q6H PRN PRN Reason: Nausea and Vomiting Last Infusion: 09/06/23 14:52 Dose: Infused Documented By: RONALD Lidocaine (Lidocaine 4 % Patch Adh..Patch) 1 patch TRANSDERMA DAILY [facility]; Protocol Last Admin: 09/06/23 08:11 Dose: 1 patch Documented By: SHREE Melatonin (Melatonin 3 Mg Tablet) 6 mg PO BEDTIME PRN PRN Reason: Insomnia Mineral Oil (Mineral Oil Enema 133 Ml Enema) 133 ml RI ONCE PRN PRN Reason: constipation Last Admin: 09/06/23 05:01 Dose: 133 ml Documented By: AMAURY Nicotine (Nicotine 14 Mg Patch.Td24) 14 mg TRANSDERMA DAILY [facility] Last Admin: 09/06/23 08:11 Dose: 14 mg Documented By: SHREE Omeprazole (Omeprazole 20 Mg Capsule.Dr) 20 mg PO DAILY@0630 [facility] Last Admin: 09/06/23 06:18 Dose: 20 mg Documented By: AMAURY Ondansetron HCl (Ondansetron Hcl 4 Mg/2 Ml Vial) 4 mg IVPUSH Q8H PRN PRN Reason: Nausea and Vomiting Last Admin: 09/06/23 12:13 Dose: 4 mg Documented By: RONALD Oxycodone HCl (Oxycodone Hcl Immed Release 5 Mg Tablet) 5 mg PO Q4H PRN PRN Reason: Pain, Moderate(Pain Scale 4-6) Last Admin: 09/06/23 14:38 Dose: 5 mg Documented By: RONALD Oxycodone HCl (Oxycodone Hcl Immed Release 5 Mg Tablet) 10 mg PO Q4H PRN PRN Reason: Pain, Severe (Pain Scale 7-10) Last Admin: 09/06/23 10:21 Dose: 10 mg Documented By: RONALD Polyethylene Glycol (Polyethylene Glycol 3350 17 Gm Powd.Pack) 17 gm PO DAILY [facility] Last Admin: 09/06/23 14:36 Dose: 17 gm Documented By: RONALD Prazosin HCl (Prazosin Hcl 5 Mg Capsule) 5 mg PO BEDTIME [facility]; Protocol Last Admin: 09/05/23 21:27 Dose: 5 mg Documented By: AMAURY Sodium Chloride (0.9 % Sodium Chloride Flush 3 Ml Syringe) 3 ml IVFLUSH QSHIFT [facility] Last Admin: 09/06/23 11:36 Dose: Not Given Documented By: RONALD Non-Admin Reason: See Note Topiramate (Topiramate 25 Mg Tablet) 25 mg PO DAILY [facility] Last Admin: 09/06/23 08:10 Dose: 25 mg Documented By: SHREE Labs 09/06/23 05:32 09/06/23 05:32 Labs: Laboratory Results - last 24 hr 09/06/23 09/06/23 05:32 05:43 MCV 102.4 H MCH 33.3 H MCHC 32.5 RDW 12.6 Plt Count 194 MPV 9.3 L Immature Gran % (Auto) 0.3 Neut % (Auto) 84.6 H Lymph % (Auto) 10.8 L [place] % (Auto) 3.5 Eos % (Auto) 0.6 Baso % (Auto) 0.2 Lymph # (Auto) 1.3 [place] # (Auto) 0.4 Eos # (Auto) 0.1 Baso # (Auto) 0.0 Abs Immat Gran (auto) 0.03 Absolute Neuts (auto) 10.0 H Absolute Nucleated RBC 0.000 Nucleated RBC % (auto) 0.0 VBG pH 7.40 VBG pCO2 55 VBG pO2 37 VBG HCO3 34 H VBG O2 Saturation 60.0 VBG Base Excess 8.5 Anion Gap 10 L Estim Creat Clear Calc 56.9 Estimated GFR > 60 Random Glucose 197 H Calcium 8.9 D Phosphorus 2.6 L Magnesium 1.7 Albumin 3.3 L Assessment and Plan (1) Status post lobectomy of lung: Status: Acute (2) Hypertension: Status: Acute (3) COPD (chronic obstructive pulmonary disease): Status: Acute Plan 62-year-old lady with underlying COPD and hypertension now postop day 0 after an elective right lower lobe lobectomy for adenocarcinoma, extubated end of the case, being monitored in the intensive care unit in the immediate postop day 2 1.S/P VATS RLL lobectomy -chest tube removed as per or thoracic -further management as dictated 2. Hypertension -acceptable control on current therapies -adjust as indicated 3. COPD (no acute issues at this time) -continue outpatient therapies -meds as indicated Full code Heparin Quality Stroke Does the patient have a stroke diagnosis?: No VTE Prior VTE?: No VTE Risk Level:: Surgical - low VTE Device Contraindication: N/A - Device Ordered VTE Drug Contraindication: N/A - Med Ordered
[2023-09-06] MEDS: Atorvastatin Calcium 20 MG TABLET PO (19:57)
[2023-09-06] MEDS: Prazosin HCL 5 MG CAPSULE PO (19:57)
[2023-09-07] MEDS: ondansetron HCL 4 MG/2 ML VIAL IVPUSH (01:48)
[2023-09-07] MEDS: HYDROmorphone HCl 1 MG/ML SYRINGE IVPUSH ×4 (01:49→18:41)
[2023-09-07] MEDS: Heparin Sodium,Porcine 5,000 UNIT/ML VIAL 5000 UNIT SUBCUT ×3 (01:51→18:10)
[2023-09-07] MEDS: Acetaminophen 1,000 MG/100 ML PIGGYBACK 400 MG IV ×4 (01:53→18:12)
[2023-09-07 03:50] VITALS: BP 122/56; PULSE 94; RESP 20; TEMP 36.6; O2SAT 93
[2023-09-07] MEDS: Omeprazole 20 MG CAPSULE.DR PO (06:04)
[2023-09-07 06:32] LABS: MANUAL DIFF FLAG NO
[2023-09-07 06:42] LABS: Basophils Percent Auto 0.1 % (0-2); Eosinophils Absolute Auto 0.1 X10*3/uL (0.0-0.4); Eosinophils Percent Auto 1.3 % (0-4); Hematocrit 24.8 % (37.0-47.0); Hemoglobin 8.1 g/dl (12.0-16.0); Imm Gran Abs Auto 0.05 X10*3/uL (0.00-0.03); Imm Gran Pct Auto 0.5 % (0.0-0.4); Lymphocytes Absolute Auto 1.8 X10*3/uL (1.2-4.9); Lymphocytes Percent Auto 18.6 % (20-40); Mean Corpuscular HGB Conc 32.7 g/dl (31.0-35.0); Mean Corpuscular Hemoglobin 33.5 pg (27.0-33.0); Mean Corpuscular Volume 102.5 fL (80.0-98.0); Mean Platelet Volume 9.7 fL (9.4-12.3); Monocytes Absolute Auto 0.5 X10*3/uL (0.1-1.2); Monocytes Percent Auto 4.7 % (2-11); Neutrophils Absolute Auto 7.3 x10*3/uL (2.0-8.3); Neutrophils Percent Auto 74.8 % (45-73); Platelet Count 201 X10*3/uL (160-400); Red Blood Count 2.42 X10*6/uL (4.20-5.50); Red Cell Distribution Width 12.6 % (11.0-16.0); White Blood Count 9.7 X10*3/uL (4.8-10.8)
[2023-09-07 07:49] VITALS: BP 113/68; PULSE 96; RESP 18; TEMP 36.1; O2SAT 94
[2023-09-07] MEDS: diazePAM 5 MG TABLET 10 MG PO ×2 (08:47→20:58)
[2023-09-07] MEDS: FLUoxetine HCl 20 MG CAPSULE 40 MG PO (08:47)
[2023-09-07] MEDS: Docusate Sodium 100 MG CAPSULE PO ×2 (08:47→20:56)
[2023-09-07] MEDS: Topiramate 25 MG TABLET PO (08:47)
[2023-09-07] MEDS: buPROPion HCl XL 300 MG TAB.ER.24H PO (08:47)
[2023-09-07] MEDS: busPIRone HCl 5 MG TABLET PO ×3 (08:47→20:56)
[2023-09-07] MEDS: Nicotine 14 MG PATCH.TD24 TRANSDERMA (08:49)
[2023-09-07] MEDS: Lidocaine 4 % Patch ADH..PATCH 1 PATCH TRANSDERMA (08:54)
[2023-09-07] MEDS: oxyCODONE HCl Immed Release 5 MG TABLET 10 MG PO ×2 (09:05→15:01)
--- NOTE | 2023-09-07 09:21 | P.PNGS_ITS ---
Subjective Subjective Date of Service: 09/07/23 Interval history: Patient complaining mainly of back pain and right shoulder pain which are chronic. Breathing comfortably with nasal O2. reports nausea and vomiting yesterday. Not very hungry this morning. no bowel movement since Surgery. Physical Exam 2 Vital Signs: Vital Signs: Last Vital Signs Temp 97.0 F 09/07/23 07:49 Pulse 96 09/07/23 07:49 Resp 18 09/07/23 07:49 BP 113/68 09/07/23 07:49 Pulse Ox 94 09/07/23 07:49 O2 Del Method Nasal Cannula 09/07/23 07:49 O2 Flow Rate 2 09/07/23 07:49 BMI result Body Mass Index 24.9 Const: General: no acute distress, alert and awake Nutritional Appearance: thin Orientation/consciousness: patient oriented x3 Chest: Other: Chest tube site is clean with no further discharge noted. Resp: Effort & Inspection: normal respiratory effort, no cough and no respiratory distress Skin: Other: Warm, dry, no rash Neuro: General: patient oriented x3 Objective Data Active Medications Al Hydroxide/Mg Hydroxide (Magnesium Hydrox/Alum Hydrox 30 Ml Oral.Susp) 30 ml PO Q4H PRN PRN Reason: Heartburn/Nausea Albuterol Sulfate (Albuterol Sulfate 90 Mcg 8 Gm Inhaler) 2 puff INHALE Q4H PRN PRN Reason: wheezing Atorvastatin Calcium (Atorvastatin Calcium 20 Mg Tablet) 20 mg PO BEDTIME [facility] Last Admin: 09/06/23 19:57 Dose: 20 mg Documented By: LISETTE Bupropion HCl (Bupropion Hcl Xl 300 Mg Tab.Er.24h) 300 mg PO DAILY [facility] Last Admin: 09/07/23 08:47 Dose: 300 mg Documented By: DEBBIE Buspirone HCl (Buspirone Hcl 5 Mg Tablet) 5 mg PO TID [facility] Last Admin: 09/07/23 08:47 Dose: 5 mg Documented By: DEBBIE Diazepam (Diazepam 5 Mg Tablet) 10 mg PO BID [facility] Last Admin: 09/07/23 08:47 Dose: 10 mg Documented By: DEBBIE Docusate Sodium (Docusate Sodium 100 Mg Capsule) 100 mg PO BID [facility] Last Admin: 09/07/23 08:47 Dose: 100 mg Documented By: DEBBIE Fluoxetine HCl (Fluoxetine Hcl 20 Mg Capsule) 40 mg PO DAILY [facility] Last Admin: 09/07/23 08:47 Dose: 40 mg Documented By: DEBBIE Fluticasone Propionate (Fluticasone Propionate Nasal 16 Gm [place]) 1 spray NOSTRIL-B DAILY PRN PRN Reason: Allergy Symptoms Last Admin: 09/05/23 23:27 Dose: 1 spray Documented By: AMAURY Fluticasone/Umeclidinium/Vilanterol (Fluticasone/Umeclidinium/Vilanterol 200/62.5/25 Blst.W.Dev) 1 puff INHALE RDAILY [facility] Last Admin: 09/07/23 08:14 Dose: Not Given Documented By: RAH Non-Admin Reason: Patient Refused Guaifenesin (Guaifenesin La 600 Mg Tab.Er.12h) 600 mg PO BID PRN PRN Reason: Congestion Last Admin: 09/05/23 23:27 Dose: 600 mg Documented By: AMAURY Heparin Sodium (Porcine) (Heparin Sodium,Porcine 5,000 Unit/Ml Vial) 5,000 unit SUBCUT Q8H [facility] Last Admin: 09/07/23 08:48 Dose: 5,000 unit Documented By: DEBBIE Hydromorphone HCl (Hydromorphone Hcl 1 Mg/Ml Syringe) 1 mg IVPUSH Q4H PRN; Protocol PRN Reason: Pain, Severe (Pain Scale 7-10) Last Admin: 09/07/23 06:03 Dose: 1 mg Documented By: LISETTE Acetaminophen (Ofirmev) 1,000 mg in 100 mls @ 400 mls/hr IV Q6H [facility] Last Infusion: 09/07/23 06:27 Dose: Infused Documented By: LISETTE Promethazine HCl 12.5 mg/ (Sodium Chloride) 50.5 mls @ 202 mls/hr IV Q6H PRN PRN Reason: Nausea and Vomiting Last Infusion: 09/06/23 14:52 Dose: Infused Documented By: RONALD Lidocaine (Lidocaine 4 % Patch Adh..Patch) 1 patch TRANSDERMA DAILY [facility]; Protocol Last Admin: 09/07/23 08:54 Dose: 1 patch Documented By: DBEBIE Melatonin (Melatonin 3 Mg Tablet) 6 mg PO BEDTIME PRN PRN Reason: Insomnia Mineral Oil (Mineral Oil Enema 133 Ml Enema) 133 ml MO ONCE PRN PRN Reason: constipation Last Admin: 09/06/23 05:01 Dose: 133 ml Documented By: AMAURY Nicotine (Nicotine 14 Mg Patch.Td24) 14 mg TRANSDERMA DAILY [facility] Last Admin: 09/07/23 08:49 Dose: 14 mg Documented By: DEBBIE Omeprazole (Omeprazole 20 Mg Capsule.Dr) 20 mg PO DAILY@0630 [facility] Last Admin: 09/07/23 06:04 Dose: 20 mg Documented By: LISETTE Ondansetron HCl (Ondansetron Hcl 4 Mg/2 Ml Vial) 4 mg IVPUSH Q8H PRN PRN Reason: Nausea and Vomiting Last Admin: 09/07/23 01:48 Dose: 4 mg Documented By: LISETTE Oxycodone HCl (Oxycodone Hcl Immed Release 5 Mg Tablet) 5 mg PO Q4H PRN PRN Reason: Pain, Moderate(Pain Scale 4-6) Last Admin: 09/06/23 14:38 Dose: 5 mg Documented By: RONALD Oxycodone HCl (Oxycodone Hcl Immed Release 5 Mg Tablet) 10 mg PO Q4H PRN PRN Reason: Pain, Severe (Pain Scale 7-10) Last Admin: 09/07/23 09:05 Dose: 10 mg Documented By: DEBBIE Polyethylene Glycol (Polyethylene Glycol 3350 17 Gm Powd.Pack) 17 gm PO DAILY [facility] Last Admin: 09/07/23 08:49 Dose: Not Given Documented By: DEBBIE Non-Admin Reason: Patient Refused Prazosin HCl (Prazosin Hcl 5 Mg Capsule) 5 mg PO BEDTIME [facility]; Protocol Last Admin: 09/06/23 19:57 Dose: 5 mg Documented By: LISETTE Sodium Chloride (0.9 % Sodium Chloride Flush 3 Ml Syringe) [facility] Last Admin: 09/07/23 08:48 Dose: Not Given Documented By: DEBBIE Non-Admin Reason: IV Running Topiramate (Topiramate 25 Mg Tablet) 25 mg PO DAILY [facility] Last Admin: 09/07/23 08:47 Dose: 25 mg Documented By: DEBBIE Labs 09/07/23 05:41 09/06/23 05:32 Labs: Laboratory Results - last 24 hr 09/07/23 05:41 MCV 102.5 H MCH 33.5 H MCHC 32.7 RDW 12.6 Plt Count 201 MPV 9.7 Immature Gran % (Auto) 0.5 H Neut % (Auto) 74.8 H Lymph % (Auto) 18.6 L [place] % (Auto) 4.7 Eos % (Auto) 1.3 Baso % (Auto) 0.1 Lymph # (Auto) 1.8 [place] # (Auto) 0.5 Eos # (Auto) 0.1 Baso # (Auto) 0.0 Abs Immat Gran (auto) 0.05 H Absolute Neuts (auto) 7.3 Absolute Nucleated RBC 0.000 Nucleated RBC % (auto) 0.0 Procedures Date of Service Date of Service: 09/07/23 Progress Note: A&P Assessment and plan (1) Status post lobectomy of lung: Status: Acute (2) Lung cancer, lower lobe: Status: Acute (3) COPD (chronic obstructive pulmonary disease): Status: Acute Plan 62 year old female now POD #3 s/p bronchoscopy, vats right lower lobectomy, mediastinal lymph node sampling, intercostal nerve block. Continues to do well post op. Chest tube removed yesterday. Some discharge noted upon ambulation to the bathroom yesterday. Patient also developed nausea and vomiting yesterday, somewhat improved this morning. Overall patient is improved today. Encourage continued incentive spirometry and ambulation. Stool softener and MiraLax ordered. Time Spent With Patient Time: Total time managing care of this patient today ____ minutes. Quality Stroke Does the patient have a stroke diagnosis?: No VTE Prior VTE?: No VTE Risk Level:: Surgical - low VTE Device Contraindication: N/A - Device Ordered VTE Drug Contraindication: N/A - Med Ordered
[2023-09-07 11:08] VITALS: BP 117/65; PULSE 92; RESP 20; TEMP 36.2; O2SAT 96
--- NOTE | 2023-09-07 13:38 | HO.PM.IMPN ---
Subjective Subjective Date of Service: 09/07/23 Interval History: Slowly improving. Somewhat nauseous this a.m. breathing comfortably on nasal O2 Review of Systems Admits to chest pain at site of chest tube insertion otherwise no cardiac complaints Denies nausea vomiting diarrhea Denies fevers chills Physical Exam Vital Signs: Vital Signs: Last Vital Signs Temp 97.2 F 09/07/23 11:08 Pulse 92 09/07/23 11:08 Resp 20 09/07/23 11:08 BP 117/65 09/07/23 11:08 Pulse Ox 96 09/07/23 11:08 O2 Del Method Nasal Cannula 09/07/23 11:08 O2 Flow Rate 2 09/07/23 11:08 BMI result Body Mass Index 24.9 Const: Other: Awake alert no acute distress. Breathing comfortably in bed Resp: Other: Clear to auscultation bilaterally no rales rhonchi or wheezes Cardio: Other: No S4; positive S1-S2; no S3 murmurs rubs or gallops GI: Other: Soft nontender nondistended normoactive bowel sounds Extrem: Other: No edema bilaterally Objective Data Active Medications Al Hydroxide/Mg Hydroxide (Magnesium Hydrox/Alum Hydrox 30 Ml Oral.Susp) 30 ml PO Q4H PRN PRN Reason: Heartburn/Nausea Albuterol Sulfate (Albuterol Sulfate 90 Mcg 8 Gm Inhaler) 2 puff INHALE Q4H PRN PRN Reason: wheezing Atorvastatin Calcium (Atorvastatin Calcium 20 Mg Tablet) 20 mg PO BEDTIME [facility] Last Admin: 09/06/23 19:57 Dose: 20 mg Documented By: LISETTE Bupropion HCl (Bupropion Hcl Xl 300 Mg Tab.Er.24h) 300 mg PO DAILY [facility] Last Admin: 09/07/23 08:47 Dose: 300 mg Documented By: DEBBIE Buspirone HCl (Buspirone Hcl 5 Mg Tablet) 5 mg PO TID [facility] Last Admin: 09/07/23 08:47 Dose: 5 mg Documented By: DEBBIE Diazepam (Diazepam 5 Mg Tablet) 10 mg PO BID [facility] Last Admin: 09/07/23 08:47 Dose: 10 mg Documented By: DEBBIE Docusate Sodium (Docusate Sodium 100 Mg Capsule) 100 mg PO BID [facility] Last Admin: 09/07/23 08:47 Dose: 100 mg Documented By: DEBBIE Fluoxetine HCl (Fluoxetine Hcl 20 Mg Capsule) 40 mg PO DAILY [facility] Last Admin: 09/07/23 08:47 Dose: 40 mg Documented By: DEBBIE Fluticasone Propionate (Fluticasone Propionate Nasal 16 Gm [place]) 1 spray NOSTRIL-B DAILY PRN PRN Reason: Allergy Symptoms Last Admin: 09/05/23 23:27 Dose: 1 spray Documented By: AMAURY Fluticasone/Umeclidinium/Vilanterol (Fluticasone/Umeclidinium/Vilanterol 200/62.5/25 Blst.W.Dev) 1 puff INHALE RDAILY [facility] Last Admin: 09/07/23 08:14 Dose: Not Given Documented By: RAH Non-Admin Reason: Patient Refused Guaifenesin (Guaifenesin [place] 600 Mg Tab.Er.12h) 600 mg PO BID PRN PRN Reason: Congestion Last Admin: 09/05/23 23:27 Dose: 600 mg Documented By: AMAURY Heparin Sodium (Porcine) (Heparin Sodium,Porcine 5,000 Unit/Ml Vial) 5,000 unit SUBCUT Q8H [facility] Last Admin: 09/07/23 08:48 Dose: 5,000 unit Documented By: DEBBIE Hydromorphone HCl (Hydromorphone Hcl 1 Mg/Ml Syringe) 1 mg IVPUSH Q4H PRN; Protocol PRN Reason: Pain, Severe (Pain Scale 7-10) Last Admin: 09/07/23 12:59 Dose: 1 mg Documented By: DEBBIE Acetaminophen (Ofirmev) 1,000 mg in 100 mls @ 400 mls/hr IV Q6H [facility] Last Infusion: 09/07/23 12:50 Dose: Infused Documented By: DEBBIE Promethazine HCl 12.5 mg/ (Sodium Chloride) 50.5 mls @ 202 mls/hr IV Q6H PRN PRN Reason: Nausea and Vomiting Last Infusion: 09/06/23 14:52 Dose: Infused Documented By: RONALD Lidocaine (Lidocaine 4 % Patch Adh..Patch) 1 patch TRANSDERMA DAILY [facility]; Protocol Last Admin: 09/07/23 08:54 Dose: 1 patch Documented By: DEBBIE Melatonin (Melatonin 3 Mg Tablet) 6 mg PO BEDTIME PRN PRN Reason: Insomnia Mineral Oil (Mineral Oil Enema 133 Ml Enema) 133 ml SD ONCE PRN PRN Reason: constipation Last Admin: 09/06/23 05:01 Dose: 133 ml Documented By: AMAURY Nicotine (Nicotine 14 Mg Patch.Td24) 14 mg TRANSDERMA DAILY [facility] Last Admin: 09/07/23 08:49 Dose: 14 mg Documented By: DEBBIE Omeprazole (Omeprazole 20 Mg Capsule.Dr) 20 mg PO DAILY@0630 [facility] Last Admin: 09/07/23 06:04 Dose: 20 mg Documented By: LISETTE Ondansetron HCl (Ondansetron Hcl 4 Mg/2 Ml Vial) 4 mg IVPUSH Q8H PRN PRN Reason: Nausea and Vomiting Last Admin: 09/07/23 01:48 Dose: 4 mg Documented By: LISETTE Oxycodone HCl (Oxycodone Hcl Immed Release 5 Mg Tablet) 5 mg PO Q4H PRN PRN Reason: Pain, Moderate(Pain Scale 4-6) Last Admin: 09/06/23 14:38 Dose: 5 mg Documented By: GREGORFAYahir Oxycodone HCl (Oxycodone Hcl Immed Release 5 Mg Tablet) 10 mg PO Q4H PRN PRN Reason: Pain, Severe (Pain Scale 7-10) Last Admin: 09/07/23 09:05 Dose: 10 mg Documented By: DEBBIE Polyethylene Glycol (Polyethylene Glycol 3350 17 Gm Powd.Pack) 17 gm PO DAILY [facility] Last Admin: 09/07/23 08:49 Dose: Not Given Documented By: DEBBIE Non-Admin Reason: Patient Refused Prazosin HCl (Prazosin Hcl 5 Mg Capsule) 5 mg PO BEDTIME [facility]; Protocol Last Admin: 09/06/23 19:57 Dose: 5 mg Documented By: LISETTE Sodium Chloride (0.9 % Sodium Chloride Flush 3 Ml Syringe) 3 ml IVFLUSH QSHIFT [facility] Last Admin: 09/07/23 08:48 Dose: Not Given Documented By: DEBBIE Non-Admin Reason: IV Running Topiramate (Topiramate 25 Mg Tablet) 25 mg PO DAILY [facility] Last Admin: 09/07/23 08:47 Dose: 25 mg Documented By: DEBBIE Labs 09/07/23 05:41 09/06/23 05:32 Labs: Laboratory Results - last 24 hr 09/07/23 05:41 MCV 102.5 H MCH 33.5 H MCHC 32.7 RDW 12.6 Plt Count 201 MPV 9.7 Immature Gran % (Auto) 0.5 H Neut % (Auto) 74.8 H Lymph % (Auto) 18.6 L [place] % (Auto) 4.7 Eos % (Auto) 1.3 Baso % (Auto) 0.1 Lymph # (Auto) 1.8 [place] # (Auto) 0.5 Eos # (Auto) 0.1 Baso # (Auto) 0.0 Abs Immat Gran (auto) 0.05 H Absolute Neuts (auto) 7.3 Absolute Nucleated RBC 0.000 Nucleated RBC % (auto) 0.0 Assessment and Plan (1) Status post lobectomy of lung: Status: Acute (2) Hypertension: Status: Acute Plan 62-year-old lady with underlying COPD and hypertension now postop day 0 after an elective right lower lobe lobectomy for adenocarcinoma, extubated end of the case, being monitored in the intensive care unit in the immediate postop day 2 1.S/P VATS RLL lobectomy -chest tube removed as per or thoracic -further management as dictated 2. Hypertension -acceptable control on current therapies -adjust as indicated 3. COPD (no acute issues at this time) -continue outpatient therapies -meds as indicated Full code Heparin Consult physical therapy for possible placement Quality Stroke Does the patient have a stroke diagnosis?: No VTE Prior VTE?: No VTE Risk Level:: Surgical - low VTE Device Contraindication: N/A - Device Ordered VTE Drug Contraindication: N/A - Med Ordered
[2023-09-07] MEDS: 0.9 % Sodium Chloride Flush 3 ML SYRINGE IVFLUSH ×2 (15:02→20:56)
[2023-09-07 15:14] VITALS: BP 101/56; PULSE 90; RESP 17; TEMP 36.3; O2SAT 97
[2023-09-07 19:05] VITALS: BP 112/70; PULSE 88; RESP 16; TEMP 36.4; O2SAT 2
[2023-09-07] MEDS: Atorvastatin Calcium 20 MG TABLET PO (20:55)
[2023-09-07] MEDS: Prazosin HCL 5 MG CAPSULE PO (20:56)
[2023-09-07 23:53] VITALS: BP 101/58; PULSE 95; RESP 22; TEMP 37; O2SAT 92
[2023-09-08] VITALS (7 sets, daily range): BP systolic 108–145; BP diastolic 58–83; PULSE 70–99; RESP 17–20; TEMP 35.5–37.2; O2SAT 91–98
[2023-09-08] MEDS: HYDROmorphone HCl 1 MG/ML SYRINGE IVPUSH ×5 (00:07→18:59)
[2023-09-08] MEDS: Heparin Sodium,Porcine 5,000 UNIT/ML VIAL 5000 UNIT SUBCUT ×3 (00:07→17:47)
[2023-09-08] MEDS: guaiFENesin LA 600 MG TAB.ER.12H PO ×2 (00:10→09:58)
[2023-09-08] MEDS: oxyCODONE HCl Immed Release 5 MG TABLET PO (01:41)
[2023-09-08] MEDS: Omeprazole 20 MG CAPSULE.DR PO (05:29)
[2023-09-08] MEDS: Fluticasone/Umeclidinium/Vilanterol 200/62.5/25 BLST.W.DEV 1 PUFF INHALE (07:22)
[2023-09-08] MEDS: Albuterol Sulfate 90 MCG 8 GM INHALER 2 PUFF INHALE (07:22)
--- NOTE | 2023-09-08 08:13 | PM.PNGS ---
Subjective Subjective Date of Service: 09/08/23 Interval history: continues to report pain in chest, shoulder and back. Concerned that pain meds are being decreased. Was able to eat yeterday without nausea or vomiting. Sat up in chair and ambulated a short distance yesterday. Would like to ambulate in the [place] today. Physical Exam Vital Signs: Vital Signs: Last Vital Signs Temp 97.5 F 09/08/23 06:59 Pulse 97 09/08/23 07:29 Resp 18 09/08/23 07:29 BP 119/78 09/08/23 06:59 Pulse Ox 96 09/08/23 06:59 O2 Del Method Nasal Cannula 09/08/23 06:59 O2 Flow Rate 2 09/08/23 06:59 BMI result Body Mass Index 24.9 Const: General: no acute distress, alert and awake Nutritional Appearance: thin Orientation/consciousness: patient oriented x3 Chest: Other: Chest tube site is clean with no further discharge noted. Resp: Other: loose rhonchi, cleared with cough Effort & Inspection: normal respiratory effort, no cough and no respiratory distress Auscultation: clear to auscultation bilaterally Skin: Other: Warm, dry, no rash Neuro: General: patient oriented x3 Objective Data Active Medications Al Hydroxide/Mg Hydroxide (Magnesium Hydrox/Alum Hydrox 30 Ml Oral.Susp) 30 ml PO Q4H PRN PRN Reason: Heartburn/Nausea Albuterol Sulfate (Albuterol Sulfate 90 Mcg 8 Gm Inhaler) 2 puff INHALE Q4H PRN PRN Reason: wheezing Last Admin: 09/08/23 07:22 Dose: 2 puff Documented By: GLENROY Atorvastatin Calcium (Atorvastatin Calcium 20 Mg Tablet) 20 mg PO BEDTIME [facility] Last Admin: 09/07/23 20:55 Dose: 20 mg Documented By: LISETTE Bupropion HCl (Bupropion Hcl Xl 300 Mg Tab.Er.24h) 300 mg PO DAILY [facility] Last Admin: 09/07/23 08:47 Dose: 300 mg Documented By: DEBBIE Buspirone HCl (Buspirone Hcl 5 Mg Tablet) 5 mg PO TID [facility] Last Admin: 09/07/23 20:56 Dose: 5 mg Documented By: LISETTE Diazepam (Diazepam 5 Mg Tablet) 10 mg PO BID [facility] Last Admin: 09/07/23 20:58 Dose: 10 mg Documented By: LISETTE Docusate Sodium (Docusate Sodium 100 Mg Capsule) 100 mg PO BID [facility] Last Admin: 09/07/23 20:56 Dose: 100 mg Documented By: LISETTE Fluoxetine HCl (Fluoxetine Hcl 20 Mg Capsule) 40 mg PO DAILY [facility] Last Admin: 09/07/23 08:47 Dose: 40 mg Documented By: DEBBIE Fluticasone Propionate (Fluticasone Propionate Nasal 16 Gm [place]) 1 spray NOSTRIL-B DAILY PRN PRN Reason: Allergy Symptoms Last Admin: 09/05/23 23:27 Dose: 1 spray Documented By: AMAURY Fluticasone/Umeclidinium/Vilanterol (Fluticasone/Umeclidinium/Vilanterol 200/62.5/25 Blst.W.Dev) 1 puff INHALE RDAILY [facility] Last Admin: 09/08/23 07:22 Dose: 1 puff Documented By: GLENROY Guaifenesin (Guaifenesin La 600 Mg Tab.Er.12h) 600 mg PO BID PRN PRN Reason: Congestion Last Admin: 09/08/23 00:10 Dose: 600 mg Documented By: LISETTE Heparin Sodium (Porcine) (Heparin Sodium,Porcine 5,000 Unit/Ml Vial) 5,000 unit SUBCUT Q8H [facility] Last Admin: 09/08/23 00:07 Dose: 5,000 unit Documented By: LISETTE Hydromorphone HCl (Hydromorphone Hcl 1 Mg/Ml Syringe) 1 mg IVPUSH Q4H PRN; Protocol PRN Reason: Pain, Severe (Pain Scale 7-10) Last Admin: 09/08/23 05:28 Dose: 1 mg Documented By: LISETTE Promethazine HCl 12.5 mg/ (Sodium Chloride) 50.5 mls @ 202 mls/hr IV Q6H PRN PRN Reason: Nausea and Vomiting Last Infusion: 09/06/23 14:52 Dose: Infused Documented By: RONALD Lidocaine (Lidocaine 4 % Patch Adh..Patch) 1 patch TRANSDERMA DAILY [facility]; Protocol Last Admin: 09/07/23 08:54 Dose: 1 patch Documented By: DEBBIE Melatonin (Melatonin 3 Mg Tablet) 6 mg PO BEDTIME PRN PRN Reason: Insomnia Mineral Oil (Mineral Oil Enema 133 Ml Enema) 133 ml [place] ONCE PRN PRN Reason: constipation Last Admin: 09/06/23 05:01 Dose: 133 ml Documented By: AMAURY Nicotine (Nicotine 14 Mg Patch.Td24) 14 mg TRANSDERMA DAILY [facility] Last Admin: 09/07/23 08:49 Dose: 14 mg Documented By: EDBBIE Omeprazole (Omeprazole 20 Mg Capsule.Dr) 20 mg PO DAILY@0630 [facility] Last Admin: 09/08/23 05:29 Dose: 20 mg Documented By: LISETTE Ondansetron HCl (Ondansetron Hcl 4 Mg/2 Ml Vial) 4 mg IVPUSH Q8H PRN PRN Reason: Nausea and Vomiting Last Admin: 09/07/23 01:48 Dose: 4 mg Documented By: LISETTE Oxycodone HCl (Oxycodone Hcl Immed Release 5 Mg Tablet) 5 mg PO Q4H PRN PRN Reason: Pain, Moderate(Pain Scale 4-6) Last Admin: 09/08/23 01:41 EST Dose: 5 mg Documented By: LISETTE Oxycodone HCl (Oxycodone Hcl Immed Release 5 Mg Tablet) 10 mg PO Q4H PRN PRN Reason: Pain, Severe (Pain Scale 7-10) Last Admin: 09/07/23 15:01 Dose: 10 mg Documented By: DEBBIE Polyethylene Glycol (Polyethylene Glycol 3350 17 Gm Powd.Pack) 17 gm PO DAILY [facility] Last Admin: 09/07/23 08:49 Dose: Not Given Documented By: DEBBIE Non-Admin Reason: Patient Refused Prazosin HCl (Prazosin Hcl 5 Mg Capsule) 5 mg PO BEDTIME [facility]; Protocol Last Admin: 09/07/23 20:56 Dose: 5 mg Documented By: LISETTE Sodium Chloride (0.9 % Sodium Chloride Flush 3 Ml Syringe) [facility] Last Admin: 09/07/23 20:56 Dose: 3 ml Documented By: LISETTE Topiramate (Topiramate 25 Mg Tablet) 25 mg PO DAILY [facility] Last Admin: 09/07/23 08:47 Dose: 25 mg Documented By: DEBBIE Labs 09/07/23 05:41 09/06/23 05:32 Procedures Date of Service Date of Service: 09/08/23 Progress Note: A&P Assessment and plan (1) Status post lobectomy of lung: Status: Acute (2) Lung cancer, lower lobe: Status: Acute (3) COPD (chronic obstructive pulmonary disease): Status: Acute Plan 62 year old female now POD #4 s/p bronchoscopy, vats right lower lobectomy, mediastinal lymph node sampling, intercostal nerve block. The main issue for the patient is incisional pain. Her appetite is improved and she denies any further nausea or vomiting. Overall patient is improved today. She was encouraged to continue with IS and ambulation today. No BM yet; on colace. Time Spent With Patient Time: Total time managing care of this patient today ____ minutes. Quality Stroke Does the patient have a stroke diagnosis?: No VTE Prior VTE?: No VTE Risk Level:: Surgical - low VTE Device Contraindication: N/A - Device Ordered VTE Drug Contraindication: N/A - Med Ordered
[2023-09-08] MEDS: FLUoxetine HCl 20 MG CAPSULE 40 MG PO (08:57)
[2023-09-08] MEDS: Nicotine 14 MG PATCH.TD24 TRANSDERMA (08:57)
[2023-09-08] MEDS: diazePAM 5 MG TABLET 10 MG PO ×2 (08:57→22:19)
[2023-09-08] MEDS: buPROPion HCl XL 300 MG TAB.ER.24H PO (08:57)
[2023-09-08] MEDS: busPIRone HCl 5 MG TABLET PO ×3 (08:57→22:19)
[2023-09-08] MEDS: Docusate Sodium 100 MG CAPSULE PO ×2 (08:57→22:19)
[2023-09-08] MEDS: Topiramate 25 MG TABLET PO (08:57)
[2023-09-08] MEDS: polyethylene glycoL 3350 17 GM POWD.PACK PO (08:57)
[2023-09-08] MEDS: oxyCODONE HCl Immed Release 5 MG TABLET 10 MG PO ×3 (09:00→22:19)
[2023-09-08] MEDS: Lidocaine 4 % Patch ADH..PATCH 1 PATCH TRANSDERMA (09:00)
[2023-09-08] MEDS: 0.9 % Sodium Chloride Flush 3 ML SYRINGE IVFLUSH ×2 (09:00→15:24)
--- NOTE | 2023-09-08 11:18 | HO.PM.IMPN ---
Subjective Subjective Date of Service: 09/08/23 Interval History: Still complaining of his incisional pain. Utilizing pain meds as ordered. Reassured that meds are not being decrease Review of Systems Admits to chest pain at site of chest tube insertion otherwise no cardiac complaints Denies nausea vomiting diarrhea Denies fevers chills Physical Exam Vital Signs: Vital Signs: Last Vital Signs Temp 96 F L 09/08/23 10:57 Pulse 93 09/08/23 10:57 Resp 17 09/08/23 10:57 BP 144/65 H 09/08/23 10:57 Pulse Ox 93 09/08/23 10:57 O2 Del Method Nasal Cannula 09/08/23 10:57 O2 Flow Rate 2 09/08/23 10:57 BMI result Body Mass Index 24.9 Const: Other: Awake alert no acute distress. Breathing comfortably in bed Resp: Other: Clear to auscultation bilaterally no rales rhonchi or wheezes Cardio: Other: No S4; positive S1-S2; no S3 murmurs rubs or gallops GI: Other: Soft nontender nondistended normoactive bowel sounds Extrem: Other: No edema bilaterally Objective Data Active Medications Al Hydroxide/Mg Hydroxide (Magnesium Hydrox/Alum Hydrox 30 Ml Oral.Susp) 30 ml PO Q4H PRN PRN Reason: Heartburn/Nausea Albuterol Sulfate (Albuterol Sulfate 90 Mcg 8 Gm Inhaler) 2 puff INHALE Q4H PRN PRN Reason: wheezing Last Admin: 09/08/23 07:22 Dose: 2 puff Documented By: GLENROY Atorvastatin Calcium (Atorvastatin Calcium 20 Mg Tablet) 20 mg PO BEDTIME [facility] Last Admin: 09/07/23 20:55 Dose: 20 mg Documented By: LISETTE Bupropion HCl (Bupropion Hcl Xl 300 Mg Tab.Er.24h) 300 mg PO DAILY [facility] Last Admin: 09/08/23 08:57 Dose: 300 mg Documented By: SEAN Buspirone HCl (Buspirone Hcl 5 Mg Tablet) 5 mg PO TID [facility] Last Admin: 09/08/23 08:57 Dose: 5 mg Documented By: SEAN Diazepam (Diazepam 5 Mg Tablet) 10 mg PO BID [facility] Last Admin: 09/08/23 08:57 Dose: 10 mg Documented By: SEAN Docusate Sodium (Docusate Sodium 100 Mg Capsule) 100 mg PO BID [facility] Last Admin: 09/08/23 08:57 Dose: 100 mg Documented By: SEAN Fluoxetine HCl (Fluoxetine Hcl 20 Mg Capsule) 40 mg PO DAILY [facility] Last Admin: 09/08/23 08:57 Dose: 40 mg Documented By: SEAN Fluticasone Propionate (Fluticasone Propionate Nasal 16 Gm [place]) 1 spray NOSTRIL-B DAILY PRN PRN Reason: Allergy Symptoms Last Admin: 09/05/23 23:27 Dose: 1 spray Documented By: AMAURY Fluticasone/Umeclidinium/Vilanterol (Fluticasone/Umeclidinium/Vilanterol 200/62.5/25 Blst.W.Dev) 1 puff INHALE RDAILY [facility] Last Admin: 09/08/23 07:22 Dose: 1 puff Documented By: GLENROY Guaifenesin (Guaifenesin La 600 Mg Tab.Er.12h) 600 mg PO BID PRN PRN Reason: Congestion Last Admin: 09/08/23 09:58 Dose: 600 mg Documented By: SEAN Heparin Sodium (Porcine) (Heparin Sodium,Porcine 5,000 Unit/Ml Vial) 5,000 unit SUBCUT Q8H [facility] Last Admin: 09/08/23 08:58 Dose: 5,000 unit Documented By: SEAN Hydromorphone HCl (Hydromorphone Hcl 1 Mg/Ml Syringe) 1 mg IVPUSH Q4H PRN; Protocol PRN Reason: Pain, Severe (Pain Scale 7-10) Last Admin: 09/08/23 10:25 Dose: 1 mg Documented By: SEAN Promethazine HCl 12.5 mg/ (Sodium Chloride) 50.5 mls @ 202 mls/hr IV Q6H PRN PRN Reason: Nausea and Vomiting Last Infusion: 09/06/23 14:52 Dose: Infused Documented By: RONALD Lidocaine (Lidocaine 4 % Patch Adh..Patch) 1 patch TRANSDERMA DAILY [facility]; Protocol Last Admin: 09/08/23 09:00 Dose: 1 patch Documented By: SEAN Melatonin (Melatonin 3 Mg Tablet) 6 mg PO BEDTIME PRN PRN Reason: Insomnia Mineral Oil (Mineral Oil Enema 133 Ml Enema) 133 ml [place] ONCE PRN PRN Reason: constipation Last Admin: 09/06/23 05:01 Dose: 133 ml Documented By: AMAURY Nicotine (Nicotine 14 Mg Patch.Td24) 14 mg TRANSDERMA DAILY [facility] Last Admin: 09/08/23 08:57 Dose: 14 mg Documented By: SEAN Omeprazole (Omeprazole 20 Mg Capsule.Dr) 20 mg PO DAILY@0630 [facility] Last Admin: 09/08/23 05:29 Dose: 20 mg Documented By: LISETTE Ondansetron HCl (Ondansetron Hcl 4 Mg/2 Ml Vial) 4 mg IVPUSH Q8H PRN PRN Reason: Nausea and Vomiting Last Admin: 09/07/23 01:48 Dose: 4 mg Documented By: LISETTE Oxycodone HCl (Oxycodone Hcl Immed Release 5 Mg Tablet) 5 mg PO Q4H PRN PRN Reason: Pain, Moderate(Pain Scale 4-6) Last Admin: 09/08/23 01:41 EST Dose: 5 mg Documented By: LISETTE Oxycodone HCl (Oxycodone Hcl Immed Release 5 Mg Tablet) 10 mg PO Q4H PRN PRN Reason: Pain, Severe (Pain Scale 7-10) Last Admin: 09/08/23 09:00 Dose: 10 mg Documented By: SEAN Polyethylene Glycol (Polyethylene Glycol 3350 17 Gm Powd.Pack) 17 gm PO DAILY [facility] Last Admin: 09/08/23 08:57 Dose: 17 gm Documented By: SEAN Prazosin HCl (Prazosin Hcl 5 Mg Capsule) 5 mg PO BEDTIME [facility]; Protocol Last Admin: 09/07/23 20:56 Dose: 5 mg Documented By: LISETTE Sodium Chloride (0.9 % Sodium Chloride Flush 3 Ml Syringe) 3 ml IVFLUSH QSHIFT [facility] Last Admin: 09/08/23 09:00 Dose: 3 ml Documented By: SEAN Topiramate (Topiramate 25 Mg Tablet) 25 mg PO DAILY [facility] Last Admin: 09/08/23 08:57 Dose: 25 mg Documented By: SEAN Labs 09/07/23 05:41 09/06/23 05:32 Assessment and Plan (1) Status post lobectomy of lung: Status: Acute Plan 62-year-old lady with underlying COPD and hypertension now postop day 0 after an elective right lower lobe lobectomy for adenocarcinoma, extubated end of the case, being monitored in the intensive care unit in the immediate postop day 2 1.S/P VATS RLL lobectomy -slowly progressing; continues with incisional pain -further management as dictated 2. Hypertension -acceptable control on current therapies -adjust as indicated 3. COPD (no acute issues at this time) -continue outpatient therapies -meds as indicated Full code Heparin Consult physical therapy for possible placement Quality Stroke Does the patient have a stroke diagnosis?: No VTE Prior VTE?: No VTE Risk Level:: Surgical - low VTE Device Contraindication: N/A - Device Ordered VTE Drug Contraindication: N/A - Med Ordered
[2023-09-08] MEDS: guaiFEN/Codeine SF 200/20/10ML 10 ML LIQUID PO ×2 (14:31→18:59)
[2023-09-08] MEDS: Atorvastatin Calcium 20 MG TABLET PO (22:18)
[2023-09-08] MEDS: Prazosin HCL 5 MG CAPSULE PO (22:18)
[2023-09-09] VITALS (7 sets, daily range): BP systolic 116–142; BP diastolic 64–80; PULSE 77–96; RESP 16–19; TEMP 36.1–36.8; O2SAT 96–98
[2023-09-09] MEDS: HYDROmorphone HCl 1 MG/ML SYRINGE IVPUSH ×5 (00:13→21:06)
[2023-09-09] MEDS: 0.9 % Sodium Chloride Flush 3 ML SYRINGE IVFLUSH ×3 (00:15→15:15)
[2023-09-09] MEDS: Heparin Sodium,Porcine 5,000 UNIT/ML VIAL 5000 UNIT SUBCUT ×3 (00:16→15:14)
[2023-09-09] MEDS: guaiFEN/Codeine SF 200/20/10ML 10 ML LIQUID PO ×2 (00:23→04:09)
[2023-09-09] MEDS: Omeprazole 20 MG CAPSULE.DR PO (06:35)
[2023-09-09] MEDS: Fluticasone/Umeclidinium/Vilanterol 200/62.5/25 BLST.W.DEV 1 PUFF INHALE (07:21)
--- NOTE | 2023-09-09 08:59 | PM.PNTS ---
Subjective Subjective Date of Service: 09/09/23 Interval history: C/o generally feeling unwell and having significant pain at shoulders, back and incision sites. OOB and ambulation has been limited. Reports fevers over the weekend (afebrile in vitals) and nausea/vomiting on Saturday which resolved. Having a lot of secretions. Physical Exam Vital Signs: Vital Signs: Last Vital Signs Temp 97.8 F 09/09/23 07:48 Pulse 89 09/09/23 07:48 Resp 19 09/09/23 07:48 BP 116/64 09/09/23 07:48 Pulse Ox 98 09/09/23 07:48 O2 Del Method Nasal Cannula 09/09/23 07:48 O2 Flow Rate 2 09/09/23 07:48 BMI result Body Mass Index 24.9 Const: General: comfortable, no acute distress and alert Orientation/consciousness: patient oriented x3 Resp: Other: incisions clean and intact Effort & Inspection: normal respiratory effort Auscultation: rhonchi Skin: General skin exam: no rashes or lesions noted Neuro: General: patient oriented x3 and moves all extremities Procedures Date of Service Date of Service: 09/09/23 Progress Note: A&P Assessment and plan (1) Status post lobectomy of lung: Status: Acute (2) Lung cancer, lower lobe: Status: Acute (3) COPD (chronic obstructive pulmonary disease): Status: Acute Plan 62 year old female now POD #5 s/p bronchoscopy, vats right lower lobectomy, mediastinal lymph node sampling, intercostal nerve block. The main issue for the patient is her pain. PO analgesics encouraged in preparation. PT consulted for dispo planning, OOB and increasing acitivity. Pt would like STR upon dc. On bowel regimen. Discharge in next 1-2 days. CXR showed stable small pneumo s/p chest tube removal. Will repeat in am. Time Spent With Patient Time: Total time managing care of this patient today ____ minutes. Quality Stroke Does the patient have a stroke diagnosis?: No VTE Prior VTE?: No VTE Risk Level:: Surgical - low VTE Device Contraindication: N/A - Device Ordered VTE Drug Contraindication: N/A - Med Ordered
[2023-09-09] MEDS: diazePAM 5 MG TABLET 10 MG PO ×2 (09:57→21:08)
[2023-09-09] MEDS: busPIRone HCl 5 MG TABLET PO ×3 (09:57→21:08)
[2023-09-09] MEDS: FLUoxetine HCl 20 MG CAPSULE 40 MG PO (09:57)
[2023-09-09] MEDS: buPROPion HCl XL 300 MG TAB.ER.24H PO (09:57)
[2023-09-09] MEDS: Docusate Sodium 100 MG CAPSULE PO ×2 (09:57→21:08)
[2023-09-09] MEDS: polyethylene glycoL 3350 17 GM POWD.PACK PO (09:58)
[2023-09-09] MEDS: Nicotine 14 MG PATCH.TD24 TRANSDERMA (10:13)
[2023-09-09] MEDS: Lidocaine 4 % Patch ADH..PATCH 1 PATCH TRANSDERMA (10:16)
--- NOTE | 2023-09-09 10:20 | MHC.CM.PN ---
CM met with Patient at bedside to discuss dc planning. Patient should have a PT eval today and Patient is interested in STR. Patient is agreeable to a SNF search; CM will initiate search once PT eval is completed.
[2023-09-09] MEDS: Topiramate 25 MG TABLET PO (10:21)
--- NOTE | 2023-09-09 15:09 | HO.PM.IMPN ---
Subjective Subjective Date of Service: 09/09/23 Interval History: complaining of right chest incisional pain, also right shoulder back pain due to arthritis, requesting for IV Dilaudid, feels not ready for discharge home has not pain ambulating much due to tiredness, denies chest pain, no cough, no fevers, no chills, no other acute issues overnight. Review of Systems All other system reviewed and negative Physical Exam Vital Signs: Vital Signs: Last Vital Signs Temp 97.8 F 09/09/23 11:48 Pulse 90 09/09/23 11:48 Resp 19 09/09/23 07:48 BP 119/75 09/09/23 11:48 Pulse Ox 98 09/09/23 11:48 O2 Del Method Nasal Cannula 09/09/23 11:48 O2 Flow Rate 2 09/09/23 11:48 BMI result Body Mass Index 24.9 Const: Other: General awake alert x3, in no acute distress. Neck supple no JVD. CVS regular rate rhythm, Respiratory lungs clear to auscultation, no respiratory distress, no wheeze, no respiratory distress Gastrointestinal abdomen soft, non tender, bowel sounds audible, no guarding , no rigidity. Extremities no edema. Neuro nonfocal Skin no rash Psych appropriate affect Objective Data Active Medications Acetaminophen (Acetaminophen 325 Mg Tablet) 650 mg PO Q6H PRN PRN Reason: Fever Al Hydroxide/Mg Hydroxide (Magnesium Hydrox/Alum Hydrox 30 Ml Oral.Susp) 30 ml PO Q4H PRN PRN Reason: Heartburn/Nausea Albuterol Sulfate (Albuterol Sulfate 90 Mcg 8 Gm Inhaler) 2 puff INHALE Q4H PRN PRN Reason: wheezing Last Admin: 09/08/23 07:22 Dose: 2 puff Documented By: GLENROY Atorvastatin Calcium (Atorvastatin Calcium 20 Mg Tablet) 20 mg PO BEDTIME [facility] Last Admin: 09/08/23 22:18 Dose: 20 mg Documented By: HARINI Bupropion HCl (Bupropion Hcl Xl 300 Mg Tab.Er.24h) 300 mg PO DAILY [facility] Last Admin: 09/09/23 09:57 Dose: 300 mg Documented By: FRANCISCO Buspirone HCl (Buspirone Hcl 5 Mg Tablet) 5 mg PO TID [facility] Last Admin: 09/09/23 09:57 Dose: 5 mg Documented By: FRANCISCO Diazepam (Diazepam 5 Mg Tablet) 10 mg PO BID [facility] Last Admin: 09/09/23 09:57 Dose: 10 mg Documented By: FRANCISCO Docusate Sodium (Docusate Sodium 100 Mg Capsule) 100 mg PO BID [facility] Last Admin: 09/09/23 09:57 Dose: 100 mg Documented By: FRANCISCO Fluoxetine HCl (Fluoxetine Hcl 20 Mg Capsule) 40 mg PO DAILY [facility] Last Admin: 09/09/23 09:57 Dose: 40 mg Documented By: FRANCISCO Fluticasone Propionate (Fluticasone Propionate Nasal [address] [place]) 1 spray NOSTRIL-B DAILY PRN PRN Reason: Allergy Symptoms Last Admin: 09/05/23 23:27 Dose: 1 spray Documented By: AMAURY Fluticasone/Umeclidinium/Vilanterol (Fluticasone/Umeclidinium/Vilanterol 200/62.5/25 Blst.W.Dev) 1 puff INHALE RDAILY [facility] Last Admin: 09/09/23 07:21 Dose: 1 puff Documented By: CHRISTINA Guaifenesin (Guaifenesin La 600 Mg Tab.Er.12h) 600 mg PO BID PRN PRN Reason: Congestion Last Admin: 09/08/23 09:58 Dose: 600 mg Documented By: SEAN Guaifenesin/Codeine Phosphate (Guaifen/Codeine Sf 200/20/10ml 10 Ml Liquid) 10 ml PO Q4H PRN PRN Reason: Cough Last Admin: 09/09/23 04:09 Dose: 10 ml Documented By: ZAKI Heparin Sodium (Porcine) (Heparin Sodium,Porcine 5,000 Unit/Ml Vial) 5,000 unit SUBCUT Q8H [facility] Last Admin: 09/09/23 10:16 Dose: 5,000 unit Documented By: FRANCISCO Hydromorphone HCl (Hydromorphone Hcl 1 Mg/Ml Syringe) 1 mg IVPUSH Q4H PRN; Protocol PRN Reason: Pain, Severe (Pain Scale 7-10) Last Admin: 09/09/23 04:07 Dose: 1 mg Documented By: ZAKI Promethazine HCl 12.5 mg/ (Sodium Chloride) 50.5 mls @ 202 mls/hr IV Q6H PRN PRN Reason: Nausea and Vomiting Last Infusion: 09/06/23 14:52 Dose: Infused Documented By: RONALD Lidocaine (Lidocaine 4 % Patch Adh..Patch) 1 patch TRANSDERMA DAILY [facility]; Protocol Last Admin: 09/09/23 10:16 Dose: 1 patch Documented By: FRANCISCO Melatonin (Melatonin 3 Mg Tablet) 6 mg PO BEDTIME PRN PRN Reason: Insomnia Mineral Oil (Mineral Oil Enema 133 Ml Enema) 133 ml [place] ONCE PRN PRN Reason: constipation Last Admin: 09/06/23 05:01 Dose: 133 ml Documented By: AMAURY Nicotine (Nicotine 14 Mg Patch.Td24) 14 mg TRANSDERMA DAILY [facility] Last Admin: 09/09/23 10:13 Dose: 14 mg Documented By: FRANCISCO Omeprazole (Omeprazole 20 Mg Capsule.Dr) 20 mg PO DAILY@0630 [facility] Last Admin: 09/09/23 06:35 Dose: 20 mg Documented By: ZAKI Ondansetron HCl (Ondansetron Hcl 4 Mg/2 Ml Vial) 4 mg IVPUSH Q8H PRN PRN Reason: Nausea and Vomiting Last Admin: 09/07/23 01:48 Dose: 4 mg Documented By: LISETTE Oxycodone HCl (Oxycodone Hcl Immed Release 5 Mg Tablet) 5 mg PO Q4H PRN PRN Reason: Pain, Moderate(Pain Scale 4-6) Last Admin: 09/08/23 01:41 EST Dose: 5 mg Documented By: LISETTE Oxycodone HCl (Oxycodone Hcl Immed Release 5 Mg Tablet) 10 mg PO Q4H PRN PRN Reason: Pain, Severe (Pain Scale 7-10) Last Admin: 09/08/23 22:19 Dose: 10 mg Documented By: HARINI Polyethylene Glycol (Polyethylene Glycol 3350 17 Gm Powd.Pack) 17 gm PO DAILY [facility] Last Admin: 09/09/23 09:58 Dose: 17 gm Documented By: FRANCISCO Prazosin HCl (Prazosin Hcl 5 Mg Capsule) 5 mg PO BEDTIME [facility]; Protocol Last Admin: 09/08/23 22:18 Dose: 5 mg Documented By: HARINI Sodium Chloride (0.9 % Sodium Chloride Flush 3 Ml Syringe) 3 ml IVFLUSH QSHIFT [facility] Last Admin: 09/09/23 10:16 Dose: 3 ml Documented By: FRANCISCO Topiramate (Topiramate 25 Mg Tablet) 25 mg PO DAILY [facility] Last Admin: 09/09/23 10:21 Dose: 25 mg Documented By: FRANCISCO Labs 09/07/23 05:41 09/06/23 05:32 Assessment and Plan (1) Status post lobectomy of lung: Status: Acute Plan 62-year-old lady with underlying COPD and hypertension now postop day 0 after an elective right lower lobe lobectomy for adenocarcinoma, extubated end of the case, being monitored in the intensive care unit in the immediate postop day 2 1.S/P VATS RLL lobectomy POD #5 s/p bronchoscopy, vats right lower lobectomy, mediastinal lymph node sampling, intercostal nerve block. Persistent pain, recommend to minimize narcotics out of bed to chair , encourage incentive spirometry and ambulation Patient requesting short-term rehab upon discharge Dispo seen by PT they recommend short-term rehab DC plan as per surgery. 2. Hypertension is stable blood pressure 3. COPD (no acute at this time) -continue outpatient therapies 4. Hyperlipidemia continue Lipitor 5. Tobacco use disorder continue nicotine patch Full code Heparin Will sign off please consult if needed. Quality Stroke Does the patient have a stroke diagnosis?: No VTE Prior VTE?: No VTE Risk Level:: Surgical - low VTE Device Contraindication: N/A - Device Ordered VTE Drug Contraindication: N/A - Med Ordered
[2023-09-09] MEDS: oxyCODONE HCl Immed Release 5 MG TABLET PO (18:24)
[2023-09-09] MEDS: Prazosin HCL 5 MG CAPSULE PO (21:08)
[2023-09-09] MEDS: Atorvastatin Calcium 20 MG TABLET PO (21:08)
[2023-09-10] VITALS: BP 95/57; PULSE 90; RESP 18; TEMP 37; O2SAT 95
[2023-09-10] MEDS: 0.9 % Sodium Chloride Flush 3 ML SYRINGE IVFLUSH ×2 (01:45→09:17)
[2023-09-10] MEDS: HYDROmorphone HCl 1 MG/ML SYRINGE IVPUSH ×2 (01:45→09:21)
[2023-09-10] MEDS: Heparin Sodium,Porcine 5,000 UNIT/ML VIAL 5000 UNIT SUBCUT ×2 (01:46→09:06)
[2023-09-10 04:00] VITALS: BP 115/64; PULSE 98; RESP 20; TEMP 36.2; O2SAT 93
[2023-09-10] MEDS: oxyCODONE HCl Immed Release 5 MG TABLET 10 MG PO (04:54)
[2023-09-10] MEDS: bisacodyL 10 MG SUPP.RECT PR (04:54)
[2023-09-10] MEDS: Omeprazole 20 MG CAPSULE.DR PO (05:49)
[2023-09-10 07:39] VITALS: PULSE 96; RESP 16; O2SAT 94
[2023-09-10] MEDS: Fluticasone/Umeclidinium/Vilanterol 200/62.5/25 BLST.W.DEV 1 PUFF INHALE (07:39)
[2023-09-10 07:40] VITALS: BP 114/63; PULSE 96; RESP 19; TEMP 37
--- NOTE | 2023-09-10 08:16 | P.PNTS_ITS ---
Subjective Subjective Date of Service: 09/10/23 Interval history: Feels much better overall. Does still report incisional pain but more tolerable. OOB and participated with PT yesterday. Still wants to go to STR. Using IS. Tolerating diet. Feels ready for discharge. Physical Exam Vital Signs: Vital Signs: Last Vital Signs Temp 98.6 F 09/10/23 07:40 Pulse 96 09/10/23 07:40 Resp 19 09/10/23 07:40 BP 114/63 09/10/23 07:40 Pulse Ox 93 09/10/23 04:00 O2 Del Method Nasal Cannula 09/10/23 07:40 O2 Flow Rate 2 09/10/23 07:40 FiO2 95 09/10/23 07:40 BMI result Body Mass Index 24.9 Const: General: comfortable, no acute distress and alert Orientation/consciousness: patient oriented x3 Chest: Other: subq emphysema and crepitus almost completely resolved lateral right chest incisions clean; chest tube site dressing intact Resp: Effort & Inspection: normal respiratory effort and able to speak in complete sentences Skin: General skin exam: no rashes or lesions noted Neuro: General: patient oriented x3 and moves all extremities Procedures Date of Service Date of Service: 09/10/23 Progress Note: A&P Assessment and plan (1) Status post lobectomy of lung: Status: Acute (2) COPD (chronic obstructive pulmonary disease): Status: Acute (3) Lung cancer, lower lobe: Status: Acute Plan 62 year old female now POD #6 s/p bronchoscopy, vats right lower lobectomy, mediastinal lymph node sampling, intercostal nerve block. Hemodynamically stable and doing well. Pneumo improved on CXR, remains small and decreasing in size. Discussed transfer to [facility] when bed available, smoking cessation and IS use. Patient comfortable with plan. Will discuss with case management- stable for dc to [facility] when bed available. Time Spent With Patient Time: Total time managing care of this patient today ____ minutes. Quality Stroke Does the patient have a stroke diagnosis?: No VTE Prior VTE?: No VTE Risk Level:: Surgical - low VTE Device Contraindication: N/A - Device Ordered VTE Drug Contraindication: N/A - Med Ordered
[2023-09-10] MEDS: FLUoxetine HCl 20 MG CAPSULE 40 MG PO (09:08)
[2023-09-10] MEDS: diazePAM 5 MG TABLET 10 MG PO (09:08)
[2023-09-10] MEDS: buPROPion HCl XL 300 MG TAB.ER.24H PO (09:08)
[2023-09-10] MEDS: Topiramate 25 MG TABLET PO (09:08)
[2023-09-10] MEDS: Docusate Sodium 100 MG CAPSULE PO (09:08)
[2023-09-10] MEDS: busPIRone HCl 5 MG TABLET PO (09:08)
[2023-09-10] MEDS: Lidocaine 4 % Patch ADH..PATCH 1 PATCH TRANSDERMA (09:08)
[2023-09-10] MEDS: Nicotine 14 MG PATCH.TD24 TRANSDERMA (09:09)
--- NOTE | 2023-09-10 09:36 | MHC.CM.PN ---
Per BALBINA/Ashely, Patient will be medically cleared for dc today to SNF/STR. Patient has accepted a private room @ [facility] and she will dc there today at 1PM, via [facility]. CM met with Patient at bedside and addressed IMM with her, providing Patient with the original and a copy was placed on the chart. CM spoke with HCP/Vamsi @ [phone] and informed him of the dc plan.
--- NOTE | 2023-09-10 12:21 | PM.DS ---
DS: Providers Provider Date of Service: 09/10/23 Date of admission: 09/04/23 07:40 Primary care physician: Nai Bradley MD Attending physician on admission: Marlo Sorto Consults: 09/05/23 08:42 Consult to Hospitalist Routine Comment: Consulting Provider: Hospitalist Reason For Exam: COPD, RLL CA s/p VATS right lower lobectomy 09/06/23 08:45 Consult to Case Management Routine Comment: s/p VATS right lower lobectomy, dispo planning Attending physician on discharge: Marlo Sorto DS: Diagnosis Discharge Diagnosis (1) Status post lobectomy of lung: Status: Acute (2) COPD (chronic obstructive pulmonary disease): Status: Acute (3) Lung cancer, lower lobe: Status: Acute DS: Summary Hospital Course Hospital Course: HPI AT ADMISSION: Patient was seen in the recent hospitalization for a small right pneumothorax status post IR biopsy of right lower lobe lung lesion. Patient presents here for follow-up along with her significant other. Pathology results demonstrate an early staged adenocarcinoma/non-small cell lung cancer. Workup including PET scan, collaborate this. Patient is having no acute respiratory issues or complaints. Chart was reviewed and patient evaluated. Patient has a very significant smoking history. She continues to smoke although she claims to be coming down. PFT's were reviewed and are okay. Right thorascopic possible open right lower lobectomy was recommended. She now presents for the planned procedure. HOSPITAL COURSE: 09/04/23, bronchoscopy, vats right lower lobectomy, mediastinal lymph node sampling was performed by Dr. Sorto without immediate complication. She tolerated the procedure well. She was admitted to the ICU post operatively for close observation. Her home medications were resumed. She had an uncomplicated but slow recovery course. On POD #1, she was doing very well post operatively. She did develop subcutaneous emphysema of the right chest which spread to the left chest, neck and was closely followed and nearly resolved prior to discharge. Her jameson was removed. CXR showed no pneumothorax. Her chest tube had minimal serosanguineous output and had no air leak. However given the subcutaneous emphysema it was kept in place but placed to water seal. She was encouraged OOB and incentive spirometer encouraged. She remained stable and was transferred to the medical/telemetry floor. A hospitalist consult was obtained for management of her medical comorbidities after she was transferred from the ICU. On POD #2, her CXR continued to show no pneumothorax and she had no air leak. Her chest tube was therefore removed uneventfully. CXR post chest tube removal showed a small right apical pneumothorax which was monitored. It remained stable and began decreasing in size. She had difficulty with pain control post operatively and remained inpatient for IV analgesics. She had minimal activity at this time and was strongly encouraged OOB and to ambulate. PT was consulted for ambulation and disposition planning who recommended STR upon discharge given her gross deconditioning. Smoking cessation was encouraged and the patient was in agreement and nicotene patch prescribed. Continued use of her incentive spirometer was encouraged at least 10x/hr. Pathology was reviewed. She felt improved with better pain control and remained hemodynamically stable with clean incisions and was ready for discharge on POD #5. She was transferred to [facility] on 11 in stable condition. Anticipate <30 day stay. She can f/u in the office with Dr. Sorto in 1 week. Status at Discharge Functional status at discharge: independent ambulation Time Attestation Discharge coordination time: Greater than 30 minutes Quality: Safe Use of Opioids Does Pt have an Active Cancer Diagnosis on the Problem List?: Yes Opioid Measure Date for [facility] Report: 08/11/23 Opioid Measure Time for [facility] Report: 12:26 Quality: Stroke Does the patient have a stroke diagnosis?: No Physical Exam Vital Signs: Vital Signs: Last Vital Signs Temp 98.6 F 09/10/23 07:40 Pulse 96 09/10/23 07:40 Resp 19 09/10/23 07:40 BP 114/63 09/10/23 07:40 Pulse Ox 93 09/10/23 04:00 O2 Del Method Nasal Cannula 09/10/23 07:40 O2 Flow Rate 2 09/10/23 07:40 FiO2 95 09/10/23 07:40 BMI result Body Mass Index 24.9 Const: General: comfortable, no acute distress and alert Orientation/consciousness: patient oriented x3 Chest: Other: subq emphysema and crepitus almost resolved right lateral chest incision sites clean, chest tube site dressing intact Resp: Effort & Inspection: normal respiratory effort and able to speak in complete sentences Auscultation: rhonchi Cardio: Rate: regular rate Skin: General skin exam: no rashes or lesions noted Neuro: General: patient oriented x3 and moves all extremities Extrem: General: Yes no clubbing, cyanosis or edema DS: Data Data Completed and Pending Completed studies during hospitalization [Text1]: 09/04/23 09:23 Surgical [PTH] Routine A. Lymph node, 9R, biopsy: -Lymph node with anthracotic pigment, 2 pieces; negative for metastatic carcinoma. B. Lymph node, 10R, biopsy: -Lymph node with anthracotic pigment, 1 piece; negative for metastatic carcinoma. C. Lung, right lower lobe, lobectomy: -Adenocarcinoma, moderately-differentiated (G2), 1.1 cm (pT1b) -Atypical adenomatous hyperplasia. -Carcinoid tumorlet. -Emphysema. D. Lymph node, 7, biopsy: -Lymph node with anthracotic pigment, 2 pieces; negative for metastatic carcinoma Pending studies at discharge: Pending at discharge 09/04/23 11:44 Surgical [PTH] Routine 09/04/23 11:51 Surgical [PTH] Routine 09/04/23 12:03 Surgical [PTH] Routine Discharge Plan Discharge Anticipated Discharge Date/Time: 09/08/23 14:15 Patient Disposition: Xfer SNF Discharge Diagnosis: s/p VATS right lower lobectomy Referrals: [facility] [Outside] - 1 Week Nai Bradley MD [Primary Care Provider] - 1 Week Marlo Sorto MD [Physician] - 1 Week Discharge Medications: New docusate sodium [Colace] 100 mg capsule 100 mg PO BID PRN (Reason: constipation) Qty: 30 0RF oxycodone 5 mg tablet 5 mg PO Q4H PRN (Reason: pain (scale score 7-10)) Qty: 30 0RF Rx Instructions: Partial Fill upon patient request. Take 1-2 tablets every 4-6 hours as needed for pain. nicotine 14 mg/24 hr patch 24 hour 1 patch transdermal DAILY Qty: 14 0RF Continued Trelegy Ellipta 200-62.5-25 mcg blister with device 1 ea inhalation DAILY 30 Days Qty: 60 3RF multivitamin Tablet 1 tab PO DAILY atorvastatin 20 mg tablet 20 mg PO BEDTIME aspirin 81 mg Tablet,Delayed Release (Dr/Ec) 81 mg PO DAILY diazepam 10 mg tablet 10 mg PO BID PRN (Reason: Anxiety) prazosin 5 mg capsule 5 mg PO BEDTIME omeprazole 20 mg capsule,delayed release(DR/EC) 20 mg PO DAILY@0630 tramadol 50 mg tablet 50 mg PO TID PRN (Reason: Pain) fluoxetine 40 mg capsule 40 mg PO DAILY albuterol sulfate [Ventolin HFA] 90 mcg/actuation HFA aerosol inhaler 2 puff INHALATION Q4H PRN (Reason: wheezing) topiramate 25 mg tablet 25 mg PO DAILY guaifenesin [Mucus Relief ER] 600 mg tablet extended release 12hr 600 mg PO BID PRN (Reason: Congestion) buspirone 5 mg tablet 5 mg PO TID lidocaine [Lidocaine Pain Relief] 4 % Adhesive Patch,Medicated 1 patch transdermal DAILY Qty: 15 1RF Protocol: Apply to: Apply to: rib cage bupropion HCl 300 mg tablet extended release 24 hr 300 mg PO DAILY fluticasone propionate 50 mcg/actuation spray,suspension 1 spray intranasal DAILY PRN (Reason: Allergy Symptoms) Discharge Orders: Discharge Order (Routine); Ordered 09/10/23 Ordered By: Ashely Wahl Diet: Advance to usual diet Activity on Discharge: No heavy lifting Stand Alone Forms: Patient Portal Discharge page Activity Restrictions/Additional Instructions: Apply an ice pack for short intervals (20 minutes on, followed by at least 20 minutes off) for the first 2 days. Do not apply heat. Do not use creams, lotions, or topical antibiotics. These can cause infection or allergic reaction. Ok to shower 48 hours after your surgery. You have steri strips (small white cloth strips) covering your incision- these will fall off ~1 week. Can change chest tube drain site daily and stop when site closes and stops draining. Follow up in office with Dr. Sorto in 1 week. ([phone]) No heavy lifting (>10lbs) or strenuous activity! Call Your Doctor If: -Your temperature exceeds 101.5? F -You experience excessive pain or swelling -You have an unexpected reaction to medication -You have excessive bleeding -You experience continued vomiting/nausea -Your incision begins to separate -Your incision shows signs of infection such as increased redness, swelling, excessive pain, drainage (light blood or clear fluid is normal) or heat Care Plan Goals: Return to baseline health and resume normal activities following recovery period. Health Concerns: COPD right lower lobe lung CA current smoker Plan of Treatment: s/p VATS right lower lobectomy transfer to STR f/u in office in 1 week Assessment: Doing well post op
[2023-09-10] MEDS: oxyCODONE HCl Immed Release 5 MG TABLET PO (13:06)
--- NOTE | 2023-09-10 15:19 | MHC.CM.PN ---
CM received a call from Patient and her Boyfriend/Vamsi, from [facility]. Patient was asking why can not receive IV Dilaudid at the SNF level and had other questions about her meds. CM encouraged Patient to ask to speak to the DON and her Rectification Printer. CM will follow PRN.
--- NOTE | 2023-09-11 13:41 | W.MHC.F2F ---
Service Date Service Date: 09/11/23 Encounter Date of encounter: 09/10/23 Reasons for Services Signs and symptoms assessed: incisional pain, incision appearance, IS use Reason for correction: wound care and postoperative assessment and/or care Homebound: Leaving the home is medically contraindicated at this time without the asist of a device and/or another person due th the listed conditions above and below. Reason homebound: weakness related to hospital stay and unable to drive Homebound supporting statement: Ms. Brody underwent a VATS right lower lobectomy. She is deconditioned from her hospital stay. She will need VNA services for post op care and assessment. Certification: Based on the above findings, I certify that this patient is confined to the home and needs intermittent correction care, physical therapy and/or speech therapy, or continues to need occupational therapy. The patient is under my care, and I have initiated the establishment of the plan of care. The patient will be followed by a physician who will periodically review the plan of care. Time Spent With Patient Time: Total time managing care of this patient today ____ minutes.
== END 2023-09-10 14:12 | disposition skilled nursing facility (03) | DRG 165 ==
LOC: HO.SSSA 07:43 → HO.ICU 13:38 → HO.IMC 09-05 15:57
PROVIDERS: Anesthesiology; Internal Medicine Pulmonary Disease; Physician Assistant Surgical; Admitting Provider Surgery; PCP Internal Medicine; Visit Provider Surgery
PROC: 0BTF4ZZ Resection of Right Lower Lung Lobe, Percutaneous Endoscopic Approach (ICD-10-PCS; principal; 2023-09-04 07:30)
DX: C34.31 Malignant neoplasm of lower lobe, right bronchus or lung (principal); I10 Essential (primary) hypertension; J44.9 Chronic obstructive pulmonary disease, unspecified; T81.82XA Emphysema (subcutaneous) resulting from a procedure, initial encounter; F17.210 Nicotine dependence, cigarettes, uncomplicated; Z71.6 Tobacco abuse counseling; D64.89 Other specified anemias; Z79.51 Long term (current) use of inhaled steroids; Z79.82 Long term (current) use of aspirin; Z79.899 Other long term (current) drug therapy
CPT/HCPCS: 36415; 71045; 74018; 80048; 82040; 82803; 83735; 84100; 85025; 85027; 86850; 86900; 86901; 88305; 88309; 88341; 88342; 94640; 97161; J0131; J0690; J1100; J1170; J1643; J2250; J2270; J2405; J2550; J2795; J3010; J3475

== ENCOUNTER → 2023-09-04 07:40 | Outpatient (BNV) | payer MEDICARE, MEDICAID, SELFPAY | PROVIDERS: Admitting Provider Surgery; PCP Internal Medicine; Visit Provider Hospitalist | DX: I10 Essential (primary) hypertension (principal); Z90.2 Acquired absence of lung [part of] | CPT/HCPCS: 99232; 99233 ==

== ENCOUNTER → 2023-09-04 07:40 | Outpatient (BNV) | payer MEDICARE, MEDICAID, SELFPAY | PROVIDERS: Admitting Provider Surgery; PCP Internal Medicine; Visit Provider Internal Medicine Pulmonary Disease | DX: C34.30 Malignant neoplasm of lower lobe, unspecified bronchus or lung (principal); Z90.2 Acquired absence of lung [part of]; J44.9 Chronic obstructive pulmonary disease, unspecified | CPT/HCPCS: 99222; 99232 ==

== ENCOUNTER → 2023-09-04 07:40 | Outpatient (BNV) | payer MEDICARE, MEDICAID, SELFPAY | PROVIDERS: Admitting Provider Surgery; PCP Internal Medicine; Visit Provider Surgery | DX: C34.30 Malignant neoplasm of lower lobe, unspecified bronchus or lung (principal); Z90.2 Acquired absence of lung [part of] | CPT/HCPCS: 32663; 99024; G0180 ==

== ENCOUNTER 2023-09-23 13:18 | Outpatient (AMB) | payer MEDICARE, MEDICAID, SELFPAY ==
[2023-09-23 13:32] VITALS: BP 113/72; PULSE 78
--- NOTE | 2023-09-23 13:32 | MHC.OFFVIS ---
Intake Vital Signs 09/23/23 13:32 Weight 117 lb BP 113/72 Blood Pressure Location Rt brachial Position Sitting Pulse 78 Intake Visit Reasons: S/p bronchoscopy Intake Note: Patient here s/p bronchoscopy/ Rt lower lobectomy on 09-04-23. C/o severe pain. Oxycodone rx not touching the pain. 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 She has no respiratory symptoms or complaints. She does not have incisional pain but is having postop and intercostal nerve neuralgic symptoms which is expected from her procedure. Pathology was once again reviewed as was done while she was in the hospital. She has not smoked since hospitalization. She was not content with the [facility] facility she was assigned. O2 saturation 97% on room air [facility] Medical History History of ectopic 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 Allergic rhinitis COPD (chronic obstructive pulmonary disease) Current smoker History of herniated intervertebral disc Scoliosis IBS (irritable bowel syndrome) History of depression DJD (degenerative joint disease) Hypertension Hyperlipidemia Urinary incontinence PTSD (post-traumatic stress disorder) Anxiety Surgical History History of lobectomy of lung History of ovarian cystectomy History of biopsy History of cystoscopy History of dilation of urethra History of colonoscopy History of endoscopy History of lung biopsy History of bladder surgery History of blepharoplasty History of hysterectomy History of bladder suspension procedure Family History Mother CHF (congestive heart failure) Maternal Uncle Coronary bypass graft mechanical complication Social History Household Members: None Housing: Apartment Are you a primary urgent care physician to a significant other at home: No Do you presently have visiting nurse or other home services: Yes (NURSE) Alcohol intake: current Alcohol intake frequency: holidays/special occasions only Alcohol type: beer Patient Tobacco Use Status: Current everyday Tobacco user Tobacco use type: Cigarette Cigarette Packs Per Day: 0.5 Cigarettes Per Day: 6 Years Smoked: 47 Second Hand Smoke Exposure: No Substance Use Type: Marijuana Advance Directives Date on File: 05/10/23 service: No Physical Exam Vital Signs: Last Vital Signs Pulse 78 09/23/23 13:32 BP 113/72 09/23/23 13:32 Chest Other: Chest breath sounds bilaterally, incisions all clean dry and intact. GI Other: Abdomen soft, benign Assessment & Plan Assessment & Plan (1) Status post lobectomy of lung: Comment: VATS right lower lobectomy, mediastinal lymph node sampling 09/04/23 Code(s): Z90.2 - Acquired absence of lung [part of] (2) Lung cancer, lower lobe: Comment: Adeno carcinoma right lower lobe, localized. Patient is to undergo a right lower lobectomy. Code(s): C34.30 - Malignant neoplasm of lower lobe, unspecified bronchus or lung Plan Patient and her significant other was also present been given local instructions. She is only approximately 2 weeks postop. She will need another 6-8 weeks to be fully convalesced. Patient will be provided script for Yadira and will see me as directed or p.r.n.. Coding Level of Care Code Global (28541) Diagnoses Status post lobectomy of lung Z90.2 Lung cancer, lower lobe C34.30
== END 2023-09-23 13:52 | disposition home or self-care (01) ==
PROVIDERS: PCP Internal Medicine; Visit Provider Surgery
DX: Z90.2 Acquired absence of lung [part of] (principal); C34.30 Malignant neoplasm of lower lobe, unspecified bronchus or lung
CPT/HCPCS: 99024

== ENCOUNTER → 2023-09-23 13:18 | Outpatient (BNVA) | payer MEDICARE, MEDICAID, SELFPAY | PROVIDERS: PCP Internal Medicine; Visit Provider Surgery ==

== ENCOUNTER 2023-11-05 11:37 | Outpatient (AMB) | payer MEDICARE, MEDICAID, SELFPAY ==
[2023-11-05 11:43] VITALS: BP 123/75; PULSE 95
--- NOTE | 2023-11-05 11:43 | A.OFFVIS_ITS ---
Intake Vital Signs 11/05/23 11:43 Weight 115 lb BP 123/75 Blood Pressure Location Rt brachial Position Sitting Pulse 95 Intake Visit Reasons: 1 mth follow up bronchoscopy Intake Note: Patient here for 1m follow up bronchoscopy on 09/04/23. Patient feeling much better. Denies pain or discomfort. 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 She has maintained her absence of smoking. She is taking nicotine patch. Patient has no respiratory issues or complaints. She has minimal incisional discomfort. [facility] Medical History History of ectopic 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 Allergic rhinitis COPD (chronic obstructive pulmonary disease) Current smoker History of herniated intervertebral disc Scoliosis IBS (irritable bowel syndrome) History of depression DJD (degenerative joint disease) Hypertension Hyperlipidemia Urinary incontinence PTSD (post-traumatic stress disorder) Anxiety Surgical History History of lobectomy of lung History of ovarian cystectomy History of biopsy History of cystoscopy History of dilation of urethra History of colonoscopy History of endoscopy History of lung biopsy History of bladder surgery History of blepharoplasty History of hysterectomy History of bladder suspension procedure Family History Mother CHF (congestive heart failure) Maternal Uncle Coronary bypass graft mechanical complication Social History Household Members: None Housing: Apartment Are you a primary md do resident urgent care to a significant other at home: No Do you presently have visiting nurse or other home services: Yes (NURSE) Alcohol intake: current Alcohol intake frequency: holidays/special occasions only Alcohol type: beer Patient Tobacco Use Status: Current everyday Tobacco user Tobacco use type: Cigarette Cigarette Packs Per Day: 0.5 Cigarettes Per Day: 6 Years Smoked: 47 Second Hand Smoke Exposure: No Substance Use Type: Marijuana Advance Directives Date on File: 05/10/23 service: No Physical Exam Vital Signs: Last Vital Signs Pulse 95 11/05/23 11:43 BP 123/75 11/05/23 11:43 Chest Other: Chest breath sounds bilaterally. Chest right chest incisions all clean dry and intact healing very well. Assessment & Plan Assessment & Plan (1) Status post lobectomy of lung: Comment: VATS right lower lobectomy, mediastinal lymph node sampling 09/04/23 Code(s): Z90.2 - Acquired absence of lung [part of] Plan Surgical perspective, patient has done very well. Although I do not think any adjuvant therapy is required, patient will undergo oncology consultation just to make sure. She will otherwise follow-up with me p.r.n.. All questions answered Coding Level of Care Code Global (86395) Diagnoses Status post lobectomy of lung Z90.2
== END 2023-11-05 11:59 | disposition home or self-care (01) ==
PROVIDERS: PCP Internal Medicine; Visit Provider Surgery
DX: Z90.2 Acquired absence of lung [part of] (principal)
CPT/HCPCS: 99024

== ENCOUNTER → 2023-11-05 11:37 | Outpatient (BNVA) | payer MEDICARE, MEDICAID, SELFPAY | PROVIDERS: PCP Internal Medicine; Visit Provider Surgery | DX: Z09 Encounter for follow-up examination after completed treatment for conditions other than malignant neoplasm (principal); Z90.2 Acquired absence of lung [part of] | CPT/HCPCS: 99212 ==

== ENCOUNTER 2023-11-06 10:57 | Outpatient (REF) | payer MEDICARE, MEDICAID, SELFPAY ==
--- NOTE | ~2023-11-06 | US_ITS ---
EXAMINATION: US DIAGNOSTIC ULTRASOUND BREAST, BILATERAL CLINICAL INFORMATION: Right breast pain and lump since September 04, upper outer and retroareolar. Patient stating left breast pain upper aspect. Patient refused mammography today due to pain from lung surgery on September 04 for a lung tumor. COMPARISON: None available. TECHNIQUE: Ultrasound of the both breasts was performed with real-time tyler scale imaging and color Doppler. Attention on the right was given to the pain and lump spanning the 5:00 to 1:00 region. Attention was given to the left breast in the region of pain spanning the 10:00 to 4:00 region. FINDINGS: There is no focal suspicious finding. There is no solid mass, architectural abnormality, duct ectasia, or edema in the soft tissue planes. No cystic abnormalities. No sonographic correlate to either of the patient's complaints in either breast. Results are discussed with the patient at time of visit. US/US breast BI limited mamm only IMPRESSION: No findings suspicious for malignancy. No correlate to the patient's complaints in either breast. Recommend clinical management and follow-up. Patient states she will return at a later date for screening/diagnostic mammography. ASSESSMENT: BI-RADS 1: Negative RECOMMENDATION: 1. Patient should be managed based on the clinical impression. Decision to proceed with biopsy should be based on clinical grounds and degree of clinical concern. 2. Otherwise, routine annual screening mammography. This patient's information was entered into a reminder system with a target due date for their next mammogram.
== END 2023-11-06 10:58 | disposition home or self-care (01) ==
LOC: HO.MAMMO 10:57
PROVIDERS: PCP Internal Medicine; Visit Provider Internal Medicine
DX: M54.40 Lumbago with sciatica, unspecified side (principal); G89.29 Other chronic pain
CPT/HCPCS: 76642

== ENCOUNTER → 2023-11-06 11:00 | Outpatient (BNV) | payer MEDICARE, MEDICAID, SELFPAY | PROVIDERS: PCP Internal Medicine; Visit Provider Radiology Diagnostic Radiology | DX: N63.11 Unspecified lump in the right breast, upper outer quadrant (principal) | CPT/HCPCS: 76642 ==

== ENCOUNTER 2023-11-11 13:54 | Outpatient (AMB) | payer MEDICARE, MEDICAID, SELFPAY ==
--- NOTE | 2023-11-11 14:07 | A.OFFVIS_ITS ---
Intake Vital Signs 11/11/23 14:08 Height 5 ft 1 in Weight 117 lb 15.157 oz BMI 22.3 BP 110/70 Blood Pressure Location Lt brachial Position Sitting Pulse 101 H Pulse Source Pulse Oximeter Pulse Oximetry (%) 96 Oxygen Delivery Method Room Air Intake Visit Reasons: COPD Intake Note: pt is here for follow up and states her lungs hurt and spitting up green phlegm. Right now using otc decongestion. Finished z-lior 2 weeks ago. not much coughing. 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 Allergies codeine [CODEINE] Allergy (Intermediate, Verified 11/11/23 14:44) ITCHING hydrocodone [HYDROCODONE] Allergy (Intermediate, Verified 11/11/23 14:44) ITCHING diphenhydramine [From BENADRYL] Adverse Reaction (Intermediate, Verified 11/11/23 14:44) JITTERY Medication List - Last Reconciled 11/11/23 by Otto Cowan MD albuterol sulfate 90 mcg/actuation (Ventolin HFA) 2 puffs inhalation Q4H PRN aspirin 81 mg PO DAILY atorvastatin 20 mg PO BEDTIME bupropion HCl 300 mg PO DAILY buspirone 5 mg PO TID diazepam 10 mg PO BID PRN docusate sodium (Colace) 100 mg PO BID PRN fluticasone propionate 50 mcg/actuation 1 spray intranasal DAILY PRN rlwwvgilrsc-rmyviwjjy-ihqntbaj 200-62.5-25 mcg (Trelegy Ellipta) 1 ea inhalation DAILY 30 days ibuprofen 800 mg PO Q8H PRN lidocaine 4% (Lidocaine Pain Relief) 1 patch See Protocol transdermal DAILY multivitamin 1 tab PO DAILY nicotine 1 patch transdermal DAILY omeprazole 20 mg PO DAILY@0630 prazosin 5 mg PO BEDTIME topiramate 25 mg PO DAILY tramadol 50 mg PO TID PRN Do you need a note to return to daycare/school/sports/work: No HPI COPD HPI Details THIS 63 YEARS OLD VERY PLEASANT FEMALE, IS THE STATUS POST RIGHT LOWER LOBECTOMY , IN SEPTEMBER 2023, FOR STAGE I ADENO CARCINOMA. SHE HAS DONE VERY WELL, EXCEPT FOR SOME RESIDUAL PAIN IN THE RIGHT LOWER COSTAL AREA, WHICH IS GRADUALLY DECREASING. SHE USES ONLY TYLENOL P.R.N.. SHE HAS NOT SMOKED FOR THE PAST FEW MONTHS. HER ANXIETY LEVEL IS DEFINITELY LESS. SHE GETS AROUND VIA OKAY. SHE DID HAVE OR SV INFECTION A FEW WEEKS AGO TREATED WITH A COURSE OF Z-LIOR, AND SYMPTOMATIC AGENTS. SHE NOW SHE FEELS BACK TO HER BASELINE. [facility] Medical History History of ectopic 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 Allergic rhinitis COPD (chronic obstructive pulmonary disease) Current smoker History of herniated intervertebral disc Scoliosis IBS (irritable bowel syndrome) History of depression DJD (degenerative joint disease) Hypertension Hyperlipidemia Urinary incontinence PTSD (post-traumatic stress disorder) Anxiety Surgical History History of lobectomy of lung History of ovarian cystectomy History of biopsy History of cystoscopy History of dilation of urethra History of colonoscopy History of endoscopy History of lung biopsy History of bladder surgery History of blepharoplasty History of hysterectomy History of bladder suspension procedure Family History Mother CHF (congestive heart failure) Maternal Uncle Coronary bypass graft mechanical complication Social History Household Members: None Housing: Apartment Are you a primary senior care specialist to a significant other at home: No Do you presently have visiting nurse or other home services: Yes (NURSE) Alcohol intake: current Alcohol intake frequency: holidays/special occasions only Alcohol type: beer Patient Tobacco Use Status: Former Tobacco user Quit Date: a few days ago Tobacco use type: Cigarette Cigarette Packs Per Day: 0.5 Cigarettes Per Day: 6 Years Smoked: 47 Second Hand Smoke Exposure: No Substance Use Type: Marijuana Advance Directives Date on File: 05/10/23 service: No Review of Systems Const Details: PATIENT IS VERY ANXIOUS BUT PHYSICALLY SHE IS NOT IN ANY DISTRESS. All systems reviewed & are unremarkable except as noted in HPI and below Eyes Reports no additional complaints ENT Reports nasal congestion (Mild off and on) Card Denies irregular heart rhythm and Denies leg edema Resp Reports as per HPI GI Reports no additional complaints Reports no additional complaints Musc Reports back pain (Mild off and on) Skin/Breast Reports system reviewed and no additional complaints, except as documented Neuro Reports no additional complaints Psych Reports anxiety and Reports depression Endo Reports no additional complaints Baljinder/Lymph Reports no additional complaints Aller/Immun Reports no additional complaints Physical Exam Vital Signs: Last Vital Signs Pulse 101 H 11/11/23 14:08 BP 110/70 11/11/23 14:08 Pulse Ox 96 11/11/23 14:08 Oxygen Delivery Method Room Air 11/11/23 14:08 BMI result Body Mass Index 22.3 Const General: healthy appearing, comfortable, no acute distress, alert and awake Orientation/consciousness: patient oriented x3 HEENT Head: Yes normal to inspection General nose exam: No nasal polyps present and No nasal discharge present Face and sinus: Yes sinuses nontender Mouth: oropharynx normal Throat: Yes posterior oropharynx normal Eyes General: appearance normal, both eyes and all related structures Neck Neck: Yes normal visual inspection, Yes no lymphadenopathy, Yes trachea midline and Yes no JVD Thyroid: Thyroid normal Chest Chest palpation & inspection: normal inspection of the chest, normal palpation of entire chest wall and no tenderness Resp Other: Percussion note is resonant, breath sounds are distant. There are no audible wheezes rhonchi or crepitations. Cardio Palpation: normal PMI Rate: regular rate Rhythm: regular rhythm Heart sounds: no gallops and no murmurs GI Palpation (GI): Soft to palpation, nontender, No hepatosplenomegaly present and no masses Auscultation: normal bowel sounds Back/Spine/Pelvis Thoracic/Lumbar Spine: thoracic and lumbar spine normal to inspection Skin General skin exam: no rashes or lesions noted Neuro General: patient oriented x3 and no focal motor deficits Cranial nerves: Yes CN's II-XII intact bilaterally Extrem General: Yes normal to inspection, Yes no clubbing, cyanosis or edema and Yes no calf tenderness Psych Appearance: grossly normal and well kempt Speech and movement: Normal speech and movement present Affect: Anxious affect present Assessment & Plan Assessment & Plan (1) COPD (chronic obstructive pulmonary disease): Comment: (COPD, MILD TO MODERATELY SEVERE , CONTROLLED AND STABLE. Code(s): J44.9 - Chronic obstructive pulmonary disease, unspecified Plan: TX: CONTINUE TRELEGY ELLIPTA 1 INHALATION DAILY .( agrees with her ) ALBUTEROL HFA 2 PUFFS Q 4-6 HOURS P.R.N./ OR ALBUTEROL SOLUTION IN THE NEBULIZER Q 4-6 HOURS P.R.N.. (2) Status post lobectomy of lung: Comment: VATS right lower lobectomy, mediastinal lymph node sampling 09/04/23 PATIENT HAS RECOVERED WELL EXCEPT FOR MINIMAL DISCOMFORT OVER THE RIGHT LOWER RIBCAGE AREA. Code(s): Z90.2 - Acquired absence of lung [part of] Plan: PATIENT IS REASSURED, EXPLAINED ABOUT WHY SHE COULD HAVE SOME RESIDUAL DISCOMFORT IN THE RIBCAGE. MAY USE TYLENOL 2 TABLETS Q.6 HOURS P.R.N. (3) Lung cancer, lower lobe: Comment: Adeno carcinoma right lower lobe, localized. SUCCESSFULLY TREATED WITH VATS ASSISTED RIGHT LOWER LOBECTOMY BY DR. POST . Code(s): C34.30 - Malignant neoplasm of lower lobe, unspecified bronchus or lung Plan: PATIENT DOES HAVE APPOINTMENT WITH ONCOLOGY SERVICE FOR CONSULTATION. WHETHER SHE WOULD NEED ADJUVANT CHEMOTHERAPY ARE NOT. Coding Level of Care Code Est Pt Level 3 (07816) Diagnoses COPD (chronic obstructive pulmonary disease) J44.9 Status post lobectomy of lung Z90.2 Lung cancer, lower lobe C34.30
[2023-11-11 14:08] VITALS: BP 110/70; PULSE 101; O2SAT 96; BMI 22.3
== END 2023-11-11 14:42 | disposition home or self-care (01) ==
PROVIDERS: PCP Internal Medicine; Visit Provider Internal Medicine
DX: J44.9 Chronic obstructive pulmonary disease, unspecified (principal); Z90.2 Acquired absence of lung [part of]; C34.30 Malignant neoplasm of lower lobe, unspecified bronchus or lung
CPT/HCPCS: 99213

== ENCOUNTER → 2023-11-11 13:54 | Outpatient (BNVA) | payer MEDICARE, MEDICAID, SELFPAY | PROVIDERS: PCP Internal Medicine; Visit Provider Internal Medicine | DX: J44.9 Chronic obstructive pulmonary disease, unspecified (principal); C34.30 Malignant neoplasm of lower lobe, unspecified bronchus or lung; Z90.2 Acquired absence of lung [part of] | CPT/HCPCS: 99212 ==

== ENCOUNTER → 2023-12-03 13:20 | Outpatient (BNV) | payer MEDICARE, MEDICAID, SELFPAY | PROVIDERS: PCP Surgery; Referring Provider Surgery; Visit Provider Internal Medicine | DX: C34.30 Malignant neoplasm of lower lobe, unspecified bronchus or lung (principal) | CPT/HCPCS: 99202; 99204 ==

== ENCOUNTER 2023-12-18 13:15 | Outpatient (REF) | payer MEDICARE, MEDICAID, SELFPAY ==
--- NOTE | ~2023-12-18 | CT_ITS ---
EXAMINATION: CT CHEST WITH CONTRAST CLINICAL INFORMATION: Surveillance. Lung cancer. COMPARISON: Previous chest CT scans most recent May 2023 TECHNIQUE: Multidetector volumetric CT imaging of the chest was obtained after the administration of 65 mL of Omnipaque 350 intravenous contrast without immediate adverse reactions. Axial MIP volume rendering provided. Sagittal and coronal reformatted images were obtained. This CT examination was performed using dose optimization techniques as appropriate, variously including the following: *Automated exposure control *Adjustment of mA and/or kV according to patient size (this includes techniques or standardized protocols for targeted exams where dose is matched to indication/reason for exam; i.e. extremities or head) *Use of iterative reconstruction technique DLP: 78 mGy-cm FINDINGS: LUNGS: New postsurgical changes following right lower lobe lobectomy. Micronodules in both upper lobes measuring maximum 2 m are similar to prior exams. Lungs are otherwise clear. MEDIASTINUM: Small stable noncalcified nodule in the right lobe the thyroid gland. No follow-up recommended based on size of nodule and patient age. Normal heart size. No pericardial effusion. Normal caliber thoracic aorta. No coronary artery calcification. No enlarged hilar or lymph nodes. PLEURA: Trace right pleural effusion and right lung base. AXILLA: No lymphadenopathy. UPPER ABDOMEN: May be mild fatty infiltration of the OSSEOUS STRUCTURES: Degenerative changes spine. Sclerotic focus in the superior plate body that is stable. CT/CT chest w IV con IMPRESSION: New postsurgical changes following right lower lobe lobectomy. Fleischner guidelines were followed.
[2023-12-18 13:51] LABS: Blood Urea Nitrogen 14 mg/dL (9-16); Estimated Glomerular Filt Rate > 60
[2023-12-18] MEDS: iohexoL 350 MG/ML 100 ML INFUS..BTL 65 ML IV (15:18)
== END 2023-12-18 13:16 | disposition home or self-care (01) ==
LOC: HO.CT 13:15
PROVIDERS: Visit Provider Internal Medicine
DX: C34.30 Malignant neoplasm of lower lobe, unspecified bronchus or lung (principal); Z90.2 Acquired absence of lung [part of]
CPT/HCPCS: 36415; 71260; 82565; 84520; Q9967

== ENCOUNTER 2023-12-20 19:50 | Emergency (ER) | payer MEDICARE, MEDICAID, SELFPAY ==
--- NOTE | ~2023-12-20 | XR_ITS ---
EXAMINATION: XR CHEST CLINICAL INFORMATION: Status post right lower lobe lobectomy, pain. COMPARISON: CT chest 12/18/2023. TECHNIQUE: 2 views of the chest were obtained. FINDINGS: Postsurgical changes from right lower lobe lobectomy. Stable platelike opacities in the left lung base favored to represent subsegmental atelectasis. No new focal airspace densities. No pleural effusion or pneumothorax. Normal appearance of the cardiomediastinal silhouette. Mild thoracic spondylosis. No acute osseous findings. XR/XR chest 2V IMPRESSION: 1. Stable postsurgical changes from right lower lobe lobectomy. 2. No acute cardiopulmonary findings.
--- NOTE | 2023-12-20 20:03 | ED.SOB ---
HPI - SOB/Dyspnea General Chief Complaint: General Medical Stated Complaint: feeling sick, cough & stuffy nose x2wks Time Seen by Provider: 12/20/23 19:51 Source: patient Mode of arrival: EMS Limitations: no limitations History of Present Illness HPI Narrative: Patient ex smoker with history of COPD , right lower lobe adenocarcinoma status post resection 09/04/23 been having pain in the right lower ribs area since surgery was done as taken multiple courses of Z-Luis A and prednisone just finished in the course of Z-Luis A and prednisone 2 days ago comes back as still having cough with muco purulent expectoration no fever no chills had nasal congestion Related Data Home Medications Medication Instructions Recorded Confirmed aspirin 81 mg tablet,delayed 81 mg PO DAILY 12/21/20 12/03/23 release atorvastatin 20 mg tablet 20 mg PO BEDTIME 12/21/20 12/03/23 diazepam 10 mg tablet 10 mg PO BID PRN Anxiety 12/21/20 12/03/23 multivitamin 1 tab PO DAILY 12/21/20 12/03/23 bupropion HCl 300 mg 24 hr tablet, 300 mg PO DAILY 02/14/23 12/03/23 extended release fluticasone propionate 50 1 spray intranasal DAILY PRN 02/14/23 12/03/23 mcg/actuation nasal Allergy Symptoms spray,suspension omeprazole 20 mg capsule,delayed 20 mg PO DAILY@0630 05/17/23 12/03/23 release prazosin 5 mg capsule 5 mg PO BEDTIME 05/17/23 12/03/23 albuterol sulfate 90 mcg/actuation 2 puff inhalation Q4H PRN wheezing 05/31/23 12/03/23 aerosol inhaler (Ventolin HFA) buspirone 5 mg tablet 5 mg PO TID 05/31/23 12/03/23 topiramate 25 mg tablet 25 mg PO DAILY 05/31/23 12/03/23 Previous Rx's Medication Instructions Recorded lidocaine 4 % topical patch 1 patch transdermal DAILY #15 ea 06/02/23 (Lidocaine Pain Relief) fluticasone fur. 200 mcg-umeclid 1 ea inhalation DAILY 30 days #60 07/08/23 62.5 mcg-vilant 25 mcg ea inhalat.powder (Trelegy Ellipta) docusate sodium 100 mg capsule 100 mg PO BID PRN constipation #30 09/11/23 (Colace) caps nicotine 14 mg/24 hr daily 1 patch transdermal DAILY #14 ea 09/11/23 transdermal patch azithromycin 250 mg tablet See Rx Instructions PO .COMPLEX #6 12/12/23 tabs prednisone 10 mg tablet 10 mg PO BID COPD EXCERBATION 5 12/12/23 days #10 tabs amoxicillin 875 mg-potassium 1 tab PO BID #20 tabs 12/20/23 clavulanate 125 mg tablet guaifenesin 600 mg tablet, 600 mg PO BID PRN cough #20 tabs 12/20/23 extended release 12 hr Allergies Allergy/AdvReac Type Severity Reaction Status Date / Time codeine [CODEINE] Allergy Intermediate ITCHING Verified 12/03/23 13:55 hydrocodone [HYDROCODONE] Allergy Intermediate ITCHING Verified 12/03/23 13:55 diphenhydramine AdvReac Intermediate JITTERY Verified 12/03/23 13:55 [From BENADRYL] Review of Systems Review of Systems: Yes all other systems are reviewed and are negative PMFSH Past Medical History Medical History History of ectopic 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 Allergic rhinitis COPD (chronic obstructive pulmonary disease) Current smoker History of herniated intervertebral disc Scoliosis IBS (irritable bowel syndrome) History of depression DJD (degenerative joint disease) Hypertension Hyperlipidemia Urinary incontinence PTSD (post-traumatic stress disorder) Anxiety Surgical History History of lobectomy of lung History of ovarian cystectomy History of biopsy History of cystoscopy History of dilation of urethra History of colonoscopy History of endoscopy History of lung biopsy History of bladder surgery History of blepharoplasty History of hysterectomy History of bladder suspension procedure Family History Family History Mother CHF (congestive heart failure) Maternal Uncle Coronary bypass graft mechanical complication Social History Social History Household Members: None Housing: Apartment Are you a primary healthcare market consultant to a significant other at home: No Do you presently have visiting nurse or other home services: Yes (NURSE) Alcohol intake: current Alcohol intake frequency: holidays/special occasions only Alcohol type: beer Patient Tobacco Use Status: Former Tobacco user Quit Date: a few days ago Tobacco use type: Cigarette Cigarette Packs Per Day: 0.5 Years Smoked: 47 Second Hand Smoke Exposure: No Use of substances other than those prescribed or required for medical reasons: No Substance Use Type: Marijuana Advance Directives: Yes Advance Directives on File: Yes Advance Directives Date on File: 09/11/23 Patient : No service: No Physical Exam Vital Signs: Vital Signs: Last Vital Signs Temp 98.6 F 12/20/23 22:29 Pulse 86 12/20/23 22:29 Resp 16 12/20/23 22:29 BP 145/86 H 12/20/23 22:29 Pulse Ox 95 12/20/23 22:29 O2 Del Method Room Air 12/20/23 22:29 BMI result Body Mass Index 23.4 Appearance: Alert. Oriented X3. No acute distress. ENT: Pharynx normal. Oral Mucosa moist Neck: Normal inspection. Neck supple. CVS: Normal heart rate and rhythm. Pulses normal. Respiratory: No respiratory distress. Equal air entry bilateral, no wheezing/rales/rhonchi tender right lower rib at the site of surgery no pleural rubs Abdomen: Soft and nontender. Bowel sounds are present, no mass palpable, no CVA tenderness Skin: Skin warm and dry. Normal skin color. Normal skin turgor. Extremities: No lower extremity edema. No calf tenderness Neuro: Oriented X 3. Medications Administered Discontinued Medications Generic Name Dose Route Start Last Admin Trade Name Freq PRN Reason Stop Dose Admin Benzonatate 200 mg 12/20/23 21:42 12/20/23 21:55 Benzonatate 100 Mg Capsule PO 12/20/23 21:43 200 mg ONCE ONE Administration Ceftriaxone Sodium 1 gm/ 50 mls @ 100 mls/hr 12/20/23 21:44 12/20/23 22:27 Sodium Chloride IV 12/20/23 22:13 Infused ONCE ONE Infusion Medical Decision Making Medical Decision Making MDM Narrative: Patient ex smoker with history of COPD , right lower lobe adenocarcinoma status post resection comes in with persistent cough and inflammation in mid chest since surgery taken multiple courses of Z-Luis A workup again showed normal chest x-ray no significant signs of infection patient is likely her tracheobronchitis will give her Augmentin Differential Diagnosis Differential Diagnoses: The differential diagnosis associated with the presentation includes Acute anxiety/bronchitis/COPD/pneumonia Lab Data MDM Lab Attestation statement: I reviewed the patient's lab results. 12/20/23 20:35 12/20/23 20:35 Labs: Lab Results 12/20/23 Range/Units 20:35 WBC 11.6 H (4.8-10.8) X10*3/uL RBC 3.95 L (4.20-5.50) X10*6/uL Hgb 12.7 (12.0-16.0) g/dl Hct 37.9 (37.0-47.0) % MCV 95.9 (80.0-98.0) fL MCH 32.2 (27.0-33.0) pg MCHC 33.5 (31.0-35.0) g/dl RDW 13.6 (11.0-16.0) % Plt Count 271 D (160-400) X10*3/uL MPV 8.7 L (9.4-12.3) fL Immature Gran % (Auto) 0.3 (0.0-0.4) % Neut % (Auto) 66.1 (45-73) % Lymph % (Auto) 26.6 (20-40) % [place] % (Auto) 5.0 (2-11) % Eos % (Auto) 1.6 (0-4) % Baso % (Auto) 0.4 (0-2) % Lymph # (Auto) 3.1 (1.2-4.9) X10*3/uL [place] # (Auto) 0.6 (0.1-1.2) X10*3/uL Eos # (Auto) 0.2 (0.0-0.4) X10*3/uL Baso # (Auto) 0.1 (0.0-0.2) X10*3/uL Abs Immat Gran (auto) 0.03 (0.00-0.03) X10*3/uL Absolute Neuts (auto) 7.6 (2.0-8.3) x10*3/uL Absolute Nucleated RBC 0.000 (0.0-0.012) X10*3/uL Nucleated RBC % (auto) 0.0 (0.0-0.2) /100WBC Sodium 142 (135-145) mmol/L Potassium 3.6 (3.3-5.1) mmol/L Chloride 110 H (96-108) mmol/L Carbon Dioxide 25 (22-29) mmol/L Anion Gap 11 L (12-20) BUN 14 (9-16) mg/dL Creatinine 0.88 (0.5-1.4) mg/dL Estim Creat Clear Calc 46.3 Estimated GFR > 60 Random Glucose 131 H (60-115) mg/dL Calcium 8.9 D (8.4-10.2) mg/dL Total Bilirubin 0.1 (0.0-1.0) mg/dL AST 14 (5-31) U/L ALT 21 (0-31) U/L Alkaline Phosphatase 57 (39-117) U/L Total Protein 6.0 L (6.5-8.0) g/dL Albumin 3.7 (3.5-5.0) g/dL Influenza Type A (PCR) NEGATIVE (Negative) Influenza Type B (PCR) NEGATIVE (Negative) RSV RNA Qual (PCR) NEGATIVE (Negative) SARS-CoV-2 RNA (RT-PCR) NEGATIVE (Negative) Independent Interpretation I performed an independent interpretation of an: Plain X-Ray Radiology Impression Discussion of test interpretation with radiology: I have reviewed the radiologist's reading. Discharge Plan Discharge Clinical Impression: Acute bronchitis Patient Disposition: Home, Self-Care Instructions: Acute Bronchitis (ED) Additional Instructions: Continue nebulizing treatment cough drops as prescribed Take antibiotic as prescribed and follow-up with your vice president marketing & development Drink plenty of fluids Prescriptions: New amoxicillin-pot clavulanate 875-125 mg tablet 1 tab PO BID Qty: 20 0RF guaifenesin 600 mg tablet extended release 12hr 600 mg PO BID PRN (Reason: cough) Qty: 20 0RF No Action Trelegy Ellipta 200-62.5-25 mcg blister with device 1 ea inhalation DAILY 30 Days Qty: 60 3RF docusate sodium [Colace] 100 mg capsule 100 mg PO BID PRN (Reason: constipation) Qty: 30 0RF nicotine 14 mg/24 hr patch 24 hour 1 patch transdermal DAILY Qty: 14 0RF azithromycin 250 mg tablet See Rx Instructions PO .COMPLEX Qty: 6 0RF Rx Instructions: For 250 mg dose pack: take 500 mg today (day 1), then 250 mg for 4 days (days 2-5) PO prednisone 10 mg tablet 10 mg PO BID 5 Days Qty: 10 0RF multivitamin Tablet 1 tab PO DAILY atorvastatin 20 mg tablet 20 mg PO BEDTIME aspirin 81 mg Tablet,Delayed Release (Dr/Ec) 81 mg PO DAILY diazepam 10 mg tablet 10 mg PO BID PRN (Reason: Anxiety) prazosin 5 mg capsule 5 mg PO BEDTIME omeprazole 20 mg capsule,delayed release(DR/EC) 20 mg PO DAILY@0630 albuterol sulfate [Ventolin HFA] 90 mcg/actuation HFA aerosol inhaler 2 puff INHALATION Q4H PRN (Reason: wheezing) topiramate 25 mg tablet 25 mg PO DAILY buspirone 5 mg tablet 5 mg PO TID lidocaine [Lidocaine Pain Relief] 4 % Adhesive Patch,Medicated 1 patch transdermal DAILY Qty: 15 1RF Protocol: Apply to: Apply to: rib cage bupropion HCl 300 mg tablet extended release 24 hr 300 mg PO DAILY fluticasone propionate 50 mcg/actuation spray,suspension 1 spray intranasal DAILY PRN (Reason: Allergy Symptoms) Interventions: ED Discharge Assessment Last Done: 12/20/23 23:04 Discharge Date/Time: 12/20/23 23:05
[2023-12-20 20:04] VITALS: BP 164/90; PULSE 95; O2SAT 95
[2023-12-20 20:09] VITALS: BP 132/92; PULSE 99; RESP 18; O2SAT 96; BMI 23.4
--- OUTSIDE RECORDS SUMMARY | 2023-12-20 20:20 | XMS_ITS | Patient Health Record ---
Author Name Unknown Organization [facility] Address [address] [place] [id number] Care Team Providers Care Metal Caster Name Role Phone Nai Bradley M.D. Primary Care Provider Un available Mekhi Sauceda Jr Unavailable [phone] AUSTRIAN, IGOR Unavailable Unavailable ALLERGIES Allergen (clinical drug [...] Code Notes Problem Diarrhea (R19.7) Active confirmed 68243 [id number] Problem Change in bowel habit (R19.4) Active confirmed 534162027 Problem Irritable bowel syndrome without diarrhea (K58.9) Active confirmed 14873891 Problem Unspecified abdominal pain (R10.9) Active confirmed [id number] PLAN OF TREATMENT Future Test Test Name Order Date COLONOSCOPY 03/12/2013 COLONOSCOPY 12/08/2020 Insurance Providers Payer Name Payer Address Payer Phone Subscriber Number Group Number Insured Name Patient Relationship to Insured Coverage Start Date Coverage End Date MEDICARE OF [place] [address] [place] [id number] MIGUELITO DRUMMONDNA Self - patient is the insured MEDICAID OF [facility] [employer] [address] [place] [address] [id number] BHANU, GO Self - patient is the insured MEDICAL (GENERAL) HISTORY Medical History History ICD Code COPD Anxiety PTSD urinary incontinence hyperlipidemia hypertension degenerative joint disease Surgical History Surgery Date(Month/Year) Bladder sling ectopic ovarian cyst Hysterectomy urethea tube rebuild cyst removal - back shoulder
[2023-12-20 20:40] LABS: MANUAL DIFF FLAG NO
[2023-12-20 20:42] LABS: Basophils Absolute Auto 0.1 X10*3/uL (0.0-0.2); Basophils Percent Auto 0.4 % (0-2); Eosinophils Absolute Auto 0.2 X10*3/uL (0.0-0.4); Eosinophils Percent Auto 1.6 % (0-4); Hematocrit 37.9 % (37.0-47.0); Hemoglobin 12.7 g/dl (12.0-16.0); Imm Gran Abs Auto 0.03 X10*3/uL (0.00-0.03); Imm Gran Pct Auto 0.3 % (0.0-0.4); Lymphocytes Absolute Auto 3.1 X10*3/uL (1.2-4.9); Lymphocytes Percent Auto 26.6 % (20-40); Mean Corpuscular HGB Conc 33.5 g/dl (31.0-35.0); Mean Corpuscular Hemoglobin 32.2 pg (27.0-33.0); Mean Corpuscular Volume 95.9 fL (80.0-98.0); Mean Platelet Volume 8.7 fL (9.4-12.3); Monocytes Absolute Auto 0.6 X10*3/uL (0.1-1.2); Neutrophils Absolute Auto 7.6 x10*3/uL (2.0-8.3); Neutrophils Percent Auto 66.1 % (45-73); Platelet Count 271 X10*3/uL (160-400); Red Blood Count 3.95 X10*6/uL (4.20-5.50); Red Cell Distribution Width 13.6 % (11.0-16.0); White Blood Count 11.6 X10*3/uL (4.8-10.8)
[2023-12-20 20:57] LABS: Alanine Aminotransferase 21 U/L (0-31); Albumin Level 3.7 g/dL (3.5-5.0); Alkaline Phosphatase 57 U/L (39-117); Anion Gap 11 (12-20); Aspartate Amino Transferase 14 U/L (5-31); Bilirubin Total 0.1 mg/dL (0.0-1.0); Blood Urea Nitrogen 14 mg/dL (9-16); Calcium 8.9 mg/dL (8.4-10.2); Carbon Dioxide 25 mmol/L (22-29); Chloride 110 mmol/L (96-108); Creatinine Clr Calc Pharmacy 46.3; Estimated Glomerular Filt Rate > 60; Glucose Random 131 mg/dL (60-115); Potassium 3.6 mmol/L (3.3-5.1); Sodium 142 mmol/L (135-145)
[2023-12-20 21:18] LABS: Influenza A PCR NEGATIVE (Negative); Influenza B PCR NEGATIVE (Negative); Resp Syncy Virus RNA Qual PCR NEGATIVE (Negative); SARS COV2 PCR INHOUSE NEGATIVE (Negative)
[2023-12-20] MEDS: cefTRIAXone sodium 1 GM in 0.9 % Sodium Chloride 50 ML IV (21:55)
[2023-12-20] MEDS: Benzonatate 100 MG CAPSULE 200 MG PO (21:55)
[2023-12-20 22:29] VITALS: BP 145/86; PULSE 86; RESP 16; TEMP 37; O2SAT 95
== END 2023-12-20 23:05 | disposition home or self-care (01) ==
PROVIDERS: Emergency Provider Internal Medicine; PCP Internal Medicine
DX: R06.02 Shortness of breath (principal); R05.9 Cough, unspecified; R07.81 Pleurodynia; Z20.822 Contact with and (suspected) exposure to COVID-19; Z20.828 Contact with and (suspected) exposure to other viral communicable diseases; Z79.899 Other long term (current) drug therapy
CPT/HCPCS: 0241U; 71046; 80053; 85025; 87070; 87205; 96365; 99284; J0696

== ENCOUNTER → 2023-12-25 13:15 | Outpatient (BNV) | payer MEDICARE, MEDICAID, SELFPAY | PROVIDERS: PCP Internal Medicine; Visit Provider Radiology Diagnostic Radiology | DX: Z12.31 Encounter for screening mammogram for malignant neoplasm of breast (principal) | CPT/HCPCS: 77063; 77067 ==

== ENCOUNTER 2023-12-25 13:18 | Outpatient (REF) | payer MEDICARE, MEDICAID, SELFPAY ==
[2023-12-25 15:20] LABS: Appearance Urine Clear; Color Urine Yellow; Glucose Urine UA Negative (Negative); Leukocyte Esterase Urine Moderate (2+) (Negative); Nitrite Urine Negative (Negative); PH 5.5 (5.0-9.0); UMIC TRIGGER UACC YES; Urine Blood Negative (Negative); Urine Ketones Negative (Negative); Urine Protein Negative (Neg-Trace)
[2023-12-25 15:25] LABS: Amphetamine Screen Urine Not Detected (Not Detect); Barbiturates, Urine Not Detected (Not Detect); Benzodiazepines Screen Urine POSITIVE (Not Detect); Cannabinoid Screen Urine POSITIVE (Not Detect); Cocaine Screen Urine Not Detected (Not Detect); Fentanyl, urine Not Detected (Not Detect); Opiate Screen Urine POSITIVE (Not Detect); Phencyclidine Screen Urine Not Detected (Not Detect)
[2023-12-25 15:26] LABS: Bacteria Urine None Seen (None Seen); Hyaline Casts Urine 0-2 /LPF (0-2); RBC Urine 0-2 /HPF (0-2); Squamous Epithelial Cell Urine 0-2 /HPF (0-2); UACC Culture Trigger YES; WBC Urine 21-50 /HPF (0-5)
== END 2023-12-25 13:19 | disposition home or self-care (01) ==
LOC: HO.MAMMO 13:18
PROVIDERS: PCP Internal Medicine; Visit Provider Internal Medicine
DX: Z12.31 Encounter for screening mammogram for malignant neoplasm of breast (principal); R32 Unspecified urinary incontinence; F41.9 Anxiety disorder, unspecified; F19.20 Other psychoactive substance dependence, uncomplicated
CPT/HCPCS: 77063; 77067; 80307; 81001; 87086

== ENCOUNTER 2024-01-01 14:40 | Emergency (ER) | payer MEDICARE, MEDICAID, SELFPAY ==
--- NOTE | ~2024-01-01 | XR_ITS ---
EXAMINATION: XR CHEST CLINICAL INFORMATION: Shortness of breath COMPARISON: Chest radiograph from 12/20/2023 TECHNIQUE: Frontal view of the chest was obtained. FINDINGS: Postsurgical changes status post right lower lobe lobectomy. Streaky opacities left lung base potentially represents curvilinear atelectasis. No pneumothorax. Trachea is midline. Cardiac mediastinal silhouette is stable. Osseous structures are intact. Soft tissues are unremarkable. XR/XR chest 1V IMPRESSION: 1. Postsurgical changes status post right lower lobe lobectomy. 2. Streaky opacities left lung base potentially represents curvilinear atelectasis.
--- NOTE | ~2024-01-01 | CT_ITS ---
EXAMINATION: CT CHEST WITHOUT CONTRAST CLINICAL INFORMATION: Shortness of breath COMPARISON: Previous chest x-ray from earlier the same day and chest CT 12/18/2023 TECHNIQUE: Multidetector volumetric CT imaging of the chest was done. Axial MIP volume rendering provided. Sagittal and coronal reformatted images were obtained. This CT examination was performed using dose optimization techniques as appropriate, variously including the following: *Automated exposure control *Adjustment of mA and/or kV according to patient size (this includes techniques or standardized protocols for targeted exams where dose is matched to indication/reason for exam; i.e. extremities or head) *Use of iterative reconstruction technique DLP: 187 mGy-cm FINDINGS: LUNGS: Postsurgical changes following right lower lobe lobectomy. Increasing small peribronchial nodules and mild bronchial wall thickening suggestive of airways disease. Segmental atelectasis at both lung bases in the right middle and left lower lobes. MEDIASTINUM: Small calcified right thyroid nodule unchanged. The nodule size and patient age, no imaging follow-up recommended No enlarged hilar or mediastinal lymph nodes. Normal heart size. Small pericardial effusion new from prior exam. CORONARY ARTERY CALCIFICATION: None visualized on this study. PLEURA: Trace right pleural effusion or thickening. No left pleural effusion. AXILLA: No lymphadenopathy. UPPER ABDOMEN: Unremarkable. OSSEOUS STRUCTURES: Sclerotic focus in the superior endplate of the T7 vertebral body that is stable. Mild degenerative changes of the spine. CT/CT chest wo IV con IMPRESSION: Stable postsurgical changes from right lower lobe lobectomy. Interval increase mild bronchial wall thickening and peribronchial nodules suggestive of airways disease. Subsegmental atelectasis of both lung bases. New very small pericardial effusion. Fleischner guidelines were followed.
--- NOTE | 2024-01-01 14:43 | ECG_ITS ---
Test Reason : CHEST PAIN Blood Pressure : / mmHG Vent. Rate : 102 BPM Atrial Rate : 102 BPM P-R Int : 144 ms QRS Dur : 072 ms QT Int : 318 ms P-R-T Axes : 071 038 056 degrees QTc Int : 414 ms Sinus tachycardia Low voltage QRS Cannot rule out Anterior infarct , age undetermined - could be related to lead placement Abnormal ECG When compared with ECG of 16-MAY-2023 16:57, No significant change was found Referred By: Fercho Mccollum Electronically Signed By:NICKO JOHNSON
--- NOTE | 2024-01-01 14:44 | ED.GENADULT ---
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 Patient reports she just dosent feel well. Reports myaglias, fatigue and malaise. Related Data Home Medications Medication Instructions Recorded Confirmed aspirin 81 mg tablet,delayed 81 mg PO DAILY 12/21/20 12/03/23 release atorvastatin 20 mg tablet 20 mg PO BEDTIME 12/21/20 12/03/23 diazepam 10 mg tablet 10 mg PO BID PRN Anxiety 12/21/20 12/03/23 multivitamin 1 tab PO DAILY 12/21/20 12/03/23 bupropion HCl 300 mg 24 hr tablet, 300 mg PO DAILY 02/14/23 12/03/23 extended release fluticasone propionate 50 1 spray intranasal DAILY PRN 02/14/23 12/03/23 mcg/actuation nasal Allergy Symptoms spray,suspension omeprazole 20 mg capsule,delayed 20 mg PO DAILY@0630 05/17/23 12/03/23 release prazosin 5 mg capsule 5 mg PO BEDTIME 05/17/23 12/03/23 albuterol sulfate 90 mcg/actuation 2 puff inhalation Q4H PRN wheezing 05/31/23 12/03/23 aerosol inhaler (Ventolin HFA) buspirone 5 mg tablet 5 mg PO TID 05/31/23 12/03/23 topiramate 25 mg tablet 25 mg PO DAILY 05/31/23 12/03/23 Previous Rx's Medication Instructions Recorded lidocaine 4 % topical patch 1 patch transdermal DAILY #15 ea 06/02/23 (Lidocaine Pain Relief) docusate sodium 100 mg capsule 100 mg PO BID PRN constipation #30 09/11/23 (Colace) caps nicotine 14 mg/24 hr daily 1 patch transdermal DAILY #14 ea 09/11/23 transdermal patch azithromycin 250 mg tablet See Rx Instructions PO .COMPLEX #6 12/12/23 tabs prednisone 10 mg tablet 10 mg PO BID COPD EXCERBATION 5 12/12/23 days #10 tabs amoxicillin 875 mg-potassium 1 tab PO BID #20 tabs 12/20/23 clavulanate 125 mg tablet guaifenesin 600 mg tablet, 600 mg PO BID PRN cough #20 tabs 12/20/23 extended release 12 hr albuterol sulfate 90 mcg/actuation 2 inh inhalation Q4-6H PRN 01/01/24 breath activated powder inhaler shortness of breath or wheezing #1 ea fluticasone fur. 200 mcg-umeclid 1 ea inhalation DAILY 30 days #60 01/01/24 62.5 mcg-vilant 25 mcg ea inhalat.powder (Trelegy Ellipta) prednisone 20 mg tablet 40 mg (2 x 20 mg) PO DAILY 5 days 01/01/24 #10 tabs Allergies Allergy/AdvReac Type Severity Reaction Status Date / Time codeine [CODEINE] Allergy Intermediate ITCHING Verified 12/03/23 13:55 hydrocodone [HYDROCODONE] Allergy Intermediate ITCHING Verified 12/03/23 13:55 diphenhydramine AdvReac Intermediate JITTERY Verified 12/03/23 13:55 [From BENADRYL] Review of Systems Review of Systems: Yes all other systems are reviewed and are negative PMFSH Past Medical History Attestation statement: The following information was validated with the patient. Source: old records reviewed and nursing notes reviewed Medical History History of ectopic 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 Allergic rhinitis COPD (chronic obstructive pulmonary disease) Current smoker History of herniated intervertebral disc Scoliosis IBS (irritable bowel syndrome) History of depression DJD (degenerative joint disease) Hypertension Hyperlipidemia Urinary incontinence PTSD (post-traumatic stress disorder) Anxiety Surgical History History of lobectomy of lung History of ovarian cystectomy History of biopsy History of cystoscopy History of dilation of urethra History of colonoscopy History of endoscopy History of lung biopsy History of bladder surgery History of blepharoplasty History of hysterectomy History of bladder suspension procedure Family History Family History Mother CHF (congestive heart failure) Maternal Uncle Coronary bypass graft mechanical complication Social History Social History Household Members: None Housing: Apartment Are you a primary career development director to a significant other at home: No Do you presently have visiting nurse or other home services: Yes (NURSE) Alcohol intake: current Alcohol intake frequency: holidays/special occasions only Alcohol type: beer Patient Tobacco Use Status: Former Tobacco user Quit Date: a few days ago Tobacco use type: Cigarette Cigarette Packs Per Day: 0.5 Years Smoked: 47 Second Hand Smoke Exposure: No Substance Use Type: Marijuana Advance Directives: Yes Advance Directives on File: Yes Advance Directives Date on File: 09/11/23 service: No Physical Exam ED Vital Signs: Vital Signs - 24 hr 01/01/24 15:12 01/01/24 15:48 Temperature 99.6 F Pulse Rate 100 69 Respiratory Rate 21 H 18 Blood Pressure 114/85 Pulse Oximetry 96 Oxygen Delivery Method Room Air BMI result Body Mass Index 23.6 vss Appearance: Alert.? Oriented X3.? No acute distress.? Head: Normocephalic, atraumatic, no step-offs or deformities Eyes: Pupils equal, round and reactive to light.? Neck: Normal inspection.? Neck supple.? CVS: Normal heart rate and rhythm.? Pulses normal.? Respiratory: No respiratory distress.? Breath sounds w/ crackles b/l w/ some wheezing b/l. .? Abdomen: Soft and nontender.? Skin: Skin warm and dry.? Normal skin color.? Normal skin turgor.? Extremities: No lower extremity edema.? No calf ttp. 5/5 strength to bilateral upper and lower extremities Neuro: Oriented X 3.? No motor deficit.? No sensory deficit. CN 2-12 intact Course Reevaluation(s) Reevaluation #1: CBC with leukopenia likely secondary to viral illness. Chemistry no acute findings requiring intervention. Troponin negative, EKG nonischemic. BNP negative. Age adjusted D-dimer negative. Please refer to below results. Ambulatory O2 96%. Age-Adjusted D-dimer for Venous Thromboembolism (VTE) from [facility] on 01/01/2024 All calculations should be rechecked by clinician prior to use RESULT SUMMARY: 320 ?g/L Age-adjusted D-dimer cutoff, DDU VTE unlikely Reported D-dimer is less than or equal to cutoff; consider alternative diagnosis INPUTS: Age ?> 63 years D-dimer level reported by lab ?> 282 ?g/L D-dimer unit type ?> 1 = DDU (unadjusted cutoff typically 230-250 or 0.23-0.25) Due to crackles and normal x-ray will obtain chest CT. Likely patient to be discharged home with albuterol, prednison +/- abtbx . Sign out Sree Kenny Time: 15:57 Medications Administered Discontinued Medications Generic Name Dose Route Start Last Admin Trade Name Freq PRN Reason Stop Dose Admin Acetaminophen 975 mg 01/01/24 15:45 01/01/24 15:52 Acetaminophen 325 Mg Tablet PO 01/01/24 15:46 975 mg ONCE ONE Administration Albuterol Sulfate 2.5 mg/ 0 mg 01/01/24 15:44 01/01/24 15:47 Albuterol/Ipratropium 3 ml INHALE 01/01/24 15:45 1 dose ONCE ONE Administration Methylprednisolone Sodium Succinate 125 mg 01/01/24 15:34 01/01/24 15:41 Methylprednisolone Sod Succ 125 Mg/2 Ml Vial IVPUSH 01/01/24 15:35 125 mg ONCE ONE Administration Ondansetron HCl 4 mg 01/01/24 15:45 01/01/24 15:53 Ondansetron Odt 4 Mg Tab.Rapdis TRANSLINGU 01/01/24 15:46 4 mg ONCE ONE Administration Medical Decision Making Medical Decision Making [facility] Narrative: 63-year-old female presents with COVID like symptoms, fatigue, malaise, shortness of breath, chest discomfort, subjective fevers and chills x3 days. Did test positive 3 days ago Physical exam crackles bilaterally w/ some wheezing b/l. Concerns for COVID versus pneumonia versus bronchitis vs chronic lung disease. Unlikely PE, ACS, dissection, acute respiratory distress. Plan at this time labs, imaging, viral test. Differential Diagnosis Differential Diagnoses: The differential diagnosis associated with the presentation includes Concerns for COVID versus pneumonia versus bronchitis vs chronic lung disease. Unlikely PE, ACS, dissection, acute respiratory distress. Admission/Observation Consideration of admission/observation: Escalation of care including admission/observation considered Possible Lab Data [facility] Lab Attestation statement: I reviewed the patient's lab results. 01/01/24 15:10 01/01/24 15:10 Labs: Lab Results 01/01/24 01/01/24 01/01/24 Range/Units 15:10 15:20 15:33 WBC 4.5 L (4.8-10.8) X10*3/uL RBC 4.03 L (4.20-5.50) X10*6/uL Hgb 13.2 (12.0-16.0) g/dl Hct 39.0 (37.0-47.0) % MCV 96.8 (80.0-98.0) fL MCH 32.8 (27.0-33.0) pg MCHC 33.8 (31.0-35.0) g/dl RDW 14.0 (11.0-16.0) % Plt Count 271 (160-400) X10*3/uL MPV 9.0 L (9.4-12.3) fL Immature Gran % (Auto) 0.2 (0.0-0.4) % Neut % (Auto) 55.3 (45-73) % Lymph % (Auto) 33.9 (20-40) % [place] % (Auto) 10.4 (2-11) % Eos % (Auto) 0.0 (0-4) % Baso % (Auto) 0.2 (0-2) % Lymph # (Auto) 1.5 (1.2-4.9) X10*3/uL [place] # (Auto) 0.5 (0.1-1.2) X10*3/uL Eos # (Auto) 0.0 (0.0-0.4) X10*3/uL Baso # (Auto) 0.0 (0.0-0.2) X10*3/uL Abs Immat Gran (auto) 0.01 (0.00-0.03) X10*3/uL Absolute Neuts (auto) 2.5 (2.0-8.3) x10*3/uL Absolute Nucleated RBC 0.000 (0.0-0.012) X10*3/uL Nucleated RBC % (auto) 0.0 (0.0-0.2) /100WBC PT 12.6 D (11.1-13.3) SEC INR 1.0 (0.9-1.1) D-Dimer High Sensitivty 282 NG/ML VBG pH Cancelled 7.41 VBG pCO2 Cancelled 31 VBG pO2 Cancelled 94 VBG HCO3 Cancelled 20 L VBG O2 Saturation Cancelled 98.0 VBG Base Excess Cancelled -3.5 Sodium 138 (135-145) mmol/L Potassium 3.7 (3.3-5.1) mmol/L Chloride 109 H (96-108) mmol/L Carbon Dioxide 22 (22-29) mmol/L Anion Gap 11 L (12-20) BUN 15 (9-16) mg/dL Creatinine 0.72 (0.5-1.4) mg/dL Estim Creat Clear Calc 59.5 Estimated GFR > 60 Random Glucose 96 (60-115) mg/dL Calcium 8.7 (8.4-10.2) mg/dL Magnesium 1.8 (1.6-2.6) mg/dL Total Bilirubin 0.2 (0.0-1.0) mg/dL AST 36 H (5-31) U/L ALT 30 (0-31) U/L Alkaline Phosphatase 46 (39-117) U/L Troponin I High Sens 4.7 (<3.5-17.0) ng/L B-Natriuretic Peptide < 10 (<100) pg/mL Total Protein 6.0 L (6.5-8.0) g/dL Albumin 3.7 (3.5-5.0) g/dL Urine Color Yellow Urine Appearance Clear Urine pH 5.5 (5.0-9.0) Ur Specific [place] 1.020 (1.005-1.025) Urine Protein Negative (Neg-Trace) mg/dL Urine Glucose (UA) Negative (Negative) mg/dL Urine Ketones Negative (Negative) mg/dL Urine Blood Negative (Negative) Urine Nitrite Negative (Negative) Ur Leukocyte Esterase Negative (Negative) Independent Interpretation I performed an independent interpretation of an: EKG and Plain X-Ray Radiology Impression Discussion of test interpretation with radiology: I have reviewed the radiologist's reading. External Record Review External record reviewed: Inpatient record, Office record, Outpatient record, Prior outpatient labs, Prior outpatient radiology, Primary care record and Outside ED record Chronic Conditions Patient?s care impacted by: Hypertension, Cancer (lung adeno) and Other (COPD, smoker ) Discharge Plan Discharge Clinical Impression: COVID-19 Patient Disposition: Home, Self-Care Instructions: COVID-19 (Coronavirus Disease 2019) (ED) Additional Instructions: Take your medications as prescribed. If you were prescribed antibiotics today, it is important that you take your medication to their entirety, do not skip any doses, do not finish them early. Follow-up with your primary care provider this week. Return to the emergency department with new or worsening symptoms. Such as fevers, chills, chest pain, shortness of breath, nausea, vomiting, dizziness, headache, vision changes, lethargy In case of emergency call 911 Prescriptions: New albuterol sulfate 90 mcg/actuation aerosol powdr breath activated 2 inh inhalation Q4-6H PRN (Reason: shortness of breath or wheezing) Qty: 1 0RF prednisone 20 mg tablet 40 mg PO DAILY 5 Days Qty: 10 0RF No Action docusate sodium [Colace] 100 mg capsule 100 mg PO BID PRN (Reason: constipation) Qty: 30 0RF nicotine 14 mg/24 hr patch 24 hour 1 patch transdermal DAILY Qty: 14 0RF azithromycin 250 mg tablet See Rx Instructions PO .COMPLEX Qty: 6 0RF Rx Instructions: For 250 mg dose pack: take 500 mg today (day 1), then 250 mg for 4 days (days 2-5) PO prednisone 10 mg tablet 10 mg PO BID 5 Days Qty: 10 0RF Trelegy Ellipta 200-62.5-25 mcg blister with device 1 ea inhalation DAILY 30 Days Qty: 60 3RF multivitamin Tablet 1 tab PO DAILY atorvastatin 20 mg tablet 20 mg PO BEDTIME aspirin 81 mg Tablet,Delayed Release (Dr/Ec) 81 mg PO DAILY diazepam 10 mg tablet 10 mg PO BID PRN (Reason: Anxiety) prazosin 5 mg capsule 5 mg PO BEDTIME omeprazole 20 mg capsule,delayed release(DR/EC) 20 mg PO DAILY@0630 amoxicillin-pot clavulanate 875-125 mg tablet 1 tab PO BID Qty: 20 0RF guaifenesin 600 mg tablet extended release 12hr 600 mg PO BID PRN (Reason: cough) Qty: 20 0RF albuterol sulfate [Ventolin HFA] 90 mcg/actuation HFA aerosol inhaler 2 puff INHALATION Q4H PRN (Reason: wheezing) topiramate 25 mg tablet 25 mg PO DAILY buspirone 5 mg tablet 5 mg PO TID lidocaine [Lidocaine Pain Relief] 4 % Adhesive Patch,Medicated 1 patch transdermal DAILY Qty: 15 1RF Protocol: Apply to: Apply to: rib cage bupropion HCl 300 mg tablet extended release 24 hr 300 mg PO DAILY fluticasone propionate 50 mcg/actuation spray,suspension 1 spray intranasal DAILY PRN (Reason: Allergy Symptoms) Referrals: Nai Bradley MD [Primary Care Provider] - 2 days Stand Alone Forms: Work/School Release
[2024-01-01 15:12] VITALS: BP 101/77; BP 114/85; PULSE 100; PULSE 110; RESP 21; TEMP 37.6; O2SAT 94; O2SAT 96; BMI 23.6
[2024-01-01 15:22] LABS: MANUAL DIFF FLAG NO
[2024-01-01 15:23] LABS: Basophils Percent Auto 0.2 % (0-2); Hemoglobin 13.2 g/dl (12.0-16.0); Imm Gran Abs Auto 0.01 X10*3/uL (0.00-0.03); Imm Gran Pct Auto 0.2 % (0.0-0.4); Lymphocytes Absolute Auto 1.5 X10*3/uL (1.2-4.9); Lymphocytes Percent Auto 33.9 % (20-40); Mean Corpuscular HGB Conc 33.8 g/dl (31.0-35.0); Mean Corpuscular Hemoglobin 32.8 pg (27.0-33.0); Mean Corpuscular Volume 96.8 fL (80.0-98.0); Monocytes Absolute Auto 0.5 X10*3/uL (0.1-1.2); Monocytes Percent Auto 10.4 % (2-11); Neutrophils Absolute Auto 2.5 x10*3/uL (2.0-8.3); Neutrophils Percent Auto 55.3 % (45-73); Platelet Count 271 X10*3/uL (160-400); Red Blood Count 4.03 X10*6/uL (4.20-5.50); White Blood Count 4.5 X10*3/uL (4.8-10.8)
[2024-01-01 15:25] LABS: Venous Blood Gas Refer to POC result
[2024-01-01 15:26] LABS: VBG Base Excess -3.5 mmol/L; VBG HCO3 20 mmol/L (22-26); VBG pCO2 31 mmHg; VBG pH 7.41 (7.32-7.43); VBG pO2 94 mmHg
[2024-01-01 15:32] LABS: Prothrombin Time 12.6 SEC (11.1-13.3)
[2024-01-01 15:38] LABS: Alanine Aminotransferase 30 U/L (0-31); Albumin Level 3.7 g/dL (3.5-5.0); Alkaline Phosphatase 46 U/L (39-117); Anion Gap 11 (12-20); Aspartate Amino Transferase 36 U/L (5-31); Bilirubin Total 0.2 mg/dL (0.0-1.0); Blood Urea Nitrogen 15 mg/dL (9-16); Calcium 8.7 mg/dL (8.4-10.2); Carbon Dioxide 22 mmol/L (22-29); Chloride 109 mmol/L (96-108); Creatinine Clr Calc Pharmacy 59.5; Estimated Glomerular Filt Rate > 60; Glucose Random 96 mg/dL (60-115); Magnesium 1.8 mg/dL (1.6-2.6); Potassium 3.7 mmol/L (3.3-5.1); Sodium 138 mmol/L (135-145)
[2024-01-01] MEDS: methylPREDNISolone Sod Succ 125 MG/2 ML VIAL IVPUSH (15:41)
[2024-01-01 15:43] LABS: B Type Natriuretic Peptide < 10 pg/mL (<100)
[2024-01-01 15:45] LABS: Troponin-I High Sensitivity 4.7 ng/L (<3.5-17.0)
--- NOTE | 2024-01-01 15:45 | MHC.EDTECH ---
PATIENT WAS ABLE TO AMBULATE WITH OUT ASSISTANCE.PATIENTS O2 PRIOR TO AMBULATION TRIAL WAS 97 AND 96 AFTER.PULSE RATE INCREASED FROM 108 TO 118.PATIENTS RESPIRATIONS 18.PATIENT DID COMPLAIN OF WEAKNESS .
[2024-01-01] MEDS: Albuterol Sulfate 2.5 MG, Albuterol/Iprat 2.5/0.5MG 3 ML 3 ML INHALE (15:47)
[2024-01-01 15:48] VITALS: PULSE 69; RESP 18; O2SAT 94
[2024-01-01 15:48] LABS: Appearance Urine Clear; Color Urine Yellow; Glucose Urine UA Negative (Negative); Leukocyte Esterase Urine Negative (Negative); Nitrite Urine Negative (Negative); PH 5.5 (5.0-9.0); Urine Blood Negative (Negative); Urine Ketones Negative (Negative); Urine Protein Negative (Neg-Trace)
[2024-01-01] MEDS: Acetaminophen 325 MG TABLET 975 MG PO (15:52)
[2024-01-01] MEDS: Ondansetron ODT 4 MG TAB.RAPDIS TRANSLINGU (15:53)
[2024-01-01 15:54] LABS: D Dimer High Sensitivity 282 NG/ML
[2024-01-01 15:59] LABS: Influenza A PCR NEGATIVE (Negative); Influenza B PCR NEGATIVE (Negative); Resp Syncy Virus RNA Qual PCR NEGATIVE (Negative); SARS COV2 PCR INHOUSE POSITIVE (Negative)
[2024-01-01 16:09] VITALS: BP 103/67; PULSE 98; RESP 20; TEMP 36.9; O2SAT 94
[2024-01-01 18:38] VITALS: BP 101/61; PULSE 85; RESP 18; TEMP 36.9; O2SAT 93
[2024-01-01] MEDS: Ketorolac Tromethamine 15 MG/ML VIAL IM (18:42)
== END 2024-01-01 18:52 | disposition home or self-care (01) ==
PROVIDERS: Physician Assistant; Emergency Provider Emergency Medicine; PCP Internal Medicine
DX: U07.1 COVID-19 (principal); J44.9 Chronic obstructive pulmonary disease, unspecified; C34.31 Malignant neoplasm of lower lobe, right bronchus or lung; I10 Essential (primary) hypertension
CPT/HCPCS: 0241U; 71045; 71250; 80053; 81003; 82803; 83735; 83880; 84484; 85025; 85379; 85610; 93005; 94640; 96372; 96374; 99284; 99285; J1885; J2930

== ENCOUNTER → 2024-01-01 14:43 | Outpatient (BNV) | payer MEDICARE, MEDICAID, SELFPAY | PROVIDERS: Emergency Provider Emergency Medicine; PCP Internal Medicine; Visit Provider Internal Medicine | DX: R07.9 Chest pain, unspecified (principal) | CPT/HCPCS: 93010 ==

== ENCOUNTER 2024-01-08 18:21 | Emergency (ER) | payer MEDICARE, MEDICAID, SELFPAY ==
--- NOTE | ~2024-01-08 | XR_ITS ---
EXAMINATION: XR chest 1V CLINICAL INFORMATION: Reason for Exam SOB COMPARISON: Prior chest x-ray 01/01/2024 TECHNIQUE: Single portable frontal view. Tubes and lines: None Lungs and pleura: Postsurgical changes of from right lower lobectomy. No evidence of acute infiltrates or failure. Blunting of right costophrenic angle probably pleural thickening versus a small pleural effusion. This however has not changed. Heart and mediastinum: The mediastinum is within normal limits.. Bones/soft tissue: Skeletal structures included are normal for patient's age. XR/XR chest 1V IMPRESSION: 1. No radiographic evidence of acute infiltrates or failure. 2. Blunting of right costophrenic angle probably pleural thickening versus small pleural effusion unchanged. 3. Postsurgical changes right lower lobectomy.
--- NOTE | ~2024-01-08 | CT_ITS ---
EXAMINATION: CT ANGIOGRAM OF THE CHEST WITH AND WITHOUT CONTRAST (CT PULMONARY ANGIOGRAM FOR PE) CLINICAL INFORMATION: Reason for Exam Hypoxia, tachycardia, SOB, back pain COMPARISON: Previous chest 01/01/2024 TECHNIQUE: Prior to contrast administration, noncontrast localization images were obtained. Subsequently, multidetector volumetric imaging was performed from the thoracic inlet to below the diaphragms following the administration of 65 mL Omnipaque 350 intravenous contrast. No contrast reaction reported Sagittal, coronal, and MIP oblique sagittal reformatted images were obtained on the CT workstation, uploaded to PACS, and reviewed. This CT examination was performed using dose optimization techniques as appropriate, variously including the following: *Automated exposure control *Adjustment of mA and/or kV according to patient size (this includes techniques or standardized protocols for targeted exams where dose is matched to indication/reason for exam; i.e. extremities or head) *Use of iterative reconstruction technique Total exam dose-length product 205 mGy-cm FINDINGS: QUALITY OF STUDY/CONTRAST BOLUS: Satisfactory. PULMONARY ARTERIES: No pulmonary emboli. THORACIC AORTA: No aneurysm. LUNG: There are postsurgical changes following right lower lobe lobectomy. There are new scattered areas of groundglass attenuation and increased interstitial throughout the lungs, largest along the paramediastinal right upper lobe probably representing pneumonitis. There is mild diffuse airways disease with peribronchial attenuation. There is a small calcified right upper lobe nodule axial to 97 series 6 that is stable. PLEURA: Trace right pleural effusion or thickening. No left pleural effusion. No pneumothorax. MEDIASTINUM: Normal heart size. No pericardial effusion. Increasing soft tissue tissue prominence seen in the right infrahilar region surrounding the right middle lobe bronchi and surgical clips. There is decreased aeration of right lower lobe bronchi compared to recent postoperative exams. Some of this change may be related to esophagus which is on aerated in this region. Attention on follow-up recommended. No other evidence of hilar or mediastinal lymphadenopathy. No evidence of septal bowing or right heart strain. Small stable calcified right thyroid nodule. No imaging follow-up recommended. CORONARY ARTERY CALCIFICATION: None visualized on this study. CHEST WALL/AXILLA: No axillary or internal mammary lymphadenopathy. OSSEOUS STRUCTURES: No acute or suspicious osseous abnormality. UPPER ABDOMEN: Partially visualized central cystic structure in the left kidney when compare with old CT scans probably represents a prominent extrarenal pelvis. No reflux of contrast into the hepatic veins to suggest elevated right heart pressures. CT/CT angio chest PE protocol IMPRESSION: No evidence of pulmonary embolism. New scattered areas of increased groundglass attenuation and interstitial markings probably representing pneumonitis. Postsurgical changes following right lower lobe lobectomy. Prominent central soft tissue at the surgical margin in the inferior hilar region surrounding the right middle lobe bronchi and decreased aeration of central right middle lobe bronchi. Some of this may represent collapsed nonaerated esophagus. Attention on follow-up recommended. VTE:
[2024-01-08 18:33] VITALS: BP 115/62; PULSE 110; O2SAT 95
[2024-01-08 18:37] VITALS: BP 103/80; PULSE 107; RESP 20; TEMP 36.9; O2SAT 95; BMI 22.1
--- NOTE | 2024-01-08 18:37 | ED_ITS ---
HPI - General Adult General Chief complaint: Upper Respiratory Symptoms Stated complaint: COVID + 1WK AGO,FEVER,COUGH,NO SYMPTOM RELIEF Time Seen by Provider: 01/08/24 18:37 History of Present Illness HPI narrative: 63 y/o F patient; PMH nicotine use, COPD, HTN, s/p lobectomy 2/2 malignancy (09/04/2023); presents from home via EMS with report of COVID + diagnosis one week ago (12/29/2023) now with continued coughing, fatigue, and upper back pain. The patient was last seen in this ED on 01/01/2024 for similar symptoms. She had laboratory studies and a CT Chest completed that were reassuring for acute disease, she was discharged to home with a prednisone 5 day course. The patient states she has been on two z-packs and augmentin course without any improvement in her symptoms. She is still smoking. She denies: chest pain, nausea/vomiting, diarrhea, abdominal pain. Related Data Home Medications Medication Instructions Recorded Confirmed aspirin 81 mg tablet,delayed 81 mg PO DAILY 12/21/20 12/03/23 release atorvastatin 20 mg tablet 20 mg PO BEDTIME 12/21/20 12/03/23 diazepam 10 mg tablet 10 mg PO BID PRN Anxiety 12/21/20 12/03/23 multivitamin 1 tab PO DAILY 12/21/20 12/03/23 bupropion HCl 300 mg 24 hr tablet, 300 mg PO DAILY 02/14/23 12/03/23 extended release fluticasone propionate 50 1 spray intranasal DAILY PRN 02/14/23 12/03/23 mcg/actuation nasal Allergy Symptoms spray,suspension omeprazole 20 mg capsule,delayed 20 mg PO DAILY@0630 05/17/23 12/03/23 release prazosin 5 mg capsule 5 mg PO BEDTIME 05/17/23 12/03/23 albuterol sulfate 90 mcg/actuation 2 puff inhalation Q4H PRN wheezing 05/31/23 12/03/23 aerosol inhaler (Ventolin HFA) buspirone 5 mg tablet 5 mg PO TID 05/31/23 12/03/23 topiramate 25 mg tablet 25 mg PO DAILY 05/31/23 12/03/23 Previous Rx's Medication Instructions Recorded lidocaine 4 % topical patch 1 patch transdermal DAILY #15 ea 06/02/23 (Lidocaine Pain Relief) docusate sodium 100 mg capsule 100 mg PO BID PRN constipation #30 09/11/23 (Colace) caps nicotine 14 mg/24 hr daily 1 patch transdermal DAILY #14 ea 09/11/23 transdermal patch azithromycin 250 mg tablet See Rx Instructions PO .COMPLEX #6 12/12/23 tabs prednisone 10 mg tablet 10 mg PO BID COPD EXCERBATION 5 12/12/23 days #10 tabs amoxicillin 875 mg-potassium 1 tab PO BID #20 tabs 12/20/23 clavulanate 125 mg tablet guaifenesin 600 mg tablet, 600 mg PO BID PRN cough #20 tabs 12/20/23 extended release 12 hr fluticasone fur. 200 mcg-umeclid 1 ea inhalation DAILY 30 days #60 01/01/24 62.5 mcg-vilant 25 mcg ea inhalat.powder (Trelegy Ellipta) prednisone 20 mg tablet 40 mg (2 x 20 mg) PO DAILY 5 days 01/01/24 #10 tabs albuterol sulfate 90 mcg/actuation 2 inh inhalation Q4-6H PRN 01/07/24 breath activated powder inhaler shortness of breath or wheezing #1 ea prednisone 10 mg tablet 10 mg PO DAILY 12 days #30 tabs 01/08/24 Allergies Allergy/AdvReac Type Severity Reaction Status Date / Time codeine [CODEINE] Allergy Intermediate ITCHING Verified 12/03/23 13:55 hydrocodone [HYDROCODONE] Allergy Intermediate ITCHING Verified 12/03/23 13:55 diphenhydramine AdvReac Intermediate JITTERY Verified 12/03/23 13:55 [From BENADRYL] Review of Systems 2 Review of Systems: Yes all other systems are reviewed and are negative PMFSH Past Medical History Attestation statement: The following information was validated with the patient. 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 Allergic rhinitis COPD (chronic obstructive pulmonary disease) Current smoker History of herniated intervertebral disc Scoliosis IBS (irritable bowel syndrome) History of depression DJD (degenerative joint disease) Hypertension Hyperlipidemia Urinary incontinence PTSD (post-traumatic stress disorder) Anxiety Surgical History History of lobectomy of lung History of ovarian cystectomy History of biopsy History of cystoscopy History of dilation of urethra History of colonoscopy History of endoscopy History of lung biopsy History of bladder surgery History of blepharoplasty History of hysterectomy History of bladder suspension procedure Family History Family History Mother CHF (congestive heart failure) Maternal Uncle Coronary bypass graft mechanical complication Social History Social History Household Members: None Housing: Apartment Are you a primary healthcare financial analyst to a significant other at home: No Do you presently have visiting nurse or other home services: Yes (NURSE) Alcohol intake: current Alcohol intake frequency: holidays/special occasions only Alcohol type: beer Patient Tobacco Use Status: Former Tobacco user Quit Date: a few days ago Tobacco use type: Cigarette Cigarette Packs Per Day: 0.5 Years Smoked: 47 Smoked in Last 30 Days: Yes Second Hand Smoke Exposure: No Use of substances other than those prescribed or required for medical reasons: No Substance Use Type: Marijuana Advance Directives: Yes Advance Directives on File: Yes Advance Directives Date on File: 09/11/23 service: No Physical Exam ED Vital Signs: Vital Signs - 24 hr 01/08/24 18:37 01/08/24 19:55 Temperature 98.5 F Pulse Rate 107 H Respiratory Rate 20 Blood Pressure 103/80 Pulse Oximetry 95 95 Oxygen Delivery Method Room Air Room Air BMI result Body Mass Index 22.1 Patient is afebrile, tachycardic, saturating 95% on RA. Const General: cooperative HENMT Head: Yes atraumatic Eyes Pupils: Equal, round and reactive pupils present EOM: EOMs intact bilaterally Neck Neck: Yes normal visual inspection, Yes full ROM, Yes supple and No tender Chest Chest palpation & inspection: normal inspection of the chest and normal palpation of entire chest wall Resp Effort & Inspection: normal respiratory effort, able to speak in complete sentences, Actively coughing and no respiratory distress Auscultation: clear to auscultation bilaterally Cardio Rate: tachycardic Rhythm: regular rhythm Peripheral pulses: Peripheral pulses 2+ throughout GI Inspection: Yes normal to inspection, No Abdominal wall edema and No distended Palpation (GI): Soft to palpation, not firm, nontender, no guarding and not rigid Auscultation: normal bowel sounds Neuro Cranial nerves: Yes Equal, round and reactive pupils present Course Course Course Narrative: Patient is afebrile, normotensive, tachycardic. Will obtain EKG, CXR, and cardiorespiratory labs. Will also obtain CTA Chest given this is patient's third presentation for similar symptoms and she is tachycardic with low normal O2. Reevaluation(s) Reevaluation #1: Laboratory studies reviewed: No leukocytosis noted. Unremarkable VBG. Troponin negative. Remainder of labs unremarkable. CXR with blunting of right costophrenic angle ? pleural thickening versus small pleural effusion unchanged. Reevaluation #2: CTA without evidence of pulmonary edema, possible pneumonitis. Will prescribe steroid course, patient states her last steroids were 5 day course. Typically treatment for pneumonitis is 1 - 2 weeks, will prescribe tapering dose over 10 days. Patient is able to ambulate without difficulty or hypoxia. Plan: Discharge to home with PCP follow up Return precautions given Medications Administered Discontinued Medications Generic Name Dose Route Start Last Admin Trade Name Freq PRN Reason Stop Dose Admin Sodium Chloride 1,000 mls @ 999 mls/hr 01/08/24 19:15 01/08/24 19:21 Ns IV 01/08/24 20:15 999 mls/hr .Q1H1M PAUL Administration Iohexol 100 ml 01/08/24 20:10 01/08/24 20:11 Iohexol 350 Mg/Ml 100 Ml Infus..Btl IV 01/08/24 20:11 65 ml ONCE ONE Administration Ondansetron HCl 4 mg 01/08/24 20:04 01/08/24 20:26 Ondansetron Hcl 4 Mg/2 Ml Vial IVPUSH 01/08/24 20:05 4 mg ONCE ONE Administration Medical Decision Making Lab Data 01/08/24 19:24 01/08/24 19:24 Labs: Lab Results 01/08/24 01/08/24 Range/Units 19:24 19:28 WBC 6.4 (4.8-10.8) X10*3/uL RBC 4.05 L (4.20-5.50) X10*6/uL Hgb 13.1 (12.0-16.0) g/dl Hct 39.4 (37.0-47.0) % MCV 97.3 (80.0-98.0) fL MCH 32.3 (27.0-33.0) pg MCHC 33.2 (31.0-35.0) g/dl RDW 14.1 (11.0-16.0) % Plt Count 326 (160-400) X10*3/uL MPV 9.0 L (9.4-12.3) fL Immature Gran % (Auto) 0.5 H (0.0-0.4) % Neut % (Auto) 52.5 (45-73) % Lymph % (Auto) 36.0 (20-40) % Talbot % (Auto) 9.4 (2-11) % Eos % (Auto) 1.4 (0-4) % Baso % (Auto) 0.2 (0-2) % Lymph # (Auto) 2.3 (1.2-4.9) X10*3/uL Talbot # (Auto) 0.6 (0.1-1.2) X10*3/uL Eos # (Auto) 0.1 (0.0-0.4) X10*3/uL Baso # (Auto) 0.0 (0.0-0.2) X10*3/uL Abs Immat Gran (auto) 0.03 (0.00-0.03) X10*3/uL Absolute Neuts (auto) 3.4 (2.0-8.3) x10*3/uL Absolute Nucleated RBC 0.000 (0.0-0.012) X10*3/uL Nucleated RBC % (auto) 0.0 (0.0-0.2) /100WBC VBG pH 7.45 H (7.32-7.43) VBG pCO2 34 mmHg VBG pO2 93 mmHg VBG HCO3 24 (22-26) mmol/L VBG O2 Saturation 100.0 % VBG Base Excess 0.7 mmol/L Sodium 142 (135-145) mmol/L Potassium 3.7 (3.3-5.1) mmol/L Chloride 112 H (96-108) mmol/L Carbon Dioxide 25 (22-29) mmol/L Anion Gap 9 L (12-20) BUN 17 H (9-16) mg/dL Creatinine 0.80 (0.5-1.4) mg/dL Estim Creat Clear Calc 53.6 Estimated GFR > 60 Random Glucose 94 (60-115) mg/dL Calcium 8.5 (8.4-10.2) mg/dL Total Bilirubin 0.1 (0.0-1.0) mg/dL Direct Bilirubin < 0.2 (0.0-0.5) mg/dL AST 18 (5-31) U/L ALT 26 (0-31) U/L Alkaline Phosphatase 49 (39-117) U/L Troponin I High Sens < 2.7 (<3.5-17.0) ng/L Total Protein 5.6 L (6.5-8.0) g/dL Albumin 3.4 L (3.5-5.0) g/dL Lipase 21 (8-78) U/L Influenza Type A (PCR) NEGATIVE (Negative) Influenza Type B (PCR) NEGATIVE (Negative) RSV RNA Qual (PCR) NEGATIVE (Negative) SARS-CoV-2 RNA (RT-PCR) POSITIVE A (Negative) Independent Interpretation I performed an independent interpretation of an: EKG Interpretation: NSR 99BPM with normal intervals and without ischemic changes Radiology Impression Discussion of test interpretation with radiology: I have reviewed the radiologist's reading. Radiologist Impression: EXAMINATION: XR chest 1V CLINICAL INFORMATION: Reason for Exam SOB COMPARISON: Prior chest x-ray 01/01/2024 TECHNIQUE: Single portable frontal view. Tubes and lines: None Lungs and pleura: Postsurgical changes of from right lower lobectomy. No evidence of acute infiltrates or failure. Blunting of right costophrenic angle probably pleural thickening versus a small pleural effusion. This however has not changed. Heart and mediastinum: The mediastinum is within normal limits.. Bones/soft tissue: Skeletal structures included are normal for patient's age. XR/XR chest 1V IMPRESSION: 1. No radiographic evidence of acute infiltrates or failure. 2. Blunting of right costophrenic angle probably pleural thickening versus small pleural effusion unchanged. 3. Postsurgical changes right lower lobectomy. EXAMINATION: CT ANGIOGRAM OF THE CHEST WITH AND WITHOUT CONTRAST (CT PULMONARY ANGIOGRAM FOR PE) CLINICAL INFORMATION: Reason for Exam Hypoxia, tachycardia, SOB, back pain COMPARISON: Previous chest 01/01/2024 TECHNIQUE: Prior to contrast administration, noncontrast localization images were obtained. Subsequently, multidetector volumetric imaging was performed from the thoracic inlet to below the diaphragms following the administration of 65 mL Omnipaque 350 intravenous contrast. No contrast reaction reported Sagittal, coronal, and MIP oblique sagittal reformatted images were obtained on the CT workstation, uploaded to PACS, and reviewed. This CT examination was performed using dose optimization techniques as appropriate, variously including the following: *Automated exposure control *Adjustment of mA and/or kV according to patient size (this includes techniques or standardized protocols for targeted exams where dose is matched to indication/reason for exam; i.e. extremities or head) *Use of iterative reconstruction technique Total exam dose-length product 205 mGy-cm FINDINGS: QUALITY OF STUDY/CONTRAST BOLUS: Satisfactory. PULMONARY ARTERIES: No pulmonary emboli. THORACIC AORTA: No aneurysm. LUNG: There are postsurgical changes following right lower lobe lobectomy. There are new scattered areas of groundglass attenuation and increased interstitial throughout the lungs, largest along the paramediastinal right upper lobe probably representing pneumonitis. There is mild diffuse airways disease with peribronchial attenuation. There is a small calcified right upper lobe nodule axial to 97 series 6 that is stable. PLEURA: Trace right pleural effusion or thickening. No left pleural effusion. No pneumothorax. MEDIASTINUM: Normal heart size. No pericardial effusion. Increasing soft tissue tissue prominence seen in the right infrahilar region surrounding the right middle lobe bronchi and surgical clips. There is decreased aeration of right lower lobe bronchi compared to recent postoperative exams. Some of this change may be related to esophagus which is on aerated in this region. Attention on follow-up recommended. No other evidence of hilar or mediastinal lymphadenopathy. No evidence of septal bowing or right heart strain. Small stable calcified right thyroid nodule. No imaging follow-up recommended. CORONARY ARTERY CALCIFICATION: None visualized on this study. CHEST WALL/AXILLA: No axillary or internal mammary lymphadenopathy. OSSEOUS STRUCTURES: No acute or suspicious osseous abnormality. UPPER ABDOMEN: Partially visualized central cystic structure in the left kidney when compare with old CT scans probably represents a prominent extrarenal pelvis. No reflux of contrast into the hepatic veins to suggest elevated right heart pressures. CT/CT angio chest PE protocol IMPRESSION: No evidence of pulmonary embolism. New scattered areas of increased groundglass attenuation and interstitial markings probably representing pneumonitis. Postsurgical changes following right lower lobe lobectomy. Prominent central soft tissue at the surgical margin in the inferior hilar region surrounding the right middle lobe bronchi and decreased aeration of central right middle lobe bronchi. Some of this may represent collapsed nonaerated esophagus. Attention on follow-up recommended. Discharge Plan Discharge Clinical Impression: Pneumonitis Patient Disposition: Home, Self-Care Instructions: How Your Lungs Work (ED) Additional Instructions: You were seen today for shortness of breath and a cough. Your CXR and CTA Chest showed evidence of pneumonitis. There was NOT evidence of a blood clot or pneumonia. Recommend you take steroids for the next 12 days with tapering dose. Take 40mg (4 tabs) for three days, Take 30mg (3 tabs) for three days, Take 20mg (2 tabs) for three days, Take 10mg (1 tab) for three days, then stop Follow up with your PCP for re-evaluation within 1 week. Return to the ED for: Chest pain Difficulty breathing Passing out Prescriptions: New prednisone 10 mg tablet 10 mg PO DAILY 12 Days Qty: 30 0RF Rx Instructions: Take 40mg (4 tabs) for three days, Take 30mg (3 tabs) for three days, Take 20mg (2 tabs) for three days, Take 10mg (1 tab) for three days, then stop No Action docusate sodium [Colace] 100 mg capsule 100 mg PO BID PRN (Reason: constipation) Qty: 30 0RF nicotine 14 mg/24 hr patch 24 hour 1 patch transdermal DAILY Qty: 14 0RF azithromycin 250 mg tablet See Rx Instructions PO .COMPLEX Qty: 6 0RF Rx Instructions: For 250 mg dose pack: take 500 mg today (day 1), then 250 mg for 4 days (days 2-5) PO prednisone 10 mg tablet 10 mg PO BID 5 Days Qty: 10 0RF Trelegy Ellipta 200-62.5-25 mcg blister with device 1 ea inhalation DAILY 30 Days Qty: 60 3RF albuterol sulfate 90 mcg/actuation aerosol powdr breath activated 2 inh inhalation Q4-6H PRN (Reason: shortness of breath or wheezing) Qty: 1 0RF multivitamin Tablet 1 tab PO DAILY atorvastatin 20 mg tablet 20 mg PO BEDTIME aspirin 81 mg Tablet,Delayed Release (Dr/Ec) 81 mg PO DAILY diazepam 10 mg tablet 10 mg PO BID PRN (Reason: Anxiety) prazosin 5 mg capsule 5 mg PO BEDTIME omeprazole 20 mg capsule,delayed release(DR/EC) 20 mg PO DAILY@0630 amoxicillin-pot clavulanate 875-125 mg tablet 1 tab PO BID Qty: 20 0RF guaifenesin 600 mg tablet extended release 12hr 600 mg PO BID PRN (Reason: cough) Qty: 20 0RF albuterol sulfate [Ventolin HFA] 90 mcg/actuation HFA aerosol inhaler 2 puff INHALATION Q4H PRN (Reason: wheezing) topiramate 25 mg tablet 25 mg PO DAILY buspirone 5 mg tablet 5 mg PO TID lidocaine [Lidocaine Pain Relief] 4 % Adhesive Patch,Medicated 1 patch transdermal DAILY Qty: 15 1RF Protocol: Apply to: Apply to: rib cage prednisone 20 mg tablet 40 mg PO DAILY 5 Days Qty: 10 0RF bupropion HCl 300 mg tablet extended release 24 hr 300 mg PO DAILY fluticasone propionate 50 mcg/actuation spray,suspension 1 spray intranasal DAILY PRN (Reason: Allergy Symptoms)
--- NOTE | 2024-01-08 18:45 | ECG_ITS ---
Test Reason : SOB Blood Pressure : / mmHG Vent. Rate : 099 BPM Atrial Rate : 099 BPM P-R Int : 152 ms QRS Dur : 078 ms QT Int : 324 ms P-R-T Axes : 071 049 058 degrees QTc Int : 415 ms Normal sinus rhythm Normal ECG When compared with ECG of 01-JAN-2024 14:54, No significant change was found Referred By: Cayla Emmanuel Electronically Signed By:Kwadwo Rubio
[2024-01-08] MEDS: 0.9 % Sodium Chloride 1,000 ML 999 ML IV (19:21)
--- NOTE | 2024-01-08 19:25 | PC.NURSE ---
this rn assumed care of pt. pt sitting in stretcher reporting 10/10 headache and reports overall not feeling good. fluids hanging at this time, tech at bedside obtaining labs and ekg.
[2024-01-08 19:31] LABS: MANUAL DIFF FLAG NO
[2024-01-08 19:36] LABS: Basophils Percent Auto 0.2 % (0-2); Eosinophils Absolute Auto 0.1 X10*3/uL (0.0-0.4); Eosinophils Percent Auto 1.4 % (0-4); Hematocrit 39.4 % (37.0-47.0); Hemoglobin 13.1 g/dl (12.0-16.0); Imm Gran Abs Auto 0.03 X10*3/uL (0.00-0.03); Imm Gran Pct Auto 0.5 % (0.0-0.4); Lymphocytes Absolute Auto 2.3 X10*3/uL (1.2-4.9); Mean Corpuscular HGB Conc 33.2 g/dl (31.0-35.0); Mean Corpuscular Hemoglobin 32.3 pg (27.0-33.0); Mean Corpuscular Volume 97.3 fL (80.0-98.0); Monocytes Absolute Auto 0.6 X10*3/uL (0.1-1.2); Monocytes Percent Auto 9.4 % (2-11); Neutrophils Absolute Auto 3.4 x10*3/uL (2.0-8.3); Neutrophils Percent Auto 52.5 % (45-73); Platelet Count 326 X10*3/uL (160-400); Red Blood Count 4.05 X10*6/uL (4.20-5.50); Red Cell Distribution Width 14.1 % (11.0-16.0); White Blood Count 6.4 X10*3/uL (4.8-10.8)
[2024-01-08 19:36] LABS: VBG Base Excess 0.7 mmol/L; VBG HCO3 24 mmol/L (22-26); VBG pCO2 34 mmHg; VBG pH 7.45 (7.32-7.43); VBG pO2 93 mmHg
[2024-01-08 19:55] VITALS: O2SAT 95
[2024-01-08 19:56] LABS: Alanine Aminotransferase 26 U/L (0-31); Albumin Level 3.4 g/dL (3.5-5.0); Alkaline Phosphatase 49 U/L (39-117); Anion Gap 9 (12-20); Aspartate Amino Transferase 18 U/L (5-31); Bilirubin Direct < 0.2 mg/dL (0.0-0.5); Bilirubin Total 0.1 mg/dL (0.0-1.0); Blood Urea Nitrogen 17 mg/dL (9-16); Calcium 8.5 mg/dL (8.4-10.2); Carbon Dioxide 25 mmol/L (22-29); Chloride 112 mmol/L (96-108); Creatinine Clr Calc Pharmacy 53.6; Estimated Glomerular Filt Rate > 60; Glucose Random 94 mg/dL (60-115); Lipase 21 U/L (8-78); Potassium 3.7 mmol/L (3.3-5.1); Sodium 142 mmol/L (135-145); Total Protein 5.6 g/dL (6.5-8.0)
[2024-01-08 20:01] LABS: Venous Blood Gas Refer to POC result
[2024-01-08 20:06] LABS: Troponin-I High Sensitivity < 2.7 ng/L (<3.5-17.0)
[2024-01-08] MEDS: iohexoL 350 MG/ML 100 ML INFUS..BTL IV (20:11)
[2024-01-08 20:15] LABS: Influenza A PCR NEGATIVE (Negative); Influenza B PCR NEGATIVE (Negative); Resp Syncy Virus RNA Qual PCR NEGATIVE (Negative); SARS COV2 PCR INHOUSE POSITIVE (Negative)
[2024-01-08] MEDS: ondansetron HCL 4 MG/2 ML VIAL IVPUSH (20:26)
--- NOTE | 2024-01-08 20:29 | PC.NURSE ---
pt reporting nausea, pt medicated per mar.
[2024-01-08] MEDS: predniSONE 20 MG TABLET 40 MG PO (21:52)
--- NOTE | 2024-01-08 21:59 | PC.NURSE ---
pt medicated per mar, pt tolerated well with water.
[2024-01-08 22:00] VITALS: BP 119/72; PULSE 75; RESP 20; TEMP 37.3; O2SAT 95
== END 2024-01-08 22:09 | disposition home or self-care (01) ==
PROVIDERS: Emergency Provider Emergency Medicine; PCP Internal Medicine
DX: J98.4 Other disorders of lung (principal); J44.9 Chronic obstructive pulmonary disease, unspecified; I10 Essential (primary) hypertension; Z85.118 Personal history of other malignant neoplasm of bronchus and lung; Z11.52 Encounter for screening for COVID-19; Z20.828 Contact with and (suspected) exposure to other viral communicable diseases
CPT/HCPCS: 0241U; 36415; 71045; 71275; 80048; 80076; 82803; 83690; 84484; 85025; 93005; 96361; 96374; 99284; 99285; J2405; Q9967

== ENCOUNTER → 2024-01-08 18:45 | Outpatient (BNV) | payer MEDICARE, MEDICAID, SELFPAY | PROVIDERS: Emergency Provider Emergency Medicine; PCP Internal Medicine; Visit Provider Internal Medicine Cardiovascular Disease | DX: R06.02 Shortness of breath (principal) | CPT/HCPCS: 93010 ==

== ENCOUNTER 2024-01-15 09:26 | Outpatient (AMB) | payer MEDICARE, MEDICAID, SELFPAY ==
[2024-01-15 09:32] VITALS: BP 120/80; PULSE 82; TEMP 36.4; O2SAT 98; BMI 21.7
--- NOTE | 2024-01-15 09:32 | MHC.OFFWIV ---
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 (masked) Intake Note: pt is here today for pain under rib post covid started 12/30 Patient Tobacco Use Status: Former Tobacco user Quit Date: a few days ago Allergies codeine [CODEINE] Allergy (Intermediate, Verified 01/15/24 09:32) ITCHING hydrocodone [HYDROCODONE] Allergy (Intermediate, Verified 01/15/24 09:32) ITCHING diphenhydramine [From BENADRYL] Adverse Reaction (Intermediate, Verified 01/15/24 09:32) JITTERY Do you need a note to return to daycare/school/sports/work: No HPI HPI Comments History of Present Illness Details 63 y/o female patient who presents to walk in clinic with c/o left sided chest wall pain coughing and + COVID infection. Pt asking for Tramadol or Percocet for her pain. She states that NSAIDs and Acetaminophen do not work for her. Prior h/o lung cancer with Lobectomy done in 09/2023. She follows with [facility]. Pt asking for urine testing for UTI, because she believes she has kidney infection. [facility] Medical History History of ectopic 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 Allergic rhinitis COPD (chronic obstructive pulmonary disease) Current smoker History of herniated intervertebral disc Scoliosis IBS (irritable bowel syndrome) History of depression DJD (degenerative joint disease) Hypertension Hyperlipidemia Urinary incontinence PTSD (post-traumatic stress disorder) Anxiety Surgical History History of lobectomy of lung History of ovarian cystectomy History of biopsy History of cystoscopy History of dilation of urethra History of colonoscopy History of endoscopy History of lung biopsy History of bladder surgery History of blepharoplasty History of hysterectomy History of bladder suspension procedure Family History Mother CHF (congestive heart failure) Maternal Uncle Coronary bypass graft mechanical complication Social History Household Members: None Housing: Apartment Are you a primary child care attendant school to a significant other at home: No Do you presently have visiting nurse or other home services: Yes (NURSE) Alcohol intake: current Alcohol intake frequency: holidays/special occasions only Alcohol type: beer Patient Tobacco Use Status: Former Tobacco user Quit Date: a few days ago Tobacco use type: Cigarette Cigarette Packs Per Day: 0.5 Years Smoked: 47 Second Hand Smoke Exposure: No Substance Use Type: Marijuana Advance Directives Date on File: 09/11/23 service: No Review of Systems Const All systems reviewed & are unremarkable except as noted in HPI and below Physical Exam Vital Signs: Last Vital Signs Temp 97.6 F 01/15/24 09:32 Pulse 82 01/15/24 09:32 BP 120/80 01/15/24 09:32 Pulse Ox 98 01/15/24 09:32 Oxygen Delivery Method Room Air 01/15/24 09:32 BMI result Body Mass Index 21.7 Const General: no acute distress Orientation/consciousness: patient oriented x3 HEENT Head: Yes normocephalic Ears: external ears normal and TM's normal bilaterally General nose exam: Normal nasal mucous membranes and turbinates present Face and sinus: Yes sinuses nontender Mouth: moist mucous membranes Throat: Yes posterior oropharynx normal Resp Effort & Inspection: normal respiratory effort, able to speak in complete sentences and Actively coughing Auscultation: no crackles, no rales, rhonchi and wheezes Cardio Rate: regular rate Neuro General: patient oriented x3, gait normal and moves all extremities Psych Speech and movement: Clear speech present Affect: Sad affect present Results AMB Urinalysis, Automated UA Leukoctes 0 Kevin/uL Last Edit by Ivett Soria CMA on 01/15/24 10:19 UA Nitrite Positive Last Edit by Ivett Soria CMA on 01/15/24 10:19 UA Urobilinogen 0.2 mg/dL Last Edit by Ivett Soria CMA on 01/15/24 10:19 UA Protein 0 mg/dL Last Edit by Ivett Soria CMA on 01/15/24 10:19 UA pH 6.0 Last Edit by Ivett Soria CMA on 01/15/24 10:19 UA Blood 0 [place]/uL Last Edit by Ivett Soria, AVA on 01/15/24 10:19 UA Specific [place] 1.015 Last Edit by Ivett Soria, AVA on 01/15/24 10:19 UA Ketone Negative Last Edit by Ivett Soria, AVA on 01/15/24 10:19 UA Bilirubin 0 mg/dL Last Edit by Ivett Soria, AVA on 01/15/24 10:19 UA Glucose 0 mg/dL Last Edit by Ivett Soria, AVA on 01/15/24 10:19 Results Reviewed Results Reviewed: Laboratory Last Values Urine pH (Auto) 6.0 01/15/24 10:18 Specific [place] (Auto) 1.015 01/15/24 10:18 Urine Protein (Auto) 0 mg/dL 01/15/24 10:18 Glucose (UA)(Auto) 0 mg/dL 01/15/24 10:18 Urine Ketones (Auto) Negative 01/15/24 10:18 Urine Blood (Auto) 0 [place]/uL 01/15/24 10:18 Urine Nitrite (Auto) Positive 01/15/24 10:18 Urine Bilirubin (Auto) 0 mg/dL 01/15/24 10:18 Urine Urobilinogen (Auto) 0.2 mg/dL 01/15/24 10:18 Leukocyte Esterase (Auto) 0 Kevin/uL 01/15/24 10:18 Assessment & Plan Assessment & Plan (1) Wheezing on auscultation: Code(s): R06.2 - Wheezing Plan: - Pt declined Inoffice Neb Tx - Sent Duoneb Rx for Home Tx - Prednisone (Pt already on) -SARs (2) Lower abdominal pain: Code(s): R10.30 - Lower abdominal pain, unspecified Plan: - POCT U/A negative for UTI. Plan - Pt upset with me because I wouldn't Rx Tramadol or Percocet for her pain. - Informed Pt that this clinic has a policy of No Narcotic . Orders: Orders SARS-CoV2/FLU/RSV Today R06.2 - Wheezing AMB Urinalysis Automated Today Z13.9 - Encounter for screening, unspecified Medications: New ipratropium-albuterol 0.5 mg-3 mg(2.5 mg base)/3 mL 3 mL inhalation Q4-6H PRN 90 mL 0RF wheezing R06.2 - Wheezing Coding Level of Care Code Est Pt Level 3 (11823) Diagnoses Wheezing on auscultation R06.2 Lower abdominal pain R10.30 Time Spent (min) 15
== END 2024-01-15 10:44 | disposition home or self-care (01) ==
PROVIDERS: PCP Internal Medicine; Visit Provider Nurse Practitioner Family
DX: R06.2 Wheezing (principal); R10.30 Lower abdominal pain, unspecified
CPT/HCPCS: 81003; 99213

== ENCOUNTER 2024-01-15 10:15 | Outpatient (REF) | payer MEDICARE, MEDICAID, SELFPAY ==
[2024-01-15 14:29] LABS: Influenza A PCR NEGATIVE (Negative); Influenza B PCR NEGATIVE (Negative); Resp Syncy Virus RNA Qual PCR NEGATIVE (Negative); SARS COV2 PCR INHOUSE NEGATIVE (Negative)
== END 2024-01-15 10:16 | disposition home or self-care (01) ==
LOC: HO.LAB 10:15
PROVIDERS: Visit Provider Nurse Practitioner Family
DX: R06.2 Wheezing (principal); Z11.52 Encounter for screening for COVID-19; Z20.828 Contact with and (suspected) exposure to other viral communicable diseases
CPT/HCPCS: 0241U

== ENCOUNTER 2024-01-20 13:39 | Outpatient (AMB) | payer MEDICARE, MEDICAID, SELFPAY ==
--- NOTE | 2024-01-20 13:40 | MHC.OFFVIS ---
Intake Intake Visit Reasons: Sick visit (adolescent/adult) Intake Note: pt is on the phone and not feeling well, coughing, rib hurts on right side, chest heavy, wheeze, productive cough with green phelgm, and head congested, she just doesn't feel good. Machine Heel Seat Laster Required: No Allergies codeine [CODEINE] Allergy (Intermediate, Verified 01/20/24 13:52) ITCHING hydrocodone [HYDROCODONE] Allergy (Intermediate, Verified 01/20/24 13:52) ITCHING diphenhydramine [From BENADRYL] Adverse Reaction (Intermediate, Verified 01/20/24 13:52) JITTERY Medication List - Last Reconciled 01/20/24 by Otto Cowan MD albuterol sulfate 90 mcg/actuation (Ventolin HFA) 2 puffs inhalation Q4H PRN aspirin 81 mg PO DAILY atorvastatin 20 mg PO BEDTIME bupropion HCl 300 mg PO DAILY buspirone 5 mg PO TID diazepam 10 mg PO BID docusate sodium (Colace) 100 mg PO BID PRN fluticasone propionate 50 mcg/actuation 1 spray intranasal DAILY PRN ldmymfqvpio-yuxhehwlx-pwixyihx 200-62.5-25 mcg (Trelegy Ellipta) 1 ea inhalation DAILY 30 days lidocaine 4% (Lidocaine Pain Relief) 1 patch See Protocol transdermal DAILY multivitamin 1 tab PO DAILY omeprazole 20 mg PO DAILY@0630 prazosin 5 mg PO BEDTIME topiramate 25 mg PO DAILY Do you need a note to return to daycare/school/sports/work: No HPI Sick visit (adolescent/adult) HPI Details GO IS 63 YEARS OLD FEMALE, WHO HAS CALLED TO MAKE AN URGENT TELE VISIT, CLAIMING THAT SHE IS NOT FEELING GOOD. I HAD A GOOD CONVERSATION WITH HER AND SHE COULD NOT BEEN POINT ANY SIGNIFICANT RESPIRATORY SYMPTOMS, EXCEPT THAT SHE HAS COUGH. AND THEN SHE ALSO STARTS HAVING SOME CHEST PAIN WHICH IS MORE MUSCULAR. SHE DENIES FEVER OR CHILLS. SHE DENIES ANY EXPECTORATION OF BLOOD. 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 THERE WAS NO EVIDENCE OF PNEUMONIA OR PULMONARY EMBOLISM. SHE WAS TREATED WITH AUGMENTIN , EMPIRICALLY WHICH IS NOW DONE. SHE WAS ALSO TREATED WITH A SHORT COURSE OF PREDNISONE . WHICH SHE HAS COMPLETED SHE ADMITS OF BEING ANXIOUS AND DEPRESSED, WHICH IS MAINLY BECAUSE OF RECENT SPLITTING UP WITH THE HER BOYFRIEND. [facility] Medical History History of ectopic 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 Allergic rhinitis COPD (chronic obstructive pulmonary disease) Current smoker History of herniated intervertebral disc Scoliosis IBS (irritable bowel syndrome) History of depression DJD (degenerative joint disease) Hypertension Hyperlipidemia Urinary incontinence PTSD (post-traumatic stress disorder) Anxiety Surgical History History of lobectomy of lung History of ovarian cystectomy History of biopsy History of cystoscopy History of dilation of urethra History of colonoscopy History of endoscopy History of lung biopsy History of bladder surgery History of blepharoplasty History of hysterectomy History of bladder suspension procedure Family History Mother CHF (congestive heart failure) Maternal Uncle Coronary bypass graft mechanical complication Social History Household Members: None Housing: Apartment Are you a primary home health aide caregiver to a significant other at home: No Do you presently have visiting nurse or other home services: Yes (NURSE) Alcohol intake: current Alcohol intake frequency: holidays/special occasions only Alcohol type: beer Patient Tobacco Use Status: Former Tobacco user Quit Date: a few days ago Tobacco use type: Cigarette Cigarette Packs Per Day: 0.5 Years Smoked: 47 Second Hand Smoke Exposure: No Substance Use Type: Marijuana Advance Directives Date on File: 09/11/23 service: No Review of Systems Const Details: PATIENT IS VERY ANXIOUS BUT PHYSICALLY SHE IS NOT IN ANY DISTRESS. All systems reviewed & are unremarkable except as noted in HPI and below Eyes Reports no additional complaints ENT Reports nasal congestion (Mild off and on) Card Denies irregular heart rhythm and Denies leg edema Resp Reports as per HPI GI Reports no additional complaints Reports no additional complaints Musc Reports back pain (Mild off and on) Skin/Breast Reports system reviewed and no additional complaints, except as documented Neuro Reports no additional complaints Psych Reports anxiety and Reports depression Endo Reports no additional complaints Baljinder/Lymph Reports no additional complaints Aller/Immun Reports no additional complaints Physical Exam IT WAS TELE VISIT, NO PHYSICAL EXAMINATION PERFORMED Assessment & Plan Assessment & Plan (1) COPD (chronic obstructive pulmonary disease): Comment: (COPD, MILD TO MODERATELY SEVERE , CONTROLLED AND STABLE. Code(s): J44.9 - Chronic obstructive pulmonary disease, unspecified Plan: ADVISED TO RESTART TRELEGY ELLIPTA 1 INHALATION DAILY. USE ALBUTEROL SOLUTION IN THE NEBULIZER, AND SHE MAY USE Q 6 HOURS P.R.N. IF THERE IS ANY WHEEZING OR SHORTNESS OF BREATH. I REASSURED HER THAT SHE DOES NOT NEED ANY COURSE OF PREDNISONE OR ANTIBIOTIC AT THIS TIME. (2) Lung cancer, lower lobe: Comment: Adeno carcinoma right lower lobe, localized. SUCCESSFULLY TREATED WITH VATS ASSISTED RIGHT LOWER LOBECTOMY BY DR. POST . Code(s): C34.30 - Malignant neoplasm of lower lobe, unspecified bronchus or lung Plan: NO FURTHER TREATMENT NEEDED (3) Status post lobectomy of lung: Comment: VATS right lower lobectomy, mediastinal lymph node sampling 09/04/23 PATIENT HAS RECOVERED WELL EXCEPT FOR MINIMAL DISCOMFORT OVER THE RIGHT LOWER RIBCAGE AREA. Code(s): Z90.2 - Acquired absence of lung [part of] Plan: PATIENT IS ADVISED TO CONTINUE HER FOLLOW-UP WITH DR. TURNER, HER THORACIC SURGEON. (4) Current smoker: Comment: (current smoker - osnet 17yo, 1ppd x 45yrs, 40pyh) Code(s): F17.200 - Nicotine dependence, unspecified, uncomplicated Plan: SHE IS TRYING TO QUIT AND IS DOWN TO 5 CIGARETTES A DAY. I HAVE COUNSELED HER STRONGLY THAT SHE NEEDS TO QUIT COMPLETELY, Telehealth Telehealth Location of provider rendering services: practice address Location of patient: address on file Patient Identification confirmed using: Name, : Yes Telehealth method: voice only Patient verbally consented to treatment: Yes Patient verbally consented to billing insurance company: Yes Patient informed of any privacy concerns related to visit: Yes Coding Level of Care Code Tele New Pt Level 4 (60742) Diagnoses COPD (chronic obstructive pulmonary disease) J44.9 Lung cancer, lower lobe C34.30 Status post lobectomy of lung Z90.2 Current smoker F17.200
== END 2024-01-20 14:13 | disposition home or self-care (01) ==
LOC: HO.HPS 13:39
PROVIDERS: PCP Internal Medicine; Visit Provider Internal Medicine
DX: J44.9 Chronic obstructive pulmonary disease, unspecified (principal); C34.30 Malignant neoplasm of lower lobe, unspecified bronchus or lung; Z90.2 Acquired absence of lung [part of]; F17.200 Nicotine dependence, unspecified, uncomplicated
CPT/HCPCS: 99442

== ENCOUNTER → 2024-01-20 13:39 | Outpatient (BNVA) | payer MEDICARE, MEDICAID, SELFPAY | PROVIDERS: PCP Internal Medicine; Visit Provider Internal Medicine ==

== ENCOUNTER 2024-01-21 11:25 | Outpatient (REF) | payer MEDICARE, MEDICAID, SELFPAY ==
--- NOTE | ~2024-01-21 | XR_ITS ---
EXAMINATION: XR CHEST CLINICAL INFORMATION: Cough, pneumonia COMPARISON: Chest x-ray on 01/08/2024 TECHNIQUE: 2 views of the chest were obtained. FINDINGS: vascularity. LUNGS: Unchanged postsurgical effacement of right cardiophrenic angle. There is unchanged blunting of right lateral costophrenic angle. No focal airspace disease is seen. No pneumothorax is seen. BONES: Bony skeleton is intact. XR/XR chest 2V IMPRESSION: 1. Unchanged status post right lower lobectomy. 2. 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 3. Unchanged, no radiographic signs of acute cardiopulmonary process.
== END 2024-01-21 11:26 | disposition home or self-care (01) ==
LOC: HO.XRAY 11:25
PROVIDERS: Absent Provider Internal Medicine; PCP Internal Medicine; Visit Provider Internal Medicine
DX: R05.2 Subacute cough (principal)
CPT/HCPCS: 71046; 99212

== ENCOUNTER 2024-01-21 11:33 | Outpatient (AMB) | payer MEDICARE, MEDICAID, SELFPAY ==
--- NOTE | 2024-01-21 11:34 | A.OFFVIS_ITS ---
Intake Vital Signs 01/21/24 11:42 Height 5 ft 1 in Weight 118 lb BMI 22.3 BP 123/82 Blood Pressure Location Rt brachial Position Sitting Pulse 90 Pulse Oximetry (%) 97 Oxygen Delivery Method Room Air Intake Visit Reasons: right rib pain Intake Note: Patient here c/o flank pain at ribs. Reports pain started a few wks ago. Getting over Covid. Still feels fatigued. SX: VATS Rt lower lobectomy on 09-04-23. Physician Office Secretary Required: No Accompanied by: Self / Same As Patient Allergies codeine [CODEINE] Allergy (Intermediate, Verified 01/21/24 11:41) ITCHING hydrocodone [HYDROCODONE] Allergy (Intermediate, Verified 01/21/24 11:41) ITCHING diphenhydramine [From BENADRYL] Adverse Reaction (Intermediate, Verified 01/21/24 11:41) JITTERY Medication List - Last Reconciled 01/21/24 by Marlo Sorto MD albuterol sulfate 90 mcg/actuation (Ventolin HFA) 2 puffs inhalation Q4H PRN aspirin 81 mg PO DAILY atorvastatin 20 mg PO BEDTIME bupropion HCl 300 mg PO DAILY buspirone 5 mg PO TID diazepam 10 mg PO BID docusate sodium (Colace) 100 mg PO BID PRN fluticasone propionate 50 mcg/actuation 1 spray intranasal DAILY PRN pueuspbbzpy-eysieamzo-vlroeelw 200-62.5-25 mcg (Trelegy Ellipta) 1 ea inhalation DAILY 30 days lidocaine 4% (Lidocaine Pain Relief) 1 patch See Protocol transdermal DAILY multivitamin 1 tab PO DAILY omeprazole 20 mg PO DAILY@0630 prazosin 5 mg PO BEDTIME topiramate 25 mg PO DAILY HPI HPI Comments History of Present Illness Details Patient is being followed by a medical doctor status post recent bout of COVID. She has had few weeks of violent coughing paroxysms. She presents here because of incisional and costal pain. At present, she is somewhat improved with the respiratory symptoms. Patient is well known to me [facility] Medical History History of ectopic 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 Allergic rhinitis COPD (chronic obstructive pulmonary disease) Current smoker History of herniated intervertebral disc Scoliosis IBS (irritable bowel syndrome) History of depression DJD (degenerative joint disease) Hypertension Hyperlipidemia Urinary incontinence PTSD (post-traumatic stress disorder) Anxiety Surgical History History of lobectomy of lung History of ovarian cystectomy History of biopsy History of cystoscopy History of dilation of urethra History of colonoscopy History of endoscopy History of lung biopsy History of bladder surgery History of blepharoplasty History of hysterectomy History of bladder suspension procedure Family History Mother CHF (congestive heart failure) Maternal Uncle Coronary bypass graft mechanical complication Social History Household Members: None Housing: Apartment Are you a primary child care center assistant director to a significant other at home: No Do you presently have visiting nurse or other home services: Yes (NURSE) Alcohol intake: current Alcohol intake frequency: holidays/special occasions only Alcohol type: beer Patient Tobacco Use Status: Former Tobacco user Quit Date: a few days ago Tobacco use type: Cigarette Cigarette Packs Per Day: 0.5 Years Smoked: 47 Second Hand Smoke Exposure: No Substance Use Type: Marijuana Advance Directives Date on File: 09/11/23 service: No Physical Exam Vital Signs: Last Vital Signs Pulse 90 01/21/24 11:42 BP 123/82 01/21/24 11:42 Pulse Ox 97 01/21/24 11:42 Oxygen Delivery Method Room Air 01/21/24 11:42 BMI result Body Mass Index 22.3 Chest Other: Chest breath sounds bilaterally. Incisions are all clean dry and intact, completely healed. Assessment & Plan Assessment & Plan (1) Costal margin pain: Code(s): R07.81 - Pleurodynia Plan At present, no acute thoracic surgical issues. Her medical doctor ordered a chest x-ray which he is scheduled to have later today. We will check that results. In the meantime, patient will otherwise follow-up with me p.r.n.. She will be given a 1 time script for tramadol. This is usually prescribed by her medical doctor who will do so in the future. All questions answered. Medications: New tramadol 50 mg PO BID PRN 30 tabs 0RF pain Coding Level of Care Code Est Pt Level 3 (72435) Diagnoses Costal margin pain R07.81
[2024-01-21 11:42] VITALS: BP 123/82; PULSE 90; O2SAT 97; BMI 22.3
== END 2024-01-21 11:53 | disposition home or self-care (01) ==
PROVIDERS: PCP Internal Medicine; Visit Provider Surgery
DX: R07.81 Pleurodynia (principal)
CPT/HCPCS: 99213

== ENCOUNTER 2024-01-22 15:58 | Outpatient (REF) | payer MEDICARE, MEDICAID, SELFPAY ==
[2024-01-22 17:37] LABS: MANUAL DIFF FLAG NO
[2024-01-22 17:44] LABS: Basophils Percent Auto 0.4 % (0-2); Eosinophils Absolute Auto 0.1 X10*3/uL (0.0-0.4); Eosinophils Percent Auto 1.1 % (0-4); Hematocrit 39.4 % (37.0-47.0); Hemoglobin 13.3 g/dl (12.0-16.0); Imm Gran Abs Auto 0.05 X10*3/uL (0.00-0.03); Imm Gran Pct Auto 0.5 % (0.0-0.4); Lymphocytes Absolute Auto 2.5 X10*3/uL (1.2-4.9); Mean Corpuscular HGB Conc 33.8 g/dl (31.0-35.0); Mean Corpuscular Hemoglobin 32.3 pg (27.0-33.0); Mean Corpuscular Volume 95.6 fL (80.0-98.0); Mean Platelet Volume 9.4 fL (9.4-12.3); Monocytes Absolute Auto 0.6 X10*3/uL (0.1-1.2); Monocytes Percent Auto 5.1 % (2-11); Neutrophils Absolute Auto 7.5 x10*3/uL (2.0-8.3); Neutrophils Percent Auto 69.9 % (45-73); Platelet Count 310 X10*3/uL (160-400); Red Blood Count 4.12 X10*6/uL (4.20-5.50); Red Cell Distribution Width 13.9 % (11.0-16.0); White Blood Count 10.7 X10*3/uL (4.8-10.8)
[2024-01-22 18:25] LABS: Alanine Aminotransferase 23 U/L (0-31); Albumin Level 3.8 g/dL (3.5-5.0); Alkaline Phosphatase 73 U/L (39-117); Anion Gap 11 (12-20); Aspartate Amino Transferase 20 U/L (5-31); Bilirubin Total 0.2 mg/dL (0.0-1.0); Blood Urea Nitrogen 20 mg/dL (9-16); Calcium 9.2 mg/dL (8.4-10.2); Carbon Dioxide 24 mmol/L (22-29); Chloride 110 mmol/L (96-108); Estimated Glomerular Filt Rate > 60; Glucose Random 88 mg/dL (60-115); Magnesium 1.8 mg/dL (1.6-2.6); Potassium 3.6 mmol/L (3.3-5.1); Sodium 141 mmol/L (135-145); Total Protein 6.2 g/dL (6.5-8.0)
[2024-01-22 18:40] LABS: TSH reflex Free T4 0.86 uIU/mL (0.32-4.0); Vitamin D 25-OH Total 64.6 ng/mL (>30)
== END 2024-01-22 15:59 | disposition home or self-care (01) ==
LOC: HO.CHCLDS 15:58
PROVIDERS: Visit Provider Internal Medicine
DX: R53.82 Chronic fatigue, unspecified (principal)
CPT/HCPCS: 36415; 80053; 82306; 83735; 84443; 85025

== ENCOUNTER 2024-02-26 10:38 | Outpatient (AMB) | payer MEDICARE, MEDICAID, SELFPAY ==
--- NOTE | 2024-02-26 10:43 | MHC.OFFVIS ---
Vital Signs 02/26/24 10:46 Height 5 ft 1 in Weight 122 lb BMI 23.0 BP 130/78 Blood Pressure Location Lt brachial Position Sitting Respiration 14 Pulse 112 H Pulse Source Pulse Oximeter Pulse Oximetry (%) 93 Oxygen Delivery Method Room Air Intake Visit Reasons: CHRONIC LOW BACK PAIN W/SCIATICA,PLEURODYNIA Allergies codeine [CODEINE] Allergy (Intermediate, Verified 02/26/24 10:47) ITCHING hydrocodone [HYDROCODONE] Allergy (Intermediate, Verified 02/26/24 10:47) ITCHING diphenhydramine [From BENADRYL] Adverse Reaction (Intermediate, Verified 02/26/24 10:47) JITTERY Medication List - Last Reconciled 02/26/24 by Rose Pantoja LPN albuterol sulfate 90 mcg/actuation (Ventolin HFA) 2 puffs inhalation Q4H PRN aspirin 81 mg PO DAILY atorvastatin 20 mg PO BEDTIME bupropion HCl XL 300 mg PO DAILY buspirone 5 mg PO TID diazepam 10 mg PO BID docusate sodium (Colace) 100 mg PO BID PRN fluticasone propionate 50 mcg/actuation 1 spray intranasal DAILY PRN xcpoefhuszl-cucvnzcax-wilztwzl 200-62.5-25 mcg (Trelegy Ellipta) 1 ea inhalation DAILY 30 days lidocaine 4% (Lidocaine Pain Relief) 1 patch See Protocol transdermal DAILY multivitamin 1 tab PO DAILY omeprazole 20 mg PO DAILY@0630 prazosin 5 mg PO BEDTIME topiramate 25 mg PO DAILY HPI HPI CHRONIC LOW BACK PAIN W/SCIATICA,PLEURODYNIA: Details: 63-year-old female presenting with longstanding back pain radiating to the lower extremities as well as chest wall pain on the right side following thoracoscopic lobectomy. Patient states that she has had low back pain for long time, more than 6/10 in intensity, mostly axial in nature, worse with movements. It interferes with her daily activities. In recent months she has been on acetaminophen, tramadol and methocarbamol to help with the symptoms which have not been helpful. She also received Percocet after her lung surgery which she did not find particularly helpful for her back pain. She recently had a lung surgery so she has not been in physical therapy recently but she has been in physical therapy in the past. She denies significant benefit from it. Her chest wall pain started after the surgery where she reports there was a swelling along the costal margin. This has been present since she underwent the surgery, although the swelling has decreased, the pain has persisted. Location: Axial low back, chest wall Duration: More than 3 months Characteristics of symptom or complaint: Aching stabbing Aggravating or associated factors: Movement, weather changes Relieving factors: None PFSH Medical History History of ectopic 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 Allergic rhinitis COPD (chronic obstructive pulmonary disease) Current smoker History of herniated intervertebral disc Scoliosis IBS (irritable bowel syndrome) History of depression DJD (degenerative joint disease) Hypertension Hyperlipidemia Urinary incontinence PTSD (post-traumatic stress disorder) Anxiety Surgical History History of lobectomy of lung History of ovarian cystectomy History of biopsy History of cystoscopy History of dilation of urethra History of colonoscopy History of endoscopy History of lung biopsy History of bladder surgery History of blepharoplasty History of hysterectomy History of bladder suspension procedure Family History Mother CHF (congestive heart failure) Maternal Uncle Coronary bypass graft mechanical complication Social History Household Members: None Housing: Apartment Are you a primary ambulatory care coordinator to a significant other at home: No Do you presently have visiting nurse or other home services: Yes (NURSE) Alcohol intake: current Alcohol intake frequency: holidays/special occasions only Alcohol type: beer Patient Tobacco Use Status: Former Tobacco user Quit Date: a few days ago Tobacco use type: Cigarette Cigarette Packs Per Day: 0.5 Years Smoked: 47 Second Hand Smoke Exposure: No Substance Use Type: Marijuana Advance Directives Date on File: 09/11/23 service: No Physical Exam Vital Signs: Last Vital Signs Pulse 112 H 02/26/24 10:46 Resp 14 02/26/24 10:46 BP 130/78 02/26/24 10:46 Pulse Ox 93 02/26/24 10:46 Oxygen Delivery Method Room Air 02/26/24 10:46 BMI result Body Mass Index 23.0 On exam today: Appears afebrile. Alert and oriented. Mood and affect appropriate. Follows and participates in conversation appropriately. Respiratory effort is unlabored. Able to transition from sit to stand unassisted. Ambulates with bilaterally normal heel strike and toe off. Able to stand and walk on toes and heels. Tenderness to palpation along the length of the intercostal nerve along the path of the thoracoscopic incisions. Well-healed incisions. Axial back pain with forward flexion and rising from a forward flexed position, no significant pain with facet loading. Results Reviewed Results Reviewed: Modic type changes noted at the superior endplates of L5 and S1 vertebral bodies. EXAMINATION: MR LUMBAR SPINE WITHOUT CONTRAST CLINICAL INFORMATION: 62-year-old with low back pain. COMPARISON: 08/02/2021 MRI. TECHNIQUE: MRI of the lumbar spine was obtained using routine sequences without contrast. FINDINGS: Coronal Alignment: Mild lumbar levocurvature convex to the left at L3-L4, stable in appearance. Sagittal Alignment: Normal alignment in the sagittal plane, unchanged. Lumbosacral Junction: Normal. 6 wib-yuo-kdfodqy lumbar-type vertebral bodies suggesting vertebral numeric variation. Vertebral Bodies: Vertebral body heights are well-maintained, stable in appearance. Disc Spaces and Endplates: Disc desiccation at the levels between L2-L3 and L4-L5 inclusive are similar to the previous exam without significant disc space height loss. Minor anterior marginal endplate spurring at these levels is largely unchanged. Endplates appear otherwise grossly intact. Spinal Canal: No abnormal developmental findings. Bone Marrow: No suspicious marrow-replacing process or bone marrow edema. Conus Medullaris: Terminates at T12-L1. Morphology and signal is normal. Intradural Nerve Roots: Within normal limits. L5-S1: Minor annular bulging and small shallow disc protrusion, stable in appearance, with slight indentation of the ventral thecal sac, unchanged. Disc bulge contacts the S1 nerve root sleeves bilaterally without posterior displacement, unchanged. Mild facet arthrosis on the left, stable in appearance. No significant canal or neuroforaminal stenosis. L4-L5: Concentric disc bulging is noted with a superimposed right-sided foraminal/extraforaminal disc herniation, similar to the previous exam. There is moderate flattening of the ventral dural sac again noted. There is mild right and dmhcjpzt-sd-tlyoiy left-sided facet arthrosis, now with a left-sided facet joint effusion and suspicion for a 6 mm synovial cyst arising along the anteromedial aspect of the left facet joint on the current study, now with severe left subarticular recess stenosis with impingement on the traversing left L5 nerve root since prior exam. Mild central spinal canal stenosis is again noted. There is minor foraminal narrowing on the right again noted. Right lateral disc protrusion contacts the exiting right L4 nerve root, unchanged. L3-L4: Disc bulging is again noted with slight flattening of the dural sac, unchanged. Ygxx-zm-zdwvuvzh facet arthropathy and mild ligamentum flavum thickening is stable without significant central canal stenosis. There is minimal narrowing of the subarticular zones bilaterally without neural impingement, unchanged. No significant foraminal stenosis. L2-L3: There is diffuse disc bulging, with flattening of the ventral dural sac, stable in appearance, with oqlwzzkc-gy-jeoixg bilateral facet arthropathy and ligamentum flavum thickening, unchanged, with minimal central canal stenosis, stable in appearance, and mild narrowing of the left subarticular zone, unchanged. Mild foraminal narrowing noted bilaterally unchanged without neural impingement. L1-L2: Normal annular contour. No significant facet arthrosis, canal or foraminal stenosis. Paravertebral and Included Extraspinal Soft Tissues: The paravertebral soft tissues appear unremarkable. There is a distended left extrarenal pelvis which is unchanged in appearance from the previous exam with no associated caliectasis or hydroureter. MR/MR lumbar spine wo con IMPRESSION: 1. Multilevel discogenic degenerative changes between L2-L3 and L4-L5 inclusive, largely unchanged in appearance. 2. Disc bulging and right lateral disc herniation at L4-L5, similar to the previous exam, now with a 6 mm synovial cyst arising along the anteromedial aspect of the left L4-L5 facet joint, now with severe left subarticular recess stenosis and impingement on the traversing left L5 nerve root since prior exam. Other levels of multilevel disc bulging as detailed above. 3. Multilevel bilateral facet arthropathy and ligamentum flavum thickening with mild central canal stenosis at L4-L5 and minimal central canal stenosis at L2-L3, stable in appearance. 4. Mild degrees of neuroforaminal narrowing on the right at L4-L5 and bilaterally at L2-L3, stable in appearance. Assessment & Plan Assessment & Plan (1) Costal margin pain: Code(s): R07.81 - Pleurodynia Category: Surgical (2) Vertebrogenic low back pain: Code(s): M54.51 - Vertebrogenic low back pain Category: Medical Plan 63-year-old female with intercostal pain status post thoracoscopic surgery. I will trial gabapentin and see if this is helpful in reducing the intensity of her pain. If this is not helpful we can consider trial of intercostal nerve blocks with or without steroids. Her axial low back pain I discussed details of the Intracept procedure. I think she would benefit from BVN ablation. She has exhausted multiple conservative therapies including multiple oral medications, physical therapy, transcutaneous electrical nerve stimulation, massage therapy and acupuncture. None of these have been particularly helpful. She continues to have significant pain with axial loading. She does have significant facet arthritis and a synovial cyst on an MRI but she denies significant radiation down the lower extremity. Most of her pain is in the axial low back. Patient was provided with brochure and information on the procedure. She would like to proceed. Medications: New gabapentin Start taking once at night. If well tolerated for 2 weeks, start twice daily 300 mg PO BID 60 caps 2RF Coding Level of Care Code New Pt Level 4 (90709) Diagnoses Costal margin pain R07.81 Vertebrogenic low back pain M54.51
[2024-02-26 10:46] VITALS: BP 130/78; PULSE 112; RESP 14; O2SAT 93; BMI 23.0
== END 2024-02-26 11:29 | disposition home or self-care (01) ==
PROVIDERS: PCP Internal Medicine; Visit Provider Internal Medicine
DX: R07.81 Pleurodynia (principal); M54.51 Vertebrogenic low back pain
CPT/HCPCS: 99204

== ENCOUNTER → 2024-02-26 10:38 | Outpatient (BNVA) | payer MEDICARE, MEDICAID, SELFPAY | PROVIDERS: PCP Internal Medicine; Visit Provider Internal Medicine | DX: R07.81 Pleurodynia (principal); M54.51 Vertebrogenic low back pain | CPT/HCPCS: 99202 ==

== ENCOUNTER 2024-03-11 15:13 | Outpatient (AMB) | payer MEDICARE, MEDICAID, SELFPAY ==
[2024-03-11 15:26] VITALS: BP 104/62; PULSE 83; O2SAT 96; BMI 23.8
--- NOTE | 2024-03-11 15:26 | A.OFFVIS_ITS ---
Vital Signs 03/11/24 15:26 Height 5 ft 1 in Weight 126 lb BMI 23.8 BP 104/62 Blood Pressure Location Lt brachial Position Sitting Pulse 83 Pulse Source Pulse Oximeter Pulse Oximetry (%) 96 Oxygen Delivery Method Room Air Intake Visit Reasons: f/u [facility] wing Intake Note: pt is here for follow up of ER for pain next to incision site x3. She does have short of breath, her lungs hurt, pain started at surgery site and traveled to back area and swelling all around the waist. Digital Camera Technician Required: No Allergies codeine [CODEINE] Allergy (Intermediate, Verified 03/11/24 16:53) ITCHING hydrocodone [HYDROCODONE] Allergy (Intermediate, Verified 03/11/24 16:53) ITCHING diphenhydramine [From BENADRYL] Adverse Reaction (Intermediate, Verified 03/11/24 16:53) JITTERY Medication List - Last Reconciled 03/11/24 by Otto Cowan MD albuterol sulfate 90 mcg/actuation (Ventolin HFA) 2 puffs inhalation Q4H PRN aspirin 81 mg PO DAILY atorvastatin 20 mg PO BEDTIME bupropion HCl XL 300 mg PO DAILY buspirone 10 mg PO TID diazepam 10 mg PO BID fluticasone propionate 50 mcg/actuation 1 spray intranasal DAILY PRN rvgzrubkhna-zwbdadvoo-ickewbqr 200-62.5-25 mcg (Trelegy Ellipta) 1 ea inhalation DAILY 30 days gabapentin 300 mg PO BID lidocaine 4% (Lidocaine Pain Relief) 1 patch See Protocol transdermal DAILY multivitamin 1 tab PO DAILY omeprazole 20 mg PO DAILY@0630 prazosin 5 mg PO BEDTIME topiramate 25 mg PO DAILY Do you need a note to return to daycare/school/sports/work: No HPI HPI f/u [facility] wing: Details: GO IS 63 YEARS OLD FEMALE, A CASE OF CHRONIC OBSTRUCTIVE PULMONARY DISEASE .AND LONG-TIME SMOKING SHE HAD A NEOPLASTIC NODULE IN THE RIGHT LOWER LOBE AND UNDERWENT VATS ASSISTED, RIGHT LOWER LOBECTOMY IN SEPTEMBER 2023. POSTOPERATIVELY SHE HAS DEVELOPED NEUROPATHIC TYPE OF PAIN AT THE SITE OF TUBE INSERTION. SHE HAS BEEN SEEN AT THE PAIN MANAGEMENT OFFICE AND HAS BEEN PRESCRIBED GABAPENTIN 300 MG B.I.D., ALONG WITH TYLENOL P.R.N.. HER BREATHING STATUS WAS RELATIVELY STABLE. IN ADDITION TO PAIN AT THE THORACIC SITE, SHE HAS HAD UPPER ABDOMINAL PAIN AND DISCOMFORT, ON 03/09/24 SHE WAS SEEN AT [facility] FOR THIS PAIN, SHE HAD CT SCAN OF THE ABDOMEN. THERE WAS NO MASS IN THE ABDOMEN LIVER AND GO GALLBLADDER WERE FOUND TO BE RELATIVELY NORMAL. THE CT SCAN OF THE ABDOMEN VISUALIZE THE LOWER PART OF THE CHEST. THE MAIN FINDING WAS INCREASED AMOUNT OF PLEURAL EFFUSION. WITH SOME THICKENING AND NODULARITY AT THE SUTURE SITE. POSSIBILITY OF RECURRENCE OF THE NEOPLASM WAS CONSIDER. NEEDLESS TO SAY THIS PATIENT WHO ALREADY HAS CHRONIC ANXIOUS PERSONALITY, IS GRE ATLY WORRIED NOW. [facility] Medical History (Updated 03/11/24 @ 17:12 by Otto Cowan MD) Pleural effusion, right Lower thoracic back pain History of ectopic 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 Allergic rhinitis COPD (chronic obstructive pulmonary disease) Current smoker History of herniated intervertebral disc Scoliosis IBS (irritable bowel syndrome) History of depression DJD (degenerative joint disease) Hypertension Hyperlipidemia Urinary incontinence PTSD (post-traumatic stress disorder) Anxiety Surgical History (Updated 03/11/24 @ 17:10 by Otto Cowan MD) History of lobectomy of lung History of ovarian cystectomy History of biopsy History of cystoscopy History of dilation of urethra History of colonoscopy History of endoscopy History of lung biopsy History of bladder surgery History of blepharoplasty History of hysterectomy History of bladder suspension procedure Family History Mother CHF (congestive heart failure) Maternal Uncle Coronary bypass graft mechanical complication Social History Household Members: None Housing: Apartment Are you a primary healthcare economics manager to a significant other at home: No Do you presently have visiting nurse or other home services: Yes (NURSE) Alcohol intake: current Alcohol intake frequency: holidays/special occasions only Alcohol type: beer Patient Tobacco Use Status: Former Tobacco user Quit Date: a few days ago Tobacco use type: Cigarette Cigarette Packs Per Day: 0.5 Years Smoked: 47 Second Hand Smoke Exposure: No Substance Use Type: Marijuana Advance Directives Date on File: 09/11/23 service: No Review of Systems Const Details: PATIENT IS VERY ANXIOUS BUT PHYSICALLY SHE IS NOT IN ANY DISTRESS. All systems reviewed & are unremarkable except as noted in HPI and below Eyes Reports no additional complaints ENT Reports nasal congestion (Mild off and on) Card Denies irregular heart rhythm and Denies leg edema Resp Reports as per HPI GI Reports no additional complaints Reports no additional complaints Musc Reports back pain (Mild off and on) Skin/Breast Reports system reviewed and no additional complaints, except as documented Neuro Reports no additional complaints Psych Reports anxiety and Reports depression Endo Reports no additional complaints Baljinder/Lymph Reports no additional complaints Aller/Immun Reports no additional complaints Physical Exam Vital Signs: Last Vital Signs Pulse 83 03/11/24 15:26 BP 104/62 03/11/24 15:26 Pulse Ox 96 03/11/24 15:26 Oxygen Delivery Method Room Air 03/11/24 15:26 BMI result Body Mass Index 23.8 Const General: comfortable (EXCEPT FOR PAIN OVER THE RIGHT LOWER THORACIC AREA), no acute distress, alert and awake Orientation/consciousness: patient oriented x3 HEENT Head: Yes normal to inspection General nose exam: No nasal polyps present and No nasal discharge present Face and sinus: Yes sinuses nontender Mouth: oropharynx normal Throat: Yes posterior oropharynx normal Eyes General: appearance normal, both eyes and all related structures Neck Neck: Yes normal visual inspection, Yes no lymphadenopathy, Yes trachea midline and Yes no JVD Thyroid: Thyroid normal Chest Chest palpation & inspection: normal inspection of the chest, normal palpation of entire chest wall and tenderness (She does have local tenderness and hyperesthesia over right lower rib cage) Resp Other: Breath sounds are diminished over the right lower lobe area. Rest of the lungs are clear Cardio Palpation: normal PMI Rate: regular rate Rhythm: regular rhythm Heart sounds: no gallops and no murmurs Peripheral pulses: Peripheral pulses 2+ throughout GI Palpation (GI): Soft to palpation, Tenderness to palpation present (GI) (There is a mild bulge and tenderness on pressure in right upper quadrant .), No hepatosplenomegaly present and no masses Auscultation: normal bowel sounds Back/Spine/Pelvis Thoracic/Lumbar Spine: thoracic and lumbar spine normal to inspection Skin General skin exam: no rashes or lesions noted Neuro General: patient oriented x3 and no focal motor deficits Cranial nerves: Yes CN's II-XII intact bilaterally Extrem General: Yes normal to inspection, Yes no clubbing, cyanosis or edema and Yes no calf tenderness Psych Appearance: grossly normal and well kempt Speech and movement: Normal speech and movement present Affect: Anxious affect present Results Reviewed Results Reviewed: CT scan [facility] the abdomen at [facility] on 03/09/2024 MODERATE RIGHT PLEURAL EFFUSION WITH ASSOCIATED PLEURAL THICKENING AND NODULARITY APPARENT SOFT TISSUE THICKENING ALONG THE RIGHT LOBECTOMY SUTURE LINE NEW RIGHT RETRO CRURAL SOFT TISSUE NODULE, 10 MM IN SIZE WHICH COULD BE NEOPLASTIC Assessment & Plan Assessment & Plan (1) COPD (chronic obstructive pulmonary disease): Comment: (COPD, MILD TO MODERATELY SEVERE , CONTROLLED AND STABLE. Code(s): J44.9 - Chronic obstructive pulmonary disease, unspecified Category: Medical Plan: CONTINUE TO USE ALBUTEROL HFA 2 PUFFS Q 4-6 HOURS P.R.N. TRELEGY INHALER 1 INHALATION DAILY (2) Lung cancer, lower lobe: Comment: Adeno carcinoma right lower lobe, localized. SUCCESSFULLY TREATED WITH VATS ASSISTED RIGHT LOWER LOBECTOMY BY DR. POST . CT, SCAN [facility] THE ABDOMEN AT [facility] SHE NOW SHOWS A MODERATE- SIZED PLEURAL EFFUSION, QUESTION OF THIS BEING MALIGNANT EFFUSION IS RAISED. Code(s): C34.30 - Malignant neoplasm of lower lobe, unspecified bronchus or lung Category: Surgical Plan: CT SCAN OF THE CHEST TO BE DONE AT [facility], AND DEPENDING UPON THE SIZE OF THE EFFUSION SHE WILL PROBABLY NEED THORACENTESES FOR FURTHER STUDIES (3) Status post lobectomy of lung: Comment: VATS right lower lobectomy, mediastinal lymph node sampling 09/04/23 PATIENT HAS RECOVERED WELL EXCEPT FOR DISCOMFORT OVER THE RIGHT LOWER RIBCAGE AREA. Code(s): Z90.2 - Acquired absence of lung [part of] Category: Surgical Plan: PAIN CONTROL WITH GABAPENTIN AND TYLENOL (4) Lower thoracic back pain: Comment: SHE HAS CONSIDERABLE RIGHT LOWER INTERCOSTAL PAIN RADIATING TO THE FRONT. THIS IS A NEUROPATHIC TYPE OF PAIN. PATIENT IS BEING FOLLOWED AT THE PAIN CLINIC. Code(s): M54.6 - Pain in thoracic spine Category: Medical Plan: ADVISED TO CONTINUE TAKING GABAPENTIN 300 MG B.I.D. MAY TAKE TYLENOL 2 TABLETS Q.6 HOURS P.R.N. ALSO MAY APPLY THE LIDOCAINE PATCH OVER THE PAINS SITE 2 OR 3 TIMES A DAY. (5) Pleural effusion, right: Comment: THE CT SCAN OF THE ABDOMEN SHOWS PLEURAL EFFUSION ON THE RIGHT SIDE. I THINK WE NEED TO DO CT SCAN OF THE CHEST FOR MORE DETAILS, Code(s): J90 - Pleural effusion, not elsewhere classified Category: Medical Plan: CT, SCAN OF THE CHEST AND THEN PLAN FOR THORACENTESES, AND CYTOLOGY. Coding Level of Care Code Est Pt Level 4 (35089) Diagnoses COPD (chronic obstructive pulmonary disease) J44.9 Lung cancer, lower lobe C34.30 Status post lobectomy of lung Z90.2 Lower thoracic back pain M54.6 Pleural effusion, right J90
== END 2024-03-11 16:02 | disposition home or self-care (01) ==
PROVIDERS: PCP Internal Medicine; Visit Provider Internal Medicine
DX: J44.9 Chronic obstructive pulmonary disease, unspecified (principal); C34.30 Malignant neoplasm of lower lobe, unspecified bronchus or lung; Z90.2 Acquired absence of lung [part of]; M54.6 Pain in thoracic spine; J90 Pleural effusion, not elsewhere classified
CPT/HCPCS: 99214

== ENCOUNTER → 2024-03-11 15:13 | Outpatient (BNVA) | payer MEDICARE, MEDICAID, SELFPAY | PROVIDERS: PCP Internal Medicine; Visit Provider Internal Medicine | DX: J90 Pleural effusion, not elsewhere classified (principal); J44.9 Chronic obstructive pulmonary disease, unspecified; C34.30 Malignant neoplasm of lower lobe, unspecified bronchus or lung; M54.6 Pain in thoracic spine; Z90.2 Acquired absence of lung [part of] | CPT/HCPCS: 99212 ==

== ENCOUNTER 2024-03-17 16:55 | Outpatient (REF) | payer MEDICARE, MEDICAID, SELFPAY ==
--- NOTE | ~2024-03-17 | CT_ITS ---
EXAMINATION: CT CHEST WITHOUT CONTRAST CLINICAL INFORMATION: Malignant neoplasm of lower lobe. COMPARISON: 01/01/2024 and 01/08/2024 TECHNIQUE: Multidetector volumetric CT imaging of the chest was done. Axial MIP volume rendering provided. Sagittal and coronal reformatted images were obtained. This CT examination was performed using dose optimization techniques as appropriate, variously including the following: *Automated exposure control *Adjustment of mA and/or kV according to patient size (this includes techniques or standardized protocols for targeted exams where dose is matched to indication/reason for exam; i.e. extremities or head) *Use of iterative reconstruction technique DLP: 109 mGy-cm FINDINGS: LUNGS AND PLEURA: Status post right lower lobectomy. Mild centrilobular emphysema. Again noted are multiple bilateral pulmonary micronodular opacities and subtle hazy centrilobular opacities that could reflect presence of respiratory bronchiolitis (as may be seen in patients with history of cigarette smoking). Bronchial cook are diffusely, mildly thickened. Secretions within the lumen of the bronchus intermedius and right middle lobe bronchi. The right middle lobe is partially collapsed. New moderate right pleural effusion is present. There are secretions within multiple left lower lobe bronchi. There are several new tree-in-bud nodules in the lateral aspect of the superior segment left lower lobe. No left pleural effusion or pneumothorax. CARDIOVASCULAR: The heart size is normal. New small pericardial effusion. Pulmonary arteries are normal in size. Mild atherosclerosis of the thoracic aorta without aneurysm. CORONARY ARTERY CALCIFICATION: Minimal calcification of the right coronary artery is noted. MEDIASTINUM AND LOWER NECK: No mediastinal mass. The esophagus and thyroid gland are unremarkable. LYMPHATICS: No pathologic sized lymph nodes. UPPER ABDOMEN: No acute abnormalities in the visualized portion of the upper abdomen. SKELETAL AND CHEST WALL: Moderate spondylosis of the thoracic spine. No aggressive osseous lesion. CT/CT chest wo IV con IMPRESSION: * Mild pulmonary emphysema. * Scattered pulmonary micronodules could be a manifestation of respiratory bronchiolitis. Also, there are new tree-in-bud nodules in the lateral aspect of the superior segment of the left lower lobe from either infectious or noninfectious bronchiolitis. * There are occlusive secretions within right middle lobe bronchi. Also, multiple secretions are present in left lower lobe bronchi. Interval development of partial collapse of right middle lobe and new moderate right pleural effusion.
== END 2024-03-17 16:56 | disposition home or self-care (01) ==
LOC: HO.CT 16:55
PROVIDERS: PCP Internal Medicine; Visit Provider Internal Medicine
DX: C34.30 Malignant neoplasm of lower lobe, unspecified bronchus or lung (principal)
CPT/HCPCS: 71250

== ENCOUNTER 2024-03-20 14:24 | Emergency (ER) | payer MEDICARE, MEDICAID, SELFPAY ==
--- NOTE | ~2024-03-20 | XR_ITS ---
EXAMINATION: XR CHEST 3:56 PM CLINICAL INFORMATION: Right-sided chest pain, prior right lower lobectomy COMPARISON: Chest x-ray of 01/21/[address] of 03/17/2024 TECHNIQUE: Frontal view of the chest was obtained. FINDINGS: As on the recent CT, there is a moderate right pleural effusion with associated atelectasis. Minimal atelectasis is evident at the left lung base. The cardiomediastinal silhouette is largely obscured by the right pleural effusion. The mid and upper lung zones are clear. XR/XR chest 1V IMPRESSION: Moderate right pleural effusion.
[2024-03-20 14:49] VITALS: BP 122/79; BP 130/86; PULSE 84; PULSE 90; RESP 20; TEMP 36.7; O2SAT 96; BMI 23.1
[2024-03-20 15:20] VITALS: BP 122/79; PULSE 88; RESP 15; TEMP 36.3; O2SAT 95
--- NOTE | 2024-03-20 15:33 | ECG_ITS ---
Test Reason : ABDOMINAL PAIN Blood Pressure : / mmHG Vent. Rate : 079 BPM Atrial Rate : 079 BPM P-R Int : 158 ms QRS Dur : 078 ms QT Int : 374 ms P-R-T Axes : 076 049 068 degrees QTc Int : 428 ms Normal sinus rhythm Low voltage QRS Nonspecific T wave abnormality Abnormal ECG When compared with ECG of 08-JAN-2024 19:27, No significant change was found Referred By: Leona Cabrera Electronically Signed By:ELBERT KEMP MD
[2024-03-20] MEDS: HYDROmorphone HCl 0.5 MG/0.5 ML SYRINGE IVPUSH (15:51)
[2024-03-20 16:00] LABS: MANUAL DIFF FLAG NO
[2024-03-20 16:05] LABS: Basophils Absolute Auto 0.1 X10*3/uL (0.0-0.2); Basophils Percent Auto 0.8 % (0-2); Eosinophils Absolute Auto 0.3 X10*3/uL (0.0-0.4); Eosinophils Percent Auto 2.7 % (0-4); Hematocrit 34.7 % (37.0-47.0); Hemoglobin 11.5 g/dl (12.0-16.0); Imm Gran Abs Auto 0.03 X10*3/uL (0.00-0.03); Imm Gran Pct Auto 0.3 % (0.0-0.4); Lymphocytes Absolute Auto 2.5 X10*3/uL (1.2-4.9); Lymphocytes Percent Auto 23.5 % (20-40); Mean Corpuscular HGB Conc 33.1 g/dl (31.0-35.0); Mean Corpuscular Hemoglobin 32.8 pg (27.0-33.0); Mean Corpuscular Volume 98.9 fL (80.0-98.0); Mean Platelet Volume 8.5 fL (9.4-12.3); Monocytes Absolute Auto 0.8 X10*3/uL (0.1-1.2); Monocytes Percent Auto 7.6 % (2-11); Neutrophils Absolute Auto 6.8 x10*3/uL (2.0-8.3); Neutrophils Percent Auto 65.1 % (45-73); Platelet Count 468 X10*3/uL (160-400); Red Blood Count 3.51 X10*6/uL (4.20-5.50); Red Cell Distribution Width 12.4 % (11.0-16.0); White Blood Count 10.4 X10*3/uL (4.8-10.8)
--- NOTE | 2024-03-20 16:06 | PC.NURSE ---
labs drawn, pt medicated for pain, tech aware patient needing ekg, cxr performed
[2024-03-20 16:07] VITALS: RESP 20
--- NOTE | 2024-03-20 16:09 | ED.GENADULT ---
HPI - General Adult General Chief complaint: General Medical Stated complaint: GROWTH IN RLQ Time Seen by Provider: 03/20/24 15:02 Source: patient and old records reviewed Mode of arrival: ambulatory Limitations: no limitations History of Present Illness ED Provider: DAWN CASILLAS narrative: 63 yo female with PMH of COPD and HTN s/p RLL lobectomy 09/[address] Sorto here with c/o worsening R sided pain worried she has mass in RUQ but just had CT scan at [facility] 03/09 without disease noted in that area but has moderate R effusion and concerning pathology. At this time she also notes increased dyspnea and cough for the past week but no fevers. She notes this is her 6th visit to an ED to try to figure out what is going on. She also had CT chest here on Saturday and was told she needed bronchoscopy but has not heard from anyone. She states she is tired and can no longer take the pain and does not feel safe at home MD complaint: pain, fatigue Onset (ago): week(s) (1) Location: chest Radiation: non-radiation Severity: moderate Quality: constant Pain Consistency: constant Relieving factors: none Exacerbating factors: none Associated symptoms: loss of appetite, malaise, nausea/vomiting and shortness of breath Treatments prior to arrival: none Related Data Home Medications ?Medication ?Instructions ?Recorded ?Confirmed aspirin 81 mg tablet,delayed 81 mg PO DAILY 12/21/20 02/26/24 release atorvastatin 20 mg tablet 20 mg PO BEDTIME 12/21/20 02/26/24 multivitamin 1 tab PO DAILY 12/21/20 02/26/24 bupropion HCl 300 mg 24 hr tablet, 300 mg PO DAILY 02/14/23 02/26/24 extended release fluticasone propionate 50 1 spray intranasal DAILY PRN 02/14/23 02/26/24 mcg/actuation nasal Allergy Symptoms spray,suspension omeprazole 20 mg capsule,delayed 20 mg PO DAILY@0630 05/17/23 02/26/24 release prazosin 5 mg capsule 5 mg PO BEDTIME 05/17/23 02/26/24 albuterol sulfate 90 mcg/actuation 2 puff inhalation Q4H PRN wheezing 05/31/23 02/26/24 aerosol inhaler (Ventolin HFA) topiramate 25 mg tablet 25 mg PO DAILY 05/31/23 02/26/24 diazepam 10 mg tablet 10 mg PO BID Anxiety 01/20/24 02/26/24 buspirone 5 mg tablet 10 mg PO TID 03/11/24 Previous Rx's ?Medication ?Instructions ?Recorded lidocaine 4 % topical patch 1 patch transdermal DAILY #15 ea 06/02/23 (Lidocaine Pain Relief) fluticasone fur. 200 mcg-umeclid 1 ea inhalation DAILY 30 days #60 01/01/24 62.5 mcg-vilant 25 mcg ea inhalat.powder (Trelegy Ellipta) gabapentin 300 mg capsule 300 mg PO BID #60 caps 02/26/24 Allergies Allergy/AdvReac Type Severity Reaction Status Date / Time codeine [CODEINE] Allergy Intermediate ITCHING Verified 03/20/24 15:00 hydrocodone [HYDROCODONE] Allergy Intermediate ITCHING Verified 03/20/24 15:00 diphenhydramine AdvReac Intermediate JITTERY Verified 03/20/24 15:00 [From CONSUELO] Review of Systems Review of Systems: Constitutional : No Weight loss, No Fever, No Chills ENT/Mouth : No sore throat, No Rhinorrhea Eyes: No Swelling, No Redness Cardiovascular : No Chest Pain, pos SOB, No Edema Respiratory : No Cough, No Sputum, No Wheezing Gastrointestinal : Positive Nausea, no Vomiting, positive Diarrhea, positive abdominal Pain, No Hematochezia, No Melena Genitourinary : No Dysuria, No Urinary Frequency, No Hematuria, No Urgency Musculoskeletal : No joint pain, No Myalgias, No Joint Swelling Skin : No Skin Lesions, No rash Neuro : No Weakness, No Numbness, No Dizziness, No Headache Psych : No Anxiety/Panic, No Depression All other systems reviewed and are negative. [facility] Past Medical History Attestation statement: The following information was validated with the patient. 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 Allergic rhinitis COPD (chronic obstructive pulmonary disease) Current smoker History of herniated intervertebral disc Scoliosis IBS (irritable bowel syndrome) History of depression DJD (degenerative joint disease) Hypertension Hyperlipidemia Urinary incontinence PTSD (post-traumatic stress disorder) Anxiety Surgical History History of lobectomy of lung History of ovarian cystectomy History of biopsy History of cystoscopy History of dilation of urethra History of colonoscopy History of endoscopy History of lung biopsy History of bladder surgery History of blepharoplasty History of hysterectomy History of bladder suspension procedure Family History Family History Mother CHF (congestive heart failure) Maternal Uncle Coronary bypass graft mechanical complication Social History Social History Household Members: None Housing: Apartment Are you a primary pharmacy customer care specialist to a significant other at home: No Do you presently have visiting nurse or other home services: Yes (NURSE) Alcohol intake: current Alcohol intake frequency: holidays/special occasions only Alcohol type: beer Patient Tobacco Use Status: Former Tobacco user Quit Date: a few days ago Tobacco use type: Cigarette Cigarette Packs Per Day: 0.5 Years Smoked: 47 Smoked in Last 30 Days: No Second Hand Smoke Exposure: No Use of substances other than those prescribed or required for medical reasons: No Substance Use Type: Marijuana Advance Directives: Yes Advance Directives on File: Yes Advance Directives Date on File: 09/11/23 Do you have a plan to hurt others: No Plan Patient : No service: No Physical Exam ED Vital Signs: Vital Signs - 24 hr 03/20/24 14:49 03/20/24 15:20 03/20/24 16:07 Temperature 98.1 F 97.3 F Pulse Rate 84 88 Respiratory Rate 20 15 20 Blood Pressure 122/79 122/79 Pulse Oximetry 96 95 Oxygen Delivery Method Room Air Room Air BMI result Body Mass Index 23.1 Appearance: Alert. Oriented X3. No acute distress. Eyes: Pupils equal, round and reactive to light. ENT: Pharynx normal. Neck: Normal inspection. Neck supple. CVS: Normal heart rate and rhythm. Pulses normal. Respiratory: No respiratory distress. Breath sounds diminished R lobe Abdomen: Soft and ttp in RUQ but no mass or hernia felt on my exam Skin: Skin warm and dry. Normal skin color. Normal skin turgor. Extremities: No lower extremity edema. No calf ttp Neuro: Oriented X 3. No motor deficit. No sensory deficit. Medications Administered Discontinued Medications Generic Name Dose Route Start Last Admin Trade Name Freq PRN Reason Stop Dose Admin Hydromorphone HCl 0.5 mg 03/20/24 15:32 03/20/24 15:51 Hydromorphone Hcl 0.5 Mg/0.5 Ml Syringe IVPUSH 03/20/24 15:33 0.5 mg ONCE ONE Administration Protocol Medical Decision Making Medical Decision Making [facility] Narrative: 63 yo female with PMH of COPD and HTN s/p RLL lobectomy 09/[address] Sorto who notes she has had pain at the R side since but the last week worsening cough, trouble breathing and increased pain on R side - CT scans ext from [facility] of abdomen 03/[address] chest here showing concerning effusion and disease. At this time I will notify Dr. Sorto obtain labs, treat pain and try to admit her for pulm and thoracic consult this is her 6th visit to the ED. Differential Diagnosis Differential Diagnoses: The differential diagnosis associated with the presentation includes malignant effusion, recurrent malignancy, flank pain Admission/Observation Consideration of admission/observation: Escalation of care including admission/observation considered discussed with Dr. Sorto if necessary can admit and pulm/thoracic can consult Consult Healthcare Provider Management of the patient was discussed with: Cloth Stretcher (Dr. Sorto ) Lab Data [facility] Lab Attestation statement: I reviewed the patient's lab results. 03/20/24 15:50 03/20/24 15:50 Independent Interpretation I performed an independent interpretation of an: Plain X-Ray and CT Scan Radiology Impression Discussion of test interpretation with radiology: I have reviewed the radiologist's reading. External Record Review External record reviewed: Inpatient record Discharge Plan Discharge Clinical Impression: Pleural effusion, right, Chronic flank pain Patient Disposition: Admitted As Inpatient Prescriptions: No Action Trelegy Ellipta 200-62.5-25 mcg blister with device 1 ea inhalation DAILY 30 Days Qty: 60 3RF multivitamin Tablet 1 tab PO DAILY atorvastatin 20 mg tablet 20 mg PO BEDTIME aspirin 81 mg Tablet,Delayed Release (Dr/Ec) 81 mg PO DAILY diazepam 10 mg tablet 10 mg PO BID prazosin 5 mg capsule 5 mg PO BEDTIME omeprazole 20 mg capsule,delayed release(DR/EC) 20 mg PO DAILY@0630 albuterol sulfate [Ventolin HFA] 90 mcg/actuation HFA aerosol inhaler 2 puff INHALATION Q4H PRN (Reason: wheezing) topiramate 25 mg tablet 25 mg PO DAILY lidocaine [Lidocaine Pain Relief] 4 % Adhesive Patch,Medicated 1 patch transdermal DAILY Qty: 15 1RF Protocol: Apply to: Apply to: rib cage buspirone 5 mg tablet 10 mg PO TID gabapentin 300 mg capsule 300 mg PO BID Qty: 60 2RF Rx Instructions: Start taking once at night. If well tolerated for 2 weeks, start twice daily bupropion HCl 300 mg tablet extended release 24 hr 300 mg PO DAILY fluticasone propionate 50 mcg/actuation spray,suspension 1 spray intranasal DAILY PRN (Reason: Allergy Symptoms) Print Language: Lithuanian
[2024-03-20 16:23] LABS: B Type Natriuretic Peptide < 10 pg/mL (<100)
[2024-03-20 16:31] LABS: Alanine Aminotransferase 17 U/L (0-31); Albumin Level 3.5 g/dL (3.5-5.0); Alkaline Phosphatase 73 U/L (39-117); Anion Gap 11 (12-20); Aspartate Amino Transferase 16 U/L (5-31); Bilirubin Direct < 0.2 mg/dL (0.0-0.5); Bilirubin Total 0.1 mg/dL (0.0-1.0); Blood Urea Nitrogen 13 mg/dL (9-16); Calcium 9.3 mg/dL (8.4-10.2); Carbon Dioxide 27 mmol/L (22-29); Chloride 106 mmol/L (96-108); Estimated Glomerular Filt Rate > 60; Glucose Random 103 mg/dL (60-115); Lipase 21 U/L (8-78); Magnesium 1.7 mg/dL (1.6-2.6); Potassium 3.9 mmol/L (3.3-5.1); Sodium 140 mmol/L (135-145); Total Protein 6.2 g/dL (6.5-8.0)
--- NOTE | 2024-03-20 16:43 | PC.NURSE ---
pt is requesting a UA because she states she has a history of UTIs as well.
[2024-03-20] MEDS: HYDROmorphone HCl 1 MG/ML SYRINGE IVPUSH (17:27)
--- NOTE | 2024-03-20 17:34 | PC.NURSE ---
provider in room speaking with patient, pt arguementative with this nurse and provider, pt was medicated for 07/14 rt abd/flank pain, call galvan within reach, will continue to monitor
[2024-03-20 18:34] VITALS: BP 125/68; PULSE 91; RESP 21; TEMP 36.7; O2SAT 95
--- NOTE | 2024-03-20 19:01 | PHA.MEDREC ---
Pharmacy Consult ? Medication Reconciliation Pharmacy has completed the medication reconciliation. Spoke to patient at bedside, she had list of current medications to mostly match claim history. stated she took all morning meds but nothing at noon
[2024-03-20 19:13] VITALS: BP 125/68; PULSE 91; RESP 21; TEMP 36.7; O2SAT 95
[2024-03-20 19:31] LABS: Procalcitonin 0.02 ng/mL
== END 2024-03-20 19:15 | disposition home or self-care (01) ==
PROVIDERS: Emergency Provider Emergency Medicine; PCP Student in an Organized Health Care Education/Training Program
DX: J90 Pleural effusion, not elsewhere classified (principal); R07.9 Chest pain, unspecified; R10.9 Unspecified abdominal pain; J44.9 Chronic obstructive pulmonary disease, unspecified; I10 Essential (primary) hypertension
CPT/HCPCS: 36415; 71045; 80048; 80076; 83690; 83735; 83880; 84145; 85025; 93005; 96374; 96376; 99284; 99285; J1170

== ENCOUNTER → 2024-03-20 15:33 | Outpatient (BNV) | payer MEDICARE, MEDICAID, SELFPAY | PROVIDERS: Emergency Provider Emergency Medicine; PCP Student in an Organized Health Care Education/Training Program; Visit Provider Internal Medicine Cardiovascular Disease | DX: R94.31 Abnormal electrocardiogram [ECG] [EKG] (principal) | CPT/HCPCS: 93010 ==

== ENCOUNTER 2024-03-22 12:09 | Emergency (ER) | payer MEDICARE, MEDICAID, SELFPAY ==
--- NOTE | ~2024-03-22 | CT_ITS ---
EXAMINATION: CT CHEST WITH CONTRAST CLINICAL INFORMATION: Worsening effusion with fevers. COMPARISON: Chest x-ray 03/22/2024. CT chest 03/17/2024. TECHNIQUE: Multidetector volumetric CT imaging of the chest was obtained after the administration of 50 mL of Omnipaque 350 intravenous contrast without immediate adverse reactions. Axial MIP volume rendering provided. Sagittal and coronal reformatted images were obtained. This CT examination was performed using dose optimization techniques as appropriate, variously including the following: *Automated exposure control *Adjustment of mA and/or kV according to patient size (this includes techniques or standardized protocols for targeted exams where dose is matched to indication/reason for exam; i.e. 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 LUNGS: Right lower or lobectomy changes are noted. Mild centrilobular emphysema. There are small multiple bilateral pulmonary micronodules similar previous study. Several centrilobular hazy opacities and minimal interstitial prominence is stable. There is mild bronchial wall thickening with minimal intraluminal secretions in both lower lobes, stable.. There is right middle lobe right lower lobe compressive atelectasis from large pleural effusion. MEDIASTINUM: Heart size and the great vessels are normal caliber. There are reactionary lymph nodes in the mediastinum. The central trachea is normal caliber and patent. Thyroid lobes are symmetrical with a small hypodense nodule suspected in midpole right lobe. PLEURA: There is a large right pleural effusion which has increased since the previous study AXILLA: Small bilateral axillary lymph nodes are present. The chest wall is unremarkable. UPPER ABDOMEN: Visualized liver, spleen, pancreas and left adrenal gland is unremarkable. OSSEOUS STRUCTURES: No aggressive lytic or sclerotic process seen. There is mild ventral spondylosis mid and lower dorsal spine. CT/CT chest w IV con IMPRESSION: Interval increase in right pleural effusion. Right middle lobe compressive atelectasis is stable. No change in postsurgical changes in right lower lobe. Multiple small bilateral micronodules and hazy opacities are stable. Mild prominence of bronchial wall with secretions, stable. Fleischner guidelines were followed.
--- NOTE | ~2024-03-22 | XR_ITS ---
EXAMINATION: XR CHEST CLINICAL INFORMATION: Cough COMPARISON: Chest radiograph 03/20/2024. TECHNIQUE: Frontal view of the chest was obtained. FINDINGS: Slightly increased, moderate right pleural effusion with similar hazy right basilar airspace opacity. Unchanged minimal peripheral left basilar scarring. No new, focal consolidation identified. No pneumothorax. Cardiomediastinal silhouette is unchanged. XR/XR chest 1V IMPRESSION: Compared to 03/20/2024, slightly increased moderate right pleural effusion with similar hazy right basilar airspace opacity.
[2024-03-22 12:17] VITALS: BMI 25.8
[2024-03-22 12:22] VITALS: BP 103/50; PULSE 96; RESP 18; O2SAT 90
--- NOTE | 2024-03-22 12:22 | ED.GENADULT ---
HPI - General Adult General Chief complaint: General Medical Stated complaint: POSTOP COMP S/P LUMPECTOMY 09/2023 ER EMS Time Seen by Provider: 03/22/24 16:05 Source: patient, EMS and old records reviewed Mode of arrival: EMS Limitations: no limitations History of Present Illness ED Provider: DAWN CASILLAS narrative: 63 yo female with PMH of COPD and HTN s/p RLL lobectomy 09/[address] Sorto here with c/o worsening R sided pain worried she has mass in RUQ but just had CT scan at [facility] 03/09 without disease noted in that area but has moderate R effusion and concerning pathology on 03/20 now with worsening moderate effusion. She was going to be admitted on 03/20 for pain control and thoracentesis but states she was discharged from the ED. She returns after calling RN firearms assembly supervisor and stating she has not felt well all weekend fevers up to 101, sputum production, worsening pain, not eating. It was advised she come back to the ED. MD complaint: fevers, fatigue, malaise Onset (ago): week(s) Location: chest and abdomen Radiation: non-radiation Severity: moderate Quality: aching and constant Pain Consistency: constant Exacerbating factors: movement Associated symptoms: fever/chills, loss of appetite, malaise, nausea/vomiting, shortness of breath and weakness Treatments prior to arrival: none Related Data Home Medications ?Medication ?Instructions ?Recorded ?Confirmed aspirin 81 mg tablet,delayed 81 mg PO DAILY 12/21/20 03/20/24 release atorvastatin 20 mg tablet 20 mg PO BEDTIME 12/21/20 03/20/24 multivitamin 1 tab PO DAILY 12/21/20 03/20/24 bupropion HCl 300 mg 24 hr tablet, 300 mg PO DAILY 02/14/23 03/20/24 extended release fluticasone propionate 50 1 spray intranasal DAILY PRN 02/14/23 03/20/24 mcg/actuation nasal Allergy Symptoms spray,suspension omeprazole 20 mg capsule,delayed 20 mg PO DAILY@0630 05/17/23 03/20/24 release prazosin 5 mg capsule 5 mg PO BEDTIME 05/17/23 03/20/24 albuterol sulfate 90 mcg/actuation 2 puff inhalation Q4H PRN wheezing 05/31/23 03/20/24 aerosol inhaler (Ventolin HFA) topiramate 25 mg tablet 25 mg PO DAILY 05/31/23 03/20/24 diazepam 10 mg tablet 10 mg PO BID Anxiety 01/20/24 03/20/24 budesonide 180 mcg/actuation 2 inh inhalation BID 03/20/24 03/20/24 breath activated powder inhaler (Pulmicort Flexhaler) buspirone 15 mg tablet 15 mg PO TID 03/20/24 03/20/24 calcium polycarbophil 625 mg 625 mg PO DAILY@1200 03/20/24 03/20/24 tablet (Fiber (calcium polycarbophil)) cholecalciferol (vitamin D3) 125 125 mcg PO DAILY 03/20/24 03/20/24 mcg (5,000 unit) tablet escitalopram oxalate 10 mg tablet 10 mg PO DAILY 03/20/24 03/20/24 fluticasone fur. 200 mcg-umeclid 1 ea inhalation DAILY 03/20/24 03/20/24 62.5 mcg-vilant 25 mcg inhalat.powder (Trelegy Ellipta) gabapentin 300 mg capsule 300 mg PO BID 03/20/24 03/20/24 lidocaine 4 % topical patch 1 patch transdermal DAILY PRN Pain 03/20/24 03/20/24 (Lidocaine Pain Relief) magnesium 250 mg tablet 250 mg PO DAILY@119903/20/24 03/20/24 methocarbamol 750 mg tablet 750 mg PO QID PRN Pain 03/20/24 03/20/24 ondansetron HCl 4 mg tablet 4 mg PO Q8H PRN Nausea 03/20/24 03/20/24 tramadol 50 mg tablet 50 mg PO BID PRN Pain 03/20/24 03/20/24 Previous Rx's ?Medication ?Instructions ?Recorded dicyclomine 20 mg tablet 20 mg PO TID #20 tabs 03/20/24 hydromorphone 2 mg tablet 2 mg PO Q4-6H PRN pain #14 tabs 03/22/24 (Dilaudid) Allergies Allergy/AdvReac Type Severity Reaction Status Date / Time codeine [CODEINE] Allergy Intermediate ITCHING Verified 03/22/24 12:20 hydrocodone [HYDROCODONE] Allergy Intermediate ITCHING Verified 03/22/24 12:20 diphenhydramine AdvReac Intermediate JITTERY Verified 03/22/24 12:20 [From [facility]] Review of Systems Review of Systems: Constitutional : No Weight loss, pos Fever, pos Chills ENT/Mouth : No sore throat, No Rhinorrhea Eyes: No Swelling, No Redness Cardiovascular : No Chest Pain, pos SOB, No Edema Respiratory : pos Cough, pos Sputum, No Wheezing Gastrointestinal : Positive Nausea, Positive Vomiting, positive Diarrhea, positive abdominal Pain, No Hematochezia, No Melena Genitourinary : No Dysuria, No Urinary Frequency, No Hematuria, No Urgency Musculoskeletal : No joint pain, No Myalgias, No Joint Swelling Skin : No Skin Lesions, No rash Neuro : pos Weakness, No Numbness, No Dizziness, No Headache Psych : No Anxiety/Panic, No Depression All other systems reviewed and are negative. [facility] Past Medical History Attestation statement: The following information was validated with the patient. 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 Allergic rhinitis COPD (chronic obstructive pulmonary disease) Current smoker History of herniated intervertebral disc Scoliosis IBS (irritable bowel syndrome) History of depression DJD (degenerative joint disease) Hypertension Hyperlipidemia Urinary incontinence PTSD (post-traumatic stress disorder) Anxiety Surgical History History of lobectomy of lung History of ovarian cystectomy History of biopsy History of cystoscopy History of dilation of urethra History of colonoscopy History of endoscopy History of lung biopsy History of bladder surgery History of blepharoplasty History of hysterectomy History of bladder suspension procedure Family History Family History Mother CHF (congestive heart failure) Maternal Uncle Coronary bypass graft mechanical complication Social History Social History Household Members: None Housing: Apartment Are you a primary home health care physician to a significant other at home: No Do you presently have visiting nurse or other home services: Yes (NURSE) Alcohol intake: current Alcohol intake frequency: holidays/special occasions only Alcohol type: beer Patient Tobacco Use Status: Former Tobacco user Quit Date: a few days ago Tobacco use type: Cigarette Cigarette Packs Per Day: 0.5 Years Smoked: 47 Second Hand Smoke Exposure: No Substance Use Type: Marijuana Advance Directives: Yes Advance Directives on File: Yes Advance Directives Date on File: 09/11/23 service: No Physical Exam ED Vital Signs: Vital Signs - 24 hr 03/22/24 12:22 03/22/24 12:27 03/22/24 14:00 Temperature 98.3 F Pulse Rate 96 85 Respiratory Rate 18 18 Blood Pressure 103/50 L 125/87 Pulse Oximetry 90 L 93 Oxygen Delivery Method Room Air Room Air BMI result Body Mass Index 25.8 Appearance: Alert. Oriented X3. No acute distress. Eyes: Pupils equal, round and reactive to light. ENT: Pharynx normal. Neck: Normal inspection. Neck supple. CVS: Normal heart rate and rhythm. Pulses normal. Respiratory: No respiratory distress. Breath sounds diminished R base Abdomen: Soft and ttp RUQ no mass felt Skin: Skin warm and dry. Normal skin color. Extremities: No lower extremity edema. No calf ttp Neuro: Oriented X 3. No motor deficit. No sensory deficit. Course Course Course Narrative: CRP mildly elevated no WBC count came in 90% on RA will perform ambulation trial does not have O2 at home if patient is discharged Dr. Sorto can see the patient in the office tomorrow O2 sat 93-92% I spoke to Dr. Retana who saw patient in the ED on 03/20 and states he feels like she needs outpatient work up and does not need admission to the hospital at this time I called thoracic again and Dr. Sorto states he can see her in the office tomorrow Reevaluation(s) Reevaluation #1: signed out to Perlita Marcus only pending CT scan results if she need oral antibiotics plan still in place I discussed with the patient that she is not being admitted and she is aware I also have been able to get her a ride home. If pneumonia present will start on oral augmentin. Medications Administered Generic Name Dose Route Start Last Admin Trade Name Freq PRN Reason Stop Dose Admin Sodium Chloride 1,000 mls @ 100 mls/hr 03/22/24 12:30 03/22/24 12:38 Ns IVCONT 100 mls/hr .Q10H PAUL Administration Discontinued Medications Generic Name Dose Route Start Last Admin Trade Name Freq PRN Reason Stop Dose Admin Hydromorphone HCl 0.5 mg 03/22/24 12:27 03/22/24 12:48 Hydromorphone Hcl 0.5 Mg/0.5 Ml Syringe IVPUSH 03/22/24 12:28 0.5 mg ONCE ONE Administration Protocol Hydromorphone HCl 0.5 mg 03/22/24 15:08 03/22/24 15:16 Hydromorphone Hcl 0.5 Mg/0.5 Ml Syringe IVPUSH 03/22/24 15:09 0.5 mg ONCE ONE Administration Protocol Iohexol 100 ml 03/22/24 15:27 03/22/24 15:27 Iohexol 350 Mg/Ml 100 Ml Infus..Btl IV 03/22/24 15:28 65 ml ONCE ONE Administration Medical Decision Making Medical Decision Making [facility] Narrative: 63 yo female with PMH of COPD and HTN s/p RLL lobectomy 09/[address] Sorto here with c/o worsening R sided pain found to have on recent CT scans increasing moderate effusion and concern for possible infectious vs neoplastic recurrence - she notes now fevers at home, sputum production, malaise and not feeling well. I had spoken to her thoracic surgeon on 03/20 who did note her visit. Differential Diagnosis Differential Diagnoses: The differential diagnosis associated with the presentation includes effusion, chronic pain, recurrent malignancy Admission/Observation Consideration of admission/observation: Escalation of care including admission/observation considered I did attempt to admit the patient but was declined by both hospitalist and thoracic surgery though Dr. Sorto will see in AM in his office. Consult Healthcare Provider Management of the patient was discussed with: Hospitalist and Group Fitness Assistant Department Head Lab Data [facility] Lab Attestation statement: I reviewed the patient's lab results. 03/22/24 12:35 03/22/24 12:35 Labs: Lab Results 03/22/24 Range/Units 12:35 WBC 10.4 (4.8-10.8) X10*3/uL RBC 3.77 L (4.20-5.50) X10*6/uL Hgb 12.5 (12.0-16.0) g/dl Hct 36.9 L (37.0-47.0) % MCV 97.9 (80.0-98.0) fL MCH 33.2 H (27.0-33.0) pg MCHC 33.9 (31.0-35.0) g/dl RDW 12.2 (11.0-16.0) % Plt Count 484 H (160-400) X10*3/uL MPV 8.5 L (9.4-12.3) fL Immature Gran % (Auto) 0.3 (0.0-0.4) % Neut % (Auto) 69.3 (45-73) % Lymph % (Auto) 21.9 (20-40) % [place] % (Auto) 6.3 (2-11) % Eos % (Auto) 1.7 (0-4) % Baso % (Auto) 0.5 (0-2) % Lymph # (Auto) 2.3 (1.2-4.9) X10*3/uL [place] # (Auto) 0.7 (0.1-1.2) X10*3/uL Eos # (Auto) 0.2 (0.0-0.4) X10*3/uL Baso # (Auto) 0.1 (0.0-0.2) X10*3/uL Abs Immat Gran (auto) 0.03 (0.00-0.03) X10*3/uL Absolute Neuts (auto) 7.2 (2.0-8.3) x10*3/uL Absolute Nucleated RBC 0.000 (0.0-0.012) X10*3/uL Nucleated RBC % (auto) 0.0 (0.0-0.2) /100WBC PT 12.2 (11.1-13.3) SEC INR 1.0 (0.9-1.1) Sodium 137 (135-145) mmol/L Potassium 4.2 (3.3-5.1) mmol/L Chloride 101 (96-108) mmol/L Carbon Dioxide 25 (22-29) mmol/L Anion Gap 15 (12-20) BUN 12 (9-16) mg/dL Creatinine 0.73 (0.5-1.4) mg/dL Estim Creat Clear Calc 65.6 Estimated GFR > 60 Random Glucose 105 (60-115) mg/dL Lactic Acid 0.8 (0.5-2.0) mmol/L Calcium 9.4 (8.4-10.2) mg/dL Magnesium 1.9 (1.6-2.6) mg/dL Total Bilirubin 0.2 (0.0-1.0) mg/dL Direct Bilirubin < 0.2 (0.0-0.5) mg/dL AST 17 (5-31) U/L ALT 16 (0-31) U/L Alkaline Phosphatase 94 (39-117) U/L C-Reactive Protein 5.16 H (< or = 0.50) mg/dL Total Protein 6.8 (6.5-8.0) g/dL Albumin 3.7 (3.5-5.0) g/dL Procalcitonin 0.02 ng/mL Independent Interpretation I performed an independent interpretation of an: Plain X-Ray and CT Scan (moderate effusion) Radiology Impression Discussion of test interpretation with radiology: I have reviewed the radiologist's reading. External Record Review External record reviewed: Inpatient record and Outpatient record Prescription Management I considered prescription management with: Pain Medication and Antibiotic Critical Care Time Critical Care Time Critical Care Time: Yes Total Critical Care Time: 60 Attestation: repeat IV dilaudid with pain control, multiple calls to consultants, review of records I attest to this time spent taking care of the patient Discharge Plan Discharge Clinical Impression: Pleural effusion on right, Chronic abdominal pain Patient Disposition: Home, Self-Care Instructions: Pleural Effusion (ED), Chronic Abdominal Pain (ED) Additional Instructions: call Dr. Sorto in the morning at 830am to be seen in the office. you have fluid on the right lung that needs to be evaluated to make sure there is no recurrence of your cancer. do not wait. you can return for worsening breathing or any other issues do not take your tramadol while taking dilaudid Prescriptions: New hydromorphone [Dilaudid] 2 mg tablet 2 mg PO Q4-6H PRN (Reason: pain) Qty: 14 0RF Rx Instructions: Partial Fill upon patient request. PATIENT TO HOLD TRAMADOL WHILE ON THIS MEDICATION No Action multivitamin Tablet 1 tab PO DAILY atorvastatin 20 mg tablet 20 mg PO BEDTIME aspirin 81 mg Tablet,Delayed Release (Dr/Ec) 81 mg PO DAILY diazepam 10 mg tablet 10 mg PO BID prazosin 5 mg capsule 5 mg PO BEDTIME omeprazole 20 mg capsule,delayed release(DR/EC) 20 mg PO DAILY@0630 albuterol sulfate [Ventolin HFA] 90 mcg/actuation HFA aerosol inhaler 2 puff INHALATION Q4H PRN (Reason: wheezing) topiramate 25 mg tablet 25 mg PO DAILY tramadol 50 mg tablet 50 mg PO BID PRN (Reason: Pain) gabapentin 300 mg capsule 300 mg PO BID buspirone 15 mg tablet 15 mg PO TID escitalopram oxalate 10 mg tablet 10 mg PO DAILY Pulmicort Flexhaler 180 mcg/actuation aerosol powdr breath activated 2 inh inhalation BID Trelegy Ellipta 200-62.5-25 mcg blister with device 1 ea inhalation DAILY dicyclomine 20 mg tablet 20 mg PO TID Qty: 20 0RF lidocaine [Lidocaine Pain Relief] 4 % adhesive patch,medicated 1 patch transdermal DAILY PRN (Reason: Pain) Protocol: Apply to: Apply to: rib cage ondansetron HCl 4 mg Tablet 4 mg PO Q8H PRN (Reason: Nausea) methocarbamol 750 mg tablet 750 mg PO QID PRN (Reason: Pain) Fiber (calcium polycarbophil) 625 mg Tablet 625 mg PO DAILY@1200 magnesium 250 mg Tablet 250 mg PO DAILY@1200 cholecalciferol (vitamin D3) 125 mcg (5,000 unit) Tablet 125 mcg PO DAILY bupropion HCl 300 mg tablet extended release 24 hr 300 mg PO DAILY fluticasone propionate 50 mcg/actuation spray,suspension 1 spray intranasal DAILY PRN (Reason: Allergy Symptoms) Referrals: Marlo Sorto MD [Physician] - (call at 830am for appointment) Print Language: Zambian
[2024-03-22 12:27] VITALS: TEMP 36.8
[2024-03-22] MEDS: 0.9 % Sodium Chloride 1,000 ML 100 ML IVCONT (12:38)
[2024-03-22 12:45] LABS: MANUAL DIFF FLAG NO
[2024-03-22 12:48] LABS: Basophils Absolute Auto 0.1 X10*3/uL (0.0-0.2); Basophils Percent Auto 0.5 % (0-2); Eosinophils Absolute Auto 0.2 X10*3/uL (0.0-0.4); Eosinophils Percent Auto 1.7 % (0-4); Hematocrit 36.9 % (37.0-47.0); Hemoglobin 12.5 g/dl (12.0-16.0); Imm Gran Abs Auto 0.03 X10*3/uL (0.00-0.03); Imm Gran Pct Auto 0.3 % (0.0-0.4); Lymphocytes Absolute Auto 2.3 X10*3/uL (1.2-4.9); Lymphocytes Percent Auto 21.9 % (20-40); Mean Corpuscular HGB Conc 33.9 g/dl (31.0-35.0); Mean Corpuscular Hemoglobin 33.2 pg (27.0-33.0); Mean Corpuscular Volume 97.9 fL (80.0-98.0); Mean Platelet Volume 8.5 fL (9.4-12.3); Monocytes Absolute Auto 0.7 X10*3/uL (0.1-1.2); Monocytes Percent Auto 6.3 % (2-11); Neutrophils Absolute Auto 7.2 x10*3/uL (2.0-8.3); Neutrophils Percent Auto 69.3 % (45-73); Platelet Count 484 X10*3/uL (160-400); Red Blood Count 3.77 X10*6/uL (4.20-5.50); Red Cell Distribution Width 12.2 % (11.0-16.0); White Blood Count 10.4 X10*3/uL (4.8-10.8)
[2024-03-22] MEDS: HYDROmorphone HCl 0.5 MG/0.5 ML SYRINGE IVPUSH ×2 (12:48→15:16)
[2024-03-22 12:53] LABS: Prothrombin Time 12.2 SEC (11.1-13.3)
[2024-03-22 13:02] LABS: Lactic Acid 0.8 mmol/L (0.5-2.0)
[2024-03-22 13:07] LABS: Alanine Aminotransferase 16 U/L (0-31); Albumin Level 3.7 g/dL (3.5-5.0); Alkaline Phosphatase 94 U/L (39-117); Anion Gap 15 (12-20); Aspartate Amino Transferase 17 U/L (5-31); Bilirubin Direct < 0.2 mg/dL (0.0-0.5); Bilirubin Total 0.2 mg/dL (0.0-1.0); Blood Urea Nitrogen 12 mg/dL (9-16); Calcium 9.4 mg/dL (8.4-10.2); Carbon Dioxide 25 mmol/L (22-29); Chloride 101 mmol/L (96-108); Creatinine Clr Calc Pharmacy 65.6; Estimated Glomerular Filt Rate > 60; Glucose Random 105 mg/dL (60-115); Magnesium 1.9 mg/dL (1.6-2.6); Potassium 4.2 mmol/L (3.3-5.1); Sodium 137 mmol/L (135-145); Total Protein 6.8 g/dL (6.5-8.0)
[2024-03-22 13:11] LABS: C Reactive Protein 5.16 mg/dL (< or = 0.50)
[2024-03-22 13:47] LABS: Procalcitonin 0.02 ng/mL
[2024-03-22 14:00] VITALS: BP 125/87; PULSE 85; RESP 18; O2SAT 93
[2024-03-22] MEDS: iohexoL 350 MG/ML 100 ML INFUS..BTL IV (15:27)
[2024-03-22] MEDS: Amoxicillin/Potassium Clav 875 MG TABLET PO (16:45)
[2024-03-22 16:56] VITALS: BP 125/87; PULSE 85; RESP 18; TEMP 36.6; O2SAT 93
== END 2024-03-22 16:57 | disposition home or self-care (01) ==
PROVIDERS: Emergency Provider Emergency Medicine
DX: J90 Pleural effusion, not elsewhere classified (principal); G89.29 Other chronic pain; R10.9 Unspecified abdominal pain; R50.9 Fever, unspecified; R53.81 Other malaise; I10 Essential (primary) hypertension; J44.9 Chronic obstructive pulmonary disease, unspecified; E78.5 Hyperlipidemia, unspecified; Z87.891 Personal history of nicotine dependence; F12.90 Cannabis use, unspecified, uncomplicated
CPT/HCPCS: 36415; 71045; 71260; 80048; 80076; 83605; 83735; 84145; 85025; 85610; 86140; 87040; 96374; 96376; 99284; J1170; Q9967

== ENCOUNTER 2024-03-24 13:50 | Outpatient (AMB) | payer MEDICARE, MEDICAID, SELFPAY ==
--- NOTE | 2024-03-24 13:51 | MHC.OFFVIS ---
Intake Visit Reasons: ?seroma Intake Note: Patient being seen today as urgent appointment. Reports relapsed on cigarette smoking. Patient c/o: large lump on Rt lower abd. SX: Rt lower lobectomy 03-22-24. Pneumatic Tester Required: No Accompanied by: Self / Same As Patient Allergies codeine [CODEINE] Allergy (Intermediate, Verified 03/24/24 14:55) ITCHING hydrocodone [HYDROCODONE] Allergy (Intermediate, Verified 03/24/24 14:55) ITCHING diphenhydramine [From BENADRYL] Adverse Reaction (Intermediate, Verified 03/24/24 14:55) JITTERY HPI Comments Details: Patient presents for evaluation of right subcostal pain as well as a recently diagnosed right pleural effusion. She has modest respiratory symptoms. She is denies any productive cough of purulent sputum. He has no fevers. Her weight has been stable appetite is okay Patient is well known to me from the past. 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 Allergic rhinitis COPD (chronic obstructive pulmonary disease) Current smoker History of herniated intervertebral disc Scoliosis IBS (irritable bowel syndrome) History of depression DJD (degenerative joint disease) Hypertension Hyperlipidemia Urinary incontinence PTSD (post-traumatic stress disorder) Anxiety Surgical History History of lobectomy of lung History of ovarian cystectomy History of biopsy History of cystoscopy History of dilation of urethra History of colonoscopy History of endoscopy History of lung biopsy History of bladder surgery History of blepharoplasty History of hysterectomy History of bladder suspension procedure Family History Mother CHF (congestive heart failure) Maternal Uncle Coronary bypass graft mechanical complication Social History Household Members: None Housing: Apartment Are you a primary director long term care to a significant other at home: No Do you presently have visiting nurse or other home services: Yes (NURSE) Alcohol intake: current Alcohol intake frequency: holidays/special occasions only Alcohol type: beer Patient Tobacco Use Status: Former Tobacco user Quit Date: a few days ago Tobacco use type: Cigarette Cigarette Packs Per Day: 0.5 Years Smoked: 47 Second Hand Smoke Exposure: No Substance Use Type: Marijuana Advance Directives Date on File: 09/11/23 service: No Physical Exam Chest Other: Fluoroscopic scars well healed. Diminished breath sounds right lower zone. Upper zone and left lung clear. Patient has right subcostal discomfort of the right side most likely related to intercostal nerve neurapraxia. Assessment & Plan Assessment & Plan (1) Pleural effusion, right: Comment: CT SCAN OF THE CHEST HAS CONFIRMED PRESENCE OF RIGHT PLEURAL EFFUSION, OF MODERATE SIZE, Code(s): J90 - Pleural effusion, not elsewhere classified Category: Surgical (2) Neurapraxia: Code(s): T14.8XXA - Other injury of unspecified body region, initial encounter Category: Surgical Plan Current plan is to arrange for thoracentesis and send fluid for cytology regarding a right pleural effusion. She will see me after the study. Neurapraxia will need to be addressed once the pleural effusion situation is settled. All questions answered. Orders: Orders US thoracentesis 03/23/24 J90 - Pleural effusion, not elsewhere classified Coding Level of Care Code Est Pt Level 4 (30931) Diagnoses Pleural effusion, right J90 Neurapraxia T14.8XXA
== END 2024-03-24 14:17 | disposition home or self-care (01) ==
PROVIDERS: Visit Provider Surgery
DX: J90 Pleural effusion, not elsewhere classified (principal); T14.8XXA Other injury of unspecified body region, initial encounter
CPT/HCPCS: 99214

== ENCOUNTER → 2024-03-24 13:50 | Outpatient (BNVA) | payer MEDICARE, MEDICAID, SELFPAY | PROVIDERS: Visit Provider Surgery | DX: J90 Pleural effusion, not elsewhere classified (principal); J44.9 Chronic obstructive pulmonary disease, unspecified; C34.30 Malignant neoplasm of lower lobe, unspecified bronchus or lung; M54.6 Pain in thoracic spine; Z90.2 Acquired absence of lung [part of] | CPT/HCPCS: 99212 ==

== ENCOUNTER 2024-03-24 14:31 | Outpatient (AMB) | payer MEDICARE, MEDICAID, SELFPAY ==
[2024-03-24 14:35] VITALS: BP 110/72; PULSE 109; O2SAT 96; BMI 22.9
--- NOTE | 2024-03-24 14:35 | MHC.OFFVIS ---
Vital Signs 03/24/24 14:35 Height 5 ft 1 in Weight 121 lb 0.25 oz BMI 22.9 BP 110/72 Blood Pressure Location Lt brachial Position Sitting Pulse 109 H Pulse Source Pulse Oximeter Pulse Oximetry (%) 96 Oxygen Delivery Method Room Air Intake Visit Reasons: Review CT Scan results Intake Note: pt is here for follow up Allergies codeine [CODEINE] Allergy (Intermediate, Verified 03/24/24 14:55) ITCHING hydrocodone [HYDROCODONE] Allergy (Intermediate, Verified 03/24/24 14:55) ITCHING diphenhydramine [From BENADRYL] Adverse Reaction (Intermediate, Verified 03/24/24 14:55) JITTERY Medication List - Last Reconciled 03/24/24 by Otto Cowan MD albuterol sulfate 90 mcg/actuation (Ventolin HFA) 2 puffs inhalation Q4H PRN amoxicillin-pot clavulanate 875-125 mg 1 tab PO BID aspirin 81 mg PO DAILY atorvastatin 20 mg PO BEDTIME budesonide 180 mcg/actuation (Pulmicort Flexhaler) 2 inhalations inhalation BID bupropion HCl XL 300 mg PO DAILY buspirone 15 mg PO TID calcium polycarbophil (Fiber (calcium polycarbophil)) 625 mg PO DAILY@1200 cholecalciferol (vitamin D3) 125 mcg PO DAILY diazepam 10 mg PO BID dicyclomine 20 mg PO TID escitalopram oxalate 10 mg PO DAILY fluticasone propionate 50 mcg/actuation 1 spray intranasal DAILY PRN puxiwftvvsd-opravgrzt-brwfrpqo 200-62.5-25 mcg (Trelegy Ellipta) 1 ea inhalation DAILY gabapentin 300 mg PO BID lidocaine 4% (Lidocaine Pain Relief) 1 patch See Protocol transdermal DAILY PRN magnesium 250 mg PO DAILY@1200 methocarbamol 750 mg PO QID PRN morphine 15 mg PO Q6H PRN 5 days multivitamin 1 tab PO DAILY omeprazole 20 mg PO DAILY@0630 ondansetron HCl 4 mg PO Q8H PRN prazosin 5 mg PO BEDTIME topiramate 25 mg PO DAILY tramadol 50 mg PO BID PRN Do you need a note to return to daycare/school/sports/work: No HPI HPI Review CT Scan results: Details: Jesusita comes today for a short-term follow-up. She continues to be a bundle of nerves, Her main concern is still pain in the right lower thoracic area radiating to the right upper quadrant of the abdomen. She went to the emergency room 2 days in a row and was prescribed Dilaudid tablets for pain control. The pharmacy could not give her Dilaudid and it was changed to morphine sulfate 15 mg q.6 hours p.r.n.. It did help but she had only 10 tablets. She is already worried what is going to happen when she is done with those 10 tablets. She is having cough and now starting to expectorates whitish phlegm. Breathing has remained very stable. She did see Dr. Sorto today , for right pleural effusion. He has scheduled her for a US guided Thoracenteses. Patient is also scheduled for bronchoscopy and bronchial lavage to be done next week. [facility] Medical History Pleural effusion, right Lower thoracic back pain History of ectopic 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 Allergic rhinitis COPD (chronic obstructive pulmonary disease) Current smoker History of herniated intervertebral disc Scoliosis IBS (irritable bowel syndrome) History of depression DJD (degenerative joint disease) Hypertension Hyperlipidemia Urinary incontinence PTSD (post-traumatic stress disorder) Anxiety Surgical History History of lobectomy of lung History of ovarian cystectomy History of biopsy History of cystoscopy History of dilation of urethra History of colonoscopy History of endoscopy History of lung biopsy History of bladder surgery History of blepharoplasty History of hysterectomy History of bladder suspension procedure Family History Mother CHF (congestive heart failure) Maternal Uncle Coronary bypass graft mechanical complication Social History Household Members: None Housing: Apartment Are you a primary director of career resources to a significant other at home: No Do you presently have visiting nurse or other home services: Yes (NURSE) Alcohol intake: current Alcohol intake frequency: holidays/special occasions only Alcohol type: beer Patient Tobacco Use Status: Former Tobacco user Quit Date: a few days ago Tobacco use type: Cigarette Cigarette Packs Per Day: 0.5 Years Smoked: 47 Second Hand Smoke Exposure: No Substance Use Type: Marijuana Advance Directives Date on File: 09/11/23 service: No Review of Systems Const Details: PATIENT IS VERY ANXIOUS BUT PHYSICALLY SHE IS NOT IN ANY DISTRESS. All systems reviewed & are unremarkable except as noted in HPI and below Eyes Reports no additional complaints ENT Reports nasal congestion (Mild off and on) Card Denies irregular heart rhythm and Denies leg edema Resp Reports as per HPI GI Reports no additional complaints Reports no additional complaints Musc Reports back pain (Mild off and on) Skin/Breast Reports system reviewed and no additional complaints, except as documented Neuro Reports no additional complaints Psych Reports anxiety and Reports depression Endo Reports no additional complaints Baljinder/Lymph Reports no additional complaints Aller/Immun Reports no additional complaints Physical Exam Vital Signs: Last Vital Signs Pulse 109 H 03/24/24 14:35 BP 110/72 03/24/24 14:35 Pulse Ox 96 03/24/24 14:35 Oxygen Delivery Method Room Air 03/24/24 14:35 BMI result Body Mass Index 22.9 Const General: comfortable (EXCEPT FOR PAIN OVER THE RIGHT LOWER THORACIC AREA), no acute distress, alert and awake Orientation/consciousness: patient oriented x3 HEENT Head: Yes normal to inspection General nose exam: No nasal polyps present and No nasal discharge present Face and sinus: Yes sinuses nontender Mouth: oropharynx normal Throat: Yes posterior oropharynx normal Eyes General: appearance normal, both eyes and all related structures Neck Neck: Yes normal visual inspection, Yes no lymphadenopathy, Yes trachea midline and Yes no JVD Thyroid: Thyroid normal Chest Chest palpation & inspection: normal inspection of the chest, normal palpation of entire chest wall and tenderness (She does have local tenderness and hyperesthesia over right lower rib cage) Resp Other: Breath sounds are diminished over the right lower lobe area. Rest of the lungs are clear Cardio Palpation: normal PMI Rate: regular rate Rhythm: regular rhythm Heart sounds: no gallops and no murmurs Peripheral pulses: Peripheral pulses 2+ throughout GI Palpation (GI): Soft to palpation, Tenderness to palpation present (GI) (There is a mild bulge and tenderness on pressure in right upper quadrant .), No hepatosplenomegaly present and no masses Auscultation: normal bowel sounds Back/Spine/Pelvis Thoracic/Lumbar Spine: thoracic and lumbar spine normal to inspection Skin General skin exam: no rashes or lesions noted Neuro General: patient oriented x3 and no focal motor deficits Cranial nerves: Yes CN's II-XII intact bilaterally Extrem General: Yes normal to inspection, Yes no clubbing, cyanosis or edema and Yes no calf tenderness Psych Appearance: grossly normal and well kempt Speech and movement: Normal speech and movement present Affect: Anxious affect present Results Reviewed Results Reviewed: CT scan of the chest performed on, 03/22/24 are reviewed with Jesusita. MPRESSION: Interval increase in right pleural effusion. Right middle lobe compressive atelectasis is stable. No change in postsurgical changes in right lower lobe. Multiple small bilateral micronodules and hazy opacities are stable. Mild prominence of bronchial wall with secretions, stable. Fleischner guidelines were followed. Assessment & Plan Assessment & Plan (1) COPD (chronic obstructive pulmonary disease): Comment: (COPD, MODERATELY SEVERE , CONTROLLED AND STABLE. Code(s): J44.9 - Chronic obstructive pulmonary disease, unspecified Category: Medical Plan: Continue Trelegy Ellipta 1 inhalation daily Albuterol HFA 2 puffs Q 4-6 hours p.r.n. (2) Lung cancer, lower lobe: Comment: Adeno carcinoma right lower lobe, localized. SUCCESSFULLY TREATED WITH VATS ASSISTED RIGHT LOWER LOBECTOMY BY DR. POST . CT, SCAN OF THE ABDOMEN AT [facility] SHE NOW SHOWS A MODERATE-SIZED PLEURAL EFFUSION, QUESTION OF THIS BEING MALIGNANT EFFUSION IS RAISED. Code(s): C34.30 - Malignant neoplasm of lower lobe, unspecified bronchus or lung Category: Surgical Plan: Recurrence of pleural effusion, To undergo thoracenteses and fluid examination (3) Status post lobectomy of lung: Comment: VATS right lower lobectomy, mediastinal lymph node sampling 09/04/23 PATIENT HAS RECOVERED WELL EXCEPT FOR DISCOMFORT OVER THE RIGHT LOWER RIBCAGE AREA. Code(s): Z90.2 - Acquired absence of lung [part of] Category: Surgical Plan: Right lower thoracic ribcage pain most likely neuropathic, She is being treated with gabapentin 300 mg b.i.d., Tylenol p.r.n., The emergency room has prescribed her morphine sulfate which is helping. (4) Lower thoracic back pain: Comment: SHE HAS CONSIDERABLE RIGHT LOWER INTERCOSTAL PAIN RADIATING TO THE FRONT. THIS IS A NEUROPATHIC TYPE OF PAIN. PATIENT IS BEING FOLLOWED AT THE PAIN CLINIC. Code(s): M54.6 - Pain in thoracic spine Category: Medical Plan: As above under status post lobectomy (5) Pleural effusion, right: Comment: CT SCAN OF THE CHEST HAS CONFIRMED PRESENCE OF RIGHT PLEURAL EFFUSION, OF MODERATE SIZE, Code(s): J90 - Pleural effusion, not elsewhere classified Category: Medical Plan: PATIENT IS SCHEDULED TO HAVE ULTRASOUND-GUIDED THORACENTESES Coding Level of Care Code Est Pt Level 3 (45647) Diagnoses COPD (chronic obstructive pulmonary disease) J44.9 Lung cancer, lower lobe C34.30 Status post lobectomy of lung Z90.2 Lower thoracic back pain M54.6 Pleural effusion, right J90
== END 2024-03-24 14:53 | disposition home or self-care (01) ==
PROVIDERS: Visit Provider Internal Medicine
DX: J44.9 Chronic obstructive pulmonary disease, unspecified (principal); C34.30 Malignant neoplasm of lower lobe, unspecified bronchus or lung; Z90.2 Acquired absence of lung [part of]; M54.6 Pain in thoracic spine; J90 Pleural effusion, not elsewhere classified
CPT/HCPCS: 99213

== ENCOUNTER 2024-03-26 09:49 | Day surgery (SDC) | payer MEDICARE, MEDICAID, SELFPAY ==
--- NOTE | ~2024-03-26 | XR_ITS ---
EXAMINATION: XR CHEST CLINICAL INFORMATION: Post right thoracentesis. History of right lung CA. COMPARISON: 03/22/2024, 03/20/2024, CT chest 03/22/2024. TECHNIQUE: PA view of the chest was obtained. FINDINGS: Right-sided pleural effusion has significantly decreased in volume and extent. Small amount of right pleural fluid appears to remain. There is no postprocedural pneumothorax identified. There is been a right lower lobectomy. The aerated right lung shows minimal linear type atelectasis right base. Postsurgical effacement of the right costophrenic angle. Left lung appears clear. No effusion or pneumothorax. Cardiac, mediastinal and hilar contours appear normal. There is no acute bony abnormality. There is a gentle dextroconvex thoracolumbar scoliosis. XR/XR chest 1V IMPRESSION: 1. No postprocedural pneumothorax right side. 2. A small amount of pleural fluid remains on the right. 3. There has been a right lower lobectomy. Aerated right lung appears clear aside from minor basilar atelectasis. 4. Left lung is clear.
--- NOTE | ~2024-03-26 | US_ITS ---
PROCEDURE: Ultrasound-guided right thoracentesis History: Right pleural effusion. Lung cancer status post lobectomy. Therapeutic and diagnostic. Specimen: A sample of pleural fluid was sent for analysis Access: 4 Hungarian Yueh catheter Medications: 10 mL 1% lidocaine TECHNIQUE/FINDINGS Appropriate preprocedural clinical history and imaging studies were reviewed. The patient was brought to the department and placed in the seated position. Ultrasound images of the right thorax were obtained to localize a large pleural effusion. Permanent ultrasound images were saved. Suitable entrance site was marked. Risks and benefits and possible complications were discussed with the patient and consent form was signed. The marked area of the patient's right back was prepped and draped in usual sterile fashion. 10 mL of 1% lidocaine was used to obtain local anesthesia of the skin and deeper tissues. A standard small bore needle was introduced to sample pleural fluid and demonstrate a safe access route. A 5 Hungarian Yueh catheter was then used to access the pleural cavity. 1100 ml of yellow fluid was removed passively. The catheter was then removed. A dressing was applied. A postprocedure chest x-ray will be performed and will be dictated separately. There were no immediate complications. The procedure was performed by Erwin Ward PA-C and supervised by Dr. Salas US/US thoracentesis Impression: -Successful Ultrasound-guided right thoracentesis. -Postprocedural chest x-ray shows no evidence of pneumothorax.
[2024-03-26 09:32] VITALS: BMI 23.1
[2024-03-26 09:38] VITALS: BP 133/84; PULSE 103; RESP 18; TEMP 36.4; O2SAT 93
[2024-03-26] MEDS: LORazepam 1 MG TABLET PO (09:53)
[2024-03-26] MEDS: Lidocaine HCl 1 % MPF 5 ML VIAL 10 ML SUBCUT (11:44)
[2024-03-26 11:45] VITALS: BP 103/70; PULSE 86; RESP 18; TEMP 36.1; O2SAT 93
[2024-03-26 12:15] VITALS: BP 105/69; PULSE 83; RESP 18; TEMP 36.2; O2SAT 92
== END 2024-03-26 12:32 | disposition home or self-care (01) ==
PROVIDERS: Physician Assistant Surgical; Visit Provider Surgery
DX: J90 Pleural effusion, not elsewhere classified (principal); T14.8XXA Other injury of unspecified body region, initial encounter; X58.XXXA Exposure to other specified factors, initial encounter; I10 Essential (primary) hypertension; J44.9 Chronic obstructive pulmonary disease, unspecified; C34.30 Malignant neoplasm of lower lobe, unspecified bronchus or lung; F17.210 Nicotine dependence, cigarettes, uncomplicated; E78.5 Hyperlipidemia, unspecified
CPT/HCPCS: 32555; 71045; 88112; 88305

== ENCOUNTER → 2024-03-26 10:21 | Outpatient (BNV) | payer MEDICARE, MEDICAID, SELFPAY | PROVIDERS: Visit Provider Physician Assistant Surgical | DX: J90 Pleural effusion, not elsewhere classified (principal) | CPT/HCPCS: 32555 ==

== ENCOUNTER 2024-04-05 16:34 | Emergency (ER) | payer MEDICARE, MEDICAID, SELFPAY ==
--- NOTE | ~2024-04-05 | XR_ITS ---
EXAMINATION: XR CHEST CLINICAL INFORMATION: Right subcostal pain and swelling. History of right lower lobectomy. COMPARISON: Chest x-ray 03/26/2024 TECHNIQUE: 2 views of the chest were obtained. FINDINGS: There is a right lower lobectomy changes with likely small underlying pleural effusion/atelectasis. The right upper lung and the left lung remains clear. Heart size and pulmonary vascularity is normal. XR/XR chest 2V IMPRESSION: Status post right lower lobectomy with small right pleural effusion/atelectasis. No change from 03/26/2024.
[2024-04-05 16:52] VITALS: BP 110/60; PULSE 100; O2SAT 95
--- NOTE | 2024-04-05 16:57 | ED_ITS ---
HPI - General Adult General Chief complaint: Abdominal Pain Stated complaint: severe URQ pain and dizziness, fentanyl given Time Seen by Provider: 04/05/24 16:57 Source: patient and EMS Mode of arrival: EMS Limitations: no limitations History of Present Illness ED Provider: Liya Marcus NP HPI narrative: Patient is a 63-year-old female with history of COPD and HTN s/p RLL lobectomy 09/[address] Sorto presenting to the ED with complaint of ongoing RUQ/right subcostal pain and swelling. Seen in this ED on 03/22, CT chest at that time showed interval increase in right pleural effusion, multiple small hazy opacities and she was discharged on Augmentin. She followed up with Dr. Sorto on 03/24, and had subsequent thoracentesis. Cytology showed fluid was negative for malignant cells. She was also scheduled for a bronchoscopy which she cancelled due to pain. She reports ongoing pain, swelling, states is interfering with her daily living. Also complains of cough productive of white sputum, temps around 99, nausea. She denies vomiting, diarrhea, constipation. MD complaint: RUQ abdominal/right subcostal pain Onset (ago): month(s) Radiation: non-radiation Severity: severe Quality: aching Pain Consistency: constant Relieving factors: rest Exacerbating factors: movement Associated symptoms: cough and nausea/vomiting (nausea) Treatments prior to arrival: other Related Data Home Medications ?Medication ?Instructions ?Recorded ?Confirmed aspirin 81 mg tablet,delayed 81 mg PO DAILY 12/21/20 03/25/24 release atorvastatin 20 mg tablet 20 mg PO BEDTIME 12/21/20 03/25/24 multivitamin 1 tab PO DAILY 12/21/20 03/25/24 bupropion HCl 300 mg 24 hr tablet, 300 mg PO DAILY 02/14/23 03/25/24 extended release fluticasone propionate 50 1 spray intranasal DAILY PRN 02/14/23 03/25/24 mcg/actuation nasal Allergy Symptoms spray,suspension omeprazole 20 mg capsule,delayed 20 mg PO DAILY@0630 05/17/23 03/25/24 release prazosin 5 mg capsule 5 mg PO BEDTIME 05/17/23 03/25/24 albuterol sulfate 90 mcg/actuation 2 puff inhalation Q4H PRN wheezing 05/31/23 03/25/24 aerosol inhaler (Ventolin HFA) topiramate 25 mg tablet 25 mg PO DAILY 05/31/23 03/25/24 diazepam 10 mg tablet 10 mg PO BID Anxiety 01/20/24 03/25/24 budesonide 180 mcg/actuation 2 inh inhalation BID 03/20/24 03/25/24 breath activated powder inhaler (Pulmicort Flexhaler) buspirone 15 mg tablet 15 mg PO TID 03/20/24 03/25/24 calcium polycarbophil 625 mg 625 mg PO DAILY@1200 03/20/24 03/25/24 tablet (Fiber (calcium polycarbophil)) cholecalciferol (vitamin D3) 125 125 mcg PO DAILY 03/20/24 03/25/24 mcg (5,000 unit) tablet escitalopram oxalate 10 mg tablet 10 mg PO DAILY 03/20/24 03/25/24 fluticasone fur. 200 mcg-umeclid 1 ea inhalation DAILY 03/20/24 03/25/24 62.5 mcg-vilant 25 mcg inhalat.powder (Trelegy Ellipta) lidocaine 4 % topical patch 1 patch transdermal DAILY PRN Pain 03/20/24 03/25/24 (Lidocaine Pain Relief) magnesium 250 mg tablet 250 mg PO DAILY@1200 03/20/24 03/25/24 methocarbamol 750 mg tablet 750 mg PO QID PRN Pain 03/20/24 03/25/24 ondansetron HCl 4 mg tablet 4 mg PO Q8H PRN Nausea 03/20/24 03/25/24 tramadol 50 mg tablet 50 mg PO BID PRN Pain 03/20/24 03/25/24 Previous Rx's ?Medication ?Instructions ?Recorded dicyclomine 20 mg tablet 20 mg PO TID #20 tabs 03/20/24 amoxicillin 875 mg-potassium 1 tab PO BID #13 tabs 03/22/24 clavulanate 125 mg tablet morphine 15 mg immediate release 15 mg PO Q6H PRN pain 5 days #10 03/23/24 tablet tabs gabapentin 300 mg capsule 300 mg PO TID #90 caps 03/31/24 Allergies Allergy/AdvReac Type Severity Reaction Status Date / Time codeine [CODEINE] Allergy Intermediate ITCHING Verified 04/05/24 17:07 hydrocodone [HYDROCODONE] Allergy Intermediate ITCHING Verified 04/05/24 17:07 diphenhydramine AdvReac Intermediate JITTERY Verified 04/05/24 17:07 [From BENADRYL] Review of Systems 2 Review of Systems: Yes all other systems are reviewed and are negative Constitutional: Constitutional: Reports as per [facility] Past Medical History Medical History Pleural effusion, right Lower thoracic back pain History of ectopic 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 Allergic rhinitis COPD (chronic obstructive pulmonary disease) Current smoker History of herniated intervertebral disc Scoliosis IBS (irritable bowel syndrome) History of depression DJD (degenerative joint disease) Hypertension Hyperlipidemia Urinary incontinence PTSD (post-traumatic stress disorder) Anxiety Surgical History History of lobectomy of lung History of ovarian cystectomy History of biopsy History of cystoscopy History of dilation of urethra History of colonoscopy History of endoscopy History of lung biopsy History of bladder surgery History of blepharoplasty History of hysterectomy History of bladder suspension procedure Family History Family History Mother CHF (congestive heart failure) Maternal Uncle Coronary bypass graft mechanical complication Social History Social History Household Members: None Housing: Apartment Are you a primary care trainer to a significant other at home: No Do you presently have visiting nurse or other home services: Yes (NURSE) Alcohol intake: current Alcohol intake frequency: holidays/special occasions only Alcohol type: beer Patient Tobacco Use Status: Former Tobacco user Tobacco use type: Cigarette Cigarette Packs Per Day: 0.5 Years Smoked: 47 Smoked in Last 30 Days: No Second Hand Smoke Exposure: No Use of substances other than those prescribed or required for medical reasons: No Substance Use Type: Marijuana Advance Directives: Yes Advance Directives on File: Yes Advance Directives Date on File: 12/25/23 Do you have a plan to hurt others: No Plan service: No Physical Exam ED Vital Signs: Vital Signs - 24 hr 04/05/24 17:06 04/05/24 17:09 04/05/24 20:41 Temperature 98.2 F 97.8 F Pulse Rate 100 83 Respiratory Rate 18 18 16 Blood Pressure 117/79 112/70 Pulse Oximetry 93 93 Oxygen Delivery Method Room Air Room Air BMI result Body Mass Index 23.2 Vital signs have been reviewed and appear to be correct. Blood pressure normal. Heart rate normal. Respiratory rate normal. Temperature normal. Oxygen saturation 93% on room air which is baseline for patient. Const General: cooperative, healthy appearing and no acute distress Orientation/consciousness: oriented to person, oriented to place, oriented to time and patient oriented x3 Limitations: no limitations HENMT Head: Yes normocephalic and Yes atraumatic Ears: external ears normal General nose exam: Normal external nose present Face and sinus: Yes face symmetric Mouth: oropharynx normal and moist mucous membranes Throat: Yes uvula midline Eyes Pupils: Equal, round and reactive pupils present Neck Neck: Yes normal visual inspection and Yes supple Resp Effort & Inspection: normal respiratory effort and able to speak in complete sentences Auscultation: clear to auscultation bilaterally (except RLL) and diminished lung sounds on the right in the lower lung gregorio (absent) Cardio Rate: regular rate Rhythm: regular rhythm Heart sounds: S1 normal heart sound present and S2 normal heart sound present GI Inspection: Yes other (slight swelling to RUQ/right subcostal area) Palpation (GI): Soft to palpation, Tenderness to palpation present (GI) in the RUQ, no guarding and No Rebound tenderness present Auscultation: normoactive bowel sounds General: Yes no CVA tenderness Back/Spine/Pelvis Back: no CVA tenderness Skin General skin exam: elasticity normal and turgor normal Neuro General: oriented to person, oriented to place, oriented to time, patient oriented x3, moves all extremities, no focal motor deficits and CN's II-XI intact bilaterally Cranial nerves: Yes Equal, round and reactive pupils present Cognition (Neuro): normal cognition Extrem General: Yes full ROM, Yes no pedal edema and Yes no calf tenderness Psych Mental Status: mental status grossly normal Affect: normal affect Thought process: Normal thought process present Medications Administered Discontinued Medications Generic Name Dose Route Start Last Admin Trade Name Freq PRN Reason Stop Dose Admin Oxycodone HCl 5 mg 04/05/24 20:31 04/05/24 20:43 Oxycodone Hcl Immed Release 5 Mg Tablet PO 04/05/24 20:32 5 mg ONCE ONE Administration Medical Decision Making Medical Decision Making [facility] Narrative: Patient is a 63-year-old female with history of COPD and HTN s/p RLL lobectomy 09/[address] Sorto presenting to the ED with complaint of ongoing RUQ/right subcostal pain and swelling. On exam patient is awake, A+Ox3, VS WNL, afebrile, normal neurological exam without focal deficits, physical exam findings as above. Given reported symptoms and physical exam findings, initial differential includes chronic abdominal pain, pleural effusion. Labs notable for slight leukocytosis, slight anemia similar to prior, CRP elevated but improved from visit on 03/22, no evidence of PHIL, LFTs wnl. Patient initally refusing CXR, then agreeable once rationale dicussed. X-ray chest notable for small right pleural effusion without change from exam on 03/26. My interpretation is in agreement with the radiologist's interpretation. Case discussed with Dr. Sorto who does not feel additional imaging is indicated at this time as patient does not have any acute surgical issues. Patient specifically requesting prescription for pain medication while in the ED as well as upon discharge. Review of [employer] shows patient filled a prescription for tramadol on 04/02, which patient initially denied taking. Do not feel comfortable prescribing additional opioid pain medication at this time. Offered prescription for lidocaine patches which patient declined. Patient saw pain management in February but has not been back since. Discussed with patient that it would likely be beneficial to follow up with pain management again due to the chronic nature of her pain. Advised her to follow up with Dr. Sorto and Dr. Cowan for further management of her chronic issues. Return precautions discussed at bedside. Patient verbalized understanding of and agreement with plan. Differential Diagnosis Differential Diagnoses: The differential diagnosis associated with the presentation includes As per [facility] Admission/Observation Consideration of admission/observation: Escalation of care including admission/observation considered Patient would have been admitted to the hospital had their work up had any findings where hospital admission was appropriate and their clinical presentation warranted hospital admission. Consult Healthcare Provider Management of the patient was discussed with: Bilingual Nanny (Dr. Sorto ) Lab Data [facility] Lab Attestation statement: I reviewed the patient's lab results. As per [facility] 04/05/24 18:38 04/05/24 18:38 Labs: Lab Results 04/05/24 Range/Units 18:38 WBC 11.7 H (4.8-10.8) X10*3/uL RBC 3.51 L (4.20-5.50) X10*6/uL Hgb 11.4 L (12.0-16.0) g/dl Hct 34.6 L (37.0-47.0) % MCV 98.6 H (80.0-98.0) fL MCH 32.5 (27.0-33.0) pg MCHC 32.9 (31.0-35.0) g/dl RDW 12.6 (11.0-16.0) % Plt Count 405 H (160-400) X10*3/uL MPV 8.4 L (9.4-12.3) fL Immature Gran % (Auto) 0.4 (0.0-0.4) % Neut % (Auto) 69.6 (45-73) % Lymph % (Auto) 21.0 (20-40) % [place] % (Auto) 5.9 (2-11) % Eos % (Auto) 2.6 (0-4) % Baso % (Auto) 0.5 (0-2) % Lymph # (Auto) 2.5 (1.2-4.9) X10*3/uL [place] # (Auto) 0.7 (0.1-1.2) X10*3/uL Eos # (Auto) 0.3 (0.0-0.4) X10*3/uL Baso # (Auto) 0.1 (0.0-0.2) X10*3/uL Abs Immat Gran (auto) 0.05 H (0.00-0.03) X10*3/uL Absolute Neuts (auto) 8.2 (2.0-8.3) x10*3/uL Absolute Nucleated RBC 0.000 (0.0-0.012) X10*3/uL Nucleated RBC % (auto) 0.0 (0.0-0.2) /100WBC PT 13.1 (11.1-13.3) SEC INR 1.1 (0.9-1.1) Sodium 141 (135-145) mmol/L Potassium 3.8 (3.3-5.1) mmol/L Chloride 106 (96-108) mmol/L Carbon Dioxide 25 (22-29) mmol/L Anion Gap 14 (12-20) BUN 12 (9-16) mg/dL Creatinine 0.79 (0.5-1.4) mg/dL Estim Creat Clear Calc 54.2 Estimated GFR > 60 Random Glucose 91 (60-115) mg/dL Calcium 9.1 (8.4-10.2) mg/dL Total Bilirubin 0.3 (0.0-1.0) mg/dL AST 18 (5-31) U/L ALT 16 (0-31) U/L Alkaline Phosphatase 92 (39-117) U/L C-Reactive Protein 3.88 H (< or = 0.50) mg/dL Total Protein 6.3 L (6.5-8.0) g/dL Albumin 3.4 L (3.5-5.0) g/dL Amylase 36 (28-100) U/L Lipase 13 (8-78) U/L Procalcitonin 0.02 ng/mL Independent Interpretation I performed an independent interpretation of an: Plain X-Ray Interpretation: CXR shows stable small right pleural effusion unchanged from 03/26/24 Radiology Impression Discussion of test interpretation with radiology: I have reviewed the radiologist's reading. Radiologist Impression: XR/XR chest 2V IMPRESSION: Status post right lower lobectomy with small right pleural effusion/atelectasis. No change from 03/26/2024. External Record Review External record reviewed: Inpatient record, Office record and Outpatient record Prescription Management I considered prescription management with: Pain Medication Critical Care Time Critical Care Time Critical Care Time: Yes Total Critical Care Time: 47 Attestation: I have personally provided critical care time exclusive of time spent on separately billable procedures. Time includes review of lab data, radiology results, discussion with consultants, and monitoring for potential decompensation. Intervention performed as documented. Discharge Plan Discharge Clinical Impression: Costal margin pain, Chronic pain Patient Disposition: Home, Self-Care Instructions: Chronic Pain (ED), Pain Management (ED) Additional Instructions: You were evaluated in the emergency department today for abdominal/lower thoracic pain. Your evaluation did not show evidence of conditions requiring emergent medical treatment at this time. We recommend that you follow up with Dr. Cowan, your perioperative manager and Dr. Sorto, your surgeon to complete previously recommended testing and for further management of your symptoms. We also recommend following up with pain management due to the chronic nature of your pain. Return to the emergency department if you develop fever 100.4F or greater, persistent vomiting, increasing swelling, difficulty breathing, or any other concerning symptoms. Prescriptions: No Action gabapentin 300 mg capsule 300 mg PO TID Qty: 90 2RF multivitamin Tablet 1 tab PO DAILY atorvastatin 20 mg tablet 20 mg PO BEDTIME aspirin 81 mg Tablet,Delayed Release (Dr/Ec) 81 mg PO DAILY diazepam 10 mg tablet 10 mg PO BID prazosin 5 mg capsule 5 mg PO BEDTIME omeprazole 20 mg capsule,delayed release(DR/EC) 20 mg PO DAILY@0630 amoxicillin-pot clavulanate 875-125 mg tablet 1 tab PO BID Qty: 13 0RF morphine 15 mg tablet 15 mg PO Q6H PRN (Reason: pain) 5 Days Qty: 10 0RF Rx Instructions: Partial Fill upon patient request. albuterol sulfate [Ventolin HFA] 90 mcg/actuation HFA aerosol inhaler 2 puff INHALATION Q4H PRN (Reason: wheezing) topiramate 25 mg tablet 25 mg PO DAILY tramadol 50 mg tablet 50 mg PO BID PRN (Reason: Pain) buspirone 15 mg tablet 15 mg PO TID escitalopram oxalate 10 mg tablet 10 mg PO DAILY Pulmicort Flexhaler 180 mcg/actuation aerosol powdr breath activated 2 inh inhalation BID Trelegy Ellipta 200-62.5-25 mcg blister with device 1 ea inhalation DAILY dicyclomine 20 mg tablet 20 mg PO TID Qty: 20 0RF lidocaine [Lidocaine Pain Relief] 4 % adhesive patch,medicated 1 patch transdermal DAILY PRN (Reason: Pain) Protocol: Apply to: Apply to: rib cage ondansetron HCl 4 mg Tablet 4 mg PO Q8H PRN (Reason: Nausea) methocarbamol 750 mg tablet 750 mg PO QID PRN (Reason: Pain) Fiber (calcium polycarbophil) 625 mg Tablet 625 mg PO DAILY@1200 magnesium 250 mg Tablet 250 mg PO DAILY@1200 cholecalciferol (vitamin D3) 125 mcg (5,000 unit) Tablet 125 mcg PO DAILY bupropion HCl 300 mg tablet extended release 24 hr 300 mg PO DAILY fluticasone propionate 50 mcg/actuation spray,suspension 1 spray intranasal DAILY PRN (Reason: Allergy Symptoms) Referrals: Otto Cowan MD [Physician] - Yosef Stubbs MD [Physician] - Marlo Sorto MD [Physician] - Print Language: Turkmen
[2024-04-05 17:06] VITALS: BP 117/79; PULSE 100; RESP 18; TEMP 36.8; O2SAT 93; BMI 23.2
[2024-04-05 17:09] VITALS: RESP 18
--- NOTE | 2024-04-05 17:12 | PC.NURSE ---
pt is alert and oriented, skin pwd, respirations even and unlabored, pt reports right upper abd/rib area pain with nausea also states poor po intake and difficulty sleeping do to the pain, pt's abd soft but tender on the right upper region and some noticeable bulging to that region
[2024-04-05 18:45] LABS: MANUAL DIFF FLAG NO
[2024-04-05 18:46] LABS: Basophils Absolute Auto 0.1 X10*3/uL (0.0-0.2); Basophils Percent Auto 0.5 % (0-2); Eosinophils Absolute Auto 0.3 X10*3/uL (0.0-0.4); Eosinophils Percent Auto 2.6 % (0-4); Hematocrit 34.6 % (37.0-47.0); Hemoglobin 11.4 g/dl (12.0-16.0); Imm Gran Abs Auto 0.05 X10*3/uL (0.00-0.03); Imm Gran Pct Auto 0.4 % (0.0-0.4); Lymphocytes Absolute Auto 2.5 X10*3/uL (1.2-4.9); Mean Corpuscular HGB Conc 32.9 g/dl (31.0-35.0); Mean Corpuscular Hemoglobin 32.5 pg (27.0-33.0); Mean Corpuscular Volume 98.6 fL (80.0-98.0); Mean Platelet Volume 8.4 fL (9.4-12.3); Monocytes Absolute Auto 0.7 X10*3/uL (0.1-1.2); Monocytes Percent Auto 5.9 % (2-11); Neutrophils Absolute Auto 8.2 x10*3/uL (2.0-8.3); Neutrophils Percent Auto 69.6 % (45-73); Platelet Count 405 X10*3/uL (160-400); Red Blood Count 3.51 X10*6/uL (4.20-5.50); Red Cell Distribution Width 12.6 % (11.0-16.0); White Blood Count 11.7 X10*3/uL (4.8-10.8)
[2024-04-05 18:53] LABS: INTERNATIONAL NORM RATIO 1.1 (0.9-1.1); Prothrombin Time 13.1 SEC (11.1-13.3)
[2024-04-05 19:15] LABS: Alanine Aminotransferase 16 U/L (0-31); Albumin Level 3.4 g/dL (3.5-5.0); Alkaline Phosphatase 92 U/L (39-117); Amylase 36 U/L (28-100); Anion Gap 14 (12-20); Aspartate Amino Transferase 18 U/L (5-31); Bilirubin Total 0.3 mg/dL (0.0-1.0); Blood Urea Nitrogen 12 mg/dL (9-16); C Reactive Protein 3.88 mg/dL (< or = 0.50); Calcium 9.1 mg/dL (8.4-10.2); Carbon Dioxide 25 mmol/L (22-29); Chloride 106 mmol/L (96-108); Creatinine Clr Calc Pharmacy 54.2; Estimated Glomerular Filt Rate > 60; Glucose Random 91 mg/dL (60-115); Lipase 13 U/L (8-78); Potassium 3.8 mmol/L (3.3-5.1); Sodium 141 mmol/L (135-145); Total Protein 6.3 g/dL (6.5-8.0)
[2024-04-05 19:44] LABS: Procalcitonin 0.02 ng/mL
--- NOTE | 2024-04-05 20:30 | PC.NURSE ---
Assumed care f pt. pt ambulating on unit with no distress. Pt c/o chronic pain, provider aware. No other acute distress noted.,
[2024-04-05 20:41] VITALS: BP 112/70; PULSE 83; RESP 16; TEMP 36.6; O2SAT 93
[2024-04-05] MEDS: oxyCODONE HCl Immed Release 5 MG TABLET PO (20:43)
[2024-04-05 21:55] VITALS: BP 118/70; PULSE 79; RESP 16; TEMP 36.6; O2SAT 95
== END 2024-04-05 21:57 | disposition home or self-care (01) ==
PROVIDERS: Registered Nurse Emergency; Emergency Provider Emergency Medicine; PCP Internal Medicine
DX: R07.82 Intercostal pain (principal); R10.11 Right upper quadrant pain; R05.9 Cough, unspecified; Z79.899 Other long term (current) drug therapy; J44.9 Chronic obstructive pulmonary disease, unspecified; I10 Essential (primary) hypertension; Z90.2 Acquired absence of lung [part of]; Z85.118 Personal history of other malignant neoplasm of bronchus and lung
CPT/HCPCS: 36415; 71046; 80053; 82150; 83690; 84145; 85025; 85610; 86140; 99283; 99284

== ENCOUNTER 2024-04-15 10:34 | Outpatient (REF) | payer MEDICARE, MEDICAID, SELFPAY ==
--- NOTE | ~2024-04-15 | US_ITS ---
EXAMINATION: US ABDOMEN COMPLETE CLINICAL INFORMATION: Abdominal pain and distention. COMPARISON: MR lumbar spine 08/26/2023, PET/CT 04/30/2023. TECHNIQUE: Real-time imaging of the abdominal viscera. FINDINGS: LUNG BASES: A [id number] right pleural effusion is present. A tiny pericardial effusion is present. PANCREAS: Normal. ABDOMINAL AORTA: The proximal, mid, and distal segments are normal in caliber. INFERIOR VENA CAVA: Visualized portions are normal. LIVER: Normal. The liver is normal in size. The liver contour is normal. Parenchymal echogenicity is normal. No focal hepatic lesion. There is no intrahepatic biliary duct dilatation seen. GALLBLADDER: Normal. The gallbladder is physiologically distended without evidence of stones, sludge, polyps, wall thickening or pericholecystic fluid. COMMON BILE DUCT: Normal in caliber measuring 0.8 cm in diameter. RIGHT KIDNEY: No hydronephrosis. No renal calculi or focal parenchymal lesions. The kidney measures 9.7 cm in maximum dimension. The proximal left ureter is seen and appears to have thickened wall measuring 2.3 mm. LEFT KIDNEY: No hydronephrosis. No renal calculi or focal parenchymal lesions. The kidney measures 9.7 cm in maximum dimension. SPLEEN: Normal. The spleen measures 7.0 cm in maximum dimension. FREE FLUID: None. US/US abdomen complete IMPRESSION: 1. [id number] right pleural effusion and tiny pericardial effusion. 2. Thickened wall of the proximal left ureter. CT urogram may be useful for further evaluation.
== END 2024-04-15 10:35 | disposition home or self-care (01) ==
LOC: HO.US 10:34
PROVIDERS: PCP Internal Medicine; Visit Provider Internal Medicine
DX: R10.84 Generalized abdominal pain (principal)
CPT/HCPCS: 76700

== ENCOUNTER 2024-04-22 12:52 | Outpatient (REF) | payer MEDICARE, MEDICAID, SELFPAY | END 2024-04-22 12:53 | disposition home or self-care (01) | LOC: HO.LNP 12:52 | PROVIDERS: PCP Internal Medicine; Visit Provider Nurse Practitioner Family | DX: N39.0 Urinary tract infection, site not specified (principal); M54.50 Low back pain, unspecified; N39.46 Mixed incontinence; R30.0 Dysuria | CPT/HCPCS: 51798; 81003; 87086; 87088; 87186; 99202 ==

== ENCOUNTER 2024-04-22 12:52 | Outpatient (AMB) | payer MEDICARE, MEDICAID, SELFPAY ==
--- NOTE | 2024-04-22 13:03 | A.OFFVIS_ITS ---
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 Required: No Accompanied by: Self / Same As Patient Allergies codeine [CODEINE] Allergy (Intermediate, Verified 04/22/24 14:14) ITCHING hydrocodone [HYDROCODONE] Allergy (Intermediate, Verified 04/22/24 14:14) ITCHING diphenhydramine [From BENADRYL] Adverse Reaction (Intermediate, Verified 04/22/24 14:14) JITTERY Medication List - Last Reconciled 04/22/24 by EUNICE Loyd albuterol sulfate 90 mcg/actuation (Ventolin HFA) 2 puffs inhalation Q4H PRN aspirin 81 mg PO DAILY atorvastatin 20 mg PO BEDTIME budesonide 180 mcg/actuation (Pulmicort Flexhaler) 2 inhalations inhalation BID bupropion HCl XL 300 mg PO DAILY buspirone 15 mg PO TID calcium polycarbophil (Fiber (calcium polycarbophil)) 625 mg PO DAILY@1200 cholecalciferol (vitamin D3) 125 mcg PO DAILY diazepam 10 mg PO BID dicyclomine 20 mg PO TID escitalopram oxalate 10 mg PO DAILY estradiol 0.01%(0.1mg/gram) pea sized amount to urethra daily for one month and three times a week thereafter. 90 days fluticasone propionate 50 mcg/actuation 1 spray intranasal DAILY PRN xwgqxcgzgqg-ycohzcjgk-fctmlelb 200-62.5-25 mcg (Trelegy Ellipta) 1 ea inhalation DAILY gabapentin 300 mg PO TID lidocaine 4% (Lidocaine Pain Relief) 1 patch See Protocol transdermal DAILY PRN magnesium 250 mg PO DAILY@1200 methocarbamol 750 mg PO QID PRN multivitamin 1 tab PO DAILY omeprazole 20 mg PO DAILY@0630 ondansetron HCl 4 mg PO Q8H PRN prazosin 5 mg PO BEDTIME sulfamethoxazole-trimethoprim 800-160 mg (Bactrim DS) 1 tab PO BID 10 days topiramate 25 mg PO DAILY tramadol 50 mg PO BID PRN HPI Comments Details: Jesusita is a pleasant 63-year-old female patient of Dr. Bradley. 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 She presents to the office today as a new patient for recurrent urinary tract infections. In discussion with the patient today she reports having seeked emergency room care multiple times over the last 3-6 months for ongoing issue she has been experiencing. She discusses ever since having her lobectomy approximately 1 year ago she continues with right sided abdominal discomfort in his had multiple imaging for this issue. In review of patient's chart it appears CT 03/27 noted kidneys and ureters with prominent left extrarenal pelvis and small right extrarenal pelvis. There is hypertensity in the left extrarenal pelvis. No suspicious masses. Small hypodensities that are too small to characterize are noted. Requiring no dictated follow-up per radiology report. In review of patient's chart it appears she recently had an abdominal ultrasound noting bilateral kidneys with no hydronephrosis. No renal calculi or focal parenchymal lesions. The proximal left ureter seen and appears to have thickened wall measuring 2.3 mm. In office urinalysis results reviewed with the patient today. 3+ leukocytes positive nitrates. When asked she does report ongoing lower urinary tract symptoms of urinary urgency, urinary freq uency, mixed urinary incontinence, and dysuria. She reports symptoms have been present for many years however feels they are worsening. She otherwise denies hematuria, foul smelling urine, changes to urinary stream, flank pain, fever, and or chills. PVR 12 mL. She otherwise offers no other issues or concerns at this time. [facility] Medical History Lower thoracic back pain History of ectopic 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 Allergic rhinitis COPD (chronic obstructive pulmonary disease) Current smoker History of herniated intervertebral disc Scoliosis IBS (irritable bowel syndrome) History of depression DJD (degenerative joint disease) Hypertension Hyperlipidemia Urinary incontinence PTSD (post-traumatic stress disorder) Anxiety Surgical History Pleural effusion, right History of lobectomy of lung History of ovarian cystectomy History of biopsy History of cystoscopy History of dilation of urethra History of colonoscopy History of endoscopy History of lung biopsy History of bladder surgery History of blepharoplasty History of hysterectomy History of bladder suspension procedure Family History Mother CHF (congestive heart failure) Maternal Uncle Coronary bypass graft mechanical complication Social History Household Members: None Housing: Apartment Are you a primary insurance healthcare consultant to a significant other at home: No Do you presently have visiting nurse or other home services: Yes (NURSE) Alcohol intake: current Alcohol intake frequency: holidays/special occasions only Alcohol type: beer Patient Tobacco Use Status: Former Tobacco user Tobacco use type: Cigarette Cigarette Packs Per Day: 0.5 Years Smoked: 47 Second Hand Smoke Exposure: No Substance Use Type: Marijuana Advance Directives Date on File: 12/25/23 service: No Review of Systems Eyes Reports no additional complaints ENT Reports no additional complaints Card Reports no additional complaints Resp Reports as per HPI GI Reports as per HPI Reports as per HPI Musc Reports no additional complaints Neuro Reports no additional complaints Psych Reports as per HPI Endo Reports no additional complaints Baljinder/Lymph Reports no additional complaints Aller/Immun Reports as per HPI Physical Exam Const General: cooperative, healthy appearing, comfortable, no acute distress, well developed, alert and awake Orientation/consciousness: patient oriented x3 Limitations: no limitations HEENT Head: Yes normal to inspection, Yes normocephalic and Yes atraumatic Ears: hearing grossly normal bilaterally Eyes General: appearance normal, both eyes and all related structures Neck Neck: Yes normal visual inspection and Yes trachea midline Chest Chest palpation & inspection: normal inspection of the chest Resp Effort & Inspection: normal respiratory effort and able to speak in complete sentences Cardio Rate: regular rate GI Inspection: Yes normal to inspection General: Yes no CVA tenderness Back/Spine/Pelvis Back: no CVA tenderness Skin General skin exam: no rashes or lesions noted Neuro General: patient oriented x3 Extrem General: Yes normal to inspection Psych Appearance: grossly normal and well kempt Mental Status: mental status grossly normal Speech and movement: Normal speech and movement present and Clear speech present Affect: normal affect Attitude: cooperative Thought process: Normal thought process present Thought content: Normal thought content present Insight: Fair insight present (Psych) Judgement: Fair judgement present (Psych) Office Procedures Post Void Residual Post Residual Void Post Void Residual (PVR): 40987-[id number] Void Residual by ultrasound Results AMB Urinalysis, Automated UA Leukoctes 500 Kevin/uL Last Edit by Vicente Casey on 04/22/24 13:26 UA Nitrite Positive Last Edit by Vicente Casey on 04/22/24 13:26 UA Urobilinogen 0.2 mg/dL Last Edit by Vicente Casey on 04/22/24 13:26 UA Protein 30 mg/dL Last Edit by [employer] Casey on 04/22/24 13:26 UA pH 5.5 Last Edit by [employer] Casey on 04/22/24 13:26 UA Blood 0 Sidney/uL Last Edit by [employer] on 04/22/24 13:26 UA Specific [place] 1.025 Last Edit by [employer] on 04/22/24 13:26 UA Ketone Positive Last Edit by [employer] Casey on 04/22/24 13:26 UA Bilirubin 0 mg/dL Last Edit by [employer] Casye on 04/22/24 13:26 UA Glucose 0 mg/dL Last Edit by [employer] Casey on 04/22/24 13:26 Results Reviewed Results Reviewed: Laboratory Last Values Urine pH (Auto) 5.5 04/22/24 13:24 Specific [place] (Auto) 1.025 04/22/24 13:24 Urine Protein (Auto) 30 mg/dL 04/22/24 13:24 Glucose (UA)(Auto) 0 mg/dL 04/22/24 13:24 Urine Ketones (Auto) Positive 04/22/24 13:24 Urine Blood (Auto) 0 Sidney/uL 04/22/24 13:24 Urine Nitrite (Auto) Positive 04/22/24 13:24 Urine Bilirubin (Auto) 0 mg/dL 04/22/24 13:24 Urine Urobilinogen (Auto) 0.2 mg/dL 04/22/24 13:24 Leukocyte Esterase (Auto) 500 Kevin/uL 04/22/24 13:24 Date of Service: 04/15/24 Procedure(s): US abdomen complete EXAMINATION: US ABDOMEN COMPLETE FINDINGS: LUNG BASES: A yjmap-xb-wlqwjrdh right pleural effusion is present. A tiny pericardial effusion is present. PANCREAS: Normal. ABDOMINAL AORTA: The proximal, mid, and distal segments are normal in caliber. INFERIOR VENA CAVA: Visualized portions are normal. LIVER: Normal. The liver is normal in size. The liver contour is normal. Parenchymal echogenicity is normal. No focal hepatic lesion. There is no intrahepatic biliary duct dilatation seen. GALLBLADDER: Normal. The gallbladder is physiologically distended without evidence of stones, sludge, polyps, wall thickening or pericholecystic fluid. COMMON BILE DUCT: Normal in caliber measuring 0.8 cm in diameter. RIGHT KIDNEY: No hydronephrosis. No renal calculi or focal parenchymal lesions. The kidney measures 9.7 cm in maximum dimension. The proximal left ureter is seen and appears to have thickened wall measuring 2.3 mm. LEFT KIDNEY: No hydronephrosis. No renal calculi or focal parenchymal lesions. The kidney measures 9.7 cm in maximum dimension. SPLEEN: Normal. The spleen measures 7.0 cm in maximum dimension. FREE FLUID: None. IMPRESSION: 1. Voica-qb-oslmoojz right pleural effusion and tiny pericardial effusion. 2. Thickened wall of the proximal left ureter. CT urogram may be useful for further evaluation Assessment & Plan Assessment & Plan (1) Recurrent UTI: Code(s): N39.0 - Urinary tract infection, site not specified Category: Medical (2) Complicated urinary tract infection: Code(s): N39.0 - Urinary tract infection, site not specified Category: Medical Plan In office urinalysis results reviewed with the patient today; as noted above; will send for urine culture. Start Bactrim as discussed and prescribed. Start Estrace cream as discussed and prescribed. Discussed at length potential causes of recurrent urinary tract infections. Discussed potential for overactive bladder medication however will treat UTI at this current time. PVR 12 mL. Discussed bladder triggers/irritants. Discussed and stressed the importance of limiting/quitting nicotine dependence for overall health and well-being. Recent CT and abdominal ultrasound results reviewed with the patient today; as noted above. Discussed, educated, and stressed the importance of water intake. Information regarding pelvic floor therapy was discussed and given. Follow-up in 1 month with PVR; or sooner with any issues, concerns, and or questions. Orders: Orders AMB Post Void Residual by ultrasound Today N39.0 - Urinary tract infection, site not specified Urine Culture Today N39.0 - Urinary tract infection, site not specified AMB Urinalysis Automated Today Z13.9 - Encounter for screening, unspecified Medications: New estradiol 0.01%(0.1mg/gram) pea sized amount to urethra daily for one month and three times a week thereafter. 90 days 42.5 grams 2RF sulfamethoxazole-trimethoprim 800-160 mg (Bactrim DS) 1 tab PO BID 10 days 20 tabs 0RF N39.0 - Urinary tract infection, site not specified Patient Instructions: The patient had an opportunity to ask questions regarding the treatment plan. All questions were answered. Physical exam, labs, and imaging were discussed and reviewed in detail. As well as risks, benefits, and discussion of treatment choices. No major barriers to understanding were identified. The patient expressed understanding and agreement with the above treatment plan. The patient was made aware they should contact our office by phone for worsening of their current condition, the appearance of new symptoms, or with any questions or concerns. Compliance is encouraged with any medications and follow up testing that is ordered. It is a privilege to be allowed the opportunity to participate in? your urological care.? Again, if you have any questions or concerns If you have any questions or concerns please do not hesitate to contact me. The office is [phone]. This note is constructed using voice recognition software. While every effort has been made to ensure accuracy tripe scraper errors may have been included. Yours sincerely, DANNY Loyd-FREDRICK Coding Level of Care Code New Pt Level 4 (42630) Diagnoses Recurrent UTI N39.0 Complicated urinary tract infection N39.0 CPT Codes Post Residual Void - PVR CPT Code: 84902-Stip Void Residual by ultrasound ([id number])
== END 2024-04-22 13:54 | disposition home or self-care (01) ==
PROVIDERS: PCP Internal Medicine; Visit Provider Nurse Practitioner Family
DX: Z13.9 Encounter for screening, unspecified (principal); N39.0 Urinary tract infection, site not specified
CPT/HCPCS: 99204

== ENCOUNTER 2024-04-23 09:57 | Day surgery (SDC) | payer MEDICARE, MEDICAID, SELFPAY ==
--- NOTE | 2024-04-01 10:08 | HO.ANESPROP2 ---
HPI - Anesthesia Eval Consult details Narrative: 63yo F for Bronchoscopy Fiberoptic, 04/23/24 s/p RLL lobectomy 09/2023 for adenocarcinoma s/p thoracentesis 03/26/24, ~1L removed PMFSH Active Problems Active Problems: All Active Problems Neurapraxia (Acute) Pleural effusion, right (Acute) Lower thoracic back pain (Acute) Vertebrogenic low back pain (Acute) Costal margin pain (Acute) COVID-19 (Acute) Status post lobectomy of lung (Acute) Hypertension (Acute) Preoperative cardiovascular examination (Acute) Lung cancer, lower lobe (Acute) COPD (chronic obstructive pulmonary disease) (Acute) Current smoker (Acute) Allergic rhinitis (Acute) Past Medical History Medical History Lower thoracic back pain History of ectopic 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 Allergic rhinitis COPD (chronic obstructive pulmonary disease) Current smoker History of herniated intervertebral disc Scoliosis IBS (irritable bowel syndrome) History of depression DJD (degenerative joint disease) Hypertension Hyperlipidemia Urinary incontinence PTSD (post-traumatic stress disorder) Anxiety Family History Family History Mother CHF (congestive heart failure) Maternal Uncle Coronary bypass graft mechanical complication Family history of problems with anesthesia: No Surgical History Surgical History Pleural effusion, right History of lobectomy of lung History of ovarian cystectomy History of biopsy History of cystoscopy History of dilation of urethra History of colonoscopy History of endoscopy History of lung biopsy History of bladder surgery History of blepharoplasty History of hysterectomy History of bladder suspension procedure History of Problems with Anesthesia: No Social History Social History Household Members: None Housing: Apartment Are you a primary home health aide caregiver to a significant other at home: No Do you presently have visiting nurse or other home services: Yes (NURSE) Alcohol intake: current Alcohol intake frequency: holidays/special occasions only Alcohol type: beer Patient Tobacco Use Status: Former Tobacco user Tobacco use type: Cigarette Cigarette Packs Per Day: 0.5 Years Smoked: 47 Second Hand Smoke Exposure: No Substance Use Type: Marijuana Advance Directives Date on File: 12/25/23 service: No Meds Allergies Allergy/AdvReac Type Severity Reaction Status Date / Time codeine [CODEINE] Allergy Intermediate ITCHING Verified 04/29/24 14:50 hydrocodone [HYDROCODONE] Allergy Intermediate ITCHING Verified 04/29/24 14:50 diphenhydramine AdvReac Intermediate JITTERY Verified 04/29/24 14:50 [From [facility]] Home Medications ?Medication ?Instructions ?Recorded ?Confirmed ?Last Taken ?Type aspirin 81 mg tablet,delayed 81 mg PO DAILY 12/21/20 04/29/24 03/20/24 History release atorvastatin 20 mg tablet 20 mg PO BEDTIME 12/21/20 04/29/24 09/03/23 History multivitamin 1 tab PO DAILY 12/21/20 04/29/24 03/20/24 History bupropion HCl 300 mg 24 hr tablet, 300 mg PO DAILY 02/14/23 04/29/24 03/20/24 History extended release fluticasone propionate 50 1 spray intranasal DAILY PRN 02/14/23 04/29/24 09/03/23 History mcg/actuation nasal Allergy Symptoms spray,suspension omeprazole 20 mg capsule,delayed 20 mg PO DAILY@0630 05/17/23 04/29/24 03/20/24 History release prazosin 5 mg capsule 5 mg PO BEDTIME 05/17/23 04/29/24 09/03/23 History albuterol sulfate 90 mcg/actuation 2 puff inhalation Q4H PRN wheezing 05/31/23 04/29/24 09/04/23 History aerosol inhaler (Ventolin HFA) topiramate 25 mg tablet 25 mg PO DAILY 05/31/23 04/29/24 03/20/24 History diazepam 10 mg tablet 10 mg PO BID Anxiety 01/20/24 04/29/24 04/23/24 08:00 History budesonide 180 mcg/actuation 2 inh inhalation BID 03/20/24 04/29/24 03/20/24 History breath activated powder inhaler (Pulmicort Flexhaler) buspirone 15 mg tablet 15 mg PO TID 03/20/24 04/29/24 03/20/24 History calcium polycarbophil 625 mg 625 mg PO DAILY@1200 03/20/24 04/29/24 Unknown History tablet (Fiber (calcium polycarbophil)) cholecalciferol (vitamin D3) 125 125 mcg PO DAILY 03/20/24 04/29/24 03/20/24 History mcg (5,000 unit) tablet escitalopram oxalate 10 mg tablet 10 mg PO DAILY 03/20/24 04/29/24 03/20/24 History fluticasone fur. 200 mcg-umeclid 1 ea inhalation DAILY 03/20/24 04/29/24 03/20/24 History 62.5 mcg-vilant 25 mcg inhalat.powder (Trelegy Ellipta) lidocaine 4 % topical patch 1 patch transdermal DAILY PRN Pain 03/20/24 04/29/24 Unknown History (Lidocaine Pain Relief) magnesium 250 mg tablet 250 mg PO DAILY@1200 03/20/24 04/29/24 Unknown History methocarbamol 750 mg tablet 750 mg PO QID PRN Pain 03/20/24 04/29/24 Unknown History ondansetron HCl 4 mg tablet 4 mg PO Q8H PRN Nausea 03/20/24 04/29/24 Unknown History tramadol 50 mg tablet 50 mg PO BID PRN Pain 03/20/24 04/29/24 Unknown History Exam Pertinent Lab Results Pertinent Lab Results: Laboratory Tests 03/22/24 12:35 WBC 10.4 Hgb 12.5 Hct 36.9 L Plt Count 484 H Sodium 137 Potassium 4.2 Chloride 101 Carbon Dioxide 25 BUN 12 Creatinine 0.73 Narrative Narrative: EKG 03/2024 Vent. Rate : 079 BPM Atrial Rate : 079 BPM P-R Int : 158 ms QRS Dur : 078 ms QT Int : 374 ms P-R-T Axes : 076 049 068 degrees QTc Int : 428 ms Normal sinus rhythm Low voltage QRS Nonspecific T wave abnormality Abnormal ECG When compared with ECG of 08-JAN-2024 19:27, No significant change was found Assessment and Plan Assessment Anesthesia Assessment: Chart Reviewed Final Anesthetic Review Family History of Problems with Anesthesia: No History of Problems with Anesthesia: No
[2024-04-21 07:45] VITALS: BMI 22.9
[2024-04-23] VITALS (12 sets, daily range): BP systolic 93–127; BP diastolic 49–77; PULSE 94–109; RESP 16–20; TEMP 36.1–37; O2SAT 91–97; BMI 21.0
--- NOTE | ~2024-04-23 | XR_ITS ---
EXAMINATION: XR CHEST CLINICAL INFORMATION: Post bronchoscopy. Pleural effusion COMPARISON: Chest radiograph 04/05/2024 TECHNIQUE: Frontal view of the chest was obtained. FINDINGS: Heart size within normal limits. No evidence of CHF. The left lung demonstrates some midlung atelectasis without consolidation. No left pleural effusion. There is a small to moderate right-sided pleural effusion that may be slightly decreased in size when compared to the prior study. Right basilar atelectasis is seen associated with this. No pneumothorax. XR/XR chest 1V IMPRESSION: Small to moderate right-sided pleural effusion with associated atelectasis. No pneumothorax.
--- NOTE | 2024-04-23 11:04 | MHC.SHP ---
Pre-Procedural Eval Section A - 24 Hr Update-Section A only Date of Service: 04/23/24 Changes since office visit: Yes Cold of Flu in the past 2 weeks Section B - Complete if H&P > 30 days Chief Complaint: Pleural effusion in other conditions classified el Details of Present Illness: 63 y/o woman with RLL cancer s/p lobectomy now right sided pleural effusion and compressive atelectasis. S/p thoracentesis and now plan to undergo a bronchoscopy to assess the airway patency. Relevant Social History: Tobacco Use Present Medications: see Short Stay Collaborative assessment Medical History: Significant History History of Previous Operations: Relevant previous surgery/procedure and date(s) Allergies: Allergies Allergy/AdvReac Type Severity Reaction Status Date / Time codeine [CODEINE] Allergy Intermediate ITCHING Verified 04/23/24 10:25 hydrocodone [HYDROCODONE] Allergy Intermediate ITCHING Verified 04/23/24 10:25 diphenhydramine AdvReac Intermediate JITTERY Verified 04/23/24 10:25 [From BENADRYL] Review of Systems Sugical H&P ROS: Negative: Constitution, Cardiovascular, Neurological, Hem-Onc, Allergic/Immunologic, Musculoskeletal and Integumentary and Yes, Specify: Respiratory (cough, left sided discomfort), Gastrointestinal (abdominal discomfort) and Genitourinary (UTI) Exam Surgical H&P Exam: Normal: HEENT, Normal: Heart, Normal: Lungs, Normal: Extremities, Normal: Skin and Normal: Neurological and Significant Findings: Abdomen (tenderness) Plan Diagnosis/Plan: Change (Atelectasis, plan for bronchoscopy) I have reviewed the history and physical and performed a pertinent physical examination on my patient. No changes have occurred unless specified. Time Spent With Patient Time: Total time managing care of this patient today ____ minutes.
[2024-04-23] MEDS: Lactated Ringers 1,000 ML 100 ML IVCONT (11:07)
--- NOTE | 2024-04-23 11:12 | P.CONAN_ITS ---
[facility] Active Problems Active Problems: All Active Problems Complicated urinary tract infection (Acute) Recurrent UTI (Acute) Neurapraxia (Acute) Pleural effusion, right (Acute) Lower thoracic back pain (Acute) Vertebrogenic low back pain (Acute) Costal margin pain (Acute) COVID-19 (Acute) Status post lobectomy of lung (Acute) Hypertension (Acute) Preoperative cardiovascular examination (Acute) Lung cancer, lower lobe (Acute) COPD (chronic obstructive pulmonary disease) (Acute) Current smoker (Acute) Allergic rhinitis (Acute) Past Medical History Medical History Lower thoracic back pain History of ectopic 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 Allergic rhinitis COPD (chronic obstructive pulmonary disease) Current smoker History of herniated intervertebral disc Scoliosis IBS (irritable bowel syndrome) History of depression DJD (degenerative joint disease) Hypertension Hyperlipidemia Urinary incontinence PTSD (post-traumatic stress disorder) Anxiety Functional capacity: independent ambulation Patient : No Family History Family History Mother CHF (congestive heart failure) Maternal Uncle Coronary bypass graft mechanical complication Family history of problems with anesthesia: No Surgical History Surgical History Pleural effusion, right History of lobectomy of lung History of ovarian cystectomy History of biopsy History of cystoscopy History of dilation of urethra History of colonoscopy History of endoscopy History of lung biopsy History of bladder surgery History of blepharoplasty History of hysterectomy History of bladder suspension procedure History of Problems with Anesthesia: No Social History Social History Household Members: None Housing: Apartment Are you a primary director of healthcare systems to a significant other at home: No Do you presently have visiting nurse or other home services: Yes (NURSE) Alcohol intake: current Alcohol intake frequency: holidays/special occasions only Alcohol type: beer Patient Tobacco Use Status: Former Tobacco user Tobacco use type: Cigarette Cigarette Packs Per Day: 0.5 Years Smoked: 47 Second Hand Smoke Exposure: No Use of substances other than those prescribed or required for medical reasons: Yes Substance Use Type: Marijuana Substance Use Type Other:: edibles Substance Use Frequency: Occasionally Are you DNR?: No Advance Directives: No Advance Directives Information Provided: Yes Advance Directives Date on File: 12/25/23 service: No Meds Allergies Allergy/AdvReac Type Severity Reaction Status Date / Time codeine [CODEINE] Allergy Intermediate ITCHING Verified 04/23/24 10:25 hydrocodone [HYDROCODONE] Allergy Intermediate ITCHING Verified 04/23/24 10:25 diphenhydramine AdvReac Intermediate JITTERY Verified 04/23/24 10:25 [From BENADRYL] Active Medications: Current Medications Lactated Ringer's (Lr) 1,000 mls @ 100 mls/hr IVCONT .Q10H PAUL Last Admin: 04/23/24 11:07 Dose: 100 mls/hr Home Medications ?Medication ?Instructions ?Recorded ?Confirmed ?Last Taken ?Type aspirin 81 mg tablet,delayed 81 mg PO DAILY 12/21/20 04/23/24 03/20/24 History release atorvastatin 20 mg tablet 20 mg PO BEDTIME 12/21/20 04/23/24 09/03/23 History multivitamin 1 tab PO DAILY 12/21/20 04/23/24 03/20/24 History bupropion HCl 300 mg 24 hr tablet, 300 mg PO DAILY 02/14/23 04/23/24 03/20/24 History extended release fluticasone propionate 50 1 spray intranasal DAILY PRN 02/14/23 04/23/24 09/03/23 History mcg/actuation nasal Allergy Symptoms spray,suspension omeprazole 20 mg capsule,delayed 20 mg PO DAILY@0630 05/17/23 04/23/24 03/20/24 History release prazosin 5 mg capsule 5 mg PO BEDTIME 05/17/23 04/23/24 09/03/23 History albuterol sulfate 90 mcg/actuation 2 puff inhalation Q4H PRN wheezing 05/31/23 04/23/24 09/04/23 History aerosol inhaler (Ventolin HFA) topiramate 25 mg tablet 25 mg PO DAILY 05/31/23 04/23/24 03/20/24 History diazepam 10 mg tablet 10 mg PO BID Anxiety 01/20/24 04/23/24 04/23/24 08:00 History budesonide 180 mcg/actuation 2 inh inhalation BID 03/20/24 04/23/24 03/20/24 History breath activated powder inhaler (Pulmicort Flexhaler) buspirone 15 mg tablet 15 mg PO TID 03/20/24 04/23/24 03/20/24 History calcium polycarbophil 625 mg 625 mg PO DAILY@1200 03/20/24 04/23/24 Unknown History tablet (Fiber (calcium polycarbophil)) cholecalciferol (vitamin D3) 125 125 mcg PO DAILY 03/20/24 04/23/24 03/20/24 History mcg (5,000 unit) tablet escitalopram oxalate 10 mg tablet 10 mg PO DAILY 03/20/24 04/23/24 03/20/24 History fluticasone fur. 200 mcg-umeclid 1 ea inhalation DAILY 03/20/24 04/23/24 03/20/24 History 62.5 mcg-vilant 25 mcg inhalat.powder (Trelegy Ellipta) lidocaine 4 % topical patch 1 patch transdermal DAILY PRN Pain 03/20/24 04/23/24 Unknown History (Lidocaine Pain Relief) magnesium 250 mg tablet 250 mg PO DAILY@1200 03/20/24 04/23/24 Unknown History methocarbamol 750 mg tablet 750 mg PO QID PRN Pain 03/20/24 04/23/24 Unknown History ondansetron HCl 4 mg tablet 4 mg PO Q8H PRN Nausea 03/20/24 04/23/24 Unknown History tramadol 50 mg tablet 50 mg PO BID PRN Pain 03/20/24 04/23/24 Unknown History Exam Height,Weight and Vital Signs: Height 5 ft 1 in Weight 50.349 kg Last Vital Signs Temp 97.8 F 04/23/24 10:52 Pulse 94 04/23/24 10:52 Resp 16 04/23/24 10:52 BP 115/77 04/23/24 10:52 Pulse Ox 95 04/23/24 10:52 O2 Del Method Room Air 04/23/24 10:52 Assessment and Plan Final Anesthetic Review Family History of Problems with Anesthesia: No History of Problems with Anesthesia: No
--- NOTE | 2024-04-23 11:22 | HO.ANESPROP2 ---
[facility] Active Problems Active Problems: All Active Problems Complicated urinary tract infection (Acute) Recurrent UTI (Acute) Neurapraxia (Acute) Pleural effusion, right (Acute) Lower thoracic back pain (Acute) Vertebrogenic low back pain (Acute) Costal margin pain (Acute) COVID-19 (Acute) Status post lobectomy of lung (Acute) Hypertension (Acute) Preoperative cardiovascular examination (Acute) Lung cancer, lower lobe (Acute) COPD (chronic obstructive pulmonary disease) (Acute) Current smoker (Acute) Allergic rhinitis (Acute) Past Medical History Medical History Lower thoracic back pain History of ectopic 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 Allergic rhinitis COPD (chronic obstructive pulmonary disease) Current smoker History of herniated intervertebral disc Scoliosis IBS (irritable bowel syndrome) History of depression DJD (degenerative joint disease) Hypertension Hyperlipidemia Urinary incontinence PTSD (post-traumatic stress disorder) Anxiety Functional capacity: independent ambulation Family History Family History Mother CHF (congestive heart failure) Maternal Uncle Coronary bypass graft mechanical complication Family history of problems with anesthesia: No Surgical History Surgical History Pleural effusion, right History of lobectomy of lung History of ovarian cystectomy History of biopsy History of cystoscopy History of dilation of urethra History of colonoscopy History of endoscopy History of lung biopsy History of bladder surgery History of blepharoplasty History of hysterectomy History of bladder suspension procedure History of Problems with Anesthesia: No Social History Social History Household Members: None Housing: Apartment Are you a primary home health care provider to a significant other at home: No Do you presently have visiting nurse or other home services: Yes (NURSE) Alcohol intake: current Alcohol intake frequency: holidays/special occasions only Alcohol type: beer Patient Tobacco Use Status: Former Tobacco user Tobacco use type: Cigarette Cigarette Packs Per Day: 0.5 Years Smoked: 47 Second Hand Smoke Exposure: No Use of substances other than those prescribed or required for medical reasons: Yes Substance Use Type: Marijuana Substance Use Type Other:: edibles Substance Use Frequency: Occasionally Are you DNR?: No Advance Directives: No Advance Directives Information Provided: Yes Advance Directives Date on File: 12/25/23 Patient : No service: No Meds Allergies Allergy/AdvReac Type Severity Reaction Status Date / Time codeine [CODEINE] Allergy Intermediate ITCHING Verified 04/23/24 10:25 hydrocodone [HYDROCODONE] Allergy Intermediate ITCHING Verified 04/23/24 10:25 diphenhydramine AdvReac Intermediate JITTERY Verified 04/23/24 10:25 [From BENADRYL] Active Medications: Current Medications Lactated Ringer's (Lr) 1,000 mls @ 100 mls/hr IVCONT .Q10H PAUL Last Admin: 04/23/24 11:07 Dose: 100 mls/hr Home Medications ?Medication ?Instructions ?Recorded ?Confirmed ?Last Taken ?Type aspirin 81 mg tablet,delayed 81 mg PO DAILY 12/21/20 04/23/24 03/20/24 History release atorvastatin 20 mg tablet 20 mg PO BEDTIME 12/21/20 04/23/24 09/03/23 History multivitamin 1 tab PO DAILY 12/21/20 04/23/24 03/20/24 History bupropion HCl 300 mg 24 hr tablet, 300 mg PO DAILY 02/14/23 04/23/24 03/20/24 History extended release fluticasone propionate 50 1 spray intranasal DAILY PRN 02/14/23 04/23/24 09/03/23 History mcg/actuation nasal Allergy Symptoms spray,suspension omeprazole 20 mg capsule,delayed 20 mg PO DAILY@0630 05/17/23 04/23/24 03/20/24 History release prazosin 5 mg capsule 5 mg PO BEDTIME 05/17/23 04/23/24 09/03/23 History albuterol sulfate 90 mcg/actuation 2 puff inhalation Q4H PRN wheezing 05/31/23 04/23/24 09/04/23 History aerosol inhaler (Ventolin HFA) topiramate 25 mg tablet 25 mg PO DAILY 05/31/23 04/23/24 03/20/24 History diazepam 10 mg tablet 10 mg PO BID Anxiety 01/20/24 04/23/24 04/23/24 08:00 History budesonide 180 mcg/actuation 2 inh inhalation BID 03/20/24 04/23/24 03/20/24 History breath activated powder inhaler (Pulmicort Flexhaler) buspirone 15 mg tablet 15 mg PO TID 03/20/24 04/23/24 03/20/24 History calcium polycarbophil 625 mg 625 mg PO DAILY@1200 03/20/24 04/23/24 Unknown History tablet (Fiber (calcium polycarbophil)) cholecalciferol (vitamin D3) 125 125 mcg PO DAILY 03/20/24 04/23/24 03/20/24 History mcg (5,000 unit) tablet escitalopram oxalate 10 mg tablet 10 mg PO DAILY 03/20/24 04/23/24 03/20/24 History fluticasone fur. 200 mcg-umeclid 1 ea inhalation DAILY 03/20/24 04/23/24 03/20/24 History 62.5 mcg-vilant 25 mcg inhalat.powder (Trelegy Ellipta) lidocaine 4 % topical patch 1 patch transdermal DAILY PRN Pain 03/20/24 04/23/24 Unknown History (Lidocaine Pain Relief) magnesium 250 mg tablet 250 mg PO DAILY@1200 03/20/24 04/23/24 Unknown History methocarbamol 750 mg tablet 750 mg PO QID PRN Pain 03/20/24 04/23/24 Unknown History ondansetron HCl 4 mg tablet 4 mg PO Q8H PRN Nausea 03/20/24 04/23/24 Unknown History tramadol 50 mg tablet 50 mg PO BID PRN Pain 03/20/24 04/23/24 Unknown History Exam Height,Weight and Vital Signs: Height 5 ft 1 in Weight 50.349 kg Last Vital Signs Temp 97.8 F 04/23/24 10:52 Pulse 94 04/23/24 10:52 Resp 16 04/23/24 10:52 BP 115/77 04/23/24 10:52 Pulse Ox 95 04/23/24 10:52 O2 Del Method Room Air 04/23/24 10:52 Airway Mallampati Class: II TM Dist: >3cm Neck ROM: Full Heart: RRR Lungs: CTA Assessment and Plan Assessment Anesthesia Assessment: Anesthesia Plan Discussed and Smoking Cess. Discussed Final Anesthetic Review Family History of Problems with Anesthesia: No History of Problems with Anesthesia: No NPO: Yes ASA Class: III Final Preanesthetic Review: Meds/Allgs Chart Reviewed, Consent Obtained/Reviewed and Anes Risks/Benef Reviewed Patient Risk: Intermediate Procedure Risk: Intermediate Anesthetic Plan Anesthetic Plan: GA Disposition: Standard PACU
--- NOTE | 2024-04-27 21:26 | OP_ITS ---
DATE OF SERVICE: 04/23/2024 SURGEON: Micky Murguia MD PREOPERATIVE DIAGNOSIS: POSTOPERATIVE DIAGNOSIS: PROCEDURE PERFORMED: Bronchoscopy. ESTIMATED BLOOD LOSS: COMPLICATIONS: ANESTHESIA: General endotracheal anesthesia provided. ASSISTANTS: None. SPECIMENS: PREOPERATIVE DIAGNOSES: Atelectasis, history of cancer, and pleural effusion. POSTOPERATIVE DIAGNOSES: Mucus plugging, atelectasis, abnormal mucosa. ASA CLASSIFICATION: 3. PROCEDURE IN DETAIL: After the patient was adequately sedated, a flexible digital bronchoscope was inserted via the ET tube all the way to the level of the main eliza. Main eliza appeared to be normal. After instilling lidocaine, the bronchoscope was navigated through the entire tracheobronchial tree that was examined up to the subsegmental level. The patient did have significant mucous secretions, primarily in the bronchus intermedius. In addition to that, the patient also has some irregular mucosa in the right middle lobe. In right lower lobe, there was evidence of the surgery with some stumps; therefore, I could not further visualize. Using a cytologic brush that was introduced into the right lower lobe stumps, the specimens were sent for cytology. Bronchial washings were collected bilaterally both for cytology and Gram staining culture. The bronchoscope was navigated to the right middle lobe, where the abnormal-looking bronchial mucosa and using forceps, couple of biopsies were collected and sent in formalin to the pathologist. Some bleeding noted, but stopped with good hemostasis. The bronchoscope was then removed. The total endoscopic time approximately 15 minutes. The patient tolerated the procedure well. Vital signs were stable. Minimal bleeding about mL stopped with good hemostasis with ice saline. No evidence of any other complications. Micky Murguia MD MR/MODL / [id number]
--- NOTE | 2024-04-28 09:41 | PM.OP ---
Brief Operative Note Date of Service: 04/23/24 Pre-op diagnosis: Atelectasis Post-op diagnosis: other (atelectasis, mucus plugs, bronchitis, RML endobronchial changes) Procedure: Bronchoscopy with washings, brushings, biopsies Implants: Surgeon: Micky Murguia MD Anesthesia: GETA Was an Healthcare Translator used for this Procedure?: No Estimated blood loss (mL): 1 Pathology: other (RML endobronchial biopsies) Condition: stable Disposition: same day
== END 2024-04-23 15:25 | disposition home or self-care (01) ==
PROVIDERS: Visit Provider Hospitalist
PROC: 0BJ08ZZ Inspection of Tracheobronchial Tree, Via Natural or Artificial Opening Endoscopic (ICD-10-PCS; CPT 31622; principal; 2024-04-23 11:40)
DX: J98.4 Other disorders of lung (principal); J91.8 Pleural effusion in other conditions classified elsewhere; J98.11 Atelectasis; J44.9 Chronic obstructive pulmonary disease, unspecified; Z85.118 Personal history of other malignant neoplasm of bronchus and lung; Z90.2 Acquired absence of lung [part of]; Z87.891 Personal history of nicotine dependence; I10 Essential (primary) hypertension; M54.6 Pain in thoracic spine; E78.5 Hyperlipidemia, unspecified; F43.10 Post-traumatic stress disorder, unspecified; F41.9 Anxiety disorder, unspecified; Z79.82 Long term (current) use of aspirin; Z79.51 Long term (current) use of inhaled steroids; Z79.899 Other long term (current) drug therapy; Z88.5 Allergy status to narcotic agent; Z88.8 Allergy status to other drugs, medicaments and biological substances; Z98.890 Other specified postprocedural states
CPT/HCPCS: 31625; 31623; 71045; 87070; 87205; 88112; 88305; J0171; J2704; J3010

== ENCOUNTER → 2024-04-23 09:57 | Outpatient (BNV) | payer MEDICARE, MEDICAID, SELFPAY | PROVIDERS: Visit Provider Hospitalist | DX: J98.11 Atelectasis (principal); J90 Pleural effusion, not elsewhere classified; Z85.118 Personal history of other malignant neoplasm of bronchus and lung | CPT/HCPCS: 31623; 31625 ==

== ENCOUNTER 2024-04-29 14:36 | Outpatient (AMB) | payer MEDICARE, MEDICAID, SELFPAY ==
[2024-04-29 14:41] VITALS: BP 94/70; PULSE 116; O2SAT 94; BMI 21.3
--- NOTE | 2024-04-29 14:41 | A.OFFVIS_ITS ---
Vital Signs 04/29/24 14:41 Height 5 ft 1 in Weight 113 lb BMI 21.3 BP 94/70 Blood Pressure Location Lt brachial Position Sitting Pulse 116 H Pulse Source Pulse Oximeter Pulse Oximetry (%) 94 Oxygen Delivery Method Room Air Intake Visit Reasons: f/u brochoscopy Intake Note: pt is here for follow up and here for results, she states she gets winded. Narcotics And Vice Detective Required: No Allergies codeine [CODEINE] Allergy (Intermediate, Verified 04/29/24 14:50) ITCHING hydrocodone [HYDROCODONE] Allergy (Intermediate, Verified 04/29/24 14:50) ITCHING diphenhydramine [From BENADRYL] Adverse Reaction (Intermediate, Verified 04/29/24 14:50) JITTERY Medication List - Last Reconciled 04/29/24 by Otto Cowan MD albuterol sulfate 90 mcg/actuation (Ventolin HFA) 2 puffs inhalation Q4H PRN aspirin 81 mg PO DAILY atorvastatin 20 mg PO BEDTIME budesonide 180 mcg/actuation (Pulmicort Flexhaler) 2 inhalations inhalation BID bupropion HCl XL 300 mg PO DAILY buspirone 15 mg PO TID calcium polycarbophil (Fiber (calcium polycarbophil)) 625 mg PO DAILY@1200 cholecalciferol (vitamin D3) 125 mcg PO DAILY diazepam 10 mg PO BID escitalopram oxalate 10 mg PO DAILY estradiol 0.01%(0.1mg/gram) pea sized amount to urethra daily for one month and three times a week thereafter. 90 days fluticasone propionate 50 mcg/actuation 1 spray intranasal DAILY PRN [id number] 200-62.5-25 mcg (Trelegy Ellipta) 1 ea inhalation DAILY gabapentin 300 mg PO TID lidocaine 4% (Lidocaine Pain Relief) 1 patch See Protocol transdermal DAILY PRN magnesium 250 mg PO DAILY@1200 methocarbamol 750 mg PO QID PRN multivitamin 1 tab PO DAILY omeprazole 20 mg PO DAILY@0630 ondansetron HCl 4 mg PO Q8H PRN prazosin 5 mg PO BEDTIME sulfamethoxazole-trimethoprim 800-160 mg (Bactrim DS) 1 tab PO BID 10 days topiramate 25 mg PO DAILY tramadol 50 mg PO BID PRN Do you need a note to return to daycare/school/sports/work: No HPI HPI f/u brochoscopy: Details: Jesusita is 63 years old female of a thin build, lifelong smoker, still smoking. About half pack of cigarettes a day She has advanced chronic obstructive pulmonary disease. 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 She has been having neuropathic intercostal pain in the right lower thoracic area, after the VATS thoracostomy. She has also developed some bulging of the intercostal muscle and right upper quadrant abdominal muscle. Her main concern has been ongoing pain, which is gradually coming under control. She is on gabapentin 300 mg t.i.d. and uses Tylenol p.r.n.. Recently she had thoracenteses and drainage of the fluid from right lower chest, it was negative for malignancy. She also underwent bronchoscopy last week, some mucus plugs were suctioned out , Biopsy of right middle lobe bronchus . Performed Luckily the results indicate no malignant cells, She did have mucus plugging which was . Suctioned out Her anxiety level is relatively less. Her son who lives with her, is trying to feed her well, and provide. Encouragement Currently she is being treated for recurrent UTI with a course of Bactrim DS. [facility] Medical History Lower thoracic back pain History of ectopic 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 Allergic rhinitis COPD (chronic obstructive pulmonary disease) Current smoker History of herniated intervertebral disc Scoliosis IBS (irritable bowel syndrome) History of depression DJD (degenerative joint disease) Hypertension Hyperlipidemia Urinary incontinence PTSD (post-traumatic stress disorder) Anxiety Surgical History Pleural effusion, right History of lobectomy of lung History of ovarian cystectomy History of biopsy History of cystoscopy History of dilation of urethra History of colonoscopy History of endoscopy History of lung biopsy History of bladder surgery History of blepharoplasty History of hysterectomy History of bladder suspension procedure Family History Mother CHF (congestive heart failure) Maternal Uncle Coronary bypass graft mechanical complication Social History Household Members: None Housing: Apartment Are you a primary critical care transport nurse to a significant other at home: No Do you presently have visiting nurse or other home services: Yes (NURSE) Alcohol intake: current Alcohol intake frequency: holidays/special occasions only Alcohol type: beer Patient Tobacco Use Status: Former Tobacco user Tobacco use type: Cigarette Cigarette Packs Per Day: 0.5 Years Smoked: 47 Second Hand Smoke Exposure: No Substance Use Type: Marijuana Advance Directives Date on File: 12/25/23 service: No Review of Systems Const Details: PATIENT IS VERY ANXIOUS BUT PHYSICALLY SHE IS NOT IN ANY DISTRESS. All systems reviewed & are unremarkable except as noted in HPI and below Eyes Reports no additional complaints ENT Reports nasal congestion (Mild off and on) Card Denies irregular heart rhythm and Denies leg edema Resp Reports as per HPI GI Reports no additional complaints Reports no additional complaints Musc Reports back pain (Mild off and on) Skin/Breast Reports system reviewed and no additional complaints, except as documented Neuro Reports no additional complaints Psych Reports anxiety and Reports depression Endo Reports no additional complaints Baljinder/Lymph Reports no additional complaints Aller/Immun Reports no additional complaints Physical Exam Vital Signs: Last Vital Signs Pulse 116 H 04/29/24 14:41 BP 94/70 04/29/24 14:41 Pulse Ox 94 04/29/24 14:41 Oxygen Delivery Method Room Air 04/29/24 14:41 BMI result Body Mass Index 21.3 Const General: comfortable (EXCEPT FOR PAIN OVER THE RIGHT LOWER THORACIC AREA), no acute distress, alert and awake Orientation/consciousness: patient oriented x3 HEENT Head: Yes normal to inspection General nose exam: No nasal polyps present and No nasal discharge present Face and sinus: Yes sinuses nontender Mouth: oropharynx normal Throat: Yes posterior oropharynx normal Eyes General: appearance normal, both eyes and all related structures Neck Neck: Yes normal visual inspection, Yes no lymphadenopathy, Yes trachea midline and Yes no JVD Thyroid: Thyroid normal Chest Chest palpation & inspection: normal inspection of the chest, normal palpation of entire chest wall and tenderness (She does have local tenderness and hyperesthesia over right lower rib cage) Resp Other: Breath sounds are diminished over the right lower lobe area. Rest of the lungs are clear Cardio Palpation: normal PMI Rate: regular rate Rhythm: regular rhythm Heart sounds: no gallops and no murmurs Peripheral pulses: Peripheral pulses 2+ throughout GI Palpation (GI): Soft to palpation, Tenderness to palpation present (GI) (There is a mild bulge and tenderness on pressure in right upper quadrant .), No hepatosplenomegaly present and no masses Auscultation: normal bowel sounds Back/Spine/Pelvis Thoracic/Lumbar Spine: thoracic and lumbar spine normal to inspection Skin General skin exam: no rashes or lesions noted Neuro General: patient oriented x3 and no focal motor deficits Cranial nerves: Yes CN's II-XII intact bilaterally Extrem General: Yes normal to inspection, Yes no clubbing, cyanosis or edema and Yes no calf tenderness Psych Appearance: grossly normal and well kempt Speech and movement: Normal speech and movement present Affect: Anxious affect present Results Reviewed Results Reviewed: Results of bronchoscopy findings, and also cytologic exam, discussed with her. Given her lot of encouragement, and telling her that the biopsy as well as bronchial washings are negative for malignant cells. .This is quite encouraging Assessment & Plan Assessment & Plan (1) COPD (chronic obstructive pulmonary disease): Comment: (COPD, MODERATELY SEVERE , CONTROLLED AND STABLE. Code(s): J44.9 - Chronic obstructive pulmonary disease, unspecified Category: Medical Plan: Continue to use Trelegy Ellipta 1 inhalation daily Ventolin 2 puffs Q 4-6 hours p.r.n. (2) Current smoker: Comment: (current smoker - osnet 17yo, 1ppd x 45yrs, 40pyh) At present she is still smoking about 10 cigarettes a day . Code(s): F17.200 - Nicotine dependence, unspecified, uncomplicated Category: Social Hx Plan: Discussed with her at length, advised to quit smoking completely, otherwise she will be at risk of recurrence of lung cancer. Does not want any extra help She is already on buspirone 15 mg t.i.d. (3) Lung cancer, lower lobe: Comment: Adeno carcinoma right lower lobe, localized. SUCCESSFULLY TREATED WITH VATS ASSISTED RIGHT LOWER LOBECTOMY BY DR. POST . CT, SCAN OF THE ABDOMEN AT [facility] SHOWED A MODERATE-SIZED PLEURAL EFFUSION, S/O THORACENTESES, WITH RESOLUTION OF THE FUSION, FLUID NEGATIVE FOR MALIGNANT CELLS. Code(s): C34.30 - Malignant neoplasm of lower lobe, unspecified bronchus or lung Category: Surgical Plan: PATIENT EXPLAINED ABOUT THE FINDINGS OF PLEURAL FLUID, TOLD HER THAT SHE SHOULD FEEL WILEY THAT IT WAS NEGATIVE FOR MALIGNANT CELLS. (4) Status post lobectomy of lung: Comment: VATS right lower lobectomy, mediastinal lymph node sampling 09/04/23 PATIENT HAS RECOVERED WELL EXCEPT FOR DISCOMFORT OVER THE RIGHT LOWER RIBCAGE AREA. Code(s): Z90.2 - Acquired absence of lung [part of] Category: Surgical Plan: I THINK SHE HAS RECOVERED FAIRLY WELL FROM THE RIGHT LOWER LOBECTOMY, PLEURAL EFFUSION WAS SECONDARY TO THE SURGERY. AND RESOLVED AFTER THORACENTESES (5) Lower thoracic back pain: Comment: SHE HAS CONSIDERABLE RIGHT LOWER INTERCOSTAL PAIN RADIATING TO THE FRONT. THIS IS A NEUROPATHIC TYPE OF PAIN. THE PAIN IS SUBSIDING SLOWLY, Code(s): M54.6 - Pain in thoracic spine Category: Medical Plan: GABAPENTIN 300 MG T.I.D. DIAZEPAM 10 MG B.I.D. TRAMADOL 50 MG B.I.D. P.R.N., NOT TAKING MUCH AT THIS TIME Coding Level of Care Code Est Pt Level 4 (84483) Diagnoses COPD (chronic obstructive pulmonary disease) J44.9 Current smoker F17.200 Lung cancer, lower lobe C34.30 Status post lobectomy of lung Z90.2 Lower thoracic back pain M54.6
== END 2024-04-29 15:06 | disposition home or self-care (01) ==
PROVIDERS: PCP Internal Medicine; Visit Provider Internal Medicine
DX: J44.9 Chronic obstructive pulmonary disease, unspecified (principal); F17.200 Nicotine dependence, unspecified, uncomplicated; C34.30 Malignant neoplasm of lower lobe, unspecified bronchus or lung; Z90.2 Acquired absence of lung [part of]; M54.6 Pain in thoracic spine
CPT/HCPCS: 99214

== ENCOUNTER → 2024-04-29 14:36 | Outpatient (BNVA) | payer MEDICARE, MEDICAID, SELFPAY | PROVIDERS: PCP Internal Medicine; Visit Provider Internal Medicine | DX: J44.9 Chronic obstructive pulmonary disease, unspecified (principal); C34.30 Malignant neoplasm of lower lobe, unspecified bronchus or lung; F17.210 Nicotine dependence, cigarettes, uncomplicated; M54.6 Pain in thoracic spine; Z90.2 Acquired absence of lung [part of] | CPT/HCPCS: 99212 ==

== ENCOUNTER 2024-05-18 12:27 | Outpatient (REF) | payer MEDICARE, MEDICAID, SELFPAY ==
[2024-05-18 13:45] LABS: Hematocrit 37.8 % (37.0-47.0); Hemoglobin 12.5 g/dl (12.0-16.0); Mean Corpuscular HGB Conc 33.1 g/dl (31.0-35.0); Mean Corpuscular Hemoglobin 31.9 pg (27.0-33.0); Mean Corpuscular Volume 96.4 fL (80.0-98.0); Mean Platelet Volume 8.6 fL (9.4-12.3); Platelet Count 536 X10*3/uL (160-400); Red Blood Count 3.92 X10*6/uL (4.20-5.50); Red Cell Distribution Width 13.4 % (11.0-16.0); White Blood Count 9.5 X10*3/uL (4.8-10.8)
[2024-05-18 14:27] LABS: Alanine Aminotransferase 19 U/L (0-31); Albumin Level 3.9 g/dL (3.5-5.0); Alkaline Phosphatase 103 U/L (39-117); Aspartate Amino Transferase 23 U/L (5-31); Bilirubin Direct 0.2 mg/dL (0.0-0.5); Bilirubin Total 0.4 mg/dL (0.0-1.0); Lipase 18 U/L (8-78); Total Protein 7.3 g/dL (6.5-8.0)
== END 2024-05-18 12:28 | disposition home or self-care (01) ==
LOC: HO.LAB 12:27
PROVIDERS: PCP Internal Medicine; Visit Provider Internal Medicine Gastroenterology
DX: R10.9 Unspecified abdominal pain (principal)
CPT/HCPCS: 36415; 80076; 83690; 85027